=== PATIENT | male | born 1945 | race Caucasian/White ===

== ENCOUNTER 2018-12-13 08:37 | Inpatient (IN) | payer MEDICARE, OTHER ==
[~2018-12-13] VITALS: Ht 165.1 cm; Wt 81.7 kg
[2018-12-13] VITALS (35 sets, daily range): BP systolic 124–191; BP diastolic 59–117; PULSE 68–79; RESP 16–25; Ht 165.1 cm; Wt 81.7 kg
[2018-12-13] MEDS ORDERED: IODIXANOL LOCM 100 ML BTL ONE (11:04)
[2018-12-13] MEDS ORDERED: LIDOCAINE 1% (MDV) 20 ML INJ ONE (11:04)
[2018-12-13] MEDS ORDERED: HEPARIN 1000 UNITS/ML 10 ML INJ ONE (11:04)
[2018-12-13] MEDS ORDERED: FENTAnyl 50 MCG/ML VIAL ONE (11:05)
[2018-12-13] MEDS ORDERED: NITROGLYCERIN (IC) 100 MCG/ML INJ ONE (11:05)
[2018-12-13] MEDS ORDERED: MIDAZOLAM 1 MG/ML 2 ML INJ ONE (11:05)
[2018-12-13] MEDS ORDERED: VERAPAMIL 5 MG INJ ONE (11:05)
[2018-12-13] MEDS ORDERED: BIVALIRUDIN 250MG /NS 50 ML 50 ML IVPB ONE (12:06)
[2018-12-13] MEDS ORDERED: CLOPIDOGREL 300 MG TAB ONE (12:14)
--- NOTE | 2018-12-13 12:59 | OPR ---
Date/Time of Note Date/Time of Note DATE: 12/13/18 TIME: 12:44 Operative Report Procedure Date: Dec 13, 2018 Preoperative Diagnosis NSTEMI, CHF Postoperative Diagnosis same Operation/Procedure Performed see details Surgeon see signature line History Tutor none Anesthesia Type: moderate sedation Estimated Blood Loss: minimal Transfusion none Specimen none Grafts/Implants none Complications none Procedure Description Procedure Date:12/13/18 Acute Care Physical Therapist/surgeon: Juan Antonio Oleary MD. Procedures Performed: 1)Left heart catheterization with selective left and right coronary angiography. 2)iFR of the mid LAD (abnormal at 0.88, 0.89, 0.89) Pre-operative Diagnosis:NSTEMI, dyspnea, CHF Post-operative Diagnosis:same Indications: 73 yo M with DM, ESRD on HD, chronic diastolic CHF, CAD s/p PCI 10+ yrs ago, HTN, who presented with severe exertional dyspnea out of proportion to his CHF. He had identical symptoms prior to his previous stent which resolved. Trops mildly elevated 0.08 but with high concern for unstable anginal equivalent, decision was made to proceed with cardiac cath Description of Procedure: After informed consent, the patient was brought to the cardiac catheterization lab. The procedure site was prepped and draped in usual manner. The patient was not premedicated. 2 mL lidocaine was injected into the right wrist. Next using the posterior wall technique, the 6/5 nicaraguan sheath was inserted into the right radial artery. Next using the JL3.5 and JR4, selective angiography of the left and right coronary arteries were obtained. Hemodynamics were obtained with the JR catheter. The decision was made to proceed with iFR of the LAD. If positive, CABG eval. If negative, PCI of the RCA. A 6 nicaraguan FL3 guide was used. Due to ostial LM disease, the iFR wire was equalized in the aorta. The guide was then engaged and the wire advanced across the lesion. iFR was obtained x 3 showing 0.88, 0.89, 0.89 which are all positive (abnormal) Next all equipment was removed and hemostasis was achieved by TR band Findings: Anatomy/Hemodynamics: Left main:ostial 30% LAD: prox-mid stent with diffuse up to 50-60% ISR Diagonal:ostial 95% Circumflex:mid 50-60% at OM bifurcation Obtuse marginal:ostial 50-60%, bifurcates with inferior branch 70% prox RCA:mid long diffuse up to 70% disease PDA:ostial 30% PLV:distal 40-50% LV angiography:not done LV-Ao: no gradient LVEDP:20mmHg Contrast used:80 mL Fluoroscopy time:8.9 min Medications used: Radial cocktail: heparin 2000 units, NTG 200mcg, verapamil 2.5mg Angiomax Equipment used: 6 nicaraguan JL 3.5 guide iFR wire Estimated blood loss<10 mL. Specimen: none Grafts/implants: none Complications: none Assessment: NSTEMI/CAD: mild trops but symptoms concerning for unstable angina. Cath shows multivessel disease including iFR positive LAD in setting of DM which is ap propriate for CABG Acute on chronic diastolic CHF: EF preserved. Now euvolemic after HD Anemia: Hgb baseline 8-9. On admission, down to 7. Transfused one unit, now 8.3. No bleeding, stool occult negative. Seen by GI at [facility] without plan for procedure. Likely from renal disease ESRD on HD HTN -admit for CABG eval. Dr. Gomes aware -continue ASA, lipitor -metoprolol 25mg BID, titrate as tolerated -hydralazine 100mg TID, isordil 20mg TID JUAN ANTONIO OLEARY Dec 13, 2018 12:59
--- NOTE | 2018-12-13 13:03 | CONS ---
Assessment/Plan Assessment/Plan Hospital Course (Demo Recall) NSTEMI/CAD: mild trops but symptoms concerning for unstable angina. Cath shows multivessel disease including iFR positive LAD in setting of DM which is appropriate for CABG Acute on chronic diastolic CHF: EF preserved. Now euvolemic after HD Anemia: Hgb baseline 8-9. On admission, down to 7. Transfused one unit, now 8.3. No bleeding, stool occult negative. Seen by GI at [facility] without plan for procedure. Likely from renal disease ESRD on HD HTN -admit for CABG eval. Dr. Gomes aware -continue ASA, lipitor -metoprolol 25mg BID, titrate as tolerated -hydralazine 100mg TID, isordil 20mg TID Consultation Date/Type/Reason Admit Date/Time Dec 13, 2018 at 12:40 Initial Consult Date Date/Time of Note DATE: 12/13/18 TIME: 13:02 24 HR Interval Summary Free Text/Dictation s/p cath as detailed in separate note. No issues post procedure. Exam/Review of Systems Exam Vitals Vital Signs Date Temp Pulse Resp B/P (MAP) Pulse Ox O2 O2 Flow FiO2 Time Delivery Rate 12/13/18 98.5 70 16 146/66 97 Room Air 09:15 (92) Constitutional: alert, oriented Psych: no complaints, nl mood/affect Head: normocephalic, atraumatic Neck: No jvd Respiratory: diminished breath sounds; No clear to auscultation Cardiovascular: regular rate and rhythm, edema (trace), systolic murmur (2/6 EDNA) Gastrointestinal: soft, non-tender; No distended Neurological: nl mental status, nl speech Results Results 24hrs Laboratory Tests Test 12/13/18 10:09 Bedside Glucose 122 Medications Medication Current Medications Miscellaneous Information (* Miscellaneous Pharmacy Order) HOLD all METFORMIN ... ONCE ONCE XX ; Start 12/13/18 at 13:00; Stop 12/13/18 at 13:01; Status UNV Metoprolol Tartrate (Lopressor) 25 mg BID PO ; Start 12/13/18 at 21:00; Status UNV Hydralazine HCl (Apresoline) 100 mg QID PO ; Start 12/13/18 at 13:00; Status UNV Isosorbide Dinitrate (Isordil) 20 mg TID PO ; Start 12/13/18 at 13:00; Status UNV Hydralazine HCl (Apresoline) 10 mg Q6 IV ; Start 12/13/18 at 18:00; Status UNV Hydralazine HCl (Apresoline) 10 mg Q6H PRN PO SBP >160; Start 12/13/18 at 13:00; Status UNV Aspirin (Aspirin) 81 mg DAILY PO ; Start 12/13/18 at 13:00; Status UNV Atorvastatin Calcium (Lipitor) 80 mg HS PO ; Start 12/13/18 at 21:00; Status UNV SAGRARIO POLLOCK Dec 13, 2018 13:03
[2018-12-13] MEDS ORDERED: hydrALAzine 20 MG INJ IV PRN ×2 (13:30→18:00)
[2018-12-13] MEDS: ISOSORBIDE DINITRATE 20 MG TAB PO SCH (13:52)
[2018-12-13] MEDS ORDERED: GLUCAGON 1 MG INJ IM PRN (17:00)
[2018-12-13] MEDS ORDERED: GLUCOSE GEL 15 GRAM TUBE BUCCAL PRN (17:00)
[2018-12-13] MEDS: CEFAZOLIN 2 GM/50 ML (PMX) 50 ML IVPB ONE (17:00)
[2018-12-13] MEDS ORDERED: DEXTROSE 50% 50 ML SYRINGE IV PRN ×2 (17:00)
[2018-12-13] MEDS ORDERED: GLUCOSE GEL 15 GRAM TUBE PO PRN ×2 (17:00)
--- NOTE | 2018-12-13 17:11 | CONS ---
Assessment/Plan Assessment/Plan Assessment/Plan (Daily) 73 year old male with severe 3v CAD who will need a CABG. I explained via an operations and maintenance manager the risks, benefits and alternatives of surgery. The risks are but not limited to bleeding, infection, stroke, DC, respiratory failure and . He understand and agrees. Check carotids and plan for surgery Tuesday. Consultation Date/Type/Reason Admit Date/Time Dec 13, 2018 at 12:40 Date of Consultation: Dec 13, [address] SURGERY Reason for Consultation EVAL FOR CABG Requesting Provider: SAGRARIO POLLOCK Date/Time of Note DATE: 12/13/18 TIME: 17:05 Hx of Present Illness 73 year old male with ESRF and CAD s/p PCI of LAD a few years ago admitted to [facility] with SOB and ruled in for NSTEMI. He underwent cath today which shows 3V CAD. We are asked to see for CABG. Constitutional: No no complaints, No improved, No chills, No diaphoresis, No disoriented, No febrile, No poor po, No requiring IVF, No requiring O2, No other Eyes: No no complaints, No pain, No discharge, No redness, No visual change, No other ENT: No no complaints, No bleeding, No pain, No congestion, No discharge, No dysphagia, No sore throat, No other Respiratory: cough, shortness of breath Cardiovascular: chest pain Gastrointestinal: No no complaints, No pain, No blood, No constipation, No decreased appetite, No diarrhea, No flatus, No nausea, No passing stool, No vomiting, No other Genitourinary: No no complaints, No bleeding, No dysuria, No discharge, No flank pain, No hematuria, No other Musculoskeletal: No no complaints, No back pain, No bone/joint pain, No neck pain, No restricted range of motion, No swelling, No other Skin: No no complaints, No bruising, No erythema, No laceration, No pruritis, No rash, No skin lesions, No other Neurologic: No no complaints, No confusion, No dizziness, No focal-weakness, No headache, No syncope, No seizure, No other Endocrine: No no complaints, No polyuria, No polydypsia, No dry skin, No temp intolerance, No other Lymphatic: No no complaints, No adenopathy, No tender nodes, No lymphadema, No other Psychological: No no complaints, No nl mood/affect, No anxiety, No confusion, No depression, No suicidal, No other Immunologic: No no complaints, No immunodeficiency, No pruritis, No rhinitis, No urticaria, No other Past Medical History Medical History: coronary artery disease, diabetes, high cholesterol, hypertension Medications Current Medications Miscellaneous Information (* Miscellaneous Pharmacy Order) HOLD all METFORMIN ... ONCE XX ; Start 12/13/18 at 13:00; Stop 12/15/18 at 12:59 Metoprolol Tartrate (Lopressor) 25 mg BID PO ; Start 12/13/18 at 21:00 Isosorbide Dinitrate (Isordil) 20 mg TID PO Last administered on 12/13/18at 13:52; Admin Dose 20 MG; Start 12/13/18 at 13:00 Aspirin (Aspirin) 81 mg DAILY PO ; Start 12/13/18 at 13:00 Atorvastatin Calcium (Lipitor) 80 mg HS PO ; Start 12/13/18 at 21:00 Hydralazine HCl (Apresoline) 100 mg TID PO Last administered on 12/13/18at 13:51; Admin Dose 100 MG; Start 12/13/18 at 13:00 Hydralazine HCl (Apresoline) 10 mg Q6 PRN IV ELEVATED BLOOD PRESSURE; Start 12/13/18 at 18:00 Miscellaneous Information (* Miscellaneous Pharmacy Order) Discontinue all pre vi... ONCE ONCE XX ; Start 12/13/18 at 18:00; Stop 12/13/18 at 18:01 Diagnostic Test (Pha) (Accu-Chek) 1 ea 02 XX ; Start 12/14/18 at 02:00 Insulin Aspart (Novolog Insulin Pen) NOVOLOG *MILD* ALGORITHM WITH MEALS BEDTIME SC ; Start 12/13/18 at 18:00 Miscellaneous Information 1 ea NOTE XX ; Start 12/13/18 at 17:00 Glucose (Glutose) 15 gm Q15M PRN PO DECREASED GLUCOSE; Start 12/13/18 at 17:00 Glucose (Glutose) 22.5 gm Q15M PRN PO DECREASED GLUCOSE; Start 12/13/18 at 17:00 Dextrose (D50w Syringe) 25 ml Q15M PRN IV DECREASED GLUCOSE; Start 12/13/18 at 17:00 Dextrose (D50w Syringe) 50 ml Q15M PRN IV DECREASED GLUCOSE; Start 12/13/18 at 17:00 Glucagon (Glucagen) 1 mg Q15M PRN IM DECREASED GLUCOSE; Start 12/13/18 at 17:00 Glucose (Glutose) 15 gm Q15M PRN BUCCAL DECREASED GLUCOSE; Start 12/13/18 at 17:00 Cefazolin Sodium/ Dextrose 50 ml @ 100 mls/hr PRE-OP ONCE IVPB ; Start 12/13/18 at 17:00; Stop 12/13/18 at 17:29; Status UNV Allergies: Coded Allergies: No Known Allergy (Unverified , 12/13/18) Past Surgical History permacath, and LUE fistula Family History Significant Family History: no pertinent family hx Social History Alcohol Use: none Smoking Status: Never smoker Drug Use: none Exam/Review of Systems Exam Vitals Vital Signs Date Temp Pulse Resp B/P (MAP) Pulse Ox O2 O2 Flow FiO2 Time Delivery Rate 12/13/18 73 20 150/69 99 Nasal 16:45 (96) Cannula 12/13/18 98.2 16:20 Constitutional: alert, oriented, well developed Psych: no complaints, nl mood/affect Head: normocephalic, atraumatic Eyes: nl conjunctiva, EOMI, nl lids, nl sclera, PERRL Neck: supple, non-tender Respiratory: clear to auscultation, normal air movement Cardiovascular: regular rate and rhythm, nl pulses Gastrointestinal: soft, nl liver, spleen, non-tender Musculoskeletal: nl extremities to inspection, nl gait and stance Extremities: normal pulses, other Neurological: [employer] II-XII intact, nl mental status, nl speech, nl strength Skin: nl turgor; No rash or lesions Lymph: nl lymph nodes Results Result Diagram: 12/13/18 1645 Results 24hrs Laboratory Tests Test 12/13/18 10:09 12/13/18 16:45 Bedside Glucose 122 White Blood Count 7.8 Red Blood Count 2.73 L Hemoglobin 8.2 L Hematocrit 24.4 L Mean Corpuscular Volume 89.4 Mean Corpuscular Hemoglobin 30.0 Mean Corpuscular Hemoglobin Concent 33.6 Red Cell Distribution Width 15.6 H Platelet Count 136 L Mean Platelet Volume 10.2 Immature Granulocytes % 1.400 H Neutrophils % 67.8 Lymphocytes % 23.4 Monocytes % 6.3 Eosinophils % 0.8 Basophils % 0.3 Nucleated Red Blood Cells % 0.0 Immature Granulocytes # 0.110 H Neutrophils # 5.3 Lymphocytes # 1.8 Monocytes # 0.5 Eosinophils # 0.1 Basophils # 0.0 Nucleated Red Blood Cells # 0.0 CBC Results Faxed/Phoned 1 *H Medications Medication Current Medications Miscellaneous Information (* Miscellaneous Pharmacy Order) HOLD all METFORMIN ... ONCE XX ; Start 12/13/18 at 13:00; Stop 12/15/18 at 12:59 Metoprolol Tartrate (Lopressor) 25 mg BID PO ; Start 12/13/18 at 21:00 Isosorbide Dinitrate (Isordil) 20 mg TID PO Last administered on 12/13/18at 13:52; Admin Dose 20 MG; Start 12/13/18 at 13:00 Aspirin (Aspirin) 81 mg DAILY PO ; Start 12/13/18 at 13:00 Atorvastatin Calcium (Lipitor) 80 mg HS PO ; Start 12/13/18 at 21:00 Hydralazine HCl (Apresoline) 100 mg TID PO Last administered on 12/13/18at 13:51; Admin Dose 100 MG; Start 12/13/18 at 13:00 Hydralazine HCl (Apresoline) 10 mg Q6 PRN IV ELEVATED BLOOD PRESSURE; Start 12/13/18 at 18:00 Miscellaneous Information (* Miscellaneous Pharmacy Order) Discontinue all previ... ONCE ONCE XX ; Start 12/13/18 at 18:00; Stop 12/13/18 at 18:01 Diagnostic Test (Pha) (Accu-Chek) 1 ea 02 XX ; Start 12/14/18 at 02:00 Insulin Aspart (Novolog Insulin Pen) NOVOLOG *MILD* ALGORITHM WITH MEALS BEDTIME SC ; Start 12/13/18 at 18:00 Miscellaneous Information 1 ea NOTE XX ; Start 12/13/18 at 17:00 Glucose (Glutose) 15 gm Q15M PRN PO DECREASED GLUCOSE; Start 12/13/18 at 17:00 Glucose (Glutose) 22.5 gm Q15M PRN PO DECREASED GLUCOSE; Start 12/13/18 at 17:00 Dextrose (D50w Syringe) 25 ml Q15M PRN IV DECREASED GLUCOSE; Start 12/13/18 at 17:00 Dextrose (D50w Syringe) 50 ml Q15M PRN IV DECREASED GLUCOSE; Start 12/13/18 at 17:00 Glucagon (Glucagen) 1 mg Q15M PRN IM DECREASED GLUCOSE; Start 12/13/18 at 17:00 Glucose (Glutose) 15 gm Q15M PRN BUCCAL DECREASED GLUCOSE; Start 12/13/18 at 17:00 Cefazolin Sodium/ Dextrose 50 ml @ 100 mls/hr PRE-OP ONCE IVPB ; Start 12/13/18 at 17:00; Stop 12/13/18 at 17:29; Status UNV SHARON GARCIA MD Dec 13, 2018 17:11
[2018-12-13] MEDS: INSULIN ASPART [NOVOLOG] 3 ML PEN SC SCH (17:55)
[2018-12-13] MEDS ORDERED: hydrALAzine 20 MG INJ IV SCH (18:00)
[2018-12-13] MEDS ORDERED: INSULIN ASPART [NOVOLOG] 3 ML PEN SC SCH (18:00)
[2018-12-13] MEDS: ASPIRIN 81 MG TAB PO SCH (18:07)
--- NOTE | 2018-12-13 20:41 | HP ---
DATE OF ADMISSION: 12/13/2018 CHIEF COMPLAINT: Non-STEMI. HISTORY OF PRESENT ILLNESS: This is a 73-year-old male with a past medical history of diabetes, end- stage renal disease on hemodialysis with access with PermCath and left AV fistula. The patient dialy zes Tuesday, Tuesday, Tuesday. Last hemodialysis was Tuesday. The patient has a history of chronic d iastolic heart failure, coronary artery disease status post PCI 10 years ago, history of hypertension , who presented to outside hospital with shortness of breath and dyspnea on exertion. The patient wa s subsequently admitted to the outside hospital. He was found to have elevated troponin. He was rul ed in for acute coronary syndrome, possible non-STEMI. The patient at the outside hospital was also noted to have bronchitis. He was started on antibiotic therapy. The patient was then subsequently t [facility] where he underwent cardiac catheterization. The patient w as found to have multivessel disease with a recommendation made for possible CABG evaluation by Dr. Lili stevenson. Following the procedure, patient was taken to the recovery room. Upon my evaluation of the patient at this time, patient is currently stable. He denies any fevers, c hills, nausea, vomiting. PAST MEDICAL HISTORY: As stated above, history of end-stage renal disease, hypertension, anemia, danielle stolic heart failure, history of coronary artery disease. PAST SURGICAL HISTORY: Status post PermCath placement, status post AV fistula, status post cardiac c ath. FAMILY HISTORY: No family history of kidney disease. SOCIAL HISTORY: He does not drink, smoke or do drugs. MEDICATIONS: The patient's medications have been reviewed. REVIEW OF SYSTEMS: A 14-point review of systems was conducted. Pertinent positives stated in the HP I, otherwise negative. PHYSICAL EXAMINATION: VITAL SIGNS: Blood pressure is 142/68, pulse 78, temperature 98.6. HEENT: Head is normocephalic. NECK: Supple. HEART: Regular rate. LUNGS: Show diminished breath sounds at the bases. ABDOMEN: Soft, nontender to palpation. No rebound or guarding. EXTREMITIES: Negative for clubbing, cyanosis. No edema. DERMATOLOGIC: No rashes. MUSCULOSKELETAL: No joint effusion. NEUROLOGIC: No focal deficits. LABORATORY DATA: At the outside hospital were reviewed. ASSESSMENT AND PLAN: This is a 73-year-old male who presents with: 1. Non-ST segment elevation myocardial infarction, coronary artery disease. The patient is status p ost cardiac cath with multivessel disease. The patient is to be evaluated for a possible CABG. Plan is to continue medical management, continue aspirin and Lipitor, continue metoprolol, continue to mo nitor closely, follow up with Cardiology. 2. End-stage renal disease. The patient is on dialysis Tuesday, Tuesday and Tuesday with access, Pe rmCath and left AV fistula. Plan is to dialyze today. We will dialyze for 3 hours with 3 K bath, ca lcium 2.5, ultrafiltrate as tolerated. 3. Mineral bone disorder. Monitor calcium and phosphorus levels. 4. Possible bronchitis. Continue current antibiotic therapy. Follow up with Infectious Disease. 5. Anemia. Monitor H and H levels. We will give Epogen as needed. 6. Hypertension. Continue current blood pressure regimen. We will adjust the medications as needed . Continue ultrafiltration dialysis. 7. Dyslipidemia. Continue statin therapy. 8. Diabetes. Continue Accu-Cheks, insulin sliding scale. 9. Gastrointestinal and deep venous thrombosis prophylaxis. 10. History of benign prostatic hypertrophy. Continue to monitor. Please note I spent an additional 30 minutes of [id number] time with the patient, discussing advanc e directives, code status. The patient is full code. Dictated By: JAKY HOU DO NR/NTS Conf#: [id number] DID#: [id number] CC: SAGRARIO POLLOCK MD;*EndCC*
[2018-12-13] MEDS ORDERED: METOPROLOL 25 MG TAB PO SCH (21:00)
[2018-12-13] MEDS ORDERED: HEPARIN 1000 UNITS/ML 10 ML INJ CATHETER SCH (22:00)
[2018-12-14] VITALS (12 sets, daily range): BP systolic 121–164; BP diastolic 57–80; PULSE 65–96; RESP 18–20
[2018-12-14] MEDS: ISOSORBIDE DINITRATE 20 MG TAB PO SCH ×4 (00:56→21:00)
[2018-12-14] MEDS: ATORVASTATIN 80 MG TAB PO SCH ×2 (00:57→21:00)
[2018-12-14] MEDS: INSULIN ASPART [NOVOLOG] 3 ML PEN SC SCH ×5 (01:01→21:00)
[2018-12-14] MEDS: ACCU-CHEK XX SCH (02:00)
--- NOTE | 2018-12-14 07:27 | CONS ---
Assessment/Plan Assessment/Plan Hospital Course (Demo Recall) NSTEMI/CAD: mild trops but symptoms concerning for unstable angina. Cath 12/13/18 shows multivessel disease including iFR positive LAD in setting of DM which is appropriate for CABG Acute on chronic diastolic CHF: EF preserved. Now euvolemic after HD Anemia: Hgb baseline 8-9. On admission, down to 7. Transfused one unit. No bleeding, stool occult negative. Seen by GI at [facility] without plan for procedure. Likely from renal disease ESRD on HD HTN -CABG tomorrow with Dr. Gomes -continue ASA, lipitor -increase to metoprolol 50mg BID -hydralazine 100mg TID, isordil 20mg TID Consultation Date/Type/Reason Admit Date/Time Dec 13, 2018 at 12:40 Initial Consult Date Requesting Provider: SAGRARIO POLLOCK Date/Time of Note DATE: 12/14/18 TIME: 07:26 24 HR Interval Summary Free Text/Dictation No events. Seen by Dr. Gomes. Plan for surgery tomorrow. Exam/Review of Systems Exam Vitals Vital Signs Date Temp Pulse Resp B/P (MAP) Pulse Ox O2 O2 Flow FiO2 Time Delivery Rate 12/14/18 98.0 70 19 164/70 97 07:17 (101) 12/14/18 Room Air 04:00 12/14/18 2.0 00:30 Intake and Output 12/13/18 12/13/18 12/14/18 1515:00 23:00 07:00 IntakeIntake Total 100 ml 200 ml 400 ml OutputOutput Total 200 ml 2400 ml BalanceBalance 100 ml 0 ml -2000 ml Constitutional: alert, oriented Psych: no complaints, nl mood/affect Head: normocephalic, atraumatic Neck: No jvd Respiratory: crackles/rales (mild at bases); No clear to auscultation Cardiovascular: No edema Gastrointestinal: soft, non-tender; No distended Neurological: nl mental status, nl speech Results Result Diagram: 12/14/18 0530 12/14/18 0530 Results 24hrs Laboratory Tests Test 12/13/18 10:09 12/13/18 16:45 12/13/18 18:08 12/13/18 20:47 Bedside Glucose 122 146 White Blood Count 7.8 Red Blood Count 2.73 L Hemoglobin 8.2 L Hematocrit 24.4 L Mean Corpuscular 89.4 Volume Mean Corpuscular 30.0 Hemoglobin Mean Corpuscular 33.6 Hemoglobin Concent Red Cell 15.6 H Distribution Width Platelet Count 136 L Mean Platelet Volume 10.2 Immature 1.400 H Granulocytes % Neutrophils % 67.8 Lymphocytes % 23.4 Monocytes % 6.3 Eosinophils % 0.8 Basophils % 0.3 Nucleated Red Blood 0.0 Cells % Immature 0.110 H Granulocytes # Neutrophils # 5.3 Lymphocytes # 1.8 Monocytes # 0.5 Eosinophils # 0.1 Basophils # 0.0 Nucleated Red Blood 0.0 Cells # CBC Results 1 *H Faxed/Phoned Sodium Level 134 L Potassium Level 4.4 Chloride Level 96 L Carbon Dioxide Level 27 Anion Gap 11 Blood Urea Nitrogen 32 H Creatinine 4.64 H Est Glomerular Filtrat Rate mL/min Glucose Level 133 Calcium Level 8.9 Total Bilirubin 0.1 L Direct Bilirubin 0.00 Indirect Bilirubin 0.1 Aspartate Amino 16 Transf (AST/SGOT) Alanine 19 Aminotransferase (AL T/SGPT) Alkaline Phosphatase 107 Total Protein 6.3 Albumin 3.3 Globulin 3.00 Albumin/Globulin 1.10 Ratio Hepatitis B Surface NEGATIVE Antigen Test 12/14/18 00:48 12/14/18 05:30 Bedside Glucose 112 White Blood Count 8.2 Red Blood Count 2.98 L Hemoglobin 8.8 L Hematocrit 26.9 L Mean Corpuscular 90.3 Volume Mean Corpuscular 29.5 Hemoglobin Mean Corpuscular 32.7 Hemoglobin Concent Red Cell 15.3 H Distribution Width Platelet Count 155 Mean Platelet Volume 10.4 Immature 1.300 H Granulocytes % Neutrophils % 73.5 Lymphocytes % 16.5 Monocytes % 7.1 Eosinophils % 1.0 Basophils % 0.6 Nucleated Red Blood 0.0 Cells % Immature 0.110 H Granulocytes # Neutrophils # 6.0 Lymphocytes # 1.4 Monocytes # 0.6 Eosinophils # 0.1 Basophils # 0.1 Nucleated Red Blood 0.0 Cells # Sodium Level 140 Potassium Level 4.6 Chloride Level 98 Carbon Dioxide Level 30 Anion Gap 12 Blood Urea Nitrogen 16 # Creatinine 2.97 #H Est Glomerular Filtrat Rate mL/min Glucose Level 126 Calcium Level 9.1 Phosphorus Level 3.2 Magnesium Level 2.1 Medications Medication Current Medications Miscellaneous Information (* Miscellaneous Pharmacy Order) HOLD all METFORMIN ... ONCE XX ; Start 12/13/18 at 13:00; Stop 12/15/18 at 12:59 Isosorbide Dinitrate (Isordil) 20 mg TID PO Last administered on 12/14/18at 00:56; Admin Dose 20 MG; Start 12/13/18 at 13:00 Aspirin (Aspirin) 81 mg DAILY PO Last administered on 12/13/18at 18:07; Admin Dose 81 MG; Start 12/13/18 at 13:00 Atorvastatin Calcium (Lipitor) 80 mg HS PO Last administered on 12/14/18at 00:57; Admin Dose 80 MG; Start 12/13/18 at 21:00 Hydralazine HCl (Apresoline) 100 mg TID PO Last administered on 12/14/18at 00:57; Admin Dose 100 MG; Start 12/13/18 at 13:00 Hydralazine HCl (Apresoline) 10 mg Q6 PRN IV ELEVATED BLOOD PRESSURE; Start 12/13/18 at 18:00 Diagnostic Test (Pha) (Accu-Chek) 1 ea 02 XX ; Start 12/14/18 at 02:00 Insulin Aspart (Novolog Insulin Pen) NOVOLOG *MILD* ALGORITHM WITH MEALS BEDTIME SC ; Start 12/13/18 at 17:55 Miscellaneous Information 1 ea NOTE XX ; Start 12/13/18 at 17:00 Glucose (Glutose) 15 gm Q15M PRN PO DECREASED GLUCOSE; Start 12/13/18 at 17:00 Glucose (Glutose) 22.5 gm Q15M PRN PO DECREASED GLUCOSE; Start 12/13/18 at 17:00 Dextrose (D50w Syringe) 25 ml Q15M PRN IV DECREASED GLUCOSE; Start 12/13/18 at 17:00 Dextrose (D50w Syringe) 50 ml Q15M PRN IV DECREASED GLUCOSE; Start 12/13/18 at 17:00 Glucagon (Glucagen) 1 mg Q15M PRN IM DECREASED GLUCOSE; Start 12/13/18 at 17:00 Glucose (Glutose) 15 gm Q15M PRN BUCCAL DECREASED GLUCOSE; Start 12/13/18 at 17:00 Heparin Sodium (Porcine) (Heparin (1000 Units/ml)) 3,100 unit AFTER DIALYSIS CATHETER Last administered on 12/14/18at 00:36; Admin Dose 3,100 UNIT; Start 12/13/18 at 22:00 Metoprolol Tartrate (Lopressor) 50 mg BID PO ; Start 12/14/18 at 09:00; Status UNV SAGRARIO POLLOCK Dec 14, 2018 07:27
[2018-12-14] MEDS: ASPIRIN 81 MG TAB PO SCH (08:07)
[2018-12-14] MEDS: METOPROLOL 50 MG TAB PO SCH ×2 (08:07→21:00)
--- NOTE | 2018-12-14 09:47 | PN ---
DATE: 12/14/2018 SUBJECTIVE: The patient is stable, had hemodialysis yesterday morning. No other events noted. OBJECTIVE: VITAL SIGNS: Blood pressure is 164/70, respiration 19, pulse 70, temperature 98.0. HEENT: Head is normocephalic. NECK: Supple. HEART: Regular rate. LUNGS: Show diminished breath sounds at the base. ABDOMEN: Soft, nontender to palpation without rebound or guarding. EXTREMITIES: Negative for clubbing, cyanosis, no edema. DERMATOLOGIC: No rashes. MUSCULOSKELETAL: No joint effusion. NEUROLOGIC: No change in exam. MEDICATIONS: The patient's medications have been reviewed. LABORATORY DATA: Shows a white count 8.2, hemoglobin 8.8, platelet count is 155. Sodium 140, potass ium 4.6, BUN 16, creatinine 0.296. IMAGING STUDIES: Reviewed. ASSESSMENT AND PLAN: 1. Non-ST elevated myocardial infarction. The patient is status post cardiac catheterization with m ultivessel disease. The patient was evaluated by CT surgeon, Dr. Gomes and is planning for possible coronary artery bypass grafting on Tuesday. No other events noted. Continue medical management. 2. End-stage renal disease. The patient had hemodialysis yesterday, tolerated well. Plan for dialy sis again tomorrow, possibly after a cardiac catheterization or before. 3. Mineral bone disorder. Monitor calcium and phosphorus. 4. Possible bronchitis. Patient is on antibiotic therapy. Will continue. I spoke with infectious disease. We will follow their recommendations. 5. Anemia. Monitor H and H levels, will give Epogen as needed. 6. Hypertension. Continue current blood pressure regimen. Continue ultrafiltration dialysis. 7. Dyslipidemia. Continue statin therapy. 8. Diabetes. Continue Accu-Cheks and insulin sliding scale. 9. History of benign prostatic hypertrophy. 10. Gastrointestinal and deep vein thrombosis prophylaxis. Dictated By: JAKY HOU DO NR/NTS Conf#: [id number] DID#: [id number] CC: SAGRARIO POLLOCK MD;*EndCC*
[2018-12-14] MEDS ORDERED: ACETAMINOPHEN 325 MG TAB PO PRN (11:30)
[2018-12-14] MEDS ORDERED: morphine 2 MG INJ IV STA (13:01)
[2018-12-14] MEDS ORDERED: HYDROCODONE/APAP (5/325) TAB PO PRN (13:30)
[2018-12-14] MEDS ORDERED: IODIXANOL LOCM 100 ML BTL ONE (16:19)
[2018-12-14] MEDS ORDERED: SOD CHLORIDE 0.9% 100 ML ONE (16:19)
[2018-12-15] VITALS (50 sets, daily range): BP systolic 61–162; BP diastolic 29–70; PULSE 64–95; RESP 14–26; TEMP 94.8–99.4
[2018-12-15] MEDS: NORepinephrine 8MG/250 ML (PMX 250 ML IV SCH (00:30)
[2018-12-15] MEDS: ACCU-CHEK XX SCH ×13 (02:00→23:00)
[2018-12-15] MEDS ORDERED: VANCOMYCIN 1 GM INJ ONE ×2 (06:40→09:05)
[2018-12-15] MEDS ORDERED: HEPARIN 1000 UNITS/ML 10 ML INJ ONE ×3 (06:40→09:00)
[2018-12-15] MEDS ORDERED: PAPAVERINE 60 MG INJ ONE (06:40)
[2018-12-15] MEDS ORDERED: MILRINONE LACTATE 2 MG in SOD CHLORIDE 0.9% 50 ML IV ONE (07:00)
[2018-12-15] MEDS ORDERED: ASPIRIN 600 MG SUPP PR ONE (07:00)
[2018-12-15] MEDS ORDERED: HEPARIN (10000 UNITS/ML) 10,000 UNIT, MILRINONE LACTATE 10 MG in SOD CHLORIDE 0.9% 1,00... SC ONE (07:00)
[2018-12-15] MEDS ORDERED: EPINEPHrine 4 MG in DEXTROSE 5% 246 ML IV SCH (07:00)
[2018-12-15] MEDS ORDERED: INSULIN HUMAN REGULAR 100 UNIT in SOD CHLORIDE 0.9% 99 ML IVPB ONE (07:00)
--- NOTE | 2018-12-15 07:01 | PREAC ---
Date/Time of Note Date/Time of Note DATE: 12/15/18 TIME: 06:57 Anesthesia Eval and Record Evaluation Time Pre-Procedure Interview DATE: 12/15/18 TIME: 06:57 Age 73 Sex male NPO: 8 hrs Preoperative diagnosis CAD Planned procedure CABG Past Medical History Past Medical History: Includes Cardio: HTN, Dyslipidemia Endo: Diabetes Pulm: COPD Surgery & Anesthesia Issues No known issue Meds Anticoagulation: Yes Beta Audrey within 24 hr: Yes Current Medications Miscellaneous Information (* Miscellaneous Pharmacy Order) HOLD all METFORMIN ... ONCE XX Last administered on 12/14/18at 13:00; Admin Dose 1 EA; Start at 13:00; Stop 12/15/18 at 12:59 Isosorbide Dinitrate (Isordil) 20 mg TID PO Last administered on 12/14/18at 21:00; Admin Dose 20 MG; Start 12/13/18 at 13:00 Aspirin (Aspirin) 81 mg DAILY PO Last administered on 12/14/18at 08:07; Admin Dose 81 MG; Start 12/13/18 at 13:00 Atorvastatin Calcium (Lipitor) 80 mg HS PO Last administered on 12/14/18at 21:00; Admin Dose 80 MG; Start 12/13/18 at 21:00 Hydralazine HCl (Apresoline) 100 mg TID PO Last administered on 12/14/18at 21:00; Admin Dose 100 MG; Start 12/13/18 at 13:00 Hydralazine HCl (Apresoline) 10 mg Q6 PRN IV ELEVATED BLOOD PRESSURE; Start 12/13/18 at 18:00 Diagnostic Test (Pha) (Accu-Chek) 1 ea 02 XX ; Start 12/14/18 at 02:00 Insulin Aspart (Novolog Insulin Pen) NOVOLOG *MILD* ALGORITHM WITH MEALS BEDTIME SC Last administered on 12/14/18at 17:27; Admin Dose 4 UNIT; Start 12/13/18 at 17:55 Miscellaneous Information 1 ea NOTE XX ; Start 12/13/18 at 17:00 Glucose (Glutose) 15 gm Q15M PRN PO DECREASED GLUCOSE; Start 12/13/18 at 17:00 Glucose (Glutose) 22.5 gm Q15M PRN PO DECREASED GLUCOSE; Start 12/13/18 at 17:00 Dextrose (D50w Syringe) 25 ml Q15M PRN IV DECREASED GLUCOSE; Start 12/13/18 at 17:00 Dextrose (D50w Syringe) 50 ml Q15M PRN IV DECREASED GLUCOSE; Start 12/13/18 at 17:00 Glucagon (Glucagen) 1 mg Q15M PRN IM DECREASED GLUCOSE; Start 12/13/18 at 17:00 Glucose (Glutose) 15 gm Q15M PRN BUCCAL DECREASED GLUCOSE; Start 12/13/18 at 17:00 Heparin Sodium (Porcine) (Heparin (1000 Units/ml)) 3,100 unit AFTER DIALYSIS CATHETER Last administered on 12/14/18at 00:36; Admin Dose 3,100 UNIT; Start 12/13/18 at 22:00 Metoprolol Tartrate (Lopressor) 50 mg BID PO Last administered on 12/14/18at 21:00; Admin Dose 50 MG; Start 12/14/18 at 09:00 Acetaminophen (Tylenol Tab) 650 mg Q4H PRN PO MILD PAIN(1-3)OR ELEVATED TEMP Last administered on 12/14/18at 12:01; Admin Dose 650 MG; Start 12/14/18 at 11:30 Acetaminophen/ Hydrocodone Bitart ([place] (5/325)) 1 tab Q6H PRN PO MODERATE PAIN LEVEL 4-6; Start 12/14/18 at 13:30 Insulin Human Regular 100 unit/ Sodium Chloride 100 ml @ 0 mls/hr Q0M ONCE IVPB ; Start 12/15/18 at 07:00; Stop 12/15/18 at 07:01 Norepinephrine 8 mg/Dextrose 250 ml @ 0 mls/hr ONCE IV ; Start 12/15/18 at 07:00; Stop 12/15/18 at 14:30 Epinephrine 4 mg/ Dextrose 250 ml @ 0 mls/hr Q0M IV ; Start 12/15/18 at 07:00; Stop 12/15/18 at 14:30 Phenylephrine HCl 20 mg/Dextrose 250 ml @ 0 mls/hr ONCE IV ; Start 12/15/18 at 07:00; Stop 12/15/18 at 14:30 Aspirin (Aspirin) 600 mg ONCE ONCE OK ; Start 12/15/18 at 07:00; Stop 12/15/18 at 07:01 Heparin Sodium (Porcine) 34749 unit/Milrinone Lactate 10 mg/ Sodium Chloride 1,011 ml @ 0 mls/hr ONCE ONCE SC ; Start 12/15/18 at 07:00; Stop 12/15/18 at 07:01 Milrinone Lactate 2 mg/Sodium Chloride 52 ml @ 0 mls/hr ONCE ONCE IV ; Start 12/15/18 at 07:00; Stop 12/15/18 at 07:01 Meds reviewed: Yes Allergies Coded Allergies: No Known Allergy (Unverified , 12/13/18) Allergies Reviewed: Yes Labs/Studies Labs Reviewed: Reviewed by anesthesiologist Result Diagram: 12/15/18 0516 12/14/18 0530 Laboratory Tests 12/15/18 05:16 test: N/A Studies: ECG Pre-procedure Exam Last vitals Vital Signs Date Temp Pulse Resp B/P (MAP) Pulse Ox O2 O2 Flow FiO2 Time Delivery Rate 12/15/18 97.8 64 19 162/70 94 04:00 (100) 12/14/18 Room Air 12:00 12/14/18 2.0 00:30 Airway: Adequate mouth opening, Adequate thyromental dist Mallampati: Mallampati II Teeth: Normal Lung: Normal Heart: Normal ASA Physical Status ASA physical status: 4 Emergency: None Planned Anesthetic General/MAC: ETT Planned Pain Management Parenteral pain med Pre-operative Attestations Prior to commencing anesthesia and surgery, the patient was re-evaluated, there was verification of: *The patient's identity *The results of appropriate recent lab work and preoperative vital signs *The above evaluation not changing prior to induction *Anesthetic plan, risk benefits, alternative and complications discussed with patient/family; questions answered; patient/family understands, accepts and wishes to proceed. EMILY BACON MD Dec 15, 2018 07:01
[2018-12-15] MEDS ORDERED: MIDAZOLAM 5 ML ONE ×2 (07:06→09:35)
[2018-12-15] MEDS ORDERED: PHENYLephrine (100 MCG/ML) 5ML SYG ONE ×2 (07:09→09:40)
[2018-12-15] MEDS ORDERED: MAGNESIUM SULFATE (MG) 50% 10 ML INJ ONE (07:12)
[2018-12-15] MEDS ORDERED: POTASSIUM CHLORIDE 40 MEQ INJ ONE (07:12)
[2018-12-15] MEDS ORDERED: LIDOCAINE 100 MG SYRINGE ONE (07:13)
[2018-12-15] MEDS ORDERED: PHENYLephrine 10 MG INJ ONE ×2 (07:13→13:05)
[2018-12-15] MEDS ORDERED: CA CHLORIDE 10% 10 ML SYRINGE ONE (07:13)
[2018-12-15] MEDS ORDERED: NA BICARBONATE 8.4% 50 ML SYG ONE ×2 (07:13→23:46)
[2018-12-15] MEDS ORDERED: ALBUMIN HUMAN 25% 100 ML ONE (07:14)
[2018-12-15] MEDS ORDERED: AMINOCAPROIC ACID 5 GM INJ ONE ×2 (07:14→10:34)
--- NOTE | 2018-12-15 07:14 | HPN ---
Date/Time of Note Date/Time of Note DATE: 12/15/18 TIME: 07:14 Interval H&P Admission Note Pt. seen H&P reviewed: No system changes SHARON GARCIA MD Dec 15, 2018 07:14
[2018-12-15] MEDS ORDERED: MANNITOL 20% 500 ML ONE (07:15)
[2018-12-15] MEDS ORDERED: CEFAZOLIN 1 GM INJ ONE ×2 (08:35→10:40)
[2018-12-15] MEDS: ASPIRIN 81 MG TAB PO SCH (09:00)
[2018-12-15] MEDS ORDERED: SOD CHLORIDE 0.9% 250 ML IV* ONE (09:38)
[2018-12-15] MEDS ORDERED: FUROSEMIDE 10 ML ONE (09:38)
--- NOTE | 2018-12-15 09:45 | PN ---
DATE: 12/15/2018 SUBJECTIVE: The patient is noted to have a headache yesterday. 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 The patient's headaches, however, has resolved. No neurological symptoms note d. OBJECTIVE: VITAL SIGNS: Blood pressure is 162/70, respirations 19, pulse 64, temperature 97.8. HEENT: Head is normocephalic. NECK: Supple. HEART: Regular rate. LUNGS: Show diminished breath sounds at the base. ABDOMEN: Soft, nontender to palpation. No rebound or guarding. EXTREMITIES: Negative for clubbing, cyanosis, no edema. DERMATOLOGIC: No rashes. MUSCULOSKELETAL: No joint effusion. NEUROLOGIC: No change in exam. MEDICATIONS: Reviewed. LABORATORY DATA: Reviewed. IMAGING STUDY: CT imaging has been reviewed. ASSESSMENT AND PLAN: 1. Non-ST elevated myocardial infarction. The patient is pending coronary artery bypass graft by Dr Damir Gomes. 2. Headache, resolved. 3. 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 This may be incidental finding. There is no evide nce of bleed. Continue to monitor. 4. End-stage renal disease. Anticipate hemodialysis either later today or tomorrow following surger y. 5. Mineral bone disorder, monitor calcium and phosphorus levels. 6. Possible bronchitis. The patient is completing antibiotic course. 7. Anemia. Continue to monitor hemoglobin and hematocrit levels. Continue Epogen. 8. Hypertension. Continue current blood pressure regimen. 9. Dyslipidemia. Continue statin therapy. 10. Diabetes. Continue current insulin regimen. 11. History of benign prostatic hypertrophy. 12. Gastrointestinal and deep vein thrombosis prophylaxis. Dictated By: JAKY HOU DO NR/NTS Conf#: [id number] DID#: [id number] CC: SAGRARIO POLLOCK MD;*EndCC*
[2018-12-15] MEDS ORDERED: DOPamine-D5W 1.6 MG/ML 250 ML ONE (10:40)
[2018-12-15] MEDS ORDERED: ISOFLURANE 15 MIN ONE (10:40)
[2018-12-15] MEDS ORDERED: NITROGLYCERIN 50 MG/D5W 250 ML BTL ONE (10:40)
[2018-12-15] MEDS ORDERED: INSULIN REGULAR, HUMAN 100 UNIT/1 ML 3ML VIAL ONE (10:40)
[2018-12-15] MEDS ORDERED: ROCURONIUM 50 MG INJ ONE (10:43)
[2018-12-15] MEDS ORDERED: PROTAMINE 250 MG INJ ONE (10:43)
[2018-12-15] MEDS ORDERED: LIDOCAINE 2% (SDV) 5 ML INJ ONE (10:43)
[2018-12-15] MEDS ORDERED: ETOMIDATE 20 MG INJ ONE (10:43)
[2018-12-15] MEDS ORDERED: NEOMYC/POLYMYX/BACIT 3.5GM OPH OINT ONE (11:53)
--- NOTE | 2018-12-15 12:03 | SIPON ---
Date/Time of Note Date/Time of Note DATE: 12/15/18 TIME: 12:02 Operative Report Preoperative Diagnosis NSTEMI, 3V CAD Postoperative Diagnosis SAME Operation/Procedure Performed CABGX4. CHENG TO LAD, SVG TO PDA, SVG TO DIAG1 SEQUENCED OT OM Surgeon see signature line social science research assistant BHANU ZIMMERMAN MD Second assist: DAVID LOPEZ Anesthesia: general Estimated blood loss: other Transfusion Required none Specimen NONE Grafts/Implants none Complications none SHARON GARCIA MD Dec 15, 2018 12:03
[2018-12-15] MEDS: CEFAZOLIN 1 GM/50 ML (PMX) 50 ML IVPB SCH (12:30)
[2018-12-15] MEDS ORDERED: DEXTROSE 50% 50 ML SYRINGE IV PRN ×2 (12:30)
[2018-12-15] MEDS ORDERED: HYDROmorphONE 0.5 MG/0.5 ML SYG IV PRN ×2 (12:30)
[2018-12-15] MEDS ORDERED: ACETAMINOPHEN 325 MG TAB PO PRN (12:30)
[2018-12-15] MEDS ORDERED: NITROGLYCERIN 50 MG/D5W (PMX) 250 ML IV SCH ×2 (12:30→13:00)
[2018-12-15] MEDS ORDERED: DOPamine-D5W 1.6 MG/ML 250 ML IV SCH (12:30)
[2018-12-15] MEDS: PHENYLephrine 20MG IN 250 ML 250 ML IV SCH ×4 (12:30→18:31)
[2018-12-15] MEDS ORDERED: OXYCODONE/ACETAMINOPHEN (5/325) TAB PO PRN (12:30)
[2018-12-15] MEDS ORDERED: ONDANSETRON 4 MG INJ IV PRN (12:30)
[2018-12-15] MEDS ORDERED: ALBUMIN HUMAN 5% 250 ML ONE (12:33)
--- NOTE | 2018-12-15 12:48 | PAC ---
Date/Time of Note Date/Time of Note DATE: 12/15/18 TIME: 12:48 Post-Anesthesia Notes Post-Anesthesia Note Last documented vital signs Vital Signs Date Temp Pulse Resp B/P (MAP) Pulse Ox O2 O2 Flow FiO2 Time Delivery Rate 12/15/18 97.8 64 19 162/70 94 04:00 (100) 12/14/18 Room Air 12:00 12/14/18 2.0 00:30 Activity: WNL Respiratory function: WNL Cardiovascular function: WNL Mental status: Baseline Pain reasonably controlled: Yes Hydration appropriate: Yes Nausea/Vomiting absent: Yes Comments BP:105/52, P;88, Spo2:100%, T:98,8 EMILY BACON MD Dec 15, 2018 12:48
[2018-12-15] MEDS: CEFAZOLIN 2 GM/50 ML (PMX) 50 ML IVPB ONE (13:41)
[2018-12-15] MEDS ORDERED: NORepinephrine 8MG/250 ML (PMX 250 ML IV SCH (14:00)
--- NOTE | 2018-12-15 14:11 | OPR ---
DATE OF OPERATION: 12/15/2018 PREOPERATIVE DIAGNOSES: Non-ST elevation myocardial infarction, 3-vessel coronary artery disease. POSTOPERATIVE DIAGNOSES: Non-ST elevation myocardial infarction, 3-vessel coronary artery disease. PROCEDURE PERFORMED: CABG x4, CHENG to LAD, SVG to PDA, SVG to diagonal artery #1, sequenced to obtus e marginal artery, endoscopic vein harvesting, epiaortic scanning of the ascending aorta, removal of tunneled right IJ Perm-A-Cath. SURGEON: Sharon Gomes MD SENIOR PROGRAM MANAGER: Aj Zimmerman MD SECOND CARDIOVASCULAR PHYSICIAN ASSISTANT: DAWN Lu ANESTHESIOLOGIST: Dr. Arroyo. ANESTHESIA: General endotracheal. COMPLICATIONS: None. FINDINGS: It was difficult to access the central veins. He had a Perm-A-Cath at his right IJ and we decided to remove this so that anesthesia can place a central line. Even after doing this it was di fficult to float the swan. LV function was good pre- and post-revascularization. The flow in the LI MA to LAD was 34 mL per minute. The flow in the RCA was 67 mL per minute and the flow in the diagona l OM was 86 mL per minute. Cardiopulmonary bypass time was 68 minutes. Crossclamp time was 44 minut es. No atheromas or plaques were noted in the ascending aorta. INDICATION: The patient is a 73-year-old male with end-stage renal failure who was admitted to [facility] with a non-STEMI. He was transferred to [place], where he underwent coronary angiogr am showed severe 3-vessel coronary artery disease. He was referred for CABG. The risks, benefits an d alternatives were explained to the patient understood and consented. DESCRIPTION OF PROCEDURE: The patient was brought to the operating room, was placed in supine positi on. He was induced and underwent general endotracheal intubation without complications. Lines were placed. After I removed a tunneled Perm-A-Cath they were able to obtain a Cordis within the right IJ . They were not able to float the swan because of partial obstruction. Antibiotics were given. He was prepped and draped in usual sterile fashion. Median sternotomy was made simultaneous to endoscop ic vein harvesting from the right lower extremity. Heparin was given. CHENG was taken down using cli ps and cautery. Pericardium was established. The ascending aorta was scanned. There were no athero mas or plaques. Pursestring was placed in the ascending aorta followed by the right atrium. The can nulas were placed. Once ACT was adequate, we commenced cardiopulmonary bypass, we gave antegrade car dioplegia and arrested the heart using topical ice and antegrade cardioplegia. Once the heart was ar rested, we identified the PDA, made arteriotomy, extended with Carrington scissors, anastomosed our vein g raft using 7-0 Prolene in running fashion in end-to-side manner. The vein grafts cut to length. We then identified the OM and made an arteriotomy, extended with Carrington scissors, anastomosed our vein gr aft using 7-0 Prolene in running fashion in end-to-side manner. We then identified the diagonal fernando ry #1. Beta arteriotomy and venotomy were performed [id number]-upfv anastomosis using 7-0 Prolene in ru nning fashion in end-to-side manner. We then identified the LAD, made arteriotomy, extended with Pot ts scissors, anastomosed our CHENG using 7-0 Prolene in running fashion in end-to-side manner. We the n rewarmed the patient, gave warm blood, removed crossclamp, cardioverted into normal sinus rhythm, p laced a ventricular pacing wire, placed a partial clamp on the ascending aorta, made 2 aortotomies, a nastomosed our vein graft using 5-0 Prolene in running fashion in end-to-side manner. Partial clamp was removed. Vein grafts were deaired. Distal hemostasis was achieved. We then began ventilating a nd weaned him off cardiopulmonary bypass. Protamine was given. We de-lined the patient. We placed a left pleural tube and anterior mediastinal tube and then closed the chest using interrupted cables followed by closure using 0 Vicryl and closure of the skin using 4-0 Monocryl in subcuticular fashion . Dressings were applied. The patient was taken to the ICU in critical but stable condition. Dictated By: SHARON SANDOVAL/EDUARD Conf#: [id number] DID#: [id number] CC: SAGRARIO POLLOCK MD; AJ ZIMMERMAN MD; DAVID HOLDERA;*EndCC*
[2018-12-15] MEDS: DOPamine-D5W 1.6 MG/ML 250 ML IV SCH (14:39)
[2018-12-15] MEDS: INSULIN HUMAN REGULAR 100 UNIT in SOD CHLORIDE 0.9% 99 ML IV SCH (14:40)
[2018-12-15] MEDS ORDERED: ALBUMIN HUMAN 5% 250 ML IV ONE (15:00)
[2018-12-15] MEDS: POTASSIUM CHLORIDE 40 MEQ, CALCIUM CHLORIDE 10% 1 GM in DEXTROSE 5%-0.225% NACL 1,000 ML IV SCH (16:13)
--- NOTE | 2018-12-15 18:05 | CONS ---
Assessment/Plan Assessment/Plan Hospital Course (Demo Recall) NSTEMI CAD: status post CABG x4 (CHENG-LAD, SVG-PDA, SVG-diag-OM) on 12/15/2018 Acute on chronic diastolic CHF: EF preserved. Now euvolemic after HD Anemia ESRD on HD HTN -post-operative care -wean pressors as needed -continue aspirin and atorvastatin -will need new dialysis catheter placement Consultation Date/Type/Reason Admit Date/Time Dec 13, 2018 at 12:40 Initial Consult Date 12/13/18 Type of Consult Cardiology Date/Time of Note DATE: 12/15/18 TIME: 18:01 24 HR Interval Summary Free Text/Dictation Status post CABG x4. Stable. Remains intubated. Remains on pressors. Permacath was apparently removed during PA catheter placement. Detailed Summary Additional Comments Unable to obtain review of systems, patient is intubated. Exam/Review of Systems Vital Signs Vitals Vital Signs Date Temp Pulse Resp B/P (MAP) Pulse Ox O2 O2 Flow FiO2 Time Delivery Rate 12/15/18 91 14 106/49 17:15 (68) 12/15/18 98.7 100 17:00 12/15/18 50 17:00 12/14/18 Room Air 12:00 12/14/18 2.0 00:30 Intake and Output 12/14/18 12/14/18 12/15/18 1515:00 23:00 07:00 IntakeIntake Total 500 ml 650 ml BalanceBalance 500 ml 650 ml Exam Constitutional: No alert, No distress Psych: No nl mood/affect Head: normocephalic, atraumatic Eyes: nl conjunctiva, nl lids ENMT: nl external ears & nose, nl nasal mucosa & septum Respiratory: clear to auscultation; No wheezing Cardiovascular: regular rate and rhythm, other (sternotomy wound) Gastrointestinal: soft, non-tender Musculoskeletal: nl extremities to inspection Extremities: No cyanosis, No clubbing, No edema Neurological: No nl mental status, No nl speech Labs Result Diagram: 12/15/18 1300 12/15/18 1300 Results 24hrs Laboratory Tests Test 12/14/18 20:45 12/15/18 05:16 12/15/18 06:33 12/15/18 07:17 Bedside Glucose 168 178 White Blood Count 9.7 Red Blood Count 2.85 L Hemoglobin 8.4 L Hematocrit 25.9 L Mean Corpuscular 90.9 Volume Mean Corpuscular 29.5 Hemoglobin Mean Corpuscular 32.4 Hemoglobin Concen t Red Cell 15.3 H Distribution Width Platelet Count 153 Mean Platelet 11.2 H Volume Immature 1.800 H Granulocytes % Neutrophils % 69.4 Lymphocytes % 19.6 Monocytes % 7.3 Eosinophils % 1.5 Basophils % 0.4 Nucleated Red 0.0 Blood Cells % Immature 0.170 H Granulocytes # Neutrophils # 6.7 Lymphocytes # 1.9 Monocytes # 0.7 Eosinophils # 0.2 Basophils # 0.0 Nucleated Red 0.0 Blood Cells # Sodium Level 135 Potassium Level 4.9 Chloride Level 93 L Carbon Dioxide 27 Level Anion Gap 15 H Blood Urea 35 #H Nitrogen Creatinine 4.95 #H Est Glomerular Filtrat Rate mL/min Glucose Level 157 Calcium Level 9.0 Phosphorus Level 5.2 #H Magnesium Level 2.3 Prothrombin Time 13.8 Prothrombin Time 1.1 Ratio INR International 1.05 Normalized Ratio Activated 43.9 H Partial Thrombopl ast Time Test 12/15/18 12:05 12/15/18 13:00 12/15/18 13:16 12/15/18 14:37 Blood Gas Blood arterial Specimen Source Arterial Blood 12/15/2018 1:20:0 Date Drawn 0 PM Arterial Blood pH 7.311 L (Temp corrected) Arterial Blood 44.9 pCO2 (Temp correct) Arterial Blood 281.1 H pO2 (Temp corrected) Arterial Blood 22.2 HCO3 Arterial Blood -4.0 L Base Excess Arterial Blood 98.7 Oxygen Saturation Ru Test ACCEPTAB Arterial Blood A-Line Gas Puncture Site Arterial 0.2 Blood Carboxyhemo globin Arterial Blood 0.4 Methemoglobin Blood Gas A-a O2 169.7 H Differential Oxyhemoglobin 98.1 Percent Blood Gas 37.0 Temperature Blood Gas 14.0 Respiration Rate Blood Gas Actual 14 Respiration Rate Blood Gas VENT - AC Modality FiO2 70.0 Blood Gas Tidal 550.0 Volume Blood Gas Low 5.0 PEEP Setting Blood Gas TM Notified Whom Blood Gas 12/15/2018 1:29:0 Notified Time 0 PM White Blood Count 24.5 #H Red Blood Count 2.97 L Hemoglobin 8.9 L Hematocrit 26.6 L Mean Corpuscular 89.6 Volume Mean Corpuscular 30.0 Hemoglobin Mean Corpuscular 33.5 Hemoglobin Concen t Red Cell 14.8 H Distribution Width Platelet Count 149 Mean Platelet 10.0 Volume Immature 3.100 H Granulocytes % Neutrophils % 80.0 H Lymphocytes % 11.0 L Monocytes % 4.6 Eosinophils % 0.9 Basophils % 0.4 Nucleated Red 0.0 Blood Cells % Immature 0.770 H Granulocytes # Neutrophils # 19.6 H Lymphocytes # 2.7 Monocytes # 1.1 H Eosinophils # 0.2 Basophils # 0.1 Nucleated Red 0.0 Blood Cells # Prothrombin Time 16.0 H Prothrombin Time 1.3 Ratio INR International 1.27 Normalized Ratio Activated 35.1 H Partial Thrombopl ast Time Sodium Level 139 Potassium Level 3.6 Chloride Level 100 Carbon Dioxide 21 Level Anion Gap 18 H Blood Urea 29 H Nitrogen Creatinine 4.54 H Est Glomerular Filtrat Rate mL/min Glucose Level 150 Calcium Level 8.7 Magnesium Level 3.9 H Bedside Glucose 159 200 Test 12/15/18 15:34 12/15/18 16:37 12/15/18 17:38 Bedside Glucose 240 H 233 H 245 H Medications Medications Current Medications Aspirin (Aspirin) 81 mg DAILY PO Last administered on 12/14/18at 08:07; Admin Dose 81 MG; Start 12/13/18 at 13:00 Atorvastatin Calcium (Lipitor) 80 mg HS PO Last administered on 12/14/18at 21:00; Admin Dose 80 MG; Start 12/13/18 at 21:00 Diagnostic Test (Pha) (Accu-Chek) 1 ea Q1H XX Last administered on 12/15/18at 17:30; Admin Dose 1 EA; Start 12/15/18 at 12:30 Insulin Human Regular 100 unit/ Sodium Chloride 100 ml @ 0 mls/hr PER PROTOCOL IV Last administered on 12/15/18at 14:40; Admin Dose 3 MLS/HR; Start 12/15/18 at 12:30 Miscellaneous Information (* Miscellaneous Pharmacy Order) Treatment of Hypoglycemia: 1.BG 51... Per protocol XX ; Start 12/15/18 at 12:30 Dextrose (D50w Syringe) 25 ml Q15M PRN IV .DECREASED GLUCOSE; Start 12/15/18 at 12:30 Dextrose (D50w Syringe) 50 ml Q15M PRN IV .DECREASED GLUCOSE; Start 12/15/18 at 12:30 Potassium Chloride 40 meq/ Calcium Chloride 1 gm/Dextrose/ Sodium Chloride 1,030 ml @ 60 mls/hr [id number] IV Last administered on 12/15/18at 16:13; Admin Dose 60 MLS/HR; Start 12/15/18 at 14:00 Cefazolin Sodium 50 ml @ 100 mls/hr Q12H IVPB ; Start 12/15/18 at 12:30; Stop 12/16/18 at 12:59 Hydromorphone HCl (Dilaudid) 0.2 mg Q15M PRN IV PAIN LEVEL 1-5; Start 12/15/18 at 12:30 Hydromorphone HCl (Dilaudid) 0.4 mg Q15M PRN IV PAIN LEVEL 6-10; Start 12/15/18 at 12:30 Oxycodone/ Acetaminophen (Percocet (5/ 325)) 1 tab Q3H PRN PO PAIN LEVEL 1-5; Start 12/15/18 at 12:30 Ondansetron HCl (Zofran Inj) 4 mg Q6H PRN IV NAUSEA AND/OR VOMITING; Start 12/15/18 at 12:30 Famotidine (Pepcid Iv) 20 mg DAILY IV ; Start 12/15/18 at 20:00 Acetaminophen (Tylenol Tab) 650 mg Q3H PRN PO ELEVATED TEMPERATURE; Start 12/15/18 at 12:30 Nitroglycerin/ Dextrose 250 ml @ 1.5 mls/hr PER PROTOCOL IV ; Start 12/15/18 at 13:00 Dopamine HCl/ Dextrose 250 ml @ 6.128 mls/ hr PER PROTOCOL IV Last administered on 12/15/18at 14:39; Admin Dose 15.319 MLS/HR; Start 12/15/18 at 13:00 Norepinephrine 250 ml @ 1.875 mls/ hr PER PROTOCOL IV Last administered on 12/15/18at 00:30; Admin Dose 28.125 MLS/HR; Start 12/15/18 at 14:00 Phenylephrine HCl 250 ml @ 75 mls/hr PER PROTOCOL IV Last administered on 12/15/18at 16:21; Admin Dose 112.5 MLS/HR; Start 12/15/18 at 14:00 JU MENDIETA MD Dec 15, 2018 18:05
[2018-12-15] MEDS: FAMOTIDINE 20 MG INJ IV SCH (20:26)
[2018-12-15] MEDS: ATORVASTATIN 80 MG TAB PO SCH (21:00)
[2018-12-16] VITALS (96 sets, daily range): BP systolic 46–175; BP diastolic 26–62; PULSE 48–111; RESP 12–32; TEMP 98.5–100.3
[2018-12-16] MEDS ORDERED: NA BICARBONATE 8.4% 50 ML SYG IV ONE
[2018-12-16] MEDS: ACCU-CHEK XX SCH ×24 (00:21→23:21)
[2018-12-16] MEDS: CEFAZOLIN 1 GM/50 ML (PMX) 50 ML IVPB SCH ×2 (01:17→12:48)
[2018-12-16] MEDS: NORepinephrine 8MG/250 ML (PMX 250 ML IV SCH (01:43)
[2018-12-16] MEDS: PHENYLephrine 20MG IN 250 ML 250 ML IV SCH (01:45)
[2018-12-16] MEDS: DOPamine-D5W 1.6 MG/ML 250 ML IV SCH (02:13)
[2018-12-16] MEDS: INSULIN HUMAN REGULAR 100 UNIT in SOD CHLORIDE 0.9% 99 ML IV SCH (03:18)
[2018-12-16] MEDS ORDERED: PROPOFOL 100 ML ONE (05:33)
[2018-12-16] MEDS: PROPOFOL 100 ML IV SCH ×2 (06:00→17:58)
[2018-12-16] MEDS ORDERED: HEPARIN 1000 UNITS/ML 10 ML INJ ONE (06:05)
--- NOTE | 2018-12-16 06:43 | PN ---
Date/Time of Note Date/Time of Note DATE: 12/16/18 TIME: 05:51 Assessment/Plan Lines/Catheters IV Catheter Type (from Nrsg): Peripheral IV Assessment/Plan Assessment/Plan s/p cabg extubated reintubated end stage renal disease left common femoral mendoza catheter placed Subjective 24 Hr Interval Summary Subjective hx not possible: pt critical status, other (reintubated emergently by myself) Feeding: NPO Pain Control: well controlled Exam/Review of Systems Vital Signs Vitals Vital Signs Date Temp Pulse Resp B/P (MAP) Pulse Ox O2 O2 Flow FiO2 Time Delivery Rate 12/16/18 82 17 100 100 05:34 12/16/18 102/39 BIPAP 04:30 (60) 12/16/18 99.0 04:00 12/16/18 5.0 00:19 Intake and Output 12/15/18 12/15/18 12/16/18 1515:00 23:00 07:00 IntakeIntake Total 3711.92 ml 1189.294 ml 510.241 ml OutputOutput Total 430 ml 183 ml 193 ml BalanceBalance 3281.92 ml 1006.294 ml 317.241 ml Exam Constitutional: distress Head: normocephalic Eyes: nl conjunctiva ENMT: nl lips & teeth Neck: supple Respiratory: labored breathing Cardiovascular: regular rate and rhythm, other (dopamine levophed) Gastrointestinal: soft Results Result Diagram: 12/16/180 12/16/180 DECLAN ZIMMERMAN MD Dec 16, 2018 06:43
[2018-12-16] MEDS: POTASSIUM CHLORIDE 40 MEQ, CALCIUM CHLORIDE 10% 1 GM in DEXTROSE 5%-0.225% NACL 1,000 ML IV SCH ×2 (07:10→09:36)
--- NOTE | 2018-12-16 07:18 | OPR ---
DATE OF OPERATION: 12/16/2018 PREOPERATIVE DIAGNOSES: Status post coronary artery bypass grafting, end-stage renal disease. POSTOPERATIVE DIAGNOSES: Status post coronary artery bypass grafting, end-stage renal disease. OPERATION PERFORMED: Left common femoral vein Anam catheter insertion. SURGEON: Declan Guerrero MD. ANESTHESIA: General endotracheal with 1% lidocaine local. DESCRIPTION OF PROCEDURE: The patient was in the intensive care unit recently reintubated and sedate d. Left groin was prepped and draped with ChloraPrep. 1% was infiltrated. An 0.018 Cook needle ins erted into the left common femoral vein. The flexible guidewire was passed. Dilators were passed ov er the guidewire. A 23 cm Anam catheter was passed over the guidewire. The guidewire was removed . There was excellent venous blood return through all 3 limbs of the catheter. The catheter was flu shed with heparinized saline solution and secured to skin with 3-0 silk suture. Sterile dressing was applied. No complications. Dictated By: DECLAN ALBERT/EDUARD Conf#: [id number] DID#: [id number]
[2018-12-16] MEDS ORDERED: HEPARIN (100 UNITS/ML) 5 ML SYG CATHETER ONE (08:00)
[2018-12-16] MEDS ORDERED: EPOETIN 10000 UNITS/1 ML INJ (ESRD) SC ONE (08:00)
[2018-12-16] MEDS: ASPIRIN 81 MG TAB PO SCH ×2 (08:19→13:33)
[2018-12-16] MEDS: FAMOTIDINE 20 MG INJ IV SCH (08:41)
--- NOTE | 2018-12-16 08:47 | PN ---
DATE: 12/16/2018 SUBJECTIVE: The patient underwent cardiac CABG yesterday. Following surgery, the patient was transf erred to intensive care unit where the patient was on pressor support. The patient was extubated; keron dover, overnight the patient went into respiratory distress, required reintubation. No other events noted. No hemoptysis, hematemesis or hematochezia. OBJECTIVE: VITAL SIGNS: Blood pressure is 106/42, respirations 16, pulse 72, temperature 98.7. HEENT: Head is normocephalic. NECK: Supple. HEART: Regular rate. LUNGS: Show diminished breath sounds at base. ABDOMEN: Soft, nontender to palpation without rebound or guarding. EXTREMITIES: Negative for clubbing, cyanosis. Trace edema. DERMATOLOGIC: No rashes. MUSCULOSKELETAL: No joint effusions. NEUROLOGIC: Limited exam. CHEST: Patient has mediastinum tubes. MEDICATIONS: Have been reviewed. LABORATORY DATA: Showed a sodium 136, potassium 6.0, chloride 98, BUN 33, creatinine 5.62 phosphorus 6.3. White count 16.5, hemoglobin 7.7, platelet count is 146. The patient's medications have been reviewed. IMAGING: The patient's chest x-ray was reviewed. ASSESSMENT AND PLAN: 1. Coronary artery disease. The patient is status post CABG x4. Plan is to continue current medica l management. Continue pressor support, inotropic support. We will follow up with CT surgery for re commendations. 2. End-stage renal disease. Plan is for hemodialysis today. The patient will be dialyzed for 3 jose carlos rs on 2k bath, calcium 2.5, ultrafiltrate as tolerated. 3. Ventilator-dependent respiratory failure. The patient was extubated and reintubated. Vent setti ngs were reviewed. ABG was reviewed. Continue to monitor. Follow up with pulmonary. 4. Anemia. Monitor hemoglobin and hematocrit levels. The patient's hemoglobin levels are slowly vincenzo nding down. Continue to monitor. Will give Epogen. 5. Mineral bone disorder. Monitor calcium and phosphorus levels. 6. Systemic inflammatory response syndrome. The patient has elevated white count. Currently on ant ibiotic therapy. We will follow up with infectious disease for recommendations. 7. Intracranial aneurysm, currently stable. Continue to monitor. 8. Diabetes. Continue current insulin regimen. 9. Dyslipidemia. Continue statin therapy. 10. History of benign prostatic hypertrophy. 11. Gastrointestinal and deep vein thrombosis prophylaxis. 12. Hyperkalemia. The patient will be dialyzed on a low potassium bath. 13. Hypomagnesemia, etiology secondary to end-stage renal disease. Anticipate hemodialysis today. Please note I spent over 30 minutes of critical care time with this patient. Dictated By: JAKY HOU DO NR/NTS Conf#: [id number] DID#: [id number] CC: SAGRARIO POLLOCK MD;*EndCC*
[2018-12-16] MEDS ORDERED: HEPARIN 1000 UNITS/ML 10 ML INJ CATHETER SCH (10:30)
--- NOTE | 2018-12-16 12:32 | CONS ---
Assessment/Plan Assessment/Plan Assessment/Plan (Daily) IMP: 1. Hypercapnic Respiratory Failure--s/p extubation post CABG. Possibly due to a combination of volume overload and sedation. 2. Post OP day #1 s/p CABG 3. Cardiogenic Shock 4. CHF/CAD 5. ESRD on HD 6. Anemia RECS: 1. Vent support with VAC VT 500; PEEP 5 2. HD with UF 3. Sedation with propofol and fentanyl gtt 4. Pressors to maintain MAP > 65 mm Hg 5. Follow lactate clearance 6. Will retry weaning in 1-2 days after HD/UF and fluid balance negative Consultation Date/Type/Reason Admit Date/Time Dec 13, 2018 at 12:40 Date of Consultation: Dec 16, 2018 Type of Consult Pulm/CCM Date/Time of Note DATE: 12/16/18 TIME: 12:22 Hx of Present Illness Briefly, this is a 73-year-old male with a past medical history of diabetes, end-stage renal disease on hemodialysis with access with PermCath and left AV fistula, CAD, CHF, admitted for ACS s/p LHC--> found to have multivessel disease requiring CABG. He underwent CABG yesterday. Post-operatively, he remained on vasopressors. He was extubated last pm, however, his course was complicated by respiratory distress requiring re-intubation. He is now sedated on mechanical ventilation. Subjective hx not possible: pt non-verbal Past Medical History Medical History: coronary artery disease, diabetes, high cholesterol, hypertension Medications Current Medications Aspirin (Aspirin) 81 mg DAILY PO Last administered on 12/14/18at 08:07; Admin Dose 81 MG; Start 12/13/18 at 13:00 Atorvastatin Calcium (Lipitor) 80 mg HS PO Last administered on 12/14/18at 21:00; Admin Dose 80 MG; Start 12/13/18 at 21:00 Diagnostic Test (Pha) (Accu-Chek) 1 ea Q1H XX Last administered on 12/16/18at 07:20; Admin Dose 1 EA; Start 12/15/18 at 12:30 Insulin Human Regular 100 unit/ Sodium Chloride 100 ml @ 0 mls/hr PER PROTOCOL IV Last administered on 12/16/18at 03:18; Admin Dose 0.5 MLS/HR; Start 12/15/18 at 12:30 Miscellaneous Information (* Miscellaneous Pharmacy Order) Treatment of Hypoglycemia: 1.BG 51... Per protocol XX ; Start 12/15/18 at 12:30 Dextrose (D50w Syringe) 25 ml Q15M PRN IV .DECREASED GLUCOSE; Start 12/15/18 at 12:30 Dextrose (D50w Syringe) 50 ml Q15M PRN IV .DECREASED GLUCOSE; Start 12/15/18 at 12:30 Potassium Chloride 40 meq/ Calcium Chloride 1 gm/Dextrose/ Sodium Chloride 1,030 ml @ 60 mls/hr [id number] IV Last administered on 12/16/18at 09:36; Admin Dose 60 MLS/HR; Start 12/15/18 at 14:00 Cefazolin Sodium 50 ml @ 100 mls/hr Q12H IVPB Last administered on 12/16/18at 01:17; Admin Dose 100 MLS/HR; Start 12/15/18 at 12:30; Stop 12/16/18 at 12:59 Hydromorphone HCl (Dilaudid) 0.2 mg Q15M PRN IV PAIN LEVEL 1-5 Last administered on 12/15/18at 22:38; Admin Dose 0.2 MG; Start 12/15/18 at 12:30 Hydromorphone HCl (Dilaudid) 0.4 mg Q15M PRN IV PAIN LEVEL 6-10; Start 12/15/18 at 12:30 Oxycodone/ Acetaminophen (Percocet (5/ 325)) 1 tab Q3H PRN PO PAIN LEVEL 1-5; Start 12/15/18 at 12:30 Ondansetron HCl (Zofran Inj) 4 mg Q6H PRN IV NAUSEA AND/OR VOMITING; Start 12/15/18 at 12:30 Famotidine (Pepcid Iv) 20 mg DAILY IV Last administered on 12/16/18at 08:41; Admin Dose 20 MG; Start 12/15/18 at 20:00 Acetaminophen (Tylenol Tab) 650 mg Q3H PRN PO ELEVATED TEMPERATURE; Start 12/15/18 at 12:30 Nitroglycerin/ Dextrose 250 ml @ 1.5 mls/hr PER PROTOCOL IV ; Start 12/15/18 at 13:00 Dopamine HCl/ Dextrose 250 ml @ 6.128 mls/ hr PER PROTOCOL IV Last administered on 12/16/18at 02:13; Admin Dose 14.4 MLS/HR; Start 12/15/18 at 13:00 Norepinephrine 250 ml @ 1.875 mls/ hr PER PROTOCOL IV Last administered on 12/16/18at 01:43; Admin Dose 18.75 MLS/HR; Start 12/15/18 at 14:00 Phenylephrine HCl 250 ml @ 75 mls/hr PER PROTOCOL IV Last administered on 12/16/18at 01:45; Admin Dose 7.5 MLS/HR; Start 12/15/18 at 14:00 Propofol 100 ml @ 2.451 mls/ hr Q12H IV Last administered on 12/16/18at 06:00; Admin Dose 4.902 MLS/HR; Start 12/16/18 at 05:30 Epoetin Ever (Epogen (Esrd)) 10,000 units MoWeFr@17 SC ; Start 12/18/18 at 17:00 Heparin Sodium (Porcine) (Heparin (1000 Units/ml)) 3,000 unit PRN CATHETER ; Start 12/16/18 at 10:30; Stop 12/16/18 at 23:00 Allergies: Coded Allergies: No Known Allergy (Unverified , 12/13/18) Past Surgical History Past Surgical Hx: coronary bypass surgery Social History Alcohol Use: none Smoking Status: Never smoker Drug Use: none Exam/Review of Systems Exam Vitals Vital Signs Date Temp Pulse Resp B/P (MAP) Pulse Ox O2 O2 Flow FiO2 Time Delivery Rate 12/16/18 100 12:00 12/16/18 16 142/52 99 Mechanical 10:00 (82) Ventilator 12/16/18 98.6 10:00 12/16/18 40 09:51 12/16/18 5.0 00:19 Intake and Output 12/15/18 12/15/18 12/16/18 1515:00 23:00 07:00 IntakeIntake Total 3711.92 ml 1189.294 ml 595.364 ml OutputOutput Total 430 ml 183 ml 233 ml BalanceBalance 3281.92 ml 1006.294 ml 362.364 ml Constitutional: well developed, non-verbal Head: normocephalic, atraumatic Eyes: nl conjunctiva, nl sclera ENMT: nl external ears & nose, intubated Neck: supple, non-tender, jvd Respiratory: clear to auscultation Cardiovascular: regular rate and rhythm Gastrointestinal: soft, nl liver, spleen, non-tender Musculoskeletal: nl extremities to inspection Extremities: normal pulses Neurological: [employer] II-XII intact, DTR's symmetric Results Result Diagram: 12/16/18 0430 12/16/18 0430 Results 24hrs Laboratory Tests Test 12/15/18 13:00 12/15/18 13:16 12/15/18 14:37 12/15/18 15:34 White Blood 24.5 #H Count Red Blood Count 2.97 L Hemoglobin 8.9 L Hematocrit 26.6 L Mean 89.6 Corpuscular Volume Mean 30.0 Corpuscular Hemoglobin Mean 33.5 Corpuscular Hemoglobin Conc ent Red Cell 14.8 H Distribution Width Platelet Count 149 Mean Platelet 10.0 Volume Immature 3.100 H Granulocytes % Neutrophils % 80.0 H Lymphocytes % 11.0 L Monocytes % 4.6 Eosinophils % 0.9 Basophils % 0.4 Nucleated Red 0.0 Blood Cells % Immature 0.770 H Granulocytes # Neutrophils # 19.6 H Lymphocytes # 2.7 Monocytes # 1.1 H Eosinophils # 0.2 Basophils # 0.1 Nucleated Red 0.0 Blood Cells # Prothrombin 16.0 H Time Prothrombin 1.3 Time Ratio INR 1.27 International Normalized Rati o Activated 35.1 H Partial Thrombo plast Time Sodium Level 139 Potassium Level 3.6 Chloride Level 100 Carbon Dioxide 21 Level Anion Gap 18 H Blood Urea 29 H Nitrogen Creatinine 4.54 H Est Glomerular Filtrat Rate mL/min Glucose Level 150 Calcium Level 8.7 Magnesium Level 3.9 H Bedside Glucose 159 200 240 H Test 12/15/18 16:37 12/15/18 17:38 12/15/18 18:26 12/15/18 18:45 Bedside Glucose 233 H 245 H 210 White Blood 17.2 #H Count Red Blood Count 2.79 L Hemoglobin 8.3 L Hematocrit 24.8 L Mean 88.9 Corpuscular Volume Mean 29.7 Corpuscular Hemoglobin Mean 33.5 Corpuscular Hemoglobin Conc ent Red Cell 15.2 H Distribution Width Platelet Count 139 L Mean Platelet 10.2 Volume Immature 2.100 H Granulocytes % Neutrophils % 86.4 H Lymphocytes % 5.3 L Monocytes % 5.0 Eosinophils % 0.9 Basophils % 0.3 Nucleated Red 0.0 Blood Cells % Immature 0.370 H Granulocytes # Neutrophils # 14.9 H Lymphocytes # 0.9 Monocytes # 0.9 Eosinophils # 0.2 Basophils # 0.1 Nucleated Red 0.0 Blood Cells # Prothrombin 15.3 H Time Prothrombin 1.2 Time Ratio INR 1.20 International Normalized Rati o Activated 34.7 Partial Thrombo plast Time Sodium Level 134 L Potassium Level 3.5 Chloride Level 99 Carbon Dioxide 19 L Level Anion Gap 16 H Blood Urea 30 H Nitrogen Creatinine 4.98 H Est Glomerular Filtrat Rate mL/min Glucose Level 202 Calcium Level 8.6 Phosphorus 2.0 #L Level Magnesium Level 3.5 H Test 12/15/18 19:59 12/15/18 20:21 12/15/18 21:01 12/15/18 22:01 Bedside Glucose 176 155 152 Blood Gas Blood Specimen arterial Source Arterial Blood 12/15/2018 8:29 Date Drawn :30 PM Arterial Blood 7.357 pH (Temp corrected ) Arterial Blood 36.2 pCO2 (Temp correct) Arterial Blood 121.6 H pO2 (Temp corrected ) Arterial Blood 19.9 L HCO3 Arterial Blood -5.1 L Base Excess Arterial Blood 97.8 Oxygen Saturati on Ru Test N/A Arterial Blood A-Line Gas Puncture Site Arterial 0.3 Blood Carboxyhe moglobin Arterial Blood 0.8 Methemoglobin Blood Gas A-a 122.0 H O2 Differential Oxyhemoglobin 96.7 Percent Blood Gas 37.0 Temperature Blood Gas 14.0 Respiration Rate Blood Gas 21 Actual Respiration Rat e Blood Gas VENT - AC Modality FiO2 40.0 Blood Gas Tidal 550.0 Volume Blood Gas Mean 14 Airway Pressure Blood Gas Low 5.0 PEEP Setting Blood Gas 27.0 Inspiratory Pressure Blood Gas DAKSHA MANE Notified Whom Blood Gas 12/15/2018 8:41 Notified Time :54 PM Test 12/15/18 22:59 12/15/18 23:25 12/16/18 00:04 12/16/18 00:45 Bedside Glucose 123 116 Blood Gas Blood Specimen arterial Source Arterial Blood 12/15/2018 11:1 Date Drawn 9:59 PM Arterial Blood 7.291 *L pH (Temp corrected ) Arterial Blood 39.8 pCO2 (Temp correct) Arterial Blood 95.6 H pO2 (Temp corrected ) Arterial Blood 18.8 L HCO3 Arterial Blood -7.3 L Base Excess Arterial Blood 96.0 Oxygen Saturati on Ru Test N/A Arterial Blood A-Line Gas Puncture Site Arterial 0.3 Blood Carboxyhe moglobin Arterial Blood 0.6 Methemoglobin Blood Gas A-a 143.8 H O2 Differential Oxyhemoglobin 95.1 Percent Blood Gas 37.0 Temperature Blood Gas 20 Actual Respiration Rat e Blood Gas VENT - CPAP Modality FiO2 40.0 Blood Gas Low 5.0 PEEP Setting Blood Gas KELLENEdel MARROQUIN Critical Value .R.N. Read Back Blood Gas DAKSHA MANE Notified Whom Blood Gas 12/15/2018 11:3 Notified Time 2:41 PM White Blood 15.7 H Count Red Blood Count 2.60 L Hemoglobin 7.7 L Hematocrit 23.7 L Mean 91.2 Corpuscular Volume Mean 29.6 Corpuscular Hemoglobin Mean 32.5 Corpuscular Hemoglobin Conc ent Red Cell 15.6 H Distribution Width Platelet Count 143 Mean Platelet 11.5 H Volume Immature 2.000 H Granulocytes % Neutrophils % 81.9 H Lymphocytes % 5.4 L Monocytes % 9.1 Eosinophils % 1.2 Basophils % 0.4 Nucleated Red 0.0 Blood Cells % Immature 0.320 H Granulocytes # Neutrophils # 12.8 H Lymphocytes # 0.8 Monocytes # 1.4 H Eosinophils # 0.2 Basophils # 0.1 Nucleated Red 0.0 Blood Cells # Sodium Level 136 Potassium Level 4.7 Chloride Level 98 Carbon Dioxide 21 Level Anion Gap 17 H Blood Urea 32 H Nitrogen Creatinine 5.14 H Est Glomerular Filtrat Rate mL/min Glucose Level 91 # Calcium Level 8.6 Magnesium Level 3.2 H Test 12/16/18 01:10 12/16/18 01:26 12/16/18 02:09 12/16/18 03:00 Blood Gas Blood arterial Blood Specimen arterial Source Arterial Blood 12/16/2018 1:06: 12/16/2018 2:55 Date Drawn 25 AM :28 AM Arterial Blood 7.269 *L 7.314 L pH (Temp corrected ) Arterial Blood 48.9 H 40.8 pCO2 (Temp correct) Arterial Blood 84.4 87.7 pO2 (Temp corrected ) Arterial Blood 21.9 L 20.3 L HCO3 Arterial Blood -4.9 L -5.5 L Base Excess Arterial Blood 94.6 L 95.6 Oxygen Saturati on Ru Test N/A N/A Arterial Blood A-Line A-Line Gas Puncture Site Arterial 0.3 0.3 Blood Carboxyhe moglobin Arterial Blood 0.6 0.7 Methemoglobin Blood Gas A-a 115.6 H 150.6 H O2 Differential Oxyhemoglobin 93.7 94.6 Percent Blood Gas 37.0 37.0 Temperature Blood Gas 23 23 Actual Respiration Rat e Blood Gas NASAL CANNULA MASK - BIPAP Modality FiO2 36.0 40.0 Blood Gas Hortensia GUERRERO Critical Value R.NDamir Read Back Blood Gas DAKSHA MANE RCP Notified Whom Blood Gas 12/16/2018 1:18: 12/16/2018 3:03 Notified Time 49 AM :59 AM Bedside Glucose 105 88 101 Blood Gas 20.0 Respiration Rate Blood Gas 10 Pressure Support Blood Gas 15/5 IPAP/EPAP Ratio Test 12/16/18 04:03 12/16/18 04:30 12/16/18 04:50 12/16/18 06:00 Bedside Glucose 124 167 White Blood 16.5 H Count Red Blood Count 2.59 L Hemoglobin 7.7 L Hematocrit 23.5 L Mean 90.7 Corpuscular Volume Mean 29.7 Corpuscular Hemoglobin Mean 32.8 Corpuscular Hemoglobin Conc ent Red Cell 15.8 H Distribution Width Platelet Count 146 Mean Platelet 11.0 H Volume Immature 1.600 H Granulocytes % Neutrophils % 82.3 H Lymphocytes % 5.7 L Monocytes % 9.1 Eosinophils % 0.9 Basophils % 0.4 Nucleated Red 0.0 Blood Cells % Immature 0.260 H Granulocytes # Neutrophils # 13.6 H Lymphocytes # 0.9 Monocytes # 1.5 H Eosinophils # 0.2 Basophils # 0.1 Nucleated Red 0.0 Blood Cells # Prothrombin 15.9 H Time Prothrombin 1.2 Time Ratio INR 1.26 International Normalized Rati o Activated 36.0 H Partial Thrombo plast Time Sodium Level 136 Potassium Level 6.0 H Chloride Level 98 Carbon Dioxide 20 L Level Anion Gap 18 H Blood Urea 33 H Nitrogen Creatinine 5.62 H Est Glomerular Filtrat Rate mL/min Glucose Level 117 Calcium Level 8.8 Phosphorus 6.3 #H Level Magnesium Level 3.2 H Blood Gas Blood Specimen arterial Source Arterial Blood 12/16/2018 4:47 Date Drawn :35 AM Arterial Blood 7.319 L pH (Temp corrected ) Arterial Blood 37.5 pCO2 (Temp correct) Arterial Blood 101.0 H pO2 (Temp corrected ) Arterial Blood 18.8 L HCO3 Arterial Blood -6.7 L Base Excess Arterial Blood 97.0 Oxygen Saturati on Ru Test N/A Arterial Blood A-Line Gas Puncture Site Arterial 0.3 Blood Carboxyhe moglobin Arterial Blood 0.5 Methemoglobin Blood Gas A-a 141.1 H O2 Differential Oxyhemoglobin 96.2 Percent Blood Gas 37.0 Temperature Blood Gas 20.0 Respiration Rate Blood Gas 22 Actual Respiration Rat e Blood Gas MASK - BIPAP Modality FiO2 40.0 Blood Gas 10 Pressure Support Blood Gas 07/02 IPAP/EPAP Ratio Blood Gas DAKSHA MANE Notified Whom Blood Gas 12/16/2018 5:00 Notified Time :31 AM Test 12/16/18 06:30 12/16/18 07:19 12/16/18 08:11 12/16/18 08:58 Blood Gas Blood arterial Specimen Source Arterial Blood 12/16/2018 8:15: Date Drawn 50 AM Arterial Blood 7.369 pH (Temp corrected ) Arterial Blood 31.9 L pCO2 (Temp correct) Arterial Blood 321.0 H pO2 (Temp corrected ) Arterial Blood 18.0 L HCO3 Arterial Blood -6.6 L Base Excess Arterial Blood 99.2 Oxygen Saturati on Ru Test N/A Arterial Blood A-Line Gas Puncture Site Arterial 0.1 Blood Carboxyhe moglobin Arterial Blood 0.9 Methemoglobin Blood Gas A-a 360.1 H O2 Differential Oxyhemoglobin 98.2 Percent Blood Gas 37.0 Temperature Blood Gas 16.0 Respiration Rate Blood Gas 16 Actual Respiration Rat e Blood Gas VENT - AC Modality FiO2 100.0 Blood Gas Tidal 600.0 Volume Blood Gas Low 5.0 PEEP Setting Blood Gas DT Notified Whom Blood Gas 12/16/2018 8:35: Notified Time 53 AM Bedside Glucose 129 125 127 Test 12/16/18 09:53 12/16/18 10:57 Bedside Glucose 114 107 Medications Medication Current Medications Aspirin (Aspirin) 81 mg DAILY PO Last administered on 12/14/18at 08:07; Admin Dose 81 MG; Start 12/13/18 at 13:00 Atorvastatin Calcium (Lipitor) 80 mg HS PO Last administered on 12/14/18at 21:00; Admin Dose 80 MG; Start 12/13/18 at 21:00 Diagnostic Test (Pha) (Accu-Chek) 1 ea Q1H XX Last administered on 12/16/18 07 :20; Admin Dose 1 EA; Start 12/15/18 at 12:30 Insulin Human Regular 100 unit/ Sodium Chloride 100 ml @ 0 mls/hr PER PROTOCOL IV Last administered on 12/16/18 03:18; Admin Dose 0.5 MLS/HR; Start 12/15/18 at 12:30 Miscellaneous Information (* Miscellaneous Pharmacy Order) Treatment of Hypoglycemia: 1.BG 51... Per protocol XX ; Start 12/15/18 at 12:30 Dextrose (D50w Syringe) 25 ml Q15M PRN IV .DECREASED GLUCOSE; Start 12/15/18 at 12:30 Dextrose (D50w Syringe) 50 ml Q15M PRN IV .DECREASED GLUCOSE; Start 12/15/18 at 12:30 Potassium Chloride 40 meq/ Calcium Chloride 1 gm/Dextrose/ Sodium Chloride 1,030 ml @ 60 mls/hr [id number] IV Last administered on 12/16/18at 09:36; Admin Dose 60 MLS/HR; Start 12/15/18 at 14:00 Cefazolin Sodium 50 ml @ 100 mls/hr Q12H IVPB Last administered on 12/16/18at 0 1:17; Admin Dose 100 MLS/HR; Start 12/15/18 at 12:30; Stop 12/16/18 at 12:59 Hydromorphone HCl (Dilaudid) 0.2 mg Q15M PRN IV PAIN LEVEL 1-5 Last administered on 12/15/18at 22:38; Admin Dose 0.2 MG; Start 12/15/18 at 12:30 Hydromorphone HCl (Dilaudid) 0.4 mg Q15M PRN IV PAIN LEVEL 6-10; Start 12/15/18 at 12:30 Oxycodone/ Acetaminophen (Percocet (5/ 325)) 1 tab Q3H PRN PO PAIN LEVEL 1-5; Start 12/15/18 at 12:30 Ondansetron HCl (Zofran Inj) 4 mg Q6H PRN IV NAUSEA AND/OR VOMITING; Start 12/15/18 at 12:30 Famotidine (Pepcid Iv) 20 mg DAILY IV Last administered on 12/16/18at 08:41; Admin Dose 20 MG; Start 12/15/18 at 20:00 Acetaminophen (Tylenol Tab) 650 mg Q3H PRN PO ELEVATED TEMPERATURE; Start 12/15/18 at 12:30 Nitroglycerin/ Dextrose 250 ml @ 1.5 mls/hr PER PROTOCOL IV ; Start 12/15/18 at 13:00 Dopamine HCl/ Dextrose 250 ml @ 6.128 mls/ hr PER PROTOCOL IV Last administered on 12/16/18at 02:13; Admin Dose 14.4 MLS/HR; Start 12/15/18 at 13:00 Norepinephrine 250 ml @ 1.875 mls/ hr PER PROTOCOL IV Last administered on 12/16/18at 01:43; Admin Dose 18.75 MLS/HR; Start 12/15/18 at 14:00 Phenylephrine HCl 250 ml @ 75 mls/hr PER PROTOCOL IV Last administered on 12/16/18at 01:45; Admin Dose 7.5 MLS/HR; Start 12/15/18 at 14:00 Propofol 100 ml @ 2.451 mls/ hr Q12H IV Last administered on 12/16/18at 06:00; Admin Dose 4.902 MLS/HR; Start 12/16/18 at 05:30 Epoetin Ever (Epogen (Esrd)) 10,000 units MoWeFr@17 SC ; Start 12/18/18 at 17:00 Heparin Sodium (Porcine) (Heparin (1000 Units/ml)) 3,000 unit PRN CATHETER ; Start 12/16/18 at 10:30; Stop 12/16/18 at 23:00 DARIUS GREENBERG MD Dec 16, 2018 12:32
--- NOTE | 2018-12-16 13:18 | CONS ---
DATE OF ADMISSION: 12/13/2018 DATE OF CONSULTATION: 12/16/2018 TYPE OF CONSULTATION: Infectious Disease. REASON FOR CONSULTATION: Antibiotic management. HISTORY OF PRESENT ILLNESS: Minor Fischer is a 73-year-old male with numerous problems wh o was admitted with a non-STEMI and is being seen for antibiotic management. Past problems include: 1. Adult-onset diabetes mellitus. 2. End-stage renal disease on hemodialysis. 3. Status post Perm-A-Cath. 4. Left AV fistula. His last hemodialysis was Tuesday, which was 2 days prior to admission. He has chronic diastolic hear t failure, coronary artery disease, status post PCI 10 years ago and history of hypertension and pres ents to the outside hospital with shortness of breath and dyspnea on exertion. The patient was found to have elevated troponin and bronchitis, was started on antibiotic therapy. He was then transferre d to [facility] and underwent cardiac catheterization. He has multivessel disease with amrik mmendation for possible coronary artery bypass graft by Dr. Gomes. PAST MEDICAL HISTORY: Essentially as outlined. FAMILY HISTORY: Noncontributory. SOCIAL HISTORY: Does not smoke, drink or abuse drugs. ALLERGIES: NONE TO PENICILLIN, SULFA OR FOODS. MEDICATIONS: Per chart. REVIEW OF SYSTEMS: Noncontributory. HOSPITAL COURSE: The patient was seen by Dr. Gomes on the . He had a coronary artery bypass gra ft x4. The CHENG to the LAD, SVG to PDA, SVG to diagonal artery #1, sequence to obtuse marginal arter y, endoscopic vein harvesting, removal of tunneled right IJ Perm-A-Cath. Patient had left common fem oral vein Anam catheter inserted by Dr. Guerrero. The patient transferred to the intensive care uni on pressor support, was extubated but then reintubated. PHYSICAL EXAMINATION: VITAL SIGNS: Stable, in no acute distress. SKIN: Without generalized rash. HEENT: Within normal limits. NECK: Supple. LYMPH NODES: None palpable. CHEST: Decreased breath sounds at the bases. HEART: Without murmur or gallop. THORAX: He has a bandage over his mid sternotomy scar, has multiple lines. ABDOMEN: Soft, nontender, without organosplenomegaly or masses. EXTREMITIES: Without cyanosis, clubbing, or edema. RECTAL AND GENITAL: Deferred. NEUROLOGIC: No focal neurological abnormalities. LABORATORY DATA: White count 16.5, hemoglobin 7.7, platelet count of 146,000. BUN and creatinine 33 /5.65. End-stage renal disease for dialysis today, ventilatory dependent respiratory failure. His white cou nt is 16.5, H and H of 7.7 and 23.5, platelet count of 146,000. BUN and creatinine 33/5.62. Hepatit is surface antigen is negative. The patient is on propofol and norepinephrine and dopamine. He is o n cefazolin for prophylaxis. IMPRESSION AND PLAN: We will continue him on current therapy. I will dictate my findings to the [facility] pitalist and to Dr. Garcia, Dr. Gomes, Dr. Guerrero, Dr. Pollock. Dictated By: LEONOR DAVIS MD, JD/NTS Conf#: [id number] DID#: [id number] CC: SAGRARIO POLLOCK MD; ROSARIO MONROE MD;*EndCC*
[2018-12-16] MEDS: FENTAnyl (DRIP) 1000 mcg/100mL 100 ML IV SCH (13:28)
--- NOTE | 2018-12-16 18:12 | CONS ---
Assessment/Plan Assessment/Plan Hospital Course (Demo Recall) Acute respiratory failure: extubated post CABG 12/15 but decompensated am 12/16 and reintubated. Probably combination of volume overload/CHF and poor mentation from residual anesthesia. Shock: likely cardiogenic post surgery. Now improving but still on levophed NSTEMI/CAD:Cath 12/13/18 shows multivessel disease including iFR positive LAD. s/p CABG x4 12/15/18 CHENG to LAD, SVG to PDA, SVG to diagonal artery #1, sequenced to obtuse marginal artery Acute on chronic diastolic CHF: EF preserved. Net positive 5L overnight which contributed to respiratory failure. s/p HD today Anemia: Hgb baseline 8-9. On admission, down to 7. Transfused one unit. No bleeding, stool occult negative. Seen by GI at [facility] without plan for procedure. Likely from renal disease. Required more transfusions post-op ESRD on HD HTN -wean levophed to keep MAP >65 -increase to ASA 325mg for one year post CABG -lipitor 80mg -slowly reintroduce below meds as tolerated once off pressors -metoprolol 50mg BID -hydralazine 100mg TID, isordil 20mg TID Consultation Date/Type/Reason Admit Date/Time Dec 13, 2018 at 12:40 Initial Consult Date Date/Time of Note DATE: 12/16/18 TIME: 18:04 24 HR Interval Summary Free Text/Dictation Extubated last night. This am decompensated and had to be urgently reintubated by Dr. Guerrero. Also femoral HD catheter placed. Pt had HD today for both volume removal and hyperkalemia. He was on multiple pressors and is now down to levophed. He is sedated. Exam/Review of Systems Exam Vitals Vital Signs Date Temp Pulse Resp B/P (MAP) Pulse Ox O2 O2 Flow FiO2 Time Delivery Rate 12/16/18 80 16:25 12/16/18 20 123/40 100 16:15 (67) 12/16/18 40 16:00 12/16/18 99.7 Mechanical 16:00 Ventilator 12/16/18 5.0 00:19 Intake and Output 12/15/18 12/15/18 12/16/18 1515:00 23:00 07:00 IntakeIntake Total 3711.92 ml 1189.294 ml 595.364 ml OutputOutput Total 430 ml 183 ml 233 ml BalanceBalance 3281.92 ml 1006.294 ml 362.364 ml Constitutional: No alert (sedated) ENMT: intubated Neck: supple; No jvd Respiratory: diminished breath sounds; No clear to auscultation Cardiovascular: regular rate and rhythm, edema (1+); No systolic murmur Gastrointestinal: soft, non-tender; No distended Neurological: No nl mental status, No nl speech Results Result Diagram: 12/16/18 1221 12/16/18 0430 Results 24hrs Laboratory Tests Test 12/15/18 18:26 12/15/18 18:45 12/15/18 19:59 12/15/18 20:21 Bedside Glucose 210 176 White Blood 17.2 #H Count Red Blood Count 2.79 L Hemoglobin 8.3 L Hematocrit 24.8 L Mean 88.9 Corpuscular Volume Mean 29.7 Corpuscular Hemoglobin Mean 33.5 Corpuscular Hemoglobin Conc ent Red Cell 15.2 H Distribution Width Platelet Count 139 L Mean Platelet 10.2 Volume Immature 2.100 H Granulocytes % Neutrophils % 86.4 H Lymphocytes % 5.3 L Monocytes % 5.0 Eosinophils % 0.9 Basophils % 0.3 Nucleated Red 0.0 Blood Cells % Immature 0.370 H Granulocytes # Neutrophils # 14.9 H Lymphocytes # 0.9 Monocytes # 0.9 Eosinophils # 0.2 Basophils # 0.1 Nucleated Red 0.0 Blood Cells # Prothrombin 15.3 H Time Prothrombin 1.2 Time Ratio INR 1.20 International Normalized Rati o Activated 34.7 Partial Thrombo plast Time Sodium Level 134 L Potassium Level 3.5 Chloride Level 99 Carbon Dioxide 19 L Level Anion Gap 16 H Blood Urea 30 H Nitrogen Creatinine 4.98 H Est Glomerular Filtrat Rate mL/min Glucose Level 202 Calcium Level 8.6 Phosphorus 2.0 #L Level Magnesium Level 3.5 H Blood Gas Blood Specimen arterial Source Arterial Blood 12/15/2018 8:29 Date Drawn :30 PM Arterial Blood 7.357 pH (Temp corrected ) Arterial Blood 36.2 pCO2 (Temp correct) Arterial Blood 121.6 H pO2 (Temp corrected ) Arterial Blood 19.9 L HCO3 Arterial Blood -5.1 L Base Excess Arterial Blood 97.8 Oxygen Saturati on Ru Test N/A Arterial Blood A-Line Gas Puncture Site Arterial 0.3 Blood Carboxyhe moglobin Arterial Blood 0.8 Methemoglobin Blood Gas A-a 122.0 H O2 Differential Oxyhemoglobin 96.7 Percent Blood Gas 37.0 Temperature Blood Gas 14.0 Respiration Rate Blood Gas 21 Actual Respiration Rat e Blood Gas VENT - AC Modality FiO2 40.0 Blood Gas Tidal 550.0 Volume Blood Gas Mean 14 Airway Pressure Blood Gas Low 5.0 PEEP Setting Blood Gas 27.0 Inspiratory Pressure Blood Gas DAKSHA MANE Notified Whom Blood Gas 12/15/2018 8:41 Notified Time :54 PM Test 12/15/18 21:01 12/15/18 22:01 12/15/18 22:59 12/15/18 23:25 Bedside Glucose 155 152 123 Blood Gas Blood Specimen arterial Source Arterial Blood 12/15/2018 11:1 Date Drawn 9:59 PM Arterial Blood 7.291 *L pH (Temp corrected ) Arterial Blood 39.8 pCO2 (Temp correct) Arterial Blood 95.6 H pO2 (Temp corrected ) Arterial Blood 18.8 L HCO3 Arterial Blood -7.3 L Base Excess Arterial Blood 96.0 Oxygen Saturati on Ru Test N/A Arterial Blood A-Line Gas Puncture Site Arterial 0.3 Blood Carboxyhe moglobin Arterial Blood 0.6 Methemoglobin Blood Gas A-a 143.8 H O2 Differential Oxyhemoglobin 95.1 Percent Blood Gas 37.0 Temperature Blood Gas 20 Actual Respiration Rat e Blood Gas VENT - CPAP Modality FiO2 40.0 Blood Gas Low 5.0 PEEP Setting Blood Gas Edel GUERRERO Critical Value .R.N. Read Back Blood Gas DAKSHA MANE Notified Whom Blood Gas 12/15/2018 11:3 Notified Time 2:41 PM Test 12/16/18 00:04 12/16/18 00:45 12/16/18 01:10 12/16/18 01:26 Bedside Glucose 116 105 White Blood 15.7 H Count Red Blood Count 2.60 L Hemoglobin 7.7 L Hematocrit 23.7 L Mean 91.2 Corpuscular Volume Mean 29.6 Corpuscular Hemoglobin Mean 32.5 Corpuscular Hemoglobin Conc ent Red Cell 15.6 H Distribution Width Platelet Count 143 Mean Platelet 11.5 H Volume Immature 2.000 H Granulocytes % Neutrophils % 81.9 H Lymphocytes % 5.4 L Monocytes % 9.1 Eosinophils % 1.2 Basophils % 0.4 Nucleated Red 0.0 Blood Cells % Immature 0.320 H Granulocytes # Neutrophils # 12.8 H Lymphocytes # 0.8 Monocytes # 1.4 H Eosinophils # 0.2 Basophils # 0.1 Nucleated Red 0.0 Blood Cells # Sodium Level 136 Potassium Level 4.7 Chloride Level 98 Carbon Dioxide 21 Level Anion Gap 17 H Blood Urea 32 H Nitrogen Creatinine 5.14 H Est Glomerular Filtrat Rate mL/min Glucose Level 91 # Calcium Level 8.6 Magnesium Level 3.2 H Blood Gas Blood Specimen arterial Source Arterial Blood 12/16/2018 1:06 Date Drawn :25 AM Arterial Blood 7.269 *L pH (Temp corrected ) Arterial Blood 48.9 H pCO2 (Temp correct) Arterial Blood 84.4 pO2 (Temp corrected ) Arterial Blood 21.9 L HCO3 Arterial Blood -4.9 L Base Excess Arterial Blood 94.6 L Oxygen Saturati on Ru Test N/A Arterial Blood A-Line Gas Puncture Site Arterial 0.3 Blood Carboxyhe moglobin Arterial Blood 0.6 Methemoglobin Blood Gas A-a 115.6 H O2 Differential Oxyhemoglobin 93.7 Percent Blood Gas 37.0 Temperature Blood Gas 23 Actual Respiration Rat e Blood Gas NASAL CANNULA Modality FiO2 36.0 Blood Gas Edel GUERRERO Critical Value .R.N. Read Back Blood Gas DAKSHA MANE Notified Whom Blood Gas 12/16/2018 1:18 Notified Time :49 AM Test 12/16/18 02:09 12/16/18 03:00 12/16/18 04:03 12/16/18 04:30 Bedside Glucose 88 101 124 Blood Gas Blood Specimen arterial Source Arterial Blood 12/16/2018 2:55 Date Drawn :28 AM Arterial Blood 7.314 L pH (Temp corrected ) Arterial Blood 40.8 pCO2 (Temp correct) Arterial Blood 87.7 pO2 (Temp corrected ) Arterial Blood 20.3 L HCO3 Arterial Blood -5.5 L Base Excess Arterial Blood 95.6 Oxygen Saturati on Ru Test N/A Arterial Blood A-Line Gas Puncture Site Arterial 0.3 Blood Carboxyhe moglobin Arterial Blood 0.7 Methemoglobin Blood Gas A-a 150.6 H O2 Differential Oxyhemoglobin 94.6 Percent Blood Gas 37.0 Temperature Blood Gas 20.0 Respiration Rate Blood Gas 23 Actual Respiration Rat e Blood Gas MASK - BIPAP Modality FiO2 40.0 Blood Gas 10 Pressure Support Blood Gas 15/5 IPAP/EPAP Ratio Blood Gas DAKSHA MANE Notified Whom Blood Gas 12/16/2018 3:03 Notified Time :59 AM White Blood 16.5 H Count Red Blood Count 2.59 L Hemoglobin 7.7 L Hematocrit 23.5 L Mean 90.7 Corpuscular Volume Mean 29.7 Corpuscular Hemoglobin Mean 32.8 Corpuscular Hemoglobin Conc ent Red Cell 15.8 H Distribution Width Platelet Count 146 Mean Platelet 11.0 H Volume Immature 1.600 H Granulocytes % Neutrophils % 82.3 H Lymphocytes % 5.7 L Monocytes % 9.1 Eosinophils % 0.9 Basophils % 0.4 Nucleated Red 0.0 Blood Cells % Immature 0.260 H Granulocytes # Neutrophils # 13.6 H Lymphocytes # 0.9 Monocytes # 1.5 H Eosinophils # 0.2 Basophils # 0.1 Nucleated Red 0.0 Blood Cells # Prothrombin 15.9 H Time Prothrombin 1.2 Time Ratio INR 1.26 International Normalized Rati o Activated 36.0 H Partial Thrombo plast Time Sodium Level 136 Potassium Level 6.0 H Chloride Level 98 Carbon Dioxide 20 L Level Anion Gap 18 H Blood Urea 33 H Nitrogen Creatinine 5.62 H Est Glomerular Filtrat Rate mL/min Glucose Level 117 Calcium Level 8.8 Phosphorus 6.3 #H Level Magnesium Level 3.2 H Test 12/16/18 04:50 12/16/18 06:00 12/16/18 06:30 12/16/18 07:19 Blood Gas Blood arterial Blood Specimen arterial Source Arterial Blood 12/16/2018 4:47: 12/16/2018 8:15 Date Drawn 35 AM :50 AM Arterial Blood 7.319 L 7.369 pH (Temp corrected ) Arterial Blood 37.5 31.9 L pCO2 (Temp correct) Arterial Blood 101.0 H 321.0 H pO2 (Temp corrected ) Arterial Blood 18.8 L 18.0 L HCO3 Arterial Blood -6.7 L -6.6 L Base Excess Arterial Blood 97.0 99.2 Oxygen Saturati on Ru Test N/A N/A Arterial Blood A-Line A-Line Gas Puncture Site Arterial 0.3 0.1 Blood Carboxyhe moglobin Arterial Blood 0.5 0.9 Methemoglobin Blood Gas A-a 141.1 H 360.1 H O2 Differential Oxyhemoglobin 96.2 98.2 Percent Blood Gas 37.0 37.0 Temperature Blood Gas 20.0 16.0 Respiration Rate Blood Gas 22 16 Actual Respiration Rat e Blood Gas MASK - BIPAP VENT - AC Modality FiO2 40.0 100.0 Blood Gas 10 Pressure Support Blood Gas 15/5 IPAP/EPAP Ratio Blood Gas DAKSHA MANE Notified Whom Blood Gas 12/16/2018 5:00: 12/16/2018 8:35 Notified Time 31 AM :53 AM Bedside Glucose 167 129 Blood Gas Tidal 600.0 Volume Blood Gas Low 5.0 PEEP Setting Test 12/16/18 08:11 12/16/18 08:58 12/16/18 09:53 12/16/18 10:57 Bedside Glucose 125 127 114 107 Test 12/16/18 12:09 12/16/18 12:21 12/16/18 12:58 12/16/18 13:59 Bedside Glucose 119 123 129 Hematocrit 23.5 L Test 12/16/18 14:57 12/16/18 16:08 12/16/18 17:00 Bedside Glucose 146 187 183 Medications Medication Current Medications Atorvastatin Calcium (Lipitor) 80 mg HS PO Last administered on 12/14/18at 21:00; Admin Dose 80 MG; Start 12/13/18 at 21:00 Diagnostic Test (Pha) (Accu-Chek) 1 ea Q1H XX Last administered on 12/16/18at 07:20; Admin Dose 1 EA; Start 12/15/18 at 12:30 Insulin Human Regular 100 unit/ Sodium Chloride 100 ml @ 0 mls/hr PER PROTOCOL IV Last administered on 12/16/18at 03:18; Admin Dose 0.5 MLS/HR; Start 12/15/18 at 12:30 Miscellaneous Information (* Miscellaneous Pharmacy Order) Treatment of Hypoglycemia: 1.BG 51... Per protocol XX ; Start 12/15/18 at 12:30 Dextrose (D50w Syringe) 25 ml Q15M PRN IV .DECREASED GLUCOSE; Start 12/15/18 at 12:30 Dextrose (D50w Syringe) 50 ml Q15M PRN IV .DECREASED GLUCOSE; Start 12/15/18 at 12:30 Potassium Chloride 40 meq/ Calcium Chloride 1 gm/Dextrose/ Sodium Chloride 1,030 ml @ 60 mls/hr [id number] IV Last administered on 12/16/18at 09:36; Admin Dose 60 MLS/HR; Start 12/15/18 at 14:00 Hydromorphone HCl (Dilaudid) 0.2 mg Q15M PRN IV PAIN LEVEL 1-5 Last administered on 12/15/18at 22:38; Admin Dose 0.2 MG; Start 12/15/18 at 12:30 Hydromorphone HCl (Dilaudid) 0.4 mg Q15M PRN IV PAIN LEVEL 6-10; Start 12/15/18 at 12:30 Oxycodone/ Acetaminophen (Percocet (5/ 325)) 1 tab Q3H PRN PO PAIN LEVEL 1-5; Start 12/15/18 at 12:30 Ondansetron HCl (Zofran Inj) 4 mg Q6H PRN IV NAUSEA AND/OR VOMITING; Start 12/15/18 at 12:30 Famotidine (Pepcid Iv) 20 mg DAILY IV Last administered on 12/16/18at 08:41; Admin Dose 20 MG; Start 12/15/18 at 20:00 Acetaminophen (Tylenol Tab) 650 mg Q3H PRN PO ELEVATED TEMPERATURE; Start 12/15/18 at 12:30 Nitroglycerin/ Dextrose 250 ml @ 1.5 mls/hr PER PROTOCOL IV ; Start 12/15/18 at 13:00 Dopamine HCl/ Dextrose 250 ml @ 6.128 mls/ hr PER PROTOCOL IV Last admin istered on 12/16/18at 02:13; Admin Dose 14.4 MLS/HR; Start 12/15/18 at 13:00 Norepinephrine 250 ml @ 1.875 mls/ hr PER PROTOCOL IV Last administered on 12/16/18 01:43; Admin Dose 18.75 MLS/HR; Start 12/15/18 at 14:00 Phenylephrine HCl 250 ml @ 75 mls/hr PER PROTOCOL IV Last administered on 12/16/18at 01:45; Admin Dose 7.5 MLS/HR; Start 12/15/18 at 14:00 Propofol 100 ml @ 2.451 mls/ hr Q12H IV Last administered on 12/16/18at 17:58; Admin Dose 4.902 MLS/HR; Start 12/16/18 at 05:30 Epoetin Ever (Epogen (Esrd)) 10,000 units MoWeFr@17 SC ; Start 12/18/18 at 17:00 Heparin Sodium (Porcine) (Heparin (1000 Units/ml)) 3,000 unit PRN CATHETER Last administered on 12/16/18at 12:22; Admin Dose 3,000 UNIT; Start 12/16/18 at 10:30; Stop 12/16/18 at 23:00 Fentanyl 100 ml @ 5 mls/hr TITRATE IV Last administered on 12/16/18at 13:28; Admin Dose 2.5 MLS/HR; Start 12/16/18 at 13:00 Aspirin (Aspirin) 325 mg DAILY PO ; Start 12/17/18 at 09:00; Status SAGRARIO HUNTER Dec 16, 2018 18:12
[2018-12-16] MEDS: ATORVASTATIN 80 MG TAB PO SCH (21:00)
[2018-12-17] VITALS (90 sets, daily range): BP systolic 99–179; BP diastolic 35–66; PULSE 68–110; RESP 14–21; TEMP 98.8–100.2
[2018-12-17] MEDS: ACCU-CHEK XX SCH ×23 (00:39→22:36)
[2018-12-17] MEDS: PROPOFOL 100 ML IV SCH ×2 (05:30→09:56)
[2018-12-17] MEDS: FAMOTIDINE 20 MG INJ IV SCH (07:58)
[2018-12-17] MEDS: NORepinephrine 8MG/250 ML (PMX 250 ML IV SCH (07:59)
[2018-12-17] MEDS: FENTAnyl (DRIP) 1000 mcg/100mL 100 ML IV SCH (07:59)
--- NOTE | 2018-12-17 08:31 | PN ---
DATE: 12/17/2018 SUBJECTIVE: The patient remains critically ill on pressor support. The patient had hemodialysis yes terday, tolerated it well. Overnight, no other acute events noted. No hemoptysis, hematemesis, jeni tochezia. OBJECTIVE: VITAL SIGNS: Blood pressure is 109/79, respirations 16, pulse 77, temperature 99.4. HEENT: Head is normocephalic. NECK: Supple. HEART: Regular rate. LUNGS: Show diminished breath sounds at the base. CHEST: The patient has mediastinotomy drains noted. DERMATOLOGIC: No rashes. MUSCULOSKELETAL: No joint effusion. NEUROLOGIC: The patient is obtunded, sedated. Limited exam. MEDICATIONS: The patient's medications have been reviewed. LABORATORY DATA: Shows sodium 134, potassium 5.3, chloride 95, BUN 27, creatinine 0.92, phosphorus 7 .9, magnesium 2.8. White count 18.0, hemoglobin 6.5, and platelet count is 135. IMAGING STUDIES: Chest x-ray was reviewed, shows findings of phase atelectasis. ASSESSMENT AND PLAN: 1. Coronary artery disease. The patient is status post 4-vessel CABG. Would continue current medic al management per CT surgery. The patient remains on pressor support. Continue current medical manag ement, monitor. 2. Shock, likely cardiogenic. The patient remains on Levophed, being titrated off. We will continu e medical management. Continue to wean off pressors as tolerated. 3. End-stage renal disease. The patient had hemodialysis yesterday. Will dialyze again today for s olute clearance. The patient will be dialyzed for 3.5 hours 2k bath, calcium 2.5, ultrafiltrate if h emodynamically tolerated. 4. Anemia with a drop in hemoglobin and hematocrit levels, likely operative blood loss. Plan is for blood transfusion 2 units of PRBC with hemodialysis. We will continue Epogen. 5. Mineral bone disorder. Monitor calcium and phosphorus levels. 6. Ventilator dependent respiratory failure. Vent settings and ABG was reviewed. Continue to monit or. Consider weaning per pulmonary. 7. SIRS. The patient has elevated white count. Continue to monitor. Follow up with infectious dis ease. 8. Diabetes. Continue current insulin regimen. 9. Dyslipidemia. Continue statin therapy. 10. History of benign prostatic hypertrophy. 11. Intracranial aneurysm, possible incidental finding. Continue to monitor. 12. Hyperkalemia. The patient will be dialyzed with a low potassium bath. 13. Hypermagnesemia secondary to end-stage renal disease. The patient is on hemodialysis. 14. Gastrointestinal and deep venous thrombosis prophylaxis. 15. Volume overload. Plan for hemodialysis. Continue ultrafiltration as tolerated. I spent over 30 minutes of critical care time with this patient. Dictated By: JAKY HOU DO NR/NTS Conf#: [id number] DID#: [id number] CC: SAGRARIO POLLOCK MD; ROSARIO MONROE MD;*EndCC*
[2018-12-17] MEDS: ASPIRIN 325 MG TAB PO SCH (08:56)
--- NOTE | 2018-12-17 09:39 | CONS ---
Assessment/Plan Assessment/Plan Hospital Course (Demo Recall) Acute respiratory failure: extubated post CABG 12/15 but decompensated am 12/16 and reintubated. Probably combination of volume overload/CHF and poor mentation from residual anesthesia. Shock: likely cardiogenic post surgery. Now improving but still on low dose levophed NSTEMI/CAD:Cath 12/13/18 shows multivessel disease including iFR positive LAD. s/ p CABG x4 12/15/18 CHENG to LAD, SVG to PDA, SVG to diagonal artery #1, sequenced to obtuse marginal artery Acute on chronic diastolic CHF: EF preserved. Net positive 5L overnight which contributed to respiratory failure. Now close to euvolemic Anemia: Hgb baseline 8-9. On admission, down to 7. Transfused one unit. No bleeding, stool occult negative. Seen by GI at [facility] without plan for procedure. Likely from renal disease. Required more transfusions post-op. Hgb again 6.5 ESRD on HD HTN -wean levophed to keep MAP >65 -ASA 325mg for one year post CABG -lipitor 80mg -transfusion today with HD -slowly reintroduce below meds as tolerated once off pressors -metoprolol 50mg BID -hydralazine 100mg TID, isordil 20mg TID Consultation Date/Type/Reason Admit Date/Time Dec 13, 2018 at 12:40 Initial Consult Date Date/Time of Note DATE: 12/17/18 TIME: 09:37 24 HR Interval Summary Free Text/Dictation No events. Remains sedated. Low dose levophed. Hgb down to 6.5. No active bleeding Exam/Review of Systems Exam Vitals Vital Signs Date Temp Pulse Resp B/P (MAP) Pulse Ox O2 O2 Flow FiO2 Time Delivery Rate 12/17/18 70 14 103/35 100 09:15 (57) 12/17/18 98.8 09:00 12/17/18 Mechanical 09:00 Ventilator 12/17/18 40 08:00 12/16/18 5.0 00:19 Intake and Output 12/16/18 12/16/18 12/17/18 1515:00 23:00 07:00 IntakeIntake Total 561.791 ml 183.35 ml 110.30 ml OutputOutput Total 2502 ml 50 ml 33 ml BalanceBalance -1940.209 ml 133.35 ml 77.30 ml Constitutional: No alert, No oriented ENMT: intubated Neck: supple, jvd (9cm) Respiratory: diminished breath sounds; No clear to auscultation Cardiovascular: regular rate and rhythm, edema (1+), systolic murmur Gastrointestinal: soft, non-tender; No distended Neurological: No nl mental status, No nl speech Results Result Diagram: 12/17/18 0500 12/17/18 0500 Results 24hrs Laboratory Tests Test 12/16/18 09:53 12/16/18 10:57 12/16/18 12:09 12/16/18 12:21 Bedside Glucose 114 107 119 Hematocrit 23.5 L Test 12/16/18 12:58 12/16/18 13:59 12/16/18 14:57 12/16/18 16:08 Bedside Glucose 123 129 146 187 Test 12/16/18 17:00 12/16/18 17:55 12/16/18 18:59 12/16/18 20:01 Bedside Glucose 183 183 157 155 Test 12/16/18 20:57 12/16/18 22:05 12/17/18 00:02 12/17/18 01:07 Bedside Glucose 170 173 167 172 Test 12/17/18 01:59 12/17/18 03:07 12/17/18 04:01 12/17/18 04:50 Bedside Glucose 164 166 153 Lactic Acid Level 1.4 Test 12/17/18 05:00 12/17/18 06:02 12/17/18 06:58 12/17/18 07:54 White Blood Count 18.0 H Red Blood Count 2.18 L Hemoglobin 6.5 *L Hematocrit 20.0 L Mean Corpuscular 91.7 Volume Mean Corpuscular 29.8 Hemoglobin Mean Corpuscular 32.5 Hemoglobin Concen t Red Cell 15.9 H Distribution Width Platelet Count 135 L Mean Platelet 12.0 H Volume Immature 0.900 H Granulocytes % Neutrophils % 85.6 H Lymphocytes % 7.0 L Monocytes % 6.0 Eosinophils % 0.2 Basophils % 0.3 Nucleated Red 0.0 Blood Cells % Immature 0.170 H Granulocytes # Neutrophils # 15.4 H Lymphocytes # 1.3 Monocytes # 1.1 H Eosinophils # 0.0 Basophils # 0.1 Nucleated Red 0.0 Blood Cells # Blood Gas Blood arterial Specimen Source Arterial Blood 12/17/2018 4:30:0 Date Drawn 3 AM Arterial Blood pH 7.446 (Temp corrected) Arterial Blood 31.6 L pCO2 (Temp correct) Arterial Blood 97.2 H pO2 (Temp corrected) Arterial Blood 21.3 L HCO3 Arterial Blood -2.4 Base Excess Arterial Blood 96.8 Oxygen Saturation Ru Test N/A Arterial Blood A-Line Gas Puncture Site Arterial 0.4 Blood Carboxyhemo globin Arterial Blood 0.7 Methemoglobin Blood Gas A-a O2 151.7 H Differential Oxyhemoglobin 95.7 Percent Blood Gas 37.0 Temperature Blood Gas 14.0 Respiration Rate Blood Gas Actual 22 Respiration Rate Blood Gas VENT - AC Modality FiO2 40.0 Blood Gas Tidal 500.0 Volume Blood Gas Low 5.0 PEEP Setting Blood Gas [place] Notified Whom Blood Gas 12/17/2018 5:09:4 Notified Time 5 AM Sodium Level 134 L Potassium Level 5.3 H Chloride Level 95 L Carbon Dioxide 22 Level Anion Gap 17 H Blood Urea 27 H Nitrogen Creatinine 4.92 H Est Glomerular Filtrat Rate mL/min Glucose Level 139 Calcium Level 8.3 L Phosphorus Level 5.9 H Magnesium Level 2.8 H Bedside Glucose 150 145 150 Test 12/17/18 08:54 Bedside Glucose 142 Medications Medication Current Medications Atorvastatin Calcium (Lipitor) 80 mg HS PO Last administered on 12/16/18at 21: 00; Admin Dose 80 MG; Start 12/13/18 at 21:00 Diagnostic Test (Pha) (Accu-Chek) 1 ea Q1H XX Last administered on 12/17/18at 06:59; Admin Dose 1 EA; Start 12/15/18 at 12:30 Insulin Human Regular 100 unit/ Sodium Chloride 100 ml @ 0 mls/hr PER PROTOCOL IV Last administered on 12/16/18at 03:18; Admin Dose 0.5 MLS/HR; Start 12/15/18 at 12:30 Miscellaneous Information (* Miscellaneous Pharmacy Order) Treatment of Hypoglycemia: 1.BG 51... Per protocol XX ; Start 12/15/18 at 12:30 Dextrose (D50w Syringe) 25 ml Q15M PRN IV .DECREASED GLUCOSE; Start 12/15/18 at 12:30 Dextrose (D50w Syringe) 50 ml Q15M PRN IV .DECREASED GLUCOSE; Start 12/15/18 at 12:30 Hydromorphone HCl (Dilaudid) 0.2 mg Q15M PRN IV PAIN LEVEL 1-5 Last administered on 12/15/18 22:38; Admin Dose 0.2 MG; Start 12/15/18 at 12:30 Hydromorphone HCl (Dilaudid) 0.4 mg Q15M PRN IV PAIN LEVEL 6-10; Start 12/15/18 at 12:30 Oxycodone/ Acetaminophen (Percocet (5/ 325)) 1 tab Q3H PRN PO PAIN LEVEL 1-5; Start 12/15/18 at 12:30 Ondansetron HCl (Zofran Inj) 4 mg Q6H PRN IV NAUSEA AND/OR VOMITING; Start 12/15/18 at 12:30 Famotidine (Pepcid Iv) 20 mg DAILY IV Last administered on 12/17/18 07:58; Admin Dose 20 MG; Start 12/15/18 at 20:00 Acetaminophen (Tylenol Tab) 650 mg Q3H PRN PO ELEVATED TEMPERATURE Last administered on 12/16/18 21:00; Admin Dose 650 MG; Start 12/15/18 at 12:30 Nitroglycerin/ Dextrose 250 ml @ 1.5 mls/hr PER PROTOCOL IV ; Start 12/15/18 at 13:00 Dopamine HCl/ Dextrose 250 ml @ 6.128 mls/ hr PER PROTOCOL IV Last administered on 12/16/18 02:13; Admin Dose 14.4 MLS/HR; Start 12/15/18 at 13:00 Norepinephrine 250 ml @ 1.875 mls/ hr PER PROTOCOL IV Last administered on 12/17/18 07:59; Admin Dose 3.75 MLS/HR; Start 12/15/18 at 14:00 Phenylephrine HCl 250 ml @ 75 mls/hr PER PROTOCOL IV Last administered on 12/16/18 01:45; Admin Dose 7.5 MLS/HR; Start 12/15/18 at 14:00 Propofol 100 ml @ 2.451 mls/ hr Q12H IV Last administered on 12/16/18 17:58; Admin Dose 4.902 MLS/HR; Start 12/16/18 at 05:30 Epoetin Ever (Epogen (Esrd)) 10,000 units MoWeFr@17 SC ; Start 12/18/18 at 17:00 Fentanyl 100 ml @ 5 mls/hr TITRATE IV Last administered on 12/17/18at 07:59; Admin Dose 5 MLS/HR; Start 12/16/18 at 13:00 Aspirin (Aspirin) 325 mg DAILY PO Last administered on 12/17/18at 08:56; Admin Dose 325 MG; Start 12/17/18 at 09:00 SAGRARIO POLLOCK Dec 17, 2018 09:39
--- NOTE | 2018-12-17 11:11 | CONS ---
Consult Date/Type/Reason Admit Date/Time Dec 13, 2018 at 12:40 Initial Consult Date 12/16/18 Type of Consultation: Pulm/CCM Date/Time of Note DATE: 12/17/18 TIME: 11:06 Subjective Sedated on the vent. Low dose levophed gtt. Objective Vitals Vital Signs Date Temp Pulse Resp B/P (MAP) Pulse Ox O2 O2 Flow FiO2 Time Delivery Rate 12/17/18 70 14 103/35 100 09:15 (57) 12/17/18 98.8 09:00 12/17/18 Mechanical 09:00 Ventilator 12/17/18 40 08:00 12/16/18 5.0 00:19 Intake and Output 12/16/18 12/16/18 12/17/18 1515:00 23:00 07:00 IntakeIntake Total 561.791 ml 183.35 ml 110.30 ml OutputOutput Total 2502 ml 50 ml 33 ml BalanceBalance -1940.209 ml 133.35 ml 77.30 ml Exam HEENT: Neck supple; no JVD; no LAD; + ET tube CVS: RRR, S1 and S2 CHEST: Decreased breath sounds at bases ABD: Soft, NT, + BS EXT: No c/c; + edema Results/Medications Result Diagram: 12/17/18 0500 12/17/18 0500 Results 24 hrs Laboratory Tests Test 12/16/18 12:09 12/16/18 12:21 12/16/18 12:58 12/16/18 13:59 Bedside Glucose 119 123 129 Hematocrit 23.5 L Test 12/16/18 14:57 12/16/18 16:08 12/16/18 17:00 12/16/18 17:55 Bedside Glucose 146 187 183 183 Test 12/16/18 18:59 12/16/18 20:01 12/16/18 20:57 12/16/18 22:05 Bedside Glucose 157 155 170 173 Test 12/17/18 00:02 12/17/18 01:07 12/17/18 01:59 12/17/18 03:07 Bedside Glucose 167 172 164 166 Test 12/17/18 04:01 12/17/18 04:50 12/17/18 05:00 12/17/18 06:02 Bedside Glucose 153 150 Lactic Acid Level 1.4 White Blood Count 18.0 H Red Blood Count 2.18 L Hemoglobin 6.5 *L Hematocrit 20.0 L Mean Corpuscular 91.7 Volume Mean Corpuscular 29.8 Hemoglobin Mean Corpuscular 32.5 Hemoglobin Concen t Red Cell 15.9 H Distribution Width Platelet Count 135 L Mean Platelet 12.0 H Volume Immature 0.900 H Granulocytes % Neutrophils % 85.6 H Lymphocytes % 7.0 L Monocytes % 6.0 Eosinophils % 0.2 Basophils % 0.3 Nucleated Red 0.0 Blood Cells % Immature 0.170 H Granulocytes # Neutrophils # 15.4 H Lymphocytes # 1.3 Monocytes # 1.1 H Eosinophils # 0.0 Basophils # 0.1 Nucleated Red 0.0 Blood Cells # Blood Gas Blood arterial Specimen Source Arterial Blood 12/17/2018 4:30:0 Date Drawn 3 AM Arterial Blood pH 7.446 (Temp corrected) Arterial Blood 31.6 L pCO2 (Temp correct) Arterial Blood 97.2 H pO2 (Temp corrected) Arterial Blood 21.3 L HCO3 Arterial Blood -2.4 Base Excess Arterial Blood 96.8 Oxygen Saturation Ru Test N/A Arterial Blood A-Line Gas Puncture Site Arterial 0.4 Blood Carboxyhemo globin Arterial Blood 0.7 Methemoglobin Blood Gas A-a O2 151.7 H Differential Oxyhemoglobin 95.7 Percent Blood Gas 37.0 Temperature Blood Gas 14.0 Respiration Rate Blood Gas Actual 22 Respiration Rate Blood Gas VENT - AC Modality FiO2 40.0 Blood Gas Tidal 500.0 Volume Blood Gas Low 5.0 PEEP Setting Blood Gas SC Notified Whom Blood Gas 12/17/2018 5:09:4 Notified Time 5 AM Sodium Level 134 L Potassium Level 5.3 H Chloride Level 95 L Carbon Dioxide 22 Level Anion Gap 17 H Blood Urea 27 H Nitrogen Creatinine 4.92 H Est Glomerular Filtrat Rate mL/min Glucose Level 139 Calcium Level 8.3 L Phosphorus Level 5.9 H Magnesium Level 2.8 H Test 12/17/18 06:58 12/17/18 07:54 12/17/18 08:54 12/17/18 10:07 Bedside Glucose 145 150 142 146 Test 12/17/18 10:50 Bedside Glucose 148 Medications Current Medications Atorvastatin Calcium (Lipitor) 80 mg HS PO Last administered on 12/16/18at 21:00; Admin Dose 80 MG; Start 12/13/18 at 21:00 Diagnostic Test (Pha) (Accu-Chek) 1 ea Q1H XX Last administered on 12/17/18 06:59; Admin Dose 1 EA; Start 12/15/18 at 12:30 Insulin Human Regular 100 unit/ Sodium Chloride 100 ml @ 0 mls/hr PER PROTOCOL IV Last administered on 12/16/18 03:18; Admin Dose 0.5 MLS/HR; Start 12/15/18 at 12:30 Miscellaneous Information (* Miscellaneous Pharmacy Order) Treatment of Hypoglycemia: 1.BG 51... Per protocol XX ; Start 12/15/18 at 12:30 Dextrose (D50w Syringe) 25 ml Q15M PRN IV .DECREASED GLUCOSE; Start 12/15/18 at 12:30 Dextrose (D50w Syringe) 50 ml Q15M PRN IV .DECREASED GLUCOSE; Start 12/15/18 at 12:30 Hydromorphone HCl (Dilaudid) 0.2 mg Q15M PRN IV PAIN LEVEL 1-5 Last administered on 12/15/18at 22:38; Admin Dose 0.2 MG; Start 12/15/18 at 12:30 Hydromorphone HCl (Dilaudid) 0.4 mg Q15M PRN IV PAIN LEVEL 6-10; Start 12/15/18 at 12:30 Oxycodone/ Acetaminophen (Percocet (5/ 325)) 1 tab Q3H PRN PO PAIN LEVEL 1-5; Start 12/15/18 at 12:30 Ondansetron HCl (Zofran Inj) 4 mg Q6H PRN IV NAUSEA AND/OR VOMITING; Start 12/15/18 at 12:30 Famotidine (Pepcid Iv) 20 mg DAILY IV Last administered on 12/17/18 07:58; Admin Dose 20 MG; Start 12/15/18 at 20:00 Acetaminophen (Tylenol Tab) 650 mg Q3H PRN PO ELEVATED TEMPERATURE Last administered on 12/16/18at 21:00; Admin Dose 650 MG; Start 12/15/18 at 12:30 Nitroglycerin/ Dextrose 250 ml @ 1.5 mls/hr PER PROTOCOL IV ; Start 12/15/18 at 13:00 Dopamine HCl/ Dextrose 250 ml @ 6.128 mls/ hr PER PROTOCOL IV Last administered on 12/16/18at 02:13; Admin Dose 14.4 MLS/HR; Start 12/15/18 at 13:00 Norepinephrine 250 ml @ 1.875 mls/ hr PER PROTOCOL IV Last administered on 12/17/18 07:59; Admin Dose 3.75 MLS/HR; Start 12/15/18 at 14:00 Phenylephrine HCl 250 ml @ 75 mls/hr PER PROTOCOL IV Last administered on 12/16/18at 01:45; Admin Dose 7.5 MLS/HR; Start 12/15/18 at 14:00 Propofol 100 ml @ 2.451 mls/ hr Q12H IV Last administered on 12/17/18 09:56; Admin Dose 4.902 MLS/HR; Start 12/16/18 at 05:30 Epoetin Ever (Epogen (Esrd)) 10,000 units MoWeFr@17 SC ; Start 12/18/18 at 17:00 Fentanyl 100 ml @ 5 mls/hr TITRATE IV Last administered on 12/17/18 07:59; Admin Dose 5 MLS/HR; Start 12/16/18 at 13:00 Aspirin (Aspirin) 325 mg DAILY PO Last administered on 12/17/18at 08:56; Admin Dose 325 MG; Start 12/17/18 at 09:00 Assessment/Plan Assessment/Plan (Daily) IMP: 1. Hypercapnic Respiratory Failure--s/p extubation post CABG. Possibly due to a combination of volume overload and sedation. 2. Post OP day #2 s/p CABG 3. Cardiogenic Shock 4. CHF/CAD 5. ESRD on HD 6. Anemia 7. LLL Atelectasis/infiltrate RECS: 1. Wean to CPAP/PS in am 2. HD with UF 3. Sedation vacation 4. Pressors to maintain MAP > 65 mm Hg 5. Start cefepime IV; obtain sputum GS/Cx 6. Transfuse 1 unit PRBC with HD. 40 min cc time DARIUS GREENBERG MD Dec 17, 2018 11:11
--- NOTE | 2018-12-17 11:18 | PN ---
Date/Time of Note Date/Time of Note DATE: 12/17/18 TIME: 11:14 Assessment/Plan Lines/Catheters IV Catheter Type (from Nrsg): Central Line Dunbar in Place (from Nrsg): Yes Assessment/Plan Assessment/Plan s/p cabg s/p respiratory arrest acute blood loss anemia hgb 6.5 end stage renal disease dialyze transfuse vent wean? Subjective 24 Hr Interval Summary Subjective hx not possible: pt critical status Pain Control: well controlled Exam/Review of Systems Vital Signs Vitals Vital Signs Date Temp Pulse Resp B/P (MAP) Pulse Ox O2 O2 Flow FiO2 Time Delivery Rate 12/17/18 70 14 103/35 100 09:15 (57) 12/17/18 98.8 09:00 12/17/18 Mechanical 09:00 Ventilator 12/17/18 40 08:00 12/16/18 5.0 00:19 Intake and Output 12/16/18 12/16/18 12/17/18 1515:00 23:00 07:00 IntakeIntake Total 561.791 ml 183.35 ml 110.30 ml OutputOutput Total 2502 ml 50 ml 33 ml BalanceBalance -1940.209 ml 133.35 ml 77.30 ml Exam Head: normocephalic Eyes: nl conjunctiva Neck: supple Respiratory: other (vent 40 % chest tube 750 cc total cxr fairly clear) Cardiovascular: regular rate and rhythm, other (levophed) Musculoskeletal: nl extremities to inspection Neurological: other (sedated) Results Result Diagram: 12/17/18 0500 12/17/18 0500 DECLAN ZIMMERMAN MD Dec 17, 2018 11:18
[2018-12-17] MEDS: CEFEPIME 2GM/50 ML (PMX) 50 ML IVPB SCH (13:42)
--- NOTE | 2018-12-17 15:42 | CONS ---
Assessment/Plan Assessment/Plan Hospital Course (Demo Recall) No acute events overnight patient is intubated sedated on Levophed drip family at bedside T-max 100.3 T-current 98.2 WBC 18 H&H 6.5 and 20 platelets 135 neutrophils 85.6 Indwelling: Endotracheal tube NG tube right IJ cordis left femoral Anam 2 chest tubes right wrist A-line Antimicrobials: Cefepime vancomycin Chest x-ray this morning revealed patchy right basilar atelectasis Physical examination: Well-developed chronically ill-appearing elderly man who is intubated in no distress. Head atraumatic normocephalic sclera nonicteric vehicle mucosa dry neck is supple chest rise symmetrical breath sounds diminished bases heart S1-S2 abdomen soft bowel sounds hypoactive extremities cyanotic Assessment: 1. Sepsis with shock, multifactorial 2. Healthcare associated pneumonia, possibly aspirated 3. Acute respiratory failure, status post extubation post CABG with reintubation 4. Non-ST elevation [place] status post CABG 12/15/18 5. 5. End-stage renal disease, hemodialysis dependent 6. Anemia Plan: We are going to order blood and sputum cultures, continue antibiotics, follow cardiology and cardiothoracic surgery recommendations, vent per pulmonary Consultation Date/Type/Reason Admit Date/Time Dec 13, 2018 at 12:40 Initial Consult Date 12/16/18 Type of Consult id Date/Time of Note DATE: 12/17/18 TIME: 15:41 Exam/Review of Systems Exam Vitals Vital Signs Date Temp Pulse Resp B/P (MAP) Pulse Ox O2 O2 Flow FiO2 Time Delivery Rate 12/17/18 73 15 135/40 100 15:15 (71) 12/17/18 Mechanical 15:00 Ventilator 12/17/18 40 13:40 12/17/18 98.2 12:00 12/16/18 5.0 00:19 Intake and Output 12/16/18 12/16/18 12/17/18 1515:00 23:00 07:00 IntakeIntake Total 561.791 ml 183.35 ml 110.30 ml OutputOutput Total 2502 ml 50 ml 33 ml BalanceBalance -1940.209 ml 133.35 ml 77.30 ml Results Result Diagram: 12/17/18 0500 12/17/18 0500 Results 24hrs Laboratory Tests Test 12/16/18 16:08 12/16/18 17:00 12/16/18 17:55 12/16/18 18:59 Bedside Glucose 187 183 183 157 Test 12/16/18 20:01 12/16/18 20:57 12/16/18 22:05 12/17/18 00:02 Bedside Glucose 155 170 173 167 Test 12/17/18 01:07 12/17/18 01:59 12/17/18 03:07 12/17/18 04:01 Bedside Glucose 172 164 166 153 Test 12/17/18 04:50 12/17/18 05:00 12/17/18 06:02 12/17/18 06:58 Lactic Acid Level 1.4 White Blood Count 18.0 H Red Blood Count 2.18 L Hemoglobin 6.5 *L Hematocrit 20.0 L Mean Corpuscular 91.7 Volume Mean Corpuscular 29.8 Hemoglobin Mean Corpuscular 32.5 Hemoglobin Concen t Red Cell 15.9 H Distribution Width Platelet Count 135 L Mean Platelet 12.0 H Volume Immature 0.900 H Granulocytes % Neutrophils % 85.6 H Lymphocytes % 7.0 L Monocytes % 6.0 Eosinophils % 0.2 Basophils % 0.3 Nucleated Red 0.0 Blood Cells % Immature 0.170 H Granulocytes # Neutrophils # 15.4 H Lymphocytes # 1.3 Monocytes # 1.1 H Eosinophils # 0.0 Basophils # 0.1 Nucleated Red 0.0 Blood Cells # Blood Gas Blood arterial Specimen Source Arterial Blood 12/17/2018 4:30:0 Date Drawn 3 AM Arterial Blood pH 7.446 (Temp corrected) Arterial Blood 31.6 L pCO2 (Temp correct) Arterial Blood 97.2 H pO2 (Temp corrected) Arterial Blood 21.3 L HCO3 Arterial Blood -2.4 Base Excess Arterial Blood 96.8 Oxygen Saturation Ru Test N/A Arterial Blood A-Line Gas Puncture Site Arterial 0.4 Blood Carboxyhemo globin Arterial Blood 0.7 Methemoglobin Blood Gas A-a O2 151.7 H Differential Oxyhemoglobin 95.7 Percent Blood Gas 37.0 Temperature Blood Gas 14.0 Respiration Rate Blood Gas Actual 22 Respiration Rate Blood Gas VENT - AC Modality FiO2 40.0 Blood Gas Tidal 500.0 Volume Blood Gas Low 5.0 PEEP Setting Blood Gas MA Notified Whom Blood Gas 12/17/2018 5:09:4 Notified Time 5 AM Sodium Level 134 L Potassium Level 5.3 H Chloride Level 95 L Carbon Dioxide 22 Level Anion Gap 17 H Blood Urea 27 H Nitrogen Creatinine 4.92 H Est Glomerular Filtrat Rate mL/min Glucose Level 139 Calcium Level 8.3 L Phosphorus Level 5.9 H Magnesium Level 2.8 H Bedside Glucose 150 145 Test 12/17/18 07:54 12/17/18 08:54 12/17/18 10:07 12/17/18 10:50 Bedside Glucose 150 142 146 148 Test 12/17/18 12:25 12/17/18 13:46 Bedside Glucose 146 120 Medications Medication Current Medications Atorvastatin Calcium (Lipitor) 80 mg HS PO Last administered on 12/16/18at 21:00; Admin Dose 80 MG; Start 12/13/18 at 21:00 Diagnostic Test (Pha) (Accu-Chek) 1 ea Q1H XX Last administered on 12/17/18at 06:59; Admin Dose 1 EA; Start 12/15/18 at 12:30 Insulin Human Regular 100 unit/ Sodium Chloride 100 ml @ 0 mls/hr PER PROTOCOL IV Last administered on 12/16/18at 03:18; Admin Dose 0.5 MLS/HR; Start 12/15/18 at 12:30 Miscellaneous Information (* Miscellaneous Pharmacy Order) Treatment of Hypoglycemia: 1.BG 51... Per protocol XX ; Start 12/15/18 at 12:30 Dextrose (D50w Syringe) 25 ml Q15M PRN IV .DECREASED GLUCOSE; Start 12/15/18 at 12:30 Dextrose (D50w Syringe) 50 ml Q15M PRN IV .DECREASED GLUCOSE; Start 12/15/18 at 12:30 Hydromorphone HCl (Dilaudid) 0.2 mg Q15M PRN IV PAIN LEVEL 1-5 Last administered on 12/15/18at 22:38; Admin Dose 0.2 MG; Start 12/15/18 at 12:30 Hydromorphone HCl (Dilaudid) 0.4 mg Q15M PRN IV PAIN LEVEL 6-10; Start 12/15/18 at 12:30 Oxycodone/ Acetaminophen (Percocet (5/ 325)) 1 tab Q3H PRN PO PAIN LEVEL 1-5; Start 12/15/18 at 12:30 Ondansetron HCl (Zofran Inj) 4 mg Q6H PRN IV NAUSEA AND/OR VOMITING; Start 12/15/18 at 12:30 Famotidine (Pepcid Iv) 20 mg DAILY IV Last administered on 12/17/18 07:58; Admin Dose 20 MG; Start 12/15/18 at 20:00 Acetaminophen (Tylenol Tab) 650 mg Q3H PRN PO ELEVATED TEMPERATURE Last administered on 12/16/18 21:00; Admin Dose 650 MG; Start 12/15/18 at 12:30 Nitroglycerin/ Dextrose 250 ml @ 1.5 mls/hr PER PROTOCOL IV ; Start 12/15/18 at 13:00 Dopamine HCl/ Dextrose 250 ml @ 6.128 mls/ hr PER PROTOCOL IV Last administered on 12/16/18 02:13; Admin Dose 14.4 MLS/HR; Start 12/15/18 at 13:00 Norepinephrine 250 ml @ 1.875 mls/ hr PER PROTOCOL IV Last administered on 12/17/18 07:59; Admin Dose 3.75 MLS/HR; Start 12/15/18 at 14:00 Phenylephrine HCl 250 ml @ 75 mls/hr PER PROTOCOL IV Last administered on 12/16/18 01:45; Admin Dose 7.5 MLS/HR; Start 12/15/18 at 14:00 Propofol 100 ml @ 2.451 mls/ hr Q12H IV Last administered on 12/17/18 09:56; Admin Dose 4.902 MLS/HR; Start 12/16/18 at 05:30 Epoetin Ever (Epogen (Esrd)) 10,000 units MoWeFr@17 SC ; Start 12/18/18 at 17:00 Fentanyl 100 ml @ 5 mls/hr TITRATE IV Last administered on 12/17/18 07:59; Admin Dose 5 MLS/HR; Start 12/16/18 at 13:00 Aspirin (Aspirin) 325 mg DAILY PO Last administered on 12/17/18 08:56; Admin Dose 325 MG; Start 12/17/18 at 09:00 Cefepime HCl 50 ml @ 100 mls/hr Q24H IVPB Last administered on 12/17/18 13:42; Admin Dose 100 MLS/HR; Start 12/17/18 at 12:00 LASHELL LYNCH NP Dec 17, 2018 15:42
--- NOTE | 2018-12-17 16:28 | RADRPT ---
Vent Rate: 73 bpm RR Interval: 0 msec NM Interval: 146 msec QRS Duration: 112 msec QT Interval: 438 msec QTC Interval: 482 msec P-R-T [place]: -54 - -55 - 76 degrees Unusual P axis, possible ectopic atrial rhythm Incomplete right bundle branch block Left anterior fascicular block Prolonged QT Abnormal ECG Electronically Signed By: Onesimo Wilcox
--- NOTE | 2018-12-17 16:29 | RADRPT ---
Vent Rate: 95 bpm RR Interval: 0 msec [place] Interval: 152 msec QRS Duration: 128 msec QT Interval: 434 msec QTC Interval: 545 msec P-R-T [place]: 66 - 18 - 74 degrees Normal sinus rhythm Right bundle branch block Abnormal ECG Electronically Signed By: Onesimo Wilcox
[2018-12-17] MEDS: HEPARIN 1000 UNITS/ML 10 ML INJ CATHETER PRN (20:36)
[2018-12-17] MEDS: ATORVASTATIN 80 MG TAB PO SCH (21:54)
[2018-12-18] VITALS (62 sets, daily range): BP systolic 90–250; BP diastolic 35–74; PULSE 47–193; RESP 14–60
[2018-12-18] MEDS: ACCU-CHEK XX SCH ×22 (01:30→23:30)
[2018-12-18] MEDS: PROPOFOL 100 ML IV SCH ×2 (01:55→17:30)
[2018-12-18] MEDS: FENTAnyl (DRIP) 1000 mcg/100mL 100 ML IV SCH (05:24)
[2018-12-18] MEDS ORDERED: ROCURONIUM 50 MG INJ ONE (07:00)
[2018-12-18] MEDS ORDERED: ETOMIDATE 20 MG INJ ONE (07:00)
--- NOTE | 2018-12-18 07:37 | PN ---
Date/Time of Note Date/Time of Note DATE: 12/18/18 TIME: 07:36 Assessment/Plan Lines/Catheters IV Catheter Type (from Nrs): Anam Dunbar in Place (from Nrsg): Yes Assessment/Plan Assessment/Plan sedated, WBC 18. ct chest shows LLL consolidation. wean vent after dialysis. off pressors. Exam/Review of Systems Vital Signs Vitals Vital Signs Date Temp Pulse Resp B/P (MAP) Pulse Ox O2 O2 Flow FiO2 Time Delivery Rate 12/18/18 81 18 113/39 99 Mechanical 06:30 (63) Ventilator 12/18/18 40 05:45 12/18/18 99.0 04:00 12/16/18 5.0 00:19 Intake and Output 12/17/18 12/17/18 12/18/18 1515:00 23:00 07:00 IntakeIntake Total 199.175 ml 143.850 ml 33.706 ml OutputOutput Total 64 ml 3530 ml 41 ml BalanceBalance 135.175 ml -3386.150 ml -7.294 ml Results Result Diagram: 12/18/18 0509 12/18/18 0509 SHARON GARCIA MD Dec 18, 2018 07:37
--- NOTE | 2018-12-18 08:12 | PN ---
DATE: 12/18/2018 SUBJECTIVE: The patient remains intubated, off pressor support. The patient had hemodialysis yester day with approximately 2 liters removed. No other events noted. OBJECTIVE: VITAL SIGNS: Blood pressure is 113/39, respirations 18, pulse 81, temperature 98.6. HEENT: Head is normocephalic. NECK: Supple. HEART: Regular rate. LUNGS: Show diminished breath sounds at the base. ABDOMEN: Soft, nontender to palpation without rebound or guarding. EXTREMITIES: Negative for clubbing, cyanosis. Positive edema. DERMATOLOGIC: No rashes. MUSCULOSKELETAL: No joint effusion. CHEST: Positive chest tube noted. NEUROLOGIC: The patient is intubated and sedated. MEDICATIONS: Reviewed. LABORATORY DATA: Shows sodium 137, potassium 5.0, BUN 24, creatinine 4.23. White count 18.5, hemogl obin 9.2, platelet count is 154. IMAGING STUDIES: The patient's chest x-ray was reviewed, shows persistent pleural effusion. CT scan of the chest shows left lower lobe consolidation. A chest tube in place. Mild right lower lobe con solidation. ASSESSMENT AND PLAN: 1. Coronary artery disease. The patient is status post 4-vessel coronary artery bypass graft. We w ill continue current medical management. Currently, off pressor support. Follow up with CT surgery. 2. Sepsis secondary to healthcare-associated pneumonia. Continue current antibiotic regimen. Follo w up with Infectious Disease, follow up with cultures. 3. End-stage renal disease. The patient had hemodialysis, tolerated well. Anticipate dialysis agai n for solute clearance and volume removal. 4. Anemia. The patient is status post blood transfusion, monitor hemoglobin and hematocrit levels. 5. Mineral bone disorder. Continue to monitor calcium and phosphorus levels. 6. Ventilator-dependent respiratory failure. Vent settings and ABG was reviewed. Continue to monit or. Continue weaning per CT surgery and pulmonary. 7. Diabetes. Continue current insulin regimen. 8. Dyslipidemia. Continue statin therapy. 9. History of intracranial aneurysm. Continue to monitor. 10. Hyperkalemia, improved. 11. Hypomagnesemia secondary to end-stage renal disease. Continue hemodialysis. 12. Volume overload. Continue ultrafiltration with dialysis. 13. Gastrointestinal and deep vein thrombosis prophylaxis. 14. Status post shock. Dictated By: JAKY WALSH/EDUARD Conf#: [id number] DID#: [id number] CC: ROSARIO MONROE MD; SAGRARIO POLLOCK MD;*End*
--- NOTE | 2018-12-18 09:11 | CONS ---
Consult Date/Type/Reason Admit Date/Time Dec 13, 2018 at 12:40 Initial Consult Date 12/16/18 Type of Consult Pulmonary Date/Time of Note DATE: 12/18/18 TIME: 09:09 Subjective Patient intubated on mechanical ventilation agitation off sedation. Currently hemodynamically stable. Objective Vital Signs Date Temp Pulse Resp B/P (MAP) Pulse Ox O2 O2 Flow FiO2 Time Delivery Rate 12/18/18 81 18 113/39 99 Mechanical 06:30 (63) Ventilator 12/18/18 40 05:45 12/18/18 99.0 04:00 12/16/18 5.0 00:19 Intake and Output 12/17/18 12/17/18 12/18/18 1515:00 23:00 07:00 IntakeIntake Total 199.175 ml 143.850 ml 90.618 ml OutputOutput Total 64 ml 3530 ml 41 ml BalanceBalance 135.175 ml -3386.150 ml 49.618 ml Exam GENERAL: Well-nourished well-developed gentleman comfortable at rest no acute distress VITAL SIGNS: per chart NECK: Supple. No JVD or lymphadenopathy. CARDIAC EXAM: S1, S2. No added sounds or murmurs. CHEST: Diminished air entry bilaterally ABDOMEN: Soft, nontender. No guarding or rebound. EXTREMITIES: No cyanosis, clubbing or edema. NEUROLOGIC: Generalized weakness. No focal deficits. Vent Setting Ventilator Support Mode: AC Fraction of Inspired Oxygen pe: 40 Positive End Expiratory Pressu: 5.0 Results/Medications Result Diagram: 12/18/18 0509 12/18/18 0509 Results 24 hrs Laboratory Tests Test 12/17/18 10:07 12/17/18 10:50 12/17/18 12:25 12/17/18 13:46 Bedside Glucose 146 148 146 120 Test 12/17/18 15:55 12/17/18 17:48 12/17/18 20:08 12/17/18 21:54 Bedside Glucose 135 150 99 113 Test 12/18/18 00:04 12/18/18 02:02 12/18/18 04:49 12/18/18 05:09 Bedside Glucose 137 138 137 White Blood Count 18.5 H Red Blood Count 3.04 #L Hemoglobin 9.2 #L Hematocrit 27.3 #L Mean Corpuscular 89.8 Volume Mean Corpuscular 30.3 Hemoglobin Mean Corpuscular 33.7 Hemoglobin Concen t Red Cell 16.0 H Distribution Width Platelet Count 154 Mean Platelet 11.8 H Volume Immature 1.000 H Granulocytes % Neutrophils % 90.6 H Lymphocytes % 4.1 L Monocytes % 3.7 Eosinophils % 0.2 Basophils % 0.4 Nucleated Red 0.0 Blood Cells % Immature 0.190 H Granulocytes # Neutrophils # 16.8 H Lymphocytes # 0.8 Monocytes # 0.7 Eosinophils # 0.0 Basophils # 0.1 Nucleated Red 0.0 Blood Cells # Sodium Level 137 Potassium Level 5.0 Chloride Level 100 Carbon Dioxide 21 Level Anion Gap 16 H Blood Urea 24 H Nitrogen Creatinine 4.23 H Est Glomerular Filtrat Rate mL/min Glucose Level 125 Lactic Acid Level 1.2 Calcium Level 8.5 Phosphorus Level 5.7 H Magnesium Level 2.7 H Test 12/18/18 05:18 12/18/18 07:57 Lab Scanned BLOOD TRANSFUSIO Report N Bedside Glucose 130 Medications Current Medications Atorvastatin Calcium (Lipitor) 80 mg HS PO Last administered on 12/17/18at 21:54; Admin Dose 80 MG; Start 12/13/18 at 21:00 Diagnostic Test (Pha) (Accu-Chek) 1 ea Q1H XX Last administered on 12/18/18at 08:12; Admin Dose 1 EA; Start 12/15/18 at 12:30 Insulin Human Regular 100 unit/ Sodium Chloride 100 ml @ 0 mls/hr PER PROTOCOL IV Last administered on 12/16/18at 03:18; Admin Dose 0.5 MLS/HR; Start 12/15/18 at 12:30 Miscellaneous Information (* Miscellaneous Pharmacy Order) Treatment of Hypoglycemia: 1.BG 51... Per protocol XX ; Start 12/15/18 at 12:30 Dextrose (D50w Syringe) 25 ml Q15M PRN IV .DECREASED GLUCOSE; Start 12/15/18 at 12:30 Dextrose (D50w Syringe) 50 ml Q15M PRN IV .DECREASED GLUCOSE; Start 12/15/18 at 12:30 Hydromorphone HCl (Dilaudid) 0.2 mg Q15M PRN IV PAIN LEVEL 1-5 Last administere d on 12/15/18at 22:38; Admin Dose 0.2 MG; Start 12/15/18 at 12:30 Hydromorphone HCl (Dilaudid) 0.4 mg Q15M PRN IV PAIN LEVEL 6-10; Start 12/15/18 at 12:30 Oxycodone/ Acetaminophen (Percocet (5/ 325)) 1 tab Q3H PRN PO PAIN LEVEL 1-5; Start 12/15/18 at 12:30 Ondansetron HCl (Zofran Inj) 4 mg Q6H PRN IV NAUSEA AND/OR VOMITING; Start 12/15/18 at 12:30 Famotidine (Pepcid Iv) 20 mg DAILY IV Last administered on 12/17/18 07:58; Admin Dose 20 MG; Start 12/15/18 at 20:00 Acetaminophen (Tylenol Tab) 650 mg Q3H PRN PO ELEVATED TEMPERATURE Last administered on 12/16/18 21:00; Admin Dose 650 MG; Start 12/15/18 at 12:30 Nitroglycerin/ Dextrose 250 ml @ 1.5 mls/hr PER PROTOCOL IV ; Start 12/15/18 at 13:00 Dopamine HCl/ Dextrose 250 ml @ 6.128 mls/ hr PER PROTOCOL IV Last administered on 12/16/18at 02:13; Admin Dose 14.4 MLS/HR; Start 12/15/18 at 13:00 Norepinephrine 250 ml @ 1.875 mls/ hr PER PROTOCOL IV Last administered on 12/17/18 07:59; Admin Dose 3.75 MLS/HR; Start 12/15/18 at 14:00 Phenylephrine HCl 250 ml @ 75 mls/hr PER PROTOCOL IV Last administered on 12/16/18 01:45; Admin Dose 7.5 MLS/HR; Start 12/15/18 at 14:00 Propofol 100 ml @ 2.451 mls/ hr Q12H IV Last administered on 12/18/18 01:55; Admin Dose 4.902 MLS/HR; Start 12/16/18 at 05:30 Epoetin Ever (Epogen (Esrd)) 10,000 units MoWeFr@17 SC ; Start 12/18/18 at 17:00 Fentanyl 100 ml @ 5 mls/hr TITRATE IV Last administered on 12/18/18 05:24; Admin Dose 5 MLS/HR; Start 12/16/18 at 13:00 Aspirin (Aspirin) 325 mg DAILY PO Last administered on 12/17/18at 08:56; Admin Dose 325 MG; Start 12/17/18 at 09:00 Cefepime HCl 50 ml @ 100 mls/hr Q24H IVPB Last administered on 12/17/18at 13:42; Admin Dose 100 MLS/HR; Start 12/17/18 at 12:00 Heparin Sodium (Porcine) (Heparin (1000 Units/ml)) 3,000 unit PRN PRN CATHETER Dialysis Last administered on 12/17/18at 20:36; Admin Dose 3,000 UNIT; Start 12/17/18 at 19:00 Assessment/Plan Hospital Course (Demo Recall) IMP: 1. Hypercapnic Respiratory Failure--s/p extubation post CABG. Possibly due to a combination of volume overload and sedation. 2. Post OP day #3 s/p CABG 3. Cardiogenic Shock status post 4. CHF/CAD 5. ESRD on HD 6. Anemia 7. LLL Atelectasis/infiltrate RECS: 1. CPAP trial this morning 2. HD with UF 3. Sedation vacation 4. Pressors to maintain MAP > 65 mm Hg 5. Continue cefepime IV; obtain sputum GS/Cx 6. Monitor H&H posttransfusion 40 min cc time [facility]E [facility], [facility] Dec 18, 2018 09:11
[2018-12-18] MEDS: FAMOTIDINE 20 MG INJ IV SCH (09:13)
[2018-12-18] MEDS: ASPIRIN 325 MG TAB PO SCH (09:13)
--- NOTE | 2018-12-18 11:13 | RADRPT ---
Vent Rate: 85 bpm RR Interval: 0 msec [place] Interval: 132 msec QRS Duration: 106 msec QT Interval: 436 msec QTC Interval: 518 msec P-R-T [place]: 28 - 5 - 72 degrees Normal sinus rhythm Low voltage QRS RSR ` orattern in V1 suggests right ventricular conduction delay ST elevation, consider early repolarization, pericarditis, or injury Prolonged QT Abnormal ECG Electronically Signed By: Onesimo Wilcox
[2018-12-18] MEDS ORDERED: HYDR-3671 PO (11:37)
[2018-12-18] MEDS ORDERED: ASPI81TA52 PO (11:38)
[2018-12-18] MEDS ORDERED: AMLO5TAB4 PO (11:38)
[2018-12-18] MEDS ORDERED: CHOL100062 PO (11:38)
[2018-12-18] MEDS: CEFEPIME 2GM/50 ML (PMX) 50 ML IVPB SCH (12:42)
--- NOTE | 2018-12-18 14:28 | CONS ---
Assessment/Plan Assessment/Plan Hospital Course (Demo Recall) Patient was extubated this a.m. he is lethargic in no distress and comfortable on nasal cannula. T-max 100.3 T-current 99.9 WBC 18.5 H&H 9.2 and 27.3 platelets 154 neutrophils 90.6 Chest x-ray this morning revealed improving I aeration of both lungs with residual left basilar atelectasis/infiltrate Indwelling: NG tube right IJ cordis left femoral Anam 2 chest tubes right wrist A-line Antimicrobials: Cefepime Physical examination: Well-developed chronically ill-appearing elderly man who is intubated in no distress. Head atraumatic normocephalic sclera nonicteric vehicle mucosa dry neck is supple chest rise symmetrical breath sounds with crackles. Heart S1-S2 abdomen soft bowel sounds hypoactive extremities cyanotic Assessment: 1. Sepsis, status post shock, multifactorial 2. Healthcare associated pneumonia, possibly aspirated 3. Acute respiratory failure, status post extubation post CABG with reintubation 4. Non-ST elevation [place] status post CABG 12/15/18 5. 5. End-stage renal disease, hemodialysis dependent 6. Anemia Plan: Stable post extubation, continue antibiotics, aspiration precautions, follow cardiology and cardiothoracic surgery recommendations Consultation Date/Type/Reason Admit Date/Time Dec 13, 2018 at 12:40 Initial Consult Date 12/16/18 Type of Consult id Date/Time of Note DATE: 12/18/18 TIME: 14:27 Exam/Review of Systems Exam Vitals Vital Signs Date Temp Pulse Resp B/P (MAP) Pulse Ox O2 O2 Flow FiO2 Time Delivery Rate 12/18/18 86 12:00 12/18/18 16 156/62 98 11:30 (93) 12/18/18 Mechanical 11:00 Ventilator 12/18/18 99.9 08:00 12/18/18 40 05:45 12/16/18 5.0 00:19 Intake and Output 12/17/18 12/17/18 12/18/18 1515:00 23:00 07:00 IntakeIntake Total 199.175 ml 143.850 ml 90.618 ml OutputOutput Total 64 ml 3530 ml 41 ml BalanceBalance 135.175 ml -3386.150 ml 49.618 ml Results Result Diagram: 12/18/18 0509 12/18/18 0509 Results 24hrs Laboratory Tests Test 12/17/18 15:55 12/17/18 17:48 12/17/18 20:08 12/17/18 21:54 Bedside Glucose 135 150 99 113 Test 12/18/18 00:04 12/18/18 02:02 12/18/18 04:49 12/18/18 05:09 Bedside Glucose 137 138 137 White Blood Count 18.5 H Red Blood Count 3.04 #L Hemoglobin 9.2 #L Hematocrit 27.3 #L Mean Corpuscular 89.8 Volume Mean Corpuscular 30.3 Hemoglobin Mean Corpuscular 33.7 Hemoglobin Concen t Red Cell 16.0 H Distribution Width Platelet Count 154 Mean Platelet 11.8 H Volume Immature 1.000 H Granulocytes % Neutrophils % 90.6 H Lymphocytes % 4.1 L Monocytes % 3.7 Eosinophils % 0.2 Basophils % 0.4 Nucleated Red 0.0 Blood Cells % Immature 0.190 H Granulocytes # Neutrophils # 16.8 H Lymphocytes # 0.8 Monocytes # 0.7 Eosinophils # 0.0 Basophils # 0.1 Nucleated Red 0.0 Blood Cells # Sodium Level 137 Potassium Level 5.0 Chloride Level 100 Carbon Dioxide 21 Level Anion Gap 16 H Blood Urea 24 H Nitrogen Creatinine 4.23 H Est Glomerular Filtrat Rate mL/min Glucose Level 125 Lactic Acid Level 1.2 Calcium Level 8.5 Phosphorus Level 5.7 H Magnesium Level 2.7 H Test 12/18/18 05:18 12/18/18 07:57 12/18/18 10:05 12/18/18 12:28 Lab Scanned BLOOD TRANSFUSIO Report N Bedside Glucose 130 132 127 Test 12/18/18 14:16 Bedside Glucose 144 Medications Medication Current Medications Atorvastatin Calcium (Lipitor) 80 mg HS PO Last administered on 12/17/18at 21:54; Admin Dose 80 MG; Start 12/13/18 at 21:00 Diagnostic Test (Pha) (Accu-Chek) 1 ea Q1H XX Last administered on 12/18/18at 14:25; Admin Dose 1 EA; Start 12/15/18 at 12:30 Insulin Human Regular 100 unit/ Sodium Chloride 100 ml @ 0 mls/hr PER PROTOCOL IV Last administered on 12/16/18at 03:18; Admin Dose 0.5 MLS/HR; Start 12/15/18 at 12:30 Miscellaneous Information (* Miscellaneous Pharmacy Order) Treatment of Hypoglycemia: 1.BG 51... Per protocol XX ; Start 12/15/18 at 12:30 Dextrose (D50w Syringe) 25 ml Q15M PRN IV .DECREASED GLUCOSE; Start 12/15/18 at 12:30 Dextrose (D50w Syringe) 50 ml Q15M PRN IV .DECREASED GLUCOSE; Start 12/15/18 at 12:30 Hydromorphone HCl (Dilaudid) 0.2 mg Q15M PRN IV PAIN LEVEL 1-5 Last administered on 12/15/18at 22:38; Admin Dose 0.2 MG; Start 12/15/18 at 12:30 Hydromorphone HCl (Dilaudid) 0.4 mg Q15M PRN IV PAIN LEVEL 6-10; Start 12/15/18 at 12:30 Oxycodone/ Acetaminophen (Percocet (5/ 325)) 1 tab Q3H PRN PO PAIN LEVEL 1-5; Start 12/15/18 at 12:30 Ondansetron HCl (Zofran Inj) 4 mg Q6H PRN IV NAUSEA AND/OR VOMITING; Start 12/15/18 at 12:30 Famotidine (Pepcid Iv) 20 mg DAILY IV Last administered on 12/18/18 09:13; Admin Dose 20 MG; Start 12/15/18 at 20:00 Acetaminophen (Tylenol Tab) 650 mg Q3H PRN PO ELEVATED TEMPERATURE Last administered on 12/16/18at 21:00; Admin Dose 650 MG; Start 12/15/18 at 12:30 Nitroglycerin/ Dextrose 250 ml @ 1.5 mls/hr PER PROTOCOL IV ; Start 12/15/18 at 13:00 Dopamine HCl/ Dextrose 250 ml @ 6.128 mls/ hr PER PROTOCOL IV Last administered on 12/16/18at 02:13; Admin Dose 14.4 MLS/HR; Start 12/15/18 at 13:00 Norepinephrine 250 ml @ 1.875 mls/ hr PER PROTOCOL IV Last administered on 12/17/18 07:59; Admin Dose 3.75 MLS/HR; Start 12/15/18 at 14:00 Phenylephrine HCl 250 ml @ 75 mls/hr PER PROTOCOL IV Last administered on 12/16/18at 01:45; Admin Dose 7.5 MLS/HR; Start 12/15/18 at 14:00 Propofol 100 ml @ 2.451 mls/ hr Q12H IV Last administered on 12/18/18at 01:55; Admin Dose 4.902 MLS/HR; Start 12/16/18 at 05:30 Epoetin Ever (Epogen (Esrd)) 10,000 units MoWeFr@17 SC ; Start 12/18/18 at 17:00 Fentanyl 100 ml @ 5 mls/hr TITRATE IV Last administered on 12/18/18at 05:24; Admin Dose 5 MLS/HR; Start 12/16/18 at 13:00 Aspirin (Aspirin) 325 mg DAILY PO Last administered on 12/18/18 09:13; Admin Dose 325 MG; Start 12/17/18 at 09:00 Cefepime HCl 50 ml @ 100 mls/hr Q24H IVPB Last administered on 12/18/18at 12:42; Admin Dose 100 MLS/HR; Start 12/17/18 at 12:00 Heparin Sodium (Porcine) (Heparin (1000 Units/ml)) 3,000 unit PRN PRN CATHETER Dialysis Last administered on 12/17/18at 20:36; Admin Dose 3,000 UNIT; Start 12/17/18 at 19:00 LASHELL LYNCH NP Dec 18, 2018 14:28
[2018-12-18] MEDS ORDERED: NITROGLYCERIN 50 MG/D5W (PMX) 250 ML IV SCH (15:45)
--- NOTE | 2018-12-18 16:57 | PN ---
Date/Time of Note Date/Time of Note DATE: 12/18/18 TIME: 16:55 Assessment/Plan Lines/Catheters IV Catheter Type (from Nrsg): Anam Dunbar in Place (from Nrsg): Yes Assessment/Plan Assessment/Plan Pt reintubated about 3 hours after extubation secondary to respiratory distress resulting in hypoxia and bradycardia requiring very short amount of CPR before pulse and rhythm recovered. EKG shows diffuse ST segment elevation consistent with pericarditis. Echo shows all varela moving with EF about 50-55%. Will add vanco and check sputum cultures. Hold off on weaning 2-3 days and continue dialysis. Discussed with son and other family members. Exam/Review of Systems Vital Signs Vitals Vital Signs Date Temp Pulse Resp B/P (MAP) Pulse Ox O2 O2 Flow FiO2 Time Delivery Rate 12/18/18 193 15:32 12/18/18 16 156/62 98 11:30 (93) 12/18/18 Mechanical 11:00 Ventilator 12/18/18 99.9 08:00 12/18/18 40 05:45 12/16/18 5.0 00:19 Intake and Output 12/17/18 12/17/18 12/18/18 1515:00 23:00 07:00 IntakeIntake Total 199.175 ml 143.850 ml 90.618 ml OutputOutput Total 64 ml 3530 ml 41 ml BalanceBalance 135.175 ml -3386.150 ml 49.618 ml Results Result Diagram: 12/18/18 0509 12/18/18 0509 SHARON GARCIA MD Dec 18, 2018 16:57
[2018-12-18] MEDS ORDERED: VANCOMYCIN IV PER PHARMACY XX SCH (17:00)
[2018-12-18] MEDS ORDERED: [UNRECOGNIZED DRUG - OTHER] XX ONE (17:30)
[2018-12-18] MEDS: EPOETIN 10000 UNITS/1 ML INJ (ESRD) SC SCH (17:33)
--- NOTE | 2018-12-18 17:35 | EN ---
Date/Time of Note Date/Time of Note DATE: 12/18/18 TIME: 17:32 ER Progress Note The patient was extubated earlier today; now in acute respiratory distress required immediate intubation. I was asked by his physician to evaluate the patient He did go to PEA at 15:27 hr and had ROSC at 15:29 hr. He was given epinephrine 1 mg IV with ROSC Endotracheal Intubation by me: Pre assessment performed. See preceding note for details. Pre-oxygenation performed with 100% oxygen RSI: Performed w/o complication or hypoxic events. Medications as ordered. Blade: MAC ET Tube: 7.5cm Depth: 23 cm at the lip Intubation confirmed by colorimetric CO2, equal breath sounds, quiet over the stomach. I now transfer the care back to his physician RADHA SHARPE MD Dec 18, 2018 17:35
--- NOTE | 2018-12-18 18:39 | RADRPT ---
Echocardiogram Report Patient Name: VARSHA CORTESPatient ID: [id number] : 1945 (73y 4m)Study Date: 12/18/2018 4:11:09 PM Gender: MAccession #: [id number] Tech: Raheem Gillis RDCS Location: 106 Ref.Physician: SHARON GARCIA Height(Cm): BSA: Weight(Kg): Quality: Technically Difficult StudyAccount #: Procedures: Echocardiographic Report: Transthoracic echocardiogram with complete 2D, M-Mode, and doppler examination. Indications: ST elevation. Measurements: 2D/M Mode Doppler Measurement Value Normal Range Measurement Value Normal Range LVIDd 2D 3.2 [ 4.2 - 5.8 ] cm AV Peak Taran 1.5 [ 100.0 - 170.0 ] cm/sec LVIDs 2D 2.1 [ 2.5 - 4.0 ] cm AV Peak PG 9.0 [ 2.0 - 9.0 ] mmHg LVPWd 2D 1.2 [ 0.6 - 1.0 ] cm LVOT Peak Tar[place] 1.3 [ 70.0 - 110.0 ] cm/sec IVSd 2D 1.5 [ 0.6 - 1.0 ] cm LVOT Peak PG 6.0 [ 2.0 - 6.0 ] mmHg AoR Diam 2D 3.1 [ 2.6 - 3.4 ] cm MV E Peak Taran 0.9 [ 60.0 - 130.0 ] cm/sec EDV 2D 39.7 [ 62.0 - 150.0 ] ml MV A Peak Taran 1.2 [ 100.0 - 120.0 ] cm/sec ESV 2D 14.8 [ 21.0 - 61.0 ] ml MV E/A 0.8 [ 0.8 - 1.5 ] ratio EF 2D 62.7 [ 52.0 - 72.0 ] percent MV Decel Time 275 [ 104 - 258 ] msec LA Dimen 2D 2.5 [ 3.0 - 4.0 ] cm Lat E` Taran 0.1 [ 10.0 - 15.0 ] cm/sec Lateral E/E` 10.3 [ 1.0 - 2.0 ] ratio Med E` Taran 0.0 cm/sec MV E/A 0.8 [ 0.8 - 1.5 ] ratio TR Peak Taran 2.8 [ 100.0 - 280.0 ] cm/sec TR Peak PG 32.0 mmHg RVSP 35.0 [ 10.0 - 36.0 ] mmHg RA Pressure 3.0 mmHg Findings: Left Ventricle: Normal left ventricular systolic function. Normal left ventricular cavity size. Mild concentric left ventricular hypertrophy. Ejection fraction is visually estimated at 60 - 65 %. Tissue Doppler/Mitral Doppler indices are consistent with impaired relaxation (Stage I diastolic dysfunction). Right Ventricle: Normal right ventricular size. Normal right ventricular systolic function. Left Atrium: The left atrium is normal in size. Right Atrium: The right atrium is normal in size. Mitral Valve: Normal appearance of the mitral valve. Mild mitral annular calcification. Trace mitral regurgitation. Aortic Valve: No significant aortic stenosis or insufficiency. Aortic cusps appear mildly calcified. Tricuspid Valve: Normal appearance of the tricuspid valve. Estimated peak PA systolic pressure 35 mmHg. There is trace tricuspid regurgitation. Pulmonic Valve: Normal pulmonic valve appearance. Pericardium: Normal pericardium with no significant pericardial effusion. Aorta: Normal aortic root. IVC: Normal IVC with respiratory collapse, however patient on ventilator. Conclusions: Normal left ventricular systolic function. Normal left ventricular cavity size. Mild concentric left ventricular hypertrophy. Ejection fraction is visually estimated at 60 - 65 %. Tissue Doppler/Mitral Doppler indices are consistent with impaired relaxation (Stage I diastolic dysfunction). Normal pericardium with no significant pericardial effusion. Electronically Signed By: Benson Zamora 2018-12-18 18:38:49 PDT
--- NOTE | 2018-12-18 18:40 | RADRPT ---
Vent Rate: 80 bpm RR Interval: 0 msec [place] Interval: 158 msec QRS Duration: 112 msec QT Interval: 422 msec QTC Interval: 486 msec P-R-T [place]: 40 - 18 - 62 degrees Normal sinus rhythm Low voltage QRS RSR ` orattern in V1 suggests right ventricular conduction delay ST elevation, consider anterolateral injury or acute infarct ST elevation, consider inferior injury or acute infarct Prolonged QT ACUTE MN Abnormal ECG Electronically Signed By: Benson Zamora
--- NOTE | 2018-12-18 19:12 | CONS ---
Assessment/Plan Assessment/Plan Hospital Course (Demo Recall) Assessment: Status post PEA arrest - primary event appears to be respiratory distress, hypoxia, and resultant bradycardia; ROSC after brief CPR Acute hypoxic respiratory failure - reintubated again 12/18/2018, remains on mechanical ventilation Acute on chronic diastolic heart failure Possible pneumonia - on antibiotics Pericarditis - likely etiology of current ST elevations on EKG Coronary artery disease - status post CABG x4 (CHEGN-LAD, SVG-PDA, SVG-diag-OM) on 12/15/2018 Status post NSTEMI Hypertension End-stage renal disease - on hemodialysis Recommendations: -continue aspirin -continue atorvastatin -volume management via hemodialysis -echocardiogram 12/18/2018 showed normal LVEF 60-65% without regional wall motion abnormalities, no significant pericardial effusion Consultation Date/Type/Reason Admit Date/Time Dec 13, 2018 at 12:40 Initial Consult Date 12/13/18 Type of Consult Cardiology Date/Time of Note DATE: 12/18/18 TIME: 18:48 24 HR Interval Summary Free Text/Dictation Extubated today, and approximately 3 hours post extubation respiratory distress, hypoxia, and bradycardia. Had PEA arrest, had brief CPR with ROSC. Now reintubated. EKG showed sinus rhythm with diffuse ST elevations, likely due to pericarditis. Repeat transthoracic echocardiogram showed normal LVEF 60-65% without regional wall motion abnormalities, and no significant pericardial effusion. Detailed Summary Additional Comments Unable to obtain review of systems, patient is intubated. Exam/Review of Systems Vital Signs Vitals Vital Signs Date Temp Pulse Resp B/P (MAP) Pulse Ox O2 O2 Flow FiO2 Time Delivery Rate 12/18/18 93 16:00 12/18/18 16 156/62 98 11:30 (93) 12/18/18 Mechanical 11:00 Ventilator 12/18/18 99.9 08:00 12/18/18 40 05:45 12/16/18 5.0 00:19 Intake and Output 12/17/18 12/17/18 12/18/18 1515:00 23:00 07:00 IntakeIntake Total 199.175 ml 143.850 ml 90.618 ml OutputOutput Total 64 ml 3530 ml 41 ml BalanceBalance 135.175 ml -3386.150 ml 49.618 ml Exam Constitutional: No alert, No distress Psych: No no complaints, No nl mood/affect Head: normocephalic, atraumatic Eyes: nl conjunctiva, nl lids ENMT: nl external ears & nose, nl nasal mucosa & septum Neck: supple Respiratory: clear to auscultation; No wheezing Cardiovascular: regular rate and rhythm; No murmurs/extra sounds Gastrointestinal: soft Musculoskeletal: nl extremities to inspection Extremities: No cyanosis, No clubbing, No edema Neurological: No nl mental status, No nl speech Labs Result Diagram: 12/18/18 0509 12/18/18 0509 Results 24hrs Laboratory Tests Test 12/17/18 20:08 12/17/18 21:54 12/18/18 00:04 12/18/18 02:02 Bedside Glucose 99 113 137 138 Test 12/18/18 04:49 12/18/18 05:09 12/18/18 05:18 12/18/18 07:57 Bedside Glucose 137 130 White Blood Count 18.5 H Red Blood Count 3.04 #L Hemoglobin 9.2 #L Hematocrit 27.3 #L Mean Corpuscular 89.8 Volume Mean Corpuscular 30.3 Hemoglobin Mean Corpuscular 33.7 Hemoglobin Concen t Red Cell 16.0 H Distribution Width Platelet Count 154 Mean Platelet 11.8 H Volume Immature 1.000 H Granulocytes % Neutrophils % 90.6 H Lymphocytes % 4.1 L Monocytes % 3.7 Eosinophils % 0.2 Basophils % 0.4 Nucleated Red 0.0 Blood Cells % Immature 0.190 H Granulocytes # Neutrophils # 16.8 H Lymphocytes # 0.8 Monocytes # 0.7 Eosinophils # 0.0 Basophils # 0.1 Nucleated Red 0.0 Blood Cells # Sodium Level 137 Potassium Level 5.0 Chloride Level 100 Carbon Dioxide 21 Level Anion Gap 16 H Blood Urea 24 H Nitrogen Creatinine 4.23 H Est Glomerular Filtrat Rate mL/min Glucose Level 125 Lactic Acid Level 1.2 Calcium Level 8.5 Phosphorus Level 5.7 H Magnesium Level 2.7 H Lab Scanned BLOOD TRANSFUSIO Report N Test 12/18/18 10:05 12/18/18 12:28 12/18/18 14:16 12/18/18 16:06 Bedside Glucose 132 127 144 128 Test 12/18/18 18:06 Bedside Glucose 144 Medications Medications Current Medications Atorvastatin Calcium (Lipitor) 80 mg HS PO Last administered on 12/17/18at 21:54; Admin Dose 80 MG; Start 12/13/18 at 21:00 Diagnostic Test (Pha) (Accu-Chek) 1 ea Q1H XX Last administered on 12/18/18 18:08; Admin Dose 1 EA; Start 12/15/18 at 12:30 Insulin Human Regular 100 unit/ Sodium Chloride 100 ml @ 0 mls/hr PER PROTOCOL IV Last administered on 12/16/18 03:18; Admin Dose 0.5 MLS/HR; Start 12/15/18 at 12:30 Miscellaneous Information (* Miscellaneous Pharmacy Order) Treatment of Hypoglycemia: 1.BG 51... Per protocol XX ; Start 12/15/18 at 12:30 Dextrose (D50w Syringe) 25 ml Q15M PRN IV .DECREASED GLUCOSE; Start 12/15/18 at 12:30 Dextrose (D50w Syringe) 50 ml Q15M PRN IV .DECREASED GLUCOSE; Start 12/15/18 at 12:30 Dopamine HCl/ Dextrose 250 ml @ 6.128 mls/ hr PER PROTOCOL IV Last administered on 12/16/18 02:13; Admin Dose 14.4 MLS/HR; Start 12/15/18 at 13:00 Norepinephrine 250 ml @ 1.875 mls/ hr PER PROTOCOL IV Last administered on 12/17/18 07:59; Admin Dose 3.75 MLS/HR; Start 12/15/18 at 14:00 Phenylephrine HCl 250 ml @ 75 mls/hr PER PROTOCOL IV Last administered on 12/16/18 01:45; Admin Dose 7.5 MLS/HR; Start 12/15/18 at 14:00 Propofol 100 ml @ 2.451 mls/ hr Q12H IV Last administered on 12/18/18 01:55; Admin Dose 4.902 MLS/HR; Start 12/16/18 at 05:30 Epoetin Ever (Epogen (Esrd)) 10,000 units MoWeFr@17 SC Last administered on 11/25 17:33; Admin Dose 10,000 UNITS; Start 12/18/18 at 17:00 Fentanyl 100 ml @ 5 mls/hr TITRATE IV Last administered on 12/18/18 05:24; Admin Dose 5 MLS/HR; Start 12/16/18 at 13:00 Aspirin (Aspirin) 325 mg DAILY PO Last administered on 12/18/18at 09:13; Admin Dose 325 MG; Start 12/17/18 at 09:00 Cefepime HCl 50 ml @ 100 mls/hr Q24H IVPB Last administered on 12/18/18at 12:42; Admin Dose 100 MLS/HR; Start 12/17/18 at 12:00 Heparin Sodium (Porcine) (Heparin (1000 Units/ml)) 3,000 unit PRN PRN CATHETER Dialysis Last administered on 12/17/18at 20:36; Admin Dose 3,000 UNIT; Start 12/17/18 at 19:00 Vancomycin HCl (Vanco Iv Per Pharmacy) VANCOMYCIN PER PHARMACY PER PROTOCOL XX ; Start 12/18/18 at 17:00 JU MENDIETA MD Dec 18, 2018 19:01
[2018-12-18] MEDS ORDERED: VANCOMYCIN HCL 1.75 GM in SOD CHLORIDE 0.9% 500 ML IVPB SCH ×2 (20:00→20:30)
[2018-12-18] MEDS: INSULIN HUMAN REGULAR 100 UNIT in SOD CHLORIDE 0.9% 99 ML IV SCH (20:08)
[2018-12-19] VITALS (84 sets, daily range): BP systolic 81–180; BP diastolic 38–82; PULSE 75–89; RESP 12–60
[2018-12-19] MEDS: ATORVASTATIN 80 MG TAB PO SCH ×2 (00:16→20:00)
[2018-12-19] MEDS: ACCU-CHEK XX SCH ×23 (01:30→23:39)
[2018-12-19] MEDS: FENTAnyl (DRIP) 1000 mcg/100mL 100 ML IV SCH ×2 (04:01→19:52)
[2018-12-19] MEDS: PROPOFOL 100 ML IV SCH ×3 (06:31→19:59)
--- NOTE | 2018-12-19 06:59 | PN ---
Date/Time of Note Date/Time of Note DATE: 12/19/18 TIME: 06:57 Assessment/Plan Lines/Catheters IV Catheter Type (from Nrs): YINKA Dunbar in Place (from Nrs): Yes Assessment/Plan Assessment/Plan agitated on vent, but follows simple commands. pericarditis with EF 60% on echo. dialysis now. WBC 17.8. loaded with vanco and on cefipime.would not extubate today, try tomorrow. keep sedated. Exam/Review of Systems Vital Signs Vitals Vital Signs Date Temp Pulse Resp B/P (MAP) Pulse Ox O2 O2 Flow FiO2 Time Delivery Rate 12/19/18 86 20 143/57 99 06:30 (85) 12/19/18 Mechanical 06:00 Ventilator 12/19/18 40 05:17 12/19/18 99.5 04:00 12/18/18 4.0 12:20 Intake and Output 12/18/18 12/18/18 12/19/18 1414:59 22:59 06:59 IntakeIntake Total 119.304 ml 462.0 ml 179.0 ml OutputOutput Total 0 ml 110 ml 40 ml BalanceBalance 119.304 ml 352.0 ml 139.0 ml Results Result Diagram: 12/19/1842912/19/180 SHARON GARCIA MD Dec 19, 2018 06:59
[2018-12-19] MEDS ORDERED: NORepinephrine 4 MG INJ ONE (07:15)
[2018-12-19] MEDS ORDERED: ALBUMIN HUMAN 25% 100 ML ONE (07:18)
[2018-12-19] MEDS ORDERED: ALBUMIN HUMAN 25% 100 ML IV PRN (07:30)
[2018-12-19] MEDS: NORepinephrine 8MG/250 ML (PMX 250 ML IV SCH (07:45)
--- NOTE | 2018-12-19 08:21 | PN ---
DATE: 12/19/2018 SUBJECTIVE: Yesterday, the patient was extubated, then suffered a terrie down, had a cardiac arrest. Lori maurer was called. The patient had spontaneous return of circulation after 1 mg of epinephrine w as given. The patient was reintubated. Overnight, the patient was stable. This morning, the patien t is agitated, moving all extremities. Currently, receiving hemodialysis. OBJECTIVE: VITAL SIGNS: Blood pressure is 115/46, respirations 20, pulse 85, temperature 98.6. HEENT: Head is normocephalic. Pupils are reactive to light. NECK: Supple. HEART: Regular rate. LUNGS: Show diminished breath sounds at the base. ABDOMEN: Soft, nontender to palpation without rebound or guarding. EXTREMITIES: Negative for clubbing, cyanosis. Positive edema. DERMATOLOGIC: No rashes. MUSCULOSKELETAL: No joint effusion. NEUROLOGIC: The patient is moving all extremities. Limited exam as the patient is intubated. MEDICATIONS: Reviewed. LABORATORY DATA: Reviewed and showed sodium 138, BUN 44, creatinine 6.06, calcium 8.3, phosphorus 6. 5. White count 17.8, hemoglobin 8.4, platelet count is 144. ASSESSMENT AND PLAN: 1. Cardiac arrest. Etiology is likely respiratory due to mucus plug. The patient is status post co de blue with spontaneous return of circulation. At this point, we will continue to monitor. Follow up with cardiology. 2. Coronary artery disease. The patient is status post 4-vessel coronary artery bypass graft. Cont inue medical management. Follow up with CT surgery, cardiology. 3. Sepsis secondary to healthcare-associated pneumonia. Continue current antibiotic regimen. Follo w up with Infectious Disease. 4. Ventilator-dependent respiratory failure. Vent settings and ABG was reviewed. Continue to monit or. 5. End-stage renal disease. The patient is on daily dialysis for solute clearance and volume remova l. We will continue. 6. Anemia. Continue to monitor hemoglobin and hematocrit levels. Continue Epogen. 7. Mineral bone disorder, monitor calcium and phosphorus levels. 8. Diabetes. Continue current insulin regimen. 9. Dyslipidemia. Continue statin therapy. 10. Volume overload. Continue ultrafiltration with dialysis. 11. Acute encephalopathy, etiology is toxic metabolic. 12. Hypermagnesemia. Continue hemodialysis. 13. Gastrointestinal and deep vein thrombosis prophylaxis. 14. Status post shock. 15. Intracranial aneurysm, stable, continue to monitor. Dictated By: JAKY WALSH/EDUARD Conf#: [id number] DID#: [id number] CC: SAGRARIO POLLOCK MD; ROSARIO MONROE MD;*EndCC*
[2018-12-19] MEDS: HEPARIN 1000 UNITS/ML 10 ML INJ CATHETER PRN (09:34)
[2018-12-19] MEDS: ASPIRIN 325 MG TAB PO SCH (10:05)
--- NOTE | 2018-12-19 10:17 | CONS ---
Consult Date/Type/Reason Admit Date/Time Dec 13, 2018 at 12:40 Initial Consult Date 12/16/18 Type of Consult Pulmonary Date/Time of Note DATE: 12/19/18 TIME: 10:15 Subjective Patient failed extubation yesterday. Following several hours post extubation developed respiratory distress cardiopulmonary arrest and then required ACLS protocol to patient. Now on mechanical ventilation vasopressor support. Objective Vital Signs Date Temp Pulse Resp B/P (MAP) Pulse Ox O2 O2 Flow FiO2 Time Delivery Rate 12/19/18 86 09:10 12/19/18 20 118/41 100 Mechanical 09:00 (66) Ventilator 12/19/18 40 06:00 12/19/18 99.5 04:00 12/18/18 4.0 12:20 Intake and Output 12/18/18 12/18/18 12/19/18 1414:59 22:59 06:59 IntakeIntake Total 119.304 ml 462.0 ml 179.0 ml OutputOutput Total 0 ml 110 ml 40 ml BalanceBalance 119.304 ml 352.0 ml 139.0 ml Exam GENERAL: Well-nourished well-developed gentleman comfortable at rest no acute distress VITAL SIGNS: per chart NECK: Supple. No JVD or lymphadenopathy. CARDIAC EXAM: S1, S2. No added sounds or murmurs. CHEST: Diminished air entry bilaterally ABDOMEN: Soft, nontender. No guarding or rebound. EXTREMITIES: No cyanosis, clubbing or edema. NEUROLOGIC: Generalized weakness. Vent Setting Ventilator Support Mode: AC Fraction of Inspired Oxygen pe: 40 Positive End Expiratory Pressu: 5.0 Results/Medications Result Diagram: 12/19/18 0430 12/19/18 0430 Results 24 hrs Laboratory Tests Test 12/18/18 12:28 12/18/18 14:16 12/18/18 15:05 12/18/18 16:06 Bedside Glucose 127 144 128 Blood Gas Blood arterial Specimen Source Arterial Blood 12/18/2018 5:02:0 Date Drawn 0 PM Arterial Blood pH 7.264 *L (Temp corrected) Arterial Blood 44.3 pCO2 (Temp correct) Arterial Blood 267.9 H pO2 (Temp corrected) Arterial Blood 19.6 L HCO3 Arterial Blood -6.8 L Base Excess Arterial Blood 99.3 Oxygen Saturation Ru Test N/A Arterial Blood A-Line Gas Puncture Site Arterial 0.2 Blood Carboxyhemo globin Arterial Blood 0.9 Methemoglobin Blood Gas A-a O2 400.8 H Differential Oxyhemoglobin 98.2 Percent Blood Gas 37.0 Temperature Blood Gas 16.0 Respiration Rate Blood Gas Actual 16 Respiration Rate Blood Gas VENT - AC Modality FiO2 100.0 Blood Gas Tidal 500.0 Volume Blood Gas Low 0 PEEP Setting Blood Gas Treasure DOYLE RN Critical Value Read Back Blood Gas TD Notified Whom Blood Gas 12/18/2018 3:17:0 Notified Time 0 PM Test 12/18/18 17:46 12/18/18 18:06 12/18/18 20:05 12/18/18 22:29 Random Vancomycin < 5.0 Level Bedside Glucose 144 148 141 Test 12/19/18 00:05 12/19/18 02:10 12/19/18 03:58 12/19/18 04:30 Bedside Glucose 131 135 138 White Blood Count 17.8 H Red Blood Count 2.79 L Hemoglobin 8.4 L Hematocrit 25.2 L Mean Corpuscular 90.3 Volume Mean Corpuscular 30.1 Hemoglobin Mean Corpuscular 33.3 Hemoglobin Concen t Red Cell 15.9 H Distribution Width Platelet Count 144 Mean Platelet 11.3 H Volume Immature 1.000 H Granulocytes % Neutrophils % 88.7 H Lymphocytes % 4.6 L Monocytes % 5.1 Eosinophils % 0.3 Basophils % 0.3 Nucleated Red 0.0 Blood Cells % Immature 0.180 H Granulocytes # Neutrophils # 15.8 H Lymphocytes # 0.8 Monocytes # 0.9 Eosinophils # 0.1 Basophils # 0.1 Nucleated Red 0.0 Blood Cells # Sodium Level 138 Potassium Level 4.9 Chloride Level 100 Carbon Dioxide 18 L Level Anion Gap 20 H Blood Urea 44 #H Nitrogen Creatinine 6.06 H Est Glomerular Filtrat Rate mL/min Glucose Level 116 Calcium Level 8.3 L Phosphorus Level 6.5 H Magnesium Level 2.9 H Test 12/19/18 06:06 12/19/18 09:48 Bedside Glucose 121 91 Medications Current Medications Atorvastatin Calcium (Lipitor) 80 mg HS PO Last administered on 12/19/18at 00:16; Admin Dose 80 MG; Start 12/13/18 at 21:00 Diagnostic Test (Pha) (Accu-Chek) 1 ea Q1H XX Last administered on 12/19/18at 08:30; Admin Dose 1 EA; Start 12/15/18 at 12:30 Insulin Human Regular 100 unit/ Sodium Chloride 100 ml @ 0 mls/hr PER PROTOCOL IV Last administered on 12/18/18at 20:08; Admin Dose 1.5 MLS/HR; Start 12/15/18 at 12:30 Miscellaneous Information (* Miscellaneous Pharmacy Order) Treatment of Hypoglycemia: 1.BG 51... Per protocol XX ; Start 12/15/18 at 12:30 Dextrose (D50w Syringe) 25 ml Q15M PRN IV .DECREASED GLUCOSE; Start 12/15/18 at 12:30 Dextrose (D50w Syringe) 50 ml Q15M PRN IV .DECREASED GLUCOSE; Start 12/15/18 at 12:30 Dopamine HCl/ Dextrose 250 ml @ 6.128 mls/ hr PER PROTOCOL IV Last administered on 12/16/18at 02:13; Admin Dose 14.4 MLS/HR; Start 12/15/18 at 13:00 Norepinephrine 250 ml @ 1.875 mls/ hr PER PROTOCOL IV Last administered on 12/17/18at 07:59; Admin Dose 3.75 MLS/HR; Start 12/15/18 at 14:00 Phenylephrine HCl 250 ml @ 75 mls/hr PER PROTOCOL IV Last administered on 12/16/18at 01:45; Admin Dose 7.5 MLS/HR; Start 12/15/18 at 14:00 Propofol 100 ml @ 2.451 mls/ hr Q12H IV Last administered on 12/19/18 06:31; Admin Dose 2.451 MLS/HR; Start 12/16/18 at 05:30 Epoetin Ever (Epogen (Esrd)) 10,000 units MoWeFr@17 SC Last administered on 12/18/18at 17:33; Admin Dose 10,000 UNITS; Start 12/18/18 at 17:00 Fentanyl 100 ml @ 5 mls/hr TITRATE IV Last administered on 12/19/18 04:01; A dmin Dose 6 MLS/HR; Start 12/16/18 at 13:00 Aspirin (Aspirin) 325 mg DAILY PO Last administered on 12/19/18at 10:05; Admin Dose 325 MG; Start 12/17/18 at 09:00 Cefepime HCl 50 ml @ 100 mls/hr Q24H IVPB Last administered on 12/18/18at 12:42; Admin Dose 100 MLS/HR; Start 12/17/18 at 12:00 Heparin Sodium (Porcine) (Heparin (1000 Units/ml)) 3,000 unit PRN PRN CATHETER Dialysis Last administered on 12/19/18at 09:34; Admin Dose 3,000 UNIT; Start 12/17/18 at 19:00 Vancomycin HCl (Vanco Iv Per Pharmacy) VANCOMYCIN PER PHARMACY PER PROTOCOL XX ; Start 12/18/18 at 17:00 Albumin Human 100 ml @ 100 mls/hr ONCE PRN IV IF SBP < 90, During HD. Last administered on 12/19/18at 07:49; Admin Dose 100 MLS/HR; Start 12/19/18 at 07:30; Stop 12/19/18 at 23:59 Assessment/Plan Hospital Course (Demo Recall) IMP: 1. Hypercapnic Respiratory Failure--s/p extubation post CABG. Possibly due to a combination of volume overload and sedation. Reintubation x2 2. Post OP day #3 s/p CABG 3. Cardiogenic Shock status post 4. CHF/CAD 5. ESRD on HD 6. Anemia 7. LLL Atelectasis/infiltrate RECS: 1. hold off on further weaning trials for now 2. Continue hemodialysis with UF 3. Sedation vacation as tolerated 4. Pressors to maintain MAP > 65 mm Hg 5. Continue cefepime and vancomycin. 6. Monitor H&H posttransfusion 40 min cc time ROSARIO MONROE MD, [facility] Dec 19, 2018 10:17
[2018-12-19] MEDS: CEFEPIME 2GM/50 ML (PMX) 50 ML IVPB SCH (12:34)
--- NOTE | 2018-12-19 14:45 | CONS ---
Assessment/Plan Assessment/Plan Hospital Course (Demo Recall) Patient was reintubated yesterday status post CODE BLUE, he is lying comfortably in bed, opens eyes, in no distress T-max 100.60 current 99.1. WBC 17.8 H&H 8.4 and 25.2 platelets 144 neutrophils 88.7 Antimicrobials: Vancomycin, cefepime Indwelling: NG tube right IJ cordis left femoral Anam 2 chest tubes right wrist A-line Physical examination: Well-developed chronically ill-appearing elderly man who is intubated in no distress. Head atraumatic normocephalic sclera nonicteric vehicle mucosa dry neck is supple chest rise symmetrical breath sounds with crackles. Heart S1-S2 abdomen soft bowel sounds hypoactive extremities cyanotic Assessment: 1. Sepsis, status post shock, multifactorial 2. Healthcare associated pneumonia, possibly aspirated 3. Acute respiratory failure, status post extubation post CABG with reintubation 4. Non-ST elevation MN status post CABG 12/15/18 5. 5. End-stage renal disease, hemodialysis dependent 6. Anemia Plan: Hemodynamically stable, continue antibiotics, vent management per pulmonary, cardiology and cardiothoracic surgery recommendations Consultation Date/Type/Reason Admit Date/Time Dec 13, 2018 at 12:40 Initial Consult Date 12/16/18 Type of Consult id Date/Time of Note DATE: 12/19/18 TIME: 14:43 Exam/Review of Systems Exam Vitals Vital Signs Date Temp Pulse Resp B/P (MAP) Pulse Ox O2 O2 Flow FiO2 Time Delivery Rate 12/19/18 79 60 98 40 13:20 12/19/18 99/53 (68) 10:15 12/19/18 Mechanical 09:15 Ventilator 12/19/18 99.1 08:00 12/18/18 4.0 12:20 Intake and Output 12/18/18 12/18/18 12/19/18 1515:00 23:00 07:00 IntakeIntake Total 119.402 ml 582.0 ml 60.0 ml OutputOutput Total 0 ml 110 ml 40 ml BalanceBalance 119.402 ml 472.0 ml 20.0 ml Results Result Diagram: 12/19/18 0430 12/19/18 0430 Results 24hrs Laboratory Tests Test 12/18/18 15:05 12/18/18 16:06 12/18/18 17:46 12/18/18 18:06 Blood Gas Blood arterial Specimen Source Arterial Blood 12/18/2018 5:02: Date Drawn 00 PM Arterial Blood 7.264 *L pH (Temp corrected) Arterial Blood 44.3 pCO2 (Temp correct) Arterial Blood 267.9 H pO2 (Temp corrected) Arterial Blood 19.6 L HCO3 Arterial Blood -6.8 L Base Excess Arterial Blood 99.3 Oxygen Saturatio n Ru Test N/A Arterial Blood A-Line Gas Puncture Site Arterial 0.2 Blood Carboxyhem oglobin Arterial Blood 0.9 Methemoglobin Blood Gas A-a O2 400.8 H Differential Oxyhemoglobin 98.2 Percent Blood Gas 37.0 Temperature Blood Gas 16.0 Respiration Rate Blood Gas Actual 16 Respiration Rate Blood Gas VENT - AC Modality FiO2 100.0 Blood Gas Tidal 500.0 Volume Blood Gas Low 0 PEEP Setting Blood Gas Treasure DOYLE RN Critical Value Read Back Blood Gas TD Notified Whom Blood Gas 12/18/2018 3:17: Notified Time 00 PM Bedside Glucose 128 144 Random < 5.0 Vancomycin Level Test 12/18/18 20:05 12/18/18 22:29 12/19/18 00:05 12/19/18 02:10 Bedside Glucose 148 141 131 135 Test 12/19/18 03:58 12/19/18 04:30 12/19/18 06:06 12/19/18 07:00 Bedside Glucose 138 121 White Blood 17.8 H Count Red Blood Count 2.79 L Hemoglobin 8.4 L Hematocrit 25.2 L Mean Corpuscular 90.3 Volume Mean Corpuscular 30.1 Hemoglobin Mean Corpuscular 33.3 Hemoglobin Shayy nt Red Cell 15.9 H Distribution Width Platelet Count 144 Mean Platelet 11.3 H Volume Immature 1.000 H Granulocytes % Neutrophils % 88.7 H Lymphocytes % 4.6 L Monocytes % 5.1 Eosinophils % 0.3 Basophils % 0.3 Nucleated Red 0.0 Blood Cells % Immature 0.180 H Granulocytes # Neutrophils # 15.8 H Lymphocytes # 0.8 Monocytes # 0.9 Eosinophils # 0.1 Basophils # 0.1 Nucleated Red 0.0 Blood Cells # Sodium Level 138 Potassium Level 4.9 Chloride Level 100 Carbon Dioxide 18 L Level Anion Gap 20 H Blood Urea 44 #H Nitrogen Creatinine 6.06 H Est Glomerular Filtrat Rate mL/min Glucose Level 116 Calcium Level 8.3 L Phosphorus Level 6.5 H Magnesium Level 2.9 H Blood Gas Blood arterial Specimen Source Arterial Blood 12/19/2018 11:31 Date Drawn :52 AM Arterial Blood 7.465 H pH (Temp corrected) Arterial Blood 28.5 L pCO2 (Temp correct) Arterial Blood 100.9 H pO2 (Temp corrected) Arterial Blood 20.0 L HCO3 Arterial Blood -3.0 Base Excess Arterial Blood 97.0 Oxygen Saturatio n Ru Test ACCEPTAB Arterial Blood Right Radial Gas Puncture Site Arterial 0.3 Blood Carboxyhem oglobin Arterial Blood 0.3 Methemoglobin Blood Gas A-a O2 151.5 H Differential Oxyhemoglobin 96.4 Percent Blood Gas 37.0 Temperature Blood Gas 20.0 Respiration Rate Blood Gas Actual 20 Respiration Rate Blood Gas VENT - AC Modality FiO2 40.0 Blood Gas Tidal 550.0 Volume Blood Gas Low 5.0 PEEP Setting Blood Gas TM Notified Whom Blood Gas 12/19/2018 11:49 Notified Time :30 AM Test 12/19/18 09:48 12/19/18 11:00 12/19/18 12:31 12/19/18 14:11 Bedside Glucose 91 93 99 109 Medications Medication Current Medications Atorvastatin Calcium (Lipitor) 80 mg HS PO Last administered on 12/19/18at 00:16; Admin Dose 80 MG; Start 12/13/18 at 21:00 Diagnostic Test (Pha) (Accu-Chek) 1 ea Q1H XX Last administered on 12/19/18at 14:13; Admin Dose 1 EA; Start 12/15/18 at 12:30 Insulin Human Regular 100 unit/ Sodium Chloride 100 ml @ 0 mls/hr PER PROTOCOL IV Last administered on 12/18/18at 20:08; Admin Dose 1.5 MLS/HR; Start 12/15/18 at 12:30 Miscellaneous Information (* Miscellaneous Pharmacy Order) Treatment of Hypoglycemia: 1.BG 51... Per protocol XX ; Start 12/15/18 at 12:30 Dextrose (D50w Syringe) 25 ml Q15M PRN IV .DECREASED GLUCOSE; Start 12/15/18 at 12:30 Dextrose (D50w Syringe) 50 ml Q15M PRN IV .DECREASED GLUCOSE; Start 12/15/18 at 12:30 Dopamine HCl/ Dextrose 250 ml @ 6.128 mls/ hr PER PROTOCOL IV Last administer ed on 12/16/18 02:13; Admin Dose 14.4 MLS/HR; Start 12/15/18 at 13:00 Norepinephrine 250 ml @ 1.875 mls/ hr PER PROTOCOL IV Last administered on 12/19/18 07:45; Admin Dose 3.75 MLS/HR; Start 12/15/18 at 14:00 Phenylephrine HCl 250 ml @ 75 mls/hr PER PROTOCOL IV Last administered on 12/16/18 01:45; Admin Dose 7.5 MLS/HR; Start 12/15/18 at 14:00 Propofol 100 ml @ 2.451 mls/ hr Q12H IV Last administered on 12/19/18 06:31; Admin Dose 2.451 MLS/HR; Start 12/16/18 at 05:30 Epoetin Ever (Epogen (Esrd)) 10,000 units MoWeFr@17 SC Last administered on 12/18/18 17:33; Admin Dose 10,000 UNITS; Start 12/18/18 at 17:00 Fentanyl 100 ml @ 5 mls/hr TITRATE IV Last administered on 12/19/18 04:01; Admin Dose 6 MLS/HR; Start 12/16/18 at 13:00 Aspirin (Aspirin) 325 mg DAILY PO Last administered on 12/19/18 10:05; Admin Dose 325 MG; Start 12/17/18 at 09:00 Cefepime HCl 50 ml @ 100 mls/hr Q24H IVPB Last administered on 12/19/18 12:34; Admin Dose 100 MLS/HR; Start 12/17/18 at 12:00 Heparin Sodium (Porcine) (Heparin (1000 Units/ml)) 3,000 unit PRN PRN CATHETER Dialysis Last administered on 12/19/18 09:34; Admin Dose 3,000 UNIT; Start 12/17/18 at 19:00 Vancomycin HCl (Vanco Iv Per Pharmacy) VANCOMYCIN PER PHARMACY PER PROTOCOL XX ; Start 12/18/18 at 17:00 Albumin Human 100 ml @ 100 mls/hr ONCE PRN IV IF SBP < 90, During HD. Last administered on 12/19/18 07:49; Admin Dose 100 MLS/HR; Start 12/19/18 at 07:30; Stop 12/19/18 at 23:59 Miscellaneous Information (*Rx Drug Level Order Reminder*) RANDOM VANCOMYCIN LEVEL 3... ONCE ONCE XX ; Start 12/20/18 at 05:00; Stop 12/20/18 at 05:01 LASHELL LYNCH NP Dec 19, 2018 14:44
--- NOTE | 2018-12-19 16:03 | CONS ---
Assessment/Plan Assessment/Plan Hospital Course (Demo Recall) Assessment: Status post PEA arrest - primary event appears to be respiratory distress, hypoxia, and resultant bradycardia; ROSC after brief CPR Acute hypoxic respiratory failure - reintubated again 12/18/2018, remains on mechanical ventilation Acute on chronic diastolic heart failure Possible pneumonia - on antibiotics Pericarditis - likely etiology of current ST elevations on EKG Coronary artery disease - status post CABG x4 (CHENG-LAD, SVG-PDA, SVG-diag-OM) on 12/15/2018 Status post NSTEMI Hypertension End-stage renal disease - on hemodialysis Recommendations: -continue aspirin -continue atorvastatin -consider addition of beta-charli as blood pressure can tolerate -volume management via hemodialysis -echocardiogram 12/18/2018 showed normal LVEF 60-65% without regional wall motion abnormalities, no significant pericardial effusion Consultation Date/Type/Reason Admit Date/Time Dec 13, 2018 at 12:40 Initial Consult Date 12/13/18 Type of Consult Cardiology Date/Time of Note DATE: 12/19/18 TIME: 16:02 24 HR Interval Summary Free Text/Dictation Remains intubated. Hemodynamically stable off pressors. Detailed Summary Additional Comments Unable to obtain review of systems, patient is intubated. Exam/Review of Systems Vital Signs Vitals Vital Signs Date Temp Pulse Resp B/P (MAP) Pulse Ox O2 O2 Flow FiO2 Time Delivery Rate 12/19/18 79 60 98 40 13:20 12/19/18 99/53 (68) 10:15 12/19/18 Mechanical 09:15 Ventilator 12/19/18 99.1 08:00 12/18/18 4.0 12:20 Intake and Output 12/18/18 12/18/18 12/19/18 1515:00 23:00 07:00 IntakeIntake Total 119.402 ml 582.0 ml 60.0 ml OutputOutput Total 0 ml 110 ml 40 ml BalanceBalance 119.402 ml 472.0 ml 20.0 ml Exam Exam Constitutional: No alert, No distress Psych: No no complaints, No nl mood/affect Head: normocephalic, atraumatic Eyes: nl conjunctiva, nl lids ENMT: nl external ears & nose, nl nasal mucosa & septum Neck: supple Respiratory: clear to auscultation; No wheezing Cardiovascular: regular rate and rhythm; No murmurs/extra sounds Gastrointestinal: soft Musculoskeletal: nl extremities to inspection Extremities: No cyanosis, No clubbing, No edema Neurological: No nl mental status, No nl speech Labs Result Diagram: 12/19/18 0430 12/19/18 0430 Results 24hrs Laboratory Tests Test 12/18/18 16:06 12/18/18 17:46 12/18/18 18:06 12/18/18 20:05 Bedside Glucose 128 144 148 Random Vancomycin < 5.0 Level Test 12/18/18 22:29 12/19/18 00:05 12/19/18 02:10 12/19/18 03:58 Bedside Glucose 141 131 135 138 Test 12/19/18 04:30 12/19/18 06:06 12/19/18 07:00 12/19/18 09:48 White Blood Count 17.8 H Red Blood Count 2.79 L Hemoglobin 8.4 L Hematocrit 25.2 L Mean Corpuscular 90.3 Volume Mean Corpuscular 30.1 Hemoglobin Mean Corpuscular 33.3 Hemoglobin Concen t Red Cell 15.9 H Distribution Width Platelet Count 144 Mean Platelet 11.3 H Volume Immature 1.000 H Granulocytes % Neutrophils % 88.7 H Lymphocytes % 4.6 L Monocytes % 5.1 Eosinophils % 0.3 Basophils % 0.3 Nucleated Red 0.0 Blood Cells % Immature 0.180 H Granulocytes # Neutrophils # 15.8 H Lymphocytes # 0.8 Monocytes # 0.9 Eosinophils # 0.1 Basophils # 0.1 Nucleated Red 0.0 Blood Cells # Sodium Level 138 Potassium Level 4.9 Chloride Level 100 Carbon Dioxide 18 L Level Anion Gap 20 H Blood Urea 44 #H Nitrogen Creatinine 6.06 H Est Glomerular Filtrat Rate mL/min Glucose Level 116 Calcium Level 8.3 L Phosphorus Level 6.5 H Magnesium Level 2.9 H Bedside Glucose 121 91 Blood Gas Blood arterial Specimen Source Arterial Blood 12/19/2018 11:31: Date Drawn 52 AM Arterial Blood pH 7.465 H (Temp corrected) Arterial Blood 28.5 L pCO2 (Temp correct) Arterial Blood 100.9 H pO2 (Temp corrected) Arterial Blood 20.0 L HCO3 Arterial Blood -3.0 Base Excess Arterial Blood 97.0 Oxygen Saturation Ru Test ACCEPTAB Arterial Blood Right Radial Gas Puncture Site Arterial 0.3 Blood Carboxyhemo globin Arterial Blood 0.3 Methemoglobin Blood Gas A-a O2 151.5 H Differential Oxyhemoglobin 96.4 Percent Blood Gas 37.0 Temperature Blood Gas 20.0 Respiration Rate Blood Gas Actual 20 Respiration Rate Blood Gas VENT - AC Modality FiO2 40.0 Blood Gas Tidal 550.0 Volume Blood Gas Low 5.0 PEEP Setting Blood Gas TM Notified Whom Blood Gas 12/19/2018 11:49: Notified Time 30 AM Test 12/19/18 11:00 12/19/18 12:31 12/19/18 14:11 Bedside Glucose 93 99 109 Medications Medications Current Medications Atorvastatin Calcium (Lipitor) 80 mg HS PO Last administered on 12/19/18 00:16; Admin Dose 80 MG; Start 12/13/18 at 21:00 Diagnostic Test (Pha) (Accu-Chek) 1 ea Q1H XX Last administered on 12/19/18 14:13; Admin Dose 1 EA; Start 12/15/18 at 12:30 Insulin Human Regular 100 unit/ Sodium Chloride 100 ml @ 0 mls/hr PER PROTOCOL IV Last administered on 12/18/18 20:08; Admin Dose 1.5 MLS/HR; Start 12/15/18 at 12:30 Miscellaneous Information (* Miscellaneous Pharmacy Order) Treatment of Hypoglycemia: 1.BG 51... Per protocol XX ; Start 12/15/18 at 12:30 Dextrose (D50w Syringe) 25 ml Q15M PRN IV .DECREASED GLUCOSE; Start 12/15/18 at 12:30 Dextrose (D50w Syringe) 50 ml Q15M PRN IV .DECREASED GLUCOSE; Start 12/15/18 at 12:30 Dopamine HCl/ Dextrose 250 ml @ 6.128 mls/ hr PER PROTOCOL IV Last administer ed on 12/16/18at 02:13; Admin Dose 14.4 MLS/HR; Start 12/15/18 at 13:00 Norepinephrine 250 ml @ 1.875 mls/ hr PER PROTOCOL IV Last administered on 12/19/18 07:45; Admin Dose 3.75 MLS/HR; Start 12/15/18 at 14:00 Phenylephrine HCl 250 ml @ 75 mls/hr PER PROTOCOL IV Last administered on 12/16/18 01:45; Admin Dose 7.5 MLS/HR; Start 12/15/18 at 14:00 Propofol 100 ml @ 2.451 mls/ hr Q12H IV Last administered on 12/19/18 06:31; Admin Dose 2.451 MLS/HR; Start 12/16/18 at 05:30 Epoetin Ever (Epogen (Esrd)) 10,000 units MoWeFr@17 SC Last administered on 12/18/18 17:33; Admin Dose 10,000 UNITS; Start 12/18/18 at 17:00 Fentanyl 100 ml @ 5 mls/hr TITRATE IV Last administered on 12/19/18 04:01; Admin Dose 6 MLS/HR; Start 12/16/18 at 13:00 Aspirin (Aspirin) 325 mg DAILY PO Last administered on 12/19/18at 10:05; Admin Dose 325 MG; Start 12/17/18 at 09:00 Cefepime HCl 50 ml @ 100 mls/hr Q24H IVPB Last administered on 12/19/18at 12:34; Admin Dose 100 MLS/HR; Start 12/17/18 at 12:00 Heparin Sodium (Porcine) (Heparin (1000 Units/ml)) 3,000 unit PRN PRN CATHETER Dialysis Last administered on 12/19/18 09:34; Admin Dose 3,000 UNIT; Start 12/17/18 at 19:00 Vancomycin HCl (Vanco Iv Per Pharmacy) VANCOMYCIN PER PHARMACY PER PROTOCOL XX ; Start 12/18/18 at 17:00 Albumin Human 100 ml @ 100 mls/hr ONCE PRN IV IF SBP < 90, During HD. Last administered on 12/19/18 07:49; Admin Dose 100 MLS/HR; Start 12/19/18 at 07:30; Stop 12/19/18 at 23:59 Miscellaneous Information (*Rx Drug Level Order Reminder*) RANDOM VANCOMYCIN LEVEL 3... ONCE ONCE XX ; Start 12/20/18 at 05:00; Stop 12/20/18 at 05:01 JU MENDIETA MD Dec 19, 2018 16:03
[2018-12-20] VITALS (41 sets, daily range): BP systolic 90–132; BP diastolic 51–74; PULSE 70–88; RESP 10–26
[2018-12-20] MEDS: ACCU-CHEK XX SCH ×22 (01:05→23:29)
[2018-12-20] MEDS: ASPIRIN 325 MG TAB PO SCH (08:13)
--- NOTE | 2018-12-20 08:21 | PN ---
DATE: 12/20/2018 SUBJECTIVE: The patient remains in serious condition. The patient was on pressor support yesterday. Currently, off pressor support this morning. The patient remains on full ventilatory support. No other acute events noted. No hemoptysis, hematemesis or hematochezia. OBJECTIVE: VITAL SIGNS: Blood pressure is 119/58, respirations 20, pulse 85, temperature 98.6. I's and O's rev iewed. HEENT: Head is normocephalic. Pupils are reactive to light. NECK: Supple. HEART: Tachycardic. LUNGS: Show diminished breath sounds at the base. ABDOMEN: Soft, nontender to palpation without rebound or guarding. EXTREMITIES: Negative for clubbing, cyanosis. Trace edema. DERMATOLOGIC: No rashes. MUSCULOSKELETAL: No joint effusion. NEUROLOGIC: Limited exam as the patient is obtunded. MEDICATIONS: Reviewed. LABORATORY DATA: Reviewed. The patient's sodium 136, BUN 39, creatinine 5.26, phosphorus 5.8, magne sium 2.7. White count 19.6, hemoglobin 7.9, platelet count is 142. The patient's toxicology was rev iewed. Cultures have been reviewed. IMAGING STUDIES: Chest x-ray has been reviewed, that continue to show hazy opacification in left saundra g, likely representing interstitial opacities and left pleural effusion. ASSESSMENT AND PLAN: 1. Cardiac arrest. Etiology may be in respiratory, secondary to mucous plug, questionable pneumonia . The patient has been hemodynamically stable. Continue to monitor. Follow up with cardiology amrik mmendations. 2. Coronary artery disease. The patient is status post 4-vessel coronary artery bypass graft. Cont inue current medical management. Follow up with cardiology, CT surgery for recommendations. 3. Sepsis secondary to healthcare-associated pneumonia. Continue current antibiotic regimen. Cultu res have been reviewed. Follow up with infectious disease. 4. Ventilator-dependent respiratory failure. Vent settings and ABG was reviewed. Continue to monit or. Consider weaning per pulmonary. 5. End-stage renal disease. The patient has been receiving daily dialysis for solute clearance and volume removal. We will plan for dialysis again today. 6. Anemia. Continue to monitor hemoglobin and hematocrit levels. Continue Epogen. 7. Mineral bone disorder, monitor calcium and phosphorus levels. Continue dialysis for solute clear ance. 8. Diabetes. Continue current insulin regimen. 9. Dyslipidemia. Continue statin therapy. 10. Volume overload, improved. We will continue ultrafiltration dialysis. 11. Acute encephalopathy, etiology is toxic metabolic. Continue to monitor. 12. Hypermagnesemia, improving. Continue dialysis. 13. Intracranial aneurysm, stable, continue to monitor. 14. Status post shock. 15. Gastrointestinal and deep vein thrombosis prophylaxis. Please note I spent over 30 minutes of critical care time with this patient. Dictated By: JAKY HOU DO NR/NTS Conf#: [id number] DID#: [id number] CC: ROSARIO MONROE MD; SAGRARIO POLLOCK MD;*EndCC*
[2018-12-20] MEDS: FENTAnyl (DRIP) 1000 mcg/100mL 100 ML IV SCH ×2 (08:25→19:42)
--- NOTE | 2018-12-20 10:37 | CONS ---
Assessment/Plan Assessment/Plan Hospital Course (Demo Recall) Post CABG Pericarditis: diffuse ST elevation on EKG, rub on exam, and echo with normal EF and wall motion which would not fit with ischemic event. Status post PEA arrest - primary event appears to be respiratory distress, hypoxia, and resultant bradycardia; ROSC after brief CPR 12/18 Acute hypoxic respiratory failure - failed extubation twice including 12/18/2018, remains on mechanical ventilation Acute on chronic diastolic heart failure: decompensated by exam Possible pneumonia - on antibiotics Coronary artery disease - status post CABG x4 (CHENG-LAD, SVG-PDA, SVG-diag-OM) on 12/15/2018 Status post NSTEMI Hypertension End-stage renal disease - on hemodialysis -to be thorough, check two trops to make sure we are not missing an ischemic e vent. Expect to be mildly elevated -start ibuprofen 400mg TID -start protonix 40mg BID -continue aspirin 325mg -continue atorvastatin 80mg -start metoprolol soon if BP remains stable -HD per nephrology. Remains overloaded on exam Consultation Date/Type/Reason Admit Date/Time Dec 13, 2018 at 12:40 Initial Consult Date Type of Consult Cardiology Date/Time of Note DATE: 12/20/18 TIME: 10:32 24 HR Interval Summary Free Text/Dictation No events. Remains intubated and off pressor support. BP fluctuating and borderline Exam/Review of Systems Exam Vitals Vital Signs Date Temp Pulse Resp B/P (MAP) Pulse Ox O2 O2 Flow FiO2 Time Delivery Rate 12/20/18 82 20 100 40 08:20 12/20/18 98.6 107/54 08:00 (71) 12/19/18 Mechanical 23:45 Ventilator 12/18/18 4.0 12:20 Intake and Output 12/19/18 12/19/18 12/20/18 1515:00 23:00 07:00 IntakeIntake Total 181.7035 ml 190.906 ml 190 ml OutputOutput Total 2500 ml 76 ml 30 ml BalanceBalance -2318.2965 ml 114.906 ml 160 ml Constitutional: No alert (sedated) ENMT: intubated Neck: supple, jvd (9cm) Respiratory: No clear to auscultation, No crackles/rales Cardiovascular: regular rate and rhythm, edema (1+), rub Gastrointestinal: soft, non-tender; No distended Neurological: No nl mental status, No nl speech Results Result Diagram: 12/20/18 0430 12/20/18 0430 Results 24hrs Laboratory Tests Test 12/19/18 11:00 12/19/18 12:31 12/19/18 14:11 12/19/18 16:37 Bedside Glucose 93 99 109 134 Test 12/19/18 18:13 12/19/18 19:52 12/19/18 21:38 12/19/18 23:36 Bedside Glucose 129 135 147 146 Test 12/20/18 01:03 12/20/18 02:32 12/20/18 04:30 12/20/18 04:43 Bedside Glucose 171 171 190 White Blood Count 18.6 H Red Blood Count 2.65 L Hemoglobin 7.9 L Hematocrit 24.6 L Mean Corpuscular 92.8 Volume Mean Corpuscular 29.8 Hemoglobin Mean Corpuscular 32.1 Hemoglobin Concent Red Cell 16.5 H Distribution Width Platelet Count 142 Mean Platelet Volume 10.9 H Immature 0.800 H Granulocytes % Neutrophils % 86.3 H Lymphocytes % 6.7 L Monocytes % 5.4 Eosinophils % 0.6 Basophils % 0.2 Nucleated Red Blood 0.0 Cells % Immature 0.150 H Granulocytes # Neutrophils # 16.0 H Lymphocytes # 1.3 Monocytes # 1.0 H Eosinophils # 0.1 Basophils # 0.0 Nucleated Red Blood 0.0 Cells # Sodium Level 136 Potassium Level 4.8 Chloride Level 99 Carbon Dioxide Level 18 L Anion Gap 19 H Blood Urea Nitrogen 39 H Creatinine 5.26 H Est Glomerular Filtrat Rate mL/min Glucose Level 168 Calcium Level 8.4 Phosphorus Level 5.8 H Magnesium Level 2.7 H Random Vancomycin 16.7 Level Test 12/20/18 05:37 12/20/18 06:26 12/20/18 07:55 12/20/18 08:52 Bedside Glucose 197 181 162 139 Test 12/20/18 10:00 Bedside Glucose 140 Medications Medication Current Medications Atorvastatin Calcium (Lipitor) 80 mg HS PO Last administered on 12/19/18at 20:00; Admin Dose 80 MG; Start 12/13/18 at 21:00 Diagnostic Test (Pha) (Accu-Chek) 1 ea Q1H XX Last administered on 12/20/18at 07:55; Admin Dose 1 EA; Start 12/15/18 at 12:30 Insulin Human Regular 100 unit/ Sodium Chloride 100 ml @ 0 mls/hr PER PROTOCOL IV Last administered on 12/18/18 20:08; Admin Dose 1.5 MLS/HR; Start 12/15/18 at 12:30 Miscellaneous Information (* Miscellaneous Pharmacy Order) Treatment of Hypoglycemia: 1.BG 51... Per protocol XX ; Start 12/15/18 at 12:30 Dextrose (D50w Syringe) 25 ml Q15M PRN IV .DECREASED GLUCOSE; Start 12/15/18 at 12:30 Dextrose (D50w Syringe) 50 ml Q15M PRN IV .DECREASED GLUCOSE; Start 12/15/18 at 12:30 Dopamine HCl/ Dextrose 250 ml @ 6.128 mls/ hr PER PROTOCOL IV Last administered on 12/16/18 02:13; Admin Dose 14.4 MLS/HR; Start 12/15/18 at 13:00 Norepinephrine 250 ml @ 1.875 mls/ hr PER PROTOCOL IV Last administered on 12/19/18 07:45; Admin Dose 3.75 MLS/HR; Start 12/15/18 at 14:00 Phenylephrine HCl 250 ml @ 75 mls/hr PER PROTOCOL IV Last administered on 12/16/18 01:45; Admin Dose 7.5 MLS/HR; Start 12/15/18 at 14:00 Propofol 100 ml @ 2.451 mls/ hr Q12H IV Last administered on 12/19/18 19:59; Admin Dose 4.902 MLS/HR; Start 12/16/18 at 05:30 Epoetin Ever (Epogen (Esrd)) 10,000 units MoWeFr@17 SC Last administered on 12/18/18 17:33; Admin Dose 10,000 UNITS; Start 12/18/18 at 17:00 Fentanyl 100 ml @ 5 mls/hr TITRATE IV Last administered on 12/20/18 08:25; Admin Dose 8 MLS/HR; Start 12/16/18 at 13:00 Aspirin (Aspirin) 325 mg DAILY PO Last administered on 12/20/18 08:13; Admin Dose 325 MG; Start 12/17/18 at 09:00 Cefepime HCl 50 ml @ 100 mls/hr Q24H IVPB Last administered on 12/19/18at 12:34; Admin Dose 100 MLS/HR; Start 12/17/18 at 12:00 Heparin Sodium (Porcine) (Heparin (1000 Units/ml)) 3,000 unit PRN PRN CATHETER Dialysis Last administered on 12/19/18at 09:34; Admin Dose 3,000 UNIT; Start 12/17/18 at 19:00 Vancomycin HCl (Vanco Iv Per Pharmacy) VANCOMYCIN PER PHARMACY PER PROTOCOL XX ; Start 12/18/18 at 17:00 Pantoprazole (Protonix Tab) 40 mg BID@06,18 PO ; Start 12/20/18 at 10:30; Status UNV Ibuprofen (Motrin) 400 mg Q8 GTB ; Start 12/20/18 at 14:00; Status UNV SAGRARIO POLLOCK Dec 20, 2018 10:37
[2018-12-20] MEDS: PANTOPRAZOLE (EC) 40 MG TAB PO SCH ×2 (11:14→17:11)
[2018-12-20] MEDS: CEFEPIME 2GM/50 ML (PMX) 50 ML IVPB SCH (11:15)
--- NOTE | 2018-12-20 11:47 | CONS ---
Consult Date/Type/Reason Admit Date/Time Dec 13, 2018 at 12:40 Initial Consult Date 12/16/18 Type of Consult Pulmonary Date/Time of Note DATE: 12/20/18 TIME: 11:29 Subjective Patient continues mechanical ventilation. Intermittent agitation but currently on no vasopressors. Continues insulin drip. Objective Vital Signs Date Temp Pulse Resp B/P (MAP) Pulse Ox O2 O2 Flow FiO2 Time Delivery Rate 12/20/18 83 10 99 40 11:00 12/20/18 98.6 107/54 08:00 (71) 12/19/18 Mechanical 23:45 Ventilator 12/18/18 4.0 12:20 Intake and Output 12/19/18 12/19/18 12/20/18 1414:59 22:59 06:59 IntakeIntake Total 143.1015 ml 222.008 ml 190 ml OutputOutput Total 2500 ml 71 ml 35 ml BalanceBalance -2356.8985 ml 151.008 ml 155 ml Exam GENERAL: Well-nourished well-developed gentleman comfortable at rest no acute distress VITAL SIGNS: per chart NECK: Supple. No JVD or lymphadenopathy. CARDIAC EXAM: S1, S2. No added sounds or murmurs. CHEST: Diminished air entry bilaterally ABDOMEN: Soft, nontender. No guarding or rebound. EXTREMITIES: No cyanosis, clubbing or edema. NEUROLOGIC: Generalized weakness. Vent Setting Ventilator Support Mode: PS, SIMV Fraction of Inspired Oxygen pe: 40 Positive End Expiratory Pressu: 5.0 Results/Medications Result Diagram: 12/20/18 0430 12/20/18 0430 Results 24 hrs Laboratory Tests Test 12/19/18 12:31 12/19/18 14:11 12/19/18 16:37 12/19/18 18:13 Bedside Glucose 99 109 134 129 Test 12/19/18 19:52 12/19/18 21:38 12/19/18 23:36 12/20/18 01:03 Bedside Glucose 135 147 146 171 Test 12/20/18 02:32 12/20/18 04:30 12/20/18 04:43 12/20/18 05:37 Bedside Glucose 171 190 197 White Blood Count 18.6 H Red Blood Count 2.65 L Hemoglobin 7.9 L Hematocrit 24.6 L Mean Corpuscular 92.8 Volume Mean Corpuscular 29.8 Hemoglobin Mean Corpuscular 32.1 Hemoglobin Concent Red Cell 16.5 H Distribution Width Platelet Count 142 Mean Platelet Volume 10.9 H Immature 0.800 H Granulocytes % Neutrophils % 86.3 H Lymphocytes % 6.7 L Monocytes % 5.4 Eosinophils % 0.6 Basophils % 0.2 Nucleated Red Blood 0.0 Cells % Immature 0.150 H Granulocytes # Neutrophils # 16.0 H Lymphocytes # 1.3 Monocytes # 1.0 H Eosinophils # 0.1 Basophils # 0.0 Nucleated Red Blood 0.0 Cells # Sodium Level 136 Potassium Level 4.8 Chloride Level 99 Carbon Dioxide Level 18 L Anion Gap 19 H Blood Urea Nitrogen 39 H Creatinine 5.26 H Est Glomerular Filtrat Rate mL/min Glucose Level 168 Calcium Level 8.4 Phosphorus Level 5.8 H Magnesium Level 2.7 H Random Vancomycin 16.7 Level Test 12/20/18 06:26 12/20/18 07:55 12/20/18 08:52 12/20/18 10:00 Bedside Glucose 181 162 139 140 Test 12/20/18 11:01 Bedside Glucose 136 Medications Current Medications Atorvastatin Calcium (Lipitor) 80 mg HS PO Last administered on 12/19/18at 20:00; Admin Dose 80 MG; Start 12/13/18 at 21:00 Diagnostic Test (Pha) (Accu-Chek) 1 ea Q1H XX Last administered on 12/20/18at 07:55; Admin Dose 1 EA; Start 12/15/18 at 12:30 Insulin Human Regular 100 unit/ Sodium Chloride 100 ml @ 0 mls/hr PER PROTOCOL IV Last administered on 12/18/18at 20:08; Admin Dose 1.5 MLS/HR; Start 12/15/18 at 12:30 Miscellaneous Information (* Miscellaneous Pharmacy Order) Treatment of Hypoglycemia: 1.BG 51... Per protocol XX ; Start 12/15/18 at 12:30 Dextrose (D50w Syringe) 25 ml Q15M PRN IV .DECREASED GLUCOSE; Start 12/15/18 at 12:30 Dextrose (D50w Syringe) 50 ml Q15M PRN IV .DECREASED GLUCOSE; Start 12/15/18 at 12:30 Dopamine HCl/ Dextrose 250 ml @ 6.128 mls/ hr PER PROTOCOL IV Last administered on 12/16/18at 02:13; Admin Dose 14.4 MLS/HR; Start 12/15/18 at 13:00 Norepinephrine 250 ml @ 1.875 mls/ hr PER PROTOCOL IV Last administered on 12/19/18 07:45; Admin Dose 3.75 MLS/HR; Start 12/15/18 at 14:00 Phenylephrine HCl 250 ml @ 75 mls/hr PER PROTOCOL IV Last administered on 12/16/18 01:45; Admin Dose 7.5 MLS/HR; Start 12/15/18 at 14:00 Propofol 100 ml @ 2.451 mls/ hr Q12H IV Last administered on 12/19/18 19:59; Admin Dose 4.902 MLS/HR; Start 12/16/18 at 05:30 Epoetin Ever (Epogen (Esrd)) 10,000 units MoWeFr@17 SC Last administered on 12/18/18 17:33; Admin Dose 10,000 UNITS; Start 12/18/18 at 17:00 Fentanyl 100 ml @ 5 mls/hr TITRATE IV Last administered on 12/20/18 08:25; Admin Dose 8 MLS/HR; Start 12/16/18 at 13:00 Aspirin (Aspirin) 325 mg DAILY PO Last administered on 12/20/18 08:13; Admin Dose 325 MG; Start 12/17/18 at 09:00 Cefepime HCl 50 ml @ 100 mls/hr Q24H IVPB Last administered on 12/20/18 11:15; Admin Dose 100 MLS/HR; Start 12/17/18 at 12:00 Heparin Sodium (Porcine) (Heparin (1000 Units/ml)) 3,000 unit PRN PRN CATHETER Dialysis Last administered on 12/19/18 09:34; Admin Dose 3,000 UNIT; Start 12/17/18 at 19:00 Vancomycin HCl (Vanco Iv Per Pharmacy) VANCOMYCIN PER PHARMACY PER PROTOCOL XX ; Start 12/18/18 at 17:00 Pantoprazole (Protonix Tab) 40 mg BID@06,18 PO Last administered on 12/20/18 11:14; Admin Dose 40 MG; Start 12/20/18 at 10:30 Ibuprofen (Motrin) 400 mg Q8 GTB ; Start 12/20/18 at 14:00 Assessment/Plan Hospital Course (Demo Recall) IMP: 1. Hypercapnic Respiratory Failure--s/p extubation post CABG. Possibly due to a combination of volume overload and sedation. Reintubation x2 2. Post OP day #3 s/p CABG 3. Cardiogenic Shock status post 4. CHF/CAD 5. ESRD on HD 6. Anemia 7. LLL Atelectasis/infiltrate RECS: 1. Trial of SIMV. 2. Continue hemodialysis with UF 3. Sedation vacation as tolerated 4. Pressors to maintain MAP > 65 mm Hg 5. Continue cefepime and vancomycin. 6. Monitor H&H posttransfusion 40 min cc time ROSARIO MONROE MD, [facility] Dec 20, 2018 11:39
--- NOTE | 2018-12-20 11:57 | PN ---
Date/Time of Note Date/Time of Note DATE: 12/20/18 TIME: 11:56 Assessment/Plan Lines/Catheters IV Catheter Type (from Nrs): cordis Dunbar in Place (from Nrs): Yes Assessment/Plan Assessment/Plan on cpap trials. chest tube still draining. WBC 18K. no fevers on antibiotics. dialysis. possible extubate today or tomorrow. Exam/Review of Systems Vital Signs Vitals Vital Signs Date Temp Pulse Resp B/P (MAP) Pulse Ox O2 O2 Flow FiO2 Time Delivery Rate 12/20/18 40 11:47 12/20/18 83 10 99 11:00 12/20/18 98.6 107/54 08:00 (71) 12/19/18 Mechanical 23:45 Ventilator 12/18/18 4.0 12:20 Intake and Output 12/19/18 12/19/18 12/20/18 1515:00 23:00 07:00 IntakeIntake Total 181.7035 ml 190.906 ml 190 ml OutputOutput Total 2500 ml 76 ml 30 ml BalanceBalance -2318.2965 ml 114.906 ml 160 ml Results Result Diagram: 12/20/18 0430 12/20/18 0430 SHARON GARCIA MD Dec 20, 2018 11:57
[2018-12-20] MEDS ORDERED: VANCOMYCIN 1 GM 250 ML IVPB SCH (14:00)
--- NOTE | 2018-12-20 14:04 | CONS ---
Assessment/Plan Assessment/Plan Hospital Course (Demo Recall) Patient remains unchanged, intubated on insulin drip, no fevers overnight T-max yesterday 99.5 to current 98.9 WBC 18.6 H&H 7.9 and 24.6 platelets 142 neutrophils 86.3 Antimicrobials: Vancomycin, cefepime Indwelling: NG tube right IJ cordis left femoral Anam 2 chest tubes right wrist A-line Physical examination: Well-developed chronically ill-appearing elderly man who is intubated in no distress. Head atraumatic normocephalic sclera nonicteric vehicle mucosa dry neck is supple chest rise symmetrical breath sounds with crackles. Heart S1-S2 abdomen soft bowel sounds hypoactive extremities cyanotic Assessment: 1. Sepsis, status post shock, multifactorial 2. Healthcare associated pneumonia, possibly aspirated 3. Acute respiratory failure, status post extubation post CABG with reintubation 4. Non-ST elevation DE status post CABG 12/15/18 5. 5. End-stage renal disease, hemodialysis dependent 6. Anemia Plan: Hemodynamically stable, dc Vanco, change cefepime to meropenem given persistent leukocytosis, follow recommendations of specialists, weaning trials per pulmonary Consultation Date/Type/Reason Admit Date/Time Dec 13, 2018 at 12:40 Initial Consult Date 12/16/18 Type of Consult id Date/Time of Note DATE: 12/20/18 TIME: 14:04 Exam/Review of Systems Exam Vitals Vital Signs Date Temp Pulse Resp B/P (MAP) Pulse Ox O2 O2 Flow FiO2 Time Delivery Rate 12/20/18 86 17 100 40 12:25 12/20/18 98.9 125/52 12:00 (76) 12/19/18 Mechanical 23:45 Ventilator 12/18/18 4.0 12:20 Intake and Output 12/19/18 12/19/18 12/20/18 1515:00 23:00 07:00 IntakeIntake Total 181.7035 ml 190.906 ml 190 ml OutputOutput Total 2500 ml 76 ml 30 ml BalanceBalance -2318.2965 ml 114.906 ml 160 ml Results Result Diagram: 12/20/18 0430 12/20/18 0430 Results 24hrs Laboratory Tests Test 12/19/18 14:11 12/19/18 16:37 12/19/18 18:13 12/19/18 19:52 Bedside Glucose 109 134 129 135 Test 12/19/18 21:38 12/19/18 23:36 12/20/18 01:03 12/20/18 02:32 Bedside Glucose 147 146 171 171 Test 12/20/18 04:30 12/20/18 04:43 12/20/18 05:37 12/20/18 06:26 White Blood Count 18.6 H Red Blood Count 2.65 L Hemoglobin 7.9 L Hematocrit 24.6 L Mean Corpuscular 92.8 Volume Mean Corpuscular 29.8 Hemoglobin Mean Corpuscular 32.1 Hemoglobin Concent Red Cell 16.5 H Distribution Width Platelet Count 142 Mean Platelet Volume 10.9 H Immature 0.800 H Granulocytes % Neutrophils % 86.3 H Lymphocytes % 6.7 L Monocytes % 5.4 Eosinophils % 0.6 Basophils % 0.2 Nucleated Red Blood 0.0 Cells % Immature 0.150 H Granulocytes # Neutrophils # 16.0 H Lymphocytes # 1.3 Monocytes # 1.0 H Eosinophils # 0.1 Basophils # 0.0 Nucleated Red Blood 0.0 Cells # Sodium Level 136 Potassium Level 4.8 Chloride Level 99 Carbon Dioxide Level 18 L Anion Gap 19 H Blood Urea Nitrogen 39 H Creatinine 5.26 H Est Glomerular Filtrat Rate mL/min Glucose Level 168 Calcium Level 8.4 Phosphorus Level 5.8 H Magnesium Level 2.7 H Random Vancomycin 16.7 Level Bedside Glucose 190 197 181 Test 12/20/18 07:55 12/20/18 08:52 12/20/18 10:00 12/20/18 10:59 Bedside Glucose 162 139 140 Troponin I 0.874 *H Test 12/20/18 11:01 12/20/18 12:58 Bedside Glucose 136 128 Medications Medication Current Medications Atorvastatin Calcium (Lipitor) 80 mg HS PO Last administered on 12/19/18at 20:00; Admin Dose 80 MG; Start 12/13/18 at 21:00 Diagnostic Test (Pha) (Accu-Chek) 1 ea Q1H XX Last administered on 12/20/18at 13:11; Admin Dose 1 EA; Start 12/15/18 at 12:30 Insulin Human Regular 100 unit/ Sodium Chloride 100 ml @ 0 mls/hr PER PROTOCOL IV Last administered on 12/18/18at 20:08; Admin Dose 1.5 MLS/HR; Start 12/15/18 at 12:30 Miscellaneous Information (* Miscellaneous Pharmacy Order) Treatment of Hypoglycemia: 1.BG 51... Per protocol XX ; Start 12/15/18 at 12:30 Dextrose (D50w Syringe) 25 ml Q15M PRN IV .DECREASED GLUCOSE; Start 12/15/18 at 12:30 Dextrose (D50w Syringe) 50 ml Q15M PRN IV .DECREASED GLUCOSE; Start 12/15/18 at 12:30 Dopamine HCl/ Dextrose 250 ml @ 6.128 mls/ hr PER PROTOCOL IV Last administered on 12/16/18 02:13; Admin Dose 14.4 MLS/HR; Start 12/15/18 at 13:00 Norepinephrine 250 ml @ 1.875 mls/ hr PER PROTOCOL IV Last administered on 12/19/18 07:45; Admin Dose 3.75 MLS/HR; Start 12/15/18 at 14:00 Phenylephrine HCl 250 ml @ 75 mls/hr PER PROTOCOL IV Last administered on 12/16/18 01:45; Admin Dose 7.5 MLS/HR; Start 12/15/18 at 14:00 Propofol 100 ml @ 2.451 mls/ hr Q12H IV Last administered on 12/19/18 19:59; Admin Dose 4.902 MLS/HR; Start 12/16/18 at 05:30 Epoetin Ever (Epogen (Esrd)) 10,000 units MoWeFr@17 SC Last administered on 12/18/18 17:33; Admin Dose 10,000 UNITS; Start 12/18/18 at 17:00 Fentanyl 100 ml @ 5 mls/hr TITRATE IV Last administered on 12/20/18 08:25; Ad min Dose 8 MLS/HR; Start 12/16/18 at 13:00 Aspirin (Aspirin) 325 mg DAILY PO Last administered on 12/20/18 08:13; Admin Dose 325 MG; Start 12/17/18 at 09:00 Cefepime HCl 50 ml @ 100 mls/hr Q24H IVPB Last administered on 12/20/18 11:15; Admin Dose 100 MLS/HR; Start 12/17/18 at 12:00 Heparin Sodium (Porcine) (Heparin (1000 Units/ml)) 3,000 unit PRN PRN CATHETER Dialysis Last administered on 12/19/18at 09:34; Admin Dose 3,000 UNIT; Start 12/17/18 at 19:00 Vancomycin HCl (Vanco Iv Per Pharmacy) VANCOMYCIN PER PHARMACY PER PROTOCOL XX ; Start 12/18/18 at 17:00 Pantoprazole (Protonix Tab) 40 mg BID@06,18 PO Last administered on 12/20/18at 11:14; Admin Dose 40 MG; Start 12/20/18 at 10:30 Ibuprofen (Motrin) 400 mg Q8 GTB ; Start 12/20/18 at 14:00 Vancomycin HCl 250 ml @ 125 mls/hr ONCE IVPB ; Start 12/20/18 at 14:00; Stop 12/20/18 at 23:59 LASHELL LYNCH NP Dec 20, 2018 14:04
[2018-12-20] MEDS: IBUPROFEN 600 MG TAB GTB SCH ×2 (14:15→21:22)
[2018-12-20] MEDS: INSULIN HUMAN REGULAR 100 UNIT in SOD CHLORIDE 0.9% 99 ML IV SCH (15:18)
[2018-12-20] MEDS: PROPOFOL 100 ML IV SCH (17:06)
[2018-12-20] MEDS: EPOETIN 10000 UNITS/1 ML INJ (ESRD) SC SCH (17:12)
[2018-12-20] MEDS: ALTEPLASE (CATHFLO) 2 MG INJ CATHETER PRN (17:54)
[2018-12-20] MEDS: ATORVASTATIN 80 MG TAB PO SCH (21:21)
[2018-12-20] MEDS: MEROPENEM 500MG/50 ML (PMX) 50 ML IVPB SCH (21:22)
[2018-12-20] MEDS ORDERED: IOHEXOL 300MG/ML 150 ML BTL ONE (23:24)
[2018-12-20] MEDS ORDERED: SOD CHLORIDE 0.9% 100 ML ONE (23:24)
[2018-12-21] VITALS (40 sets, daily range): BP systolic 97–124; BP diastolic 47–68; PULSE 61–83; RESP 10–27
[2018-12-21] MEDS: ACCU-CHEK XX SCH ×23 (00:36→22:48)
[2018-12-21] MEDS: PROPOFOL 100 ML IV SCH ×2 (05:30→17:30)
[2018-12-21] MEDS: PANTOPRAZOLE (EC) 40 MG TAB PO SCH ×2 (05:58→17:51)
[2018-12-21] MEDS: IBUPROFEN 600 MG TAB GTB SCH ×2 (05:59→13:56)
--- NOTE | 2018-12-21 06:55 | PN ---
Date/Time of Note Date/Time of Note DATE: 12/21/18 TIME: 06:54 Assessment/Plan Lines/Catheters IV Catheter Type (from Nrs): CORDIS Dunbar in Place (from Nrs): Yes Assessment/Plan Assessment/Plan afebrile, minimal vent settings. attempt weaning today. WBC 18K on abx. will remove chest tubes once extubated Exam/Review of Systems Vital Signs Vitals Vital Signs Date Temp Pulse Resp B/P (MAP) Pulse Ox O2 O2 Flow FiO2 Time Delivery Rate 12/21/18 82 11 110/58 100 06:00 (75) 12/21/18 30 05:30 12/21/18 98.8 04:00 12/20/18 Mechanical 17:47 Ventilator 12/18/18 4.0 12:20 Intake and Output 12/20/18 12/20/18 12/21/18 1515:00 23:00 07:00 IntakeIntake Total 400 ml 380.5 ml 220 ml OutputOutput Total 0 ml 702 ml 20 ml BalanceBalance 400 ml -321.5 ml 200 ml Results Result Diagram: 12/21/18 0502 12/20/18 0430 SHARON GARCIA MD Dec 21, 2018 06:55
[2018-12-21] MEDS: MEROPENEM 500MG/50 ML (PMX) 50 ML IVPB SCH ×2 (08:24→20:50)
--- NOTE | 2018-12-21 08:28 | PN ---
DATE: 12/21/2018 SUBJECTIVE: The patient remains on full ventilatory support. The patient had attempted hemodialysis yesterday, but unable to continue due to catheter issues and low blood flow. No other acute events noted. No hemoptysis, hematemesis or hematochezia. OBJECTIVE: VITAL SIGNS: Blood pressure is 110/58, respirations 11, pulse 82, temperature 98.8. HEENT: Head is normocephalic. NECK: Supple. HEART: Regular rate. LUNGS: Show diminished breath sounds at the base. ABDOMEN: Soft, nontender to palpation without rebound or guarding. EXTREMITIES: Negative for clubbing, cyanosis, no edema. DERMATOLOGIC: No rashes. MUSCULOSKELETAL: No joint effusion. NEUROLOGIC: No change in exam. MEDICATIONS: Reviewed. LABORATORY DATA: Shows white count 18.1, hemoglobin 8.5, platelet count is 141. Sodium 139, BUN 48, creatinine 6.47, phosphorus 5.7, magnesium 2.8. The patient imaging studies reviewed. Cultures hav e been reviewed. ASSESSMENT AND PLAN: 1. Coronary artery disease. The patient is status post 4-vessel coronary artery bypass graft. Cont inue medical management. Follow up with cardiology. 2. Cardiac arrest. Etiology is secondary to respiratory possible mucus plug, questionable pneumonia . The patient is status post return of spontaneous circulation. Currently hemodynamically stable. Continue to monitor. 3. Sepsis secondary to healthcare-associated pneumonia. Continue current antibiotic regimen. Follo w up with infectious disease. Cultures have been reviewed. 4. Ventilator-dependent respiratory failure. Vent settings and ABG was reviewed. Continue to monit or. Attempted weaning per pulmonary today. 5. End-stage renal disease. The patient had hemodialysis yesterday, tolerated well. Anticipate hem odialysis for tomorrow. 6. Anemia. Continue to monitor hemoglobin and hematocrit levels. Continue Epogen. 7. Mineral bone disorder, monitor calcium and phosphorus levels. Continue dialysis. 8. Diabetes. Continue current insulin regimen. 9. Dyslipidemia. Continue statin therapy. 10. Volume overload, improved. Continue ultrafiltration with dialysis. 11. Acute encephalopathy, etiology is toxic metabolic. Continue to monitor. 12. Hypomagnesemia, improving. Continue hemodialysis. 13. Intracranial aneurysm, stable, continue to monitor. 14. Status post shock. 15. Gastrointestinal and deep vein thrombosis prophylaxis. Please note I spent over 30 minutes of critical care time with this patient. Dictated By: JAKY HOU DO NR/NTS Conf#: [id number] DID#: [id number] CC: SAGRARIO POLLOCK MD; ROSARIO MONROE MD;*EndCC*
[2018-12-21] MEDS: ASPIRIN 325 MG TAB PO SCH (08:31)
[2018-12-21] MEDS: FENTAnyl (DRIP) 1000 mcg/100mL 100 ML IV SCH (08:31)
--- NOTE | 2018-12-21 08:36 | CONS ---
Assessment/Plan Assessment/Plan Hospital Course (Demo Recall) Post CABG Pericarditis: diffuse ST elevation on EKG, rub on exam, and echo with normal EF and wall motion. Mild trops 0.8 as expected. Rub resolving Status post PEA arrest - primary event appears to be respiratory distress, hypoxia, and resultant bradycardia; ROSC after brief CPR 12/18 Acute hypoxic respiratory failure - failed extubation twice including 12/18/2018, remains on mechanical ventilation Acute on chronic diastolic heart failure: decompensated by exam Possible pneumonia - on antibiotics Coronary artery disease - status post CABG x4 (CHENG-LAD, SVG-PDA, SVG-diag-OM) on 12/15/2018 Status post NSTEMI Hypertension End-stage renal disease - on hemodialysis -ibuprofen 400mg TID -protonix 40mg BID -continue aspirin 325mg -continue atorvastatin 80mg -start metoprolol if BP remains stable -HD per nephrology -vent per pulm Consultation Date/Type/Reason Admit Date/Time Dec 13, 2018 at 12:40 Initial Consult Date Type of Consult Cardiology Date/Time of Note DATE: 12/21/18 TIME: 08:34 24 HR Interval Summary Free Text/Dictation No events. Being weaned this am. Trop 0.8 x 2. Exam/Review of Systems Exam Vitals Vital Signs Date Temp Pulse Resp B/P (MAP) Pulse Ox O2 O2 Flow FiO2 Time Delivery Rate 12/21/18 82 11 110/58 100 06:00 (75) 12/21/18 30 05:30 12/21/18 98.8 04:00 12/20/18 Mechanical 17:47 Ventilator 12/18/18 4.0 12:20 Intake and Output 12/20/18 12/20/18 12/21/18 1515:00 23:00 07:00 IntakeIntake Total 400 ml 380.5 ml 220 ml OutputOutput Total 0 ml 702 ml 20 ml BalanceBalance 400 ml -321.5 ml 200 ml Constitutional: No alert Head: normocephalic, atraumatic ENMT: intubated Neck: jvd (8-10cm) Respiratory: diminished breath sounds; No clear to auscultation Cardiovascular: regular rate and rhythm, edema (1+); No rub, No systolic murmur Gastrointestinal: soft, non-tender; No distended Neurological: No nl mental status, No nl speech Results Result Diagram: 3/28/19 0502 12/21/18 0503 Results 24hrs Laboratory Tests Test 12/20/18 08:52 12/20/18 10:00 12/20/18 10:59 12/20/18 11:01 Bedside Glucose 139 140 136 Troponin I 0.874 *H Test 12/20/18 12:58 12/20/18 15:02 12/20/18 16:34 12/20/18 17:56 Bedside Glucose 128 139 131 Troponin I 0.839 *H Test 12/20/18 19:32 12/20/18 21:25 12/20/18 22:34 12/20/18 23:34 Bedside Glucose 132 82 99 148 Test 12/21/18 00:35 12/21/18 01:36 12/21/18 03:39 12/21/18 05:02 Bedside Glucose 128 146 138 White Blood Count 18.1 H Red Blood Count 2.86 L Hemoglobin 8.5 L Hematocrit 26.4 L Mean Corpuscular 92.3 Volume Mean Corpuscular 29.7 Hemoglobin Mean Corpuscular 32.2 Hemoglobin Concent Red Cell 16.3 H Distribution Width Platelet Count 141 Mean Platelet Volume 11.2 H Immature 0.800 H Granulocytes % Neutrophils % 86.6 H Lymphocytes % 4.5 L Monocytes % 5.6 Eosinophils % 2.3 Basophils % 0.2 Nucleated Red Blood 0.0 Cells % Immature 0.150 H Granulocytes # Neutrophils # 15.7 H Lymphocytes # 0.8 Monocytes # 1.0 H Eosinophils # 0.4 Basophils # 0.0 Nucleated Red Blood 0.0 Cells # Test 12/21/18 05:03 12/21/18 05:54 12/21/18 08:23 Sodium Level 139 Potassium Level 4.7 Chloride Level 99 Carbon Dioxide Level 22 Anion Gap 18 H Blood Urea Nitrogen 48 H Creatinine 6.46 H Est Glomerular Filtrat Rate mL/min Glucose Level 133 Calcium Level 8.7 Phosphorus Level 5.7 H Magnesium Level 2.8 H Bedside Glucose 139 137 Medications Medication Current Medications Atorvastatin Calcium (Lipitor) 80 mg HS PO Last administered on 12/20/18at 21:21; Admin Dose 80 MG; Start 12/13/18 at 21:00 Diagnostic Test (Pha) (Accu-Chek) 1 ea Q1H XX Last administered on 12/21/18 08:23; Admin Dose 1 EA; Start 12/15/18 at 12:30 Insulin Human Regular 100 unit/ Sodium Chloride 100 ml @ 0 mls/hr PER PROTOCOL IV Last administered on 12/20/18 15:18; Admin Dose 5 MLS/HR; Start 12/15/18 at 12:30 Miscellaneous Information (* Miscellaneous Pharmacy Order) Treatment of Hypoglycemia: 1.BG 51... Per protocol XX ; Start 12/15/18 at 12:30 Dextrose (D50w Syringe) 25 ml Q15M PRN IV .DECREASED GLUCOSE; Start 12/15/18 at 12:30 Dextrose (D50w Syringe) 50 ml Q15M PRN IV .DECREASED GLUCOSE; Start 12/15/18 at 12:30 Dopamine HCl/ Dextrose 250 ml @ 6.128 mls/ hr PER PROTOCOL IV Last administered on 12/16/18 02:13; Admin Dose 14.4 MLS/HR; Start 12/15/18 at 13:00 Norepinephrine 250 ml @ 1.875 mls/ hr PER PROTOCOL IV Last administered on 12/19/18 07:45; Admin Dose 3.75 MLS/HR; Start 12/15/18 at 14:00 Phenylephrine HCl 250 ml @ 75 mls/hr PER PROTOCOL IV Last administered on 12/16/18 01:45; Admin Dose 7.5 MLS/HR; Start 12/15/18 at 14:00 Propofol 100 ml @ 2.451 mls/ hr Q12H IV Last administered on 12/19/18 19:59; Admin Dose 4.902 MLS/HR; Start 12/16/18 at 05:30 Epoetin Ever (Epogen (Esrd)) 10,000 units MoWeFr@17 SC Last administered on 12/20/18 17:12; Admin Dose 10,000 UNITS; Start 12/18/18 at 17:00 Fentanyl 100 ml @ 5 mls/hr TITRATE IV Last administered on 12/21/18 08:31; Admin Dose 7 MLS/HR; Start 12/16/18 at 13:00 Aspirin (Aspirin) 325 mg DAILY PO Last administered on 12/21/18 08:31; Admin Dose 325 MG; Start 12/17/18 at 09:00 Heparin Sodium (Porcine) (Heparin (1000 Units/ml)) 3,000 unit PRN PRN CATHETER Dialysis Last administered on 12/19/18 09:34; Admin Dose 3,000 UNIT; Start 12/17/18 at 19:00 Pantoprazole (Protonix Tab) 40 mg BID@06,18 PO Last administered on 12/21/18 05:58; Admin Dose 40 MG; Start 12/20/18 at 10:30 Ibuprofen (Motrin) 400 mg Q8 GTB Last administered on 12/21/18 05:59; Admin Dose 400 MG; Start 12/20/18 at 14:00 Meropenem/Sodium Chloride 50 ml @ 100 mls/hr Q12 IVPB Last administered on 12/21/18 08:24; Admin Dose 100 MLS/HR; Start 12/20/18 at 21:00 Alteplase, Recombinant (Cathflo (Activase)) 4 mg MAY REPEAT X1 PRN CATHETER IF CATHETER REMAINS OCCULUDED Last administered on 12/20/18 17:54; Admin Dose 4 MG; Start 12/20/18 at 17:00 SAGRARIO POLLOCK Dec 21, 2018 08:36
--- NOTE | 2018-12-21 10:16 | CONS ---
Consult Date/Type/Reason Admit Date/Time Dec 13, 2018 at 12:40 Initial Consult Date 12/16/18 Type of Consult Pulmonary Date/Time of Note DATE: 12/21/18 TIME: 10:14 Subjective Patient somewhat more alert today. No respiratory distress. Continues mechanical ventilation with decrease secretions. Currently hemodynamically stable. Continues SIMV ventilation with no respiratory distress. Objective Vital Signs Date Temp Pulse Resp B/P (MAP) Pulse Ox O2 O2 Flow FiO2 Time Delivery Rate 12/21/18 81 08:00 12/21/18 30 08:00 12/21/18 11 110/58 100 06:00 (75) 12/21/18 98.8 04:00 12/20/18 Mechanical 17:47 Ventilator 12/18/18 4.0 12:20 Intake and Output 12/20/18 12/20/18 12/21/18 1515:00 23:00 07:00 IntakeIntake Total 400 ml 380.5 ml 220 ml OutputOutput Total 0 ml 702 ml 20 ml BalanceBalance 400 ml -321.5 ml 200 ml Exam GENERAL: Well-nourished well-developed gentleman comfortable at rest no acute distress VITAL SIGNS: per chart NECK: Supple. No JVD or lymphadenopathy. CARDIAC EXAM: S1, S2. No added sounds or murmurs. CHEST: Diminished air entry bilaterally ABDOMEN: Soft, nontender. No guarding or rebound. EXTREMITIES: No cyanosis, clubbing or edema. NEUROLOGIC: Generalized weakness. Vent Setting Ventilator Support Mode: SIMV Fraction of Inspired Oxygen pe: 30 Positive End Expiratory Pressu: 5.0 Results/Medications Result Diagram: 12/21/18 0502 12/21/18 0503 Results 24 hrs Laboratory Tests Test 12/20/18 10:59 12/20/18 11:01 12/20/18 12:58 12/20/18 15:02 Troponin I 0.874 *H Bedside Glucose 136 128 139 Test 12/20/18 16:34 12/20/18 17:56 12/20/18 19:32 12/20/18 21:25 Troponin I 0.839 *H Bedside Glucose 131 132 82 Test 12/20/18 22:34 12/20/18 23:34 12/21/18 00:35 12/21/18 01:36 Bedside Glucose 99 148 128 146 Test 12/21/18 03:39 12/21/18 05:02 12/21/18 05:03 12/21/18 05:54 Bedside Glucose 138 139 White Blood Count 18.1 H Red Blood Count 2.86 L Hemoglobin 8.5 L Hematocrit 26.4 L Mean Corpuscular 92.3 Volume Mean Corpuscular 29.7 Hemoglobin Mean Corpuscular 32.2 Hemoglobin Concent Red Cell 16.3 H Distribution Width Platelet Count 141 Mean Platelet Volume 11.2 H Immature 0.800 H Granulocytes % Neutrophils % 86.6 H Lymphocytes % 4.5 L Monocytes % 5.6 Eosinophils % 2.3 Basophils % 0.2 Nucleated Red Blood 0.0 Cells % Immature 0.150 H Granulocytes # Neutrophils # 15.7 H Lymphocytes # 0.8 Monocytes # 1.0 H Eosinophils # 0.4 Basophils # 0.0 Nucleated Red Blood 0.0 Cells # Sodium Level 139 Potassium Level 4.7 Chloride Level 99 Carbon Dioxide Level 22 Anion Gap 18 H Blood Urea Nitrogen 48 H Creatinine 6.46 H Est Glomerular Filtrat Rate mL/min Glucose Level 133 Calcium Level 8.7 Phosphorus Level 5.7 H Magnesium Level 2.8 H Test 12/21/18 08:23 Bedside Glucose 137 Medications Current Medications Atorvastatin Calcium (Lipitor) 80 mg HS PO Last administered on 12/20/18at 21:21; Admin Dose 80 MG; Start 12/13/18 at 21:00 Diagnostic Test (Pha) (Accu-Chek) 1 ea Q1H XX Last administered on 12/21/18at 10:09; Admin Dose 1 EA; Start 12/15/18 at 12:30 Insulin Human Regular 100 unit/ Sodium Chloride 100 ml @ 0 mls/hr PER PROTOCOL IV Last administered on 12/20/18at 15:18; Admin Dose 5 MLS/HR; Start 12/15/18 at 12:30 Miscellaneous Information (* Miscellaneous Pharmacy Order) Treatment of Hypoglycemia: 1.BG 51... Per protocol XX ; Start 12/15/18 at 12:30 Dextrose (D50w Syringe) 25 ml Q15M PRN IV .DECREASED GLUCOSE; Start 12/15/18 at 12:30 Dextrose (D50w Syringe) 50 ml Q15M PRN IV .DECREASED GLUCOSE; Start 12/15/18 at 12:30 Dopamine HCl/ Dextrose 250 ml @ 6.128 mls/ hr PER PROTOCOL IV Last administered on 12/16/18 02:13; Admin Dose 14.4 MLS/HR; Start 12/15/18 at 13:00 Norepinephrine 250 ml @ 1.875 mls/ hr PER PROTOCOL IV Last administered on 12/19/18 07:45; Admin Dose 3.75 MLS/HR; Start 12/15/18 at 14:00 Phenylephrine HCl 250 ml @ 75 mls/hr PER PROTOCOL IV Last administered on 12/16/18 01:45; Admin Dose 7.5 MLS/HR; Start 12/15/18 at 14:00 Propofol 100 ml @ 2.451 mls/ hr Q12H IV Last administered on 12/19/18 19:59; Admin Dose 4.902 MLS/HR; Start 12/16/18 at 05:30 Epoetin Ever (Epogen (Esrd)) 10,000 units MoWeFr@17 SC Last administered on 12/20/18 17:12; Admin Dose 10,000 UNITS; Start 12/18/18 at 17:00 Fentanyl 100 ml @ 5 mls/hr TITRATE IV Last administered on 12/21/18 08:31; Admin Dose 7 MLS/HR; Start 12/16/18 at 13:00 Aspirin (Aspirin) 325 mg DAILY PO Last administered on 12/21/18 08:31; Admin Dose 325 MG; Start 12/17/18 at 09:00 Heparin Sodium (Porcine) (Heparin (1000 Units/ml)) 3,000 unit PRN PRN CATHETER Dialysis Last administered on 12/19/18 09:34; Admin Dose 3,000 UNIT; Start 12/17/18 at 19:00 Pantoprazole (Protonix Tab) 40 mg BID@06,18 PO Last administered on 12/21/18 05:58; Admin Dose 40 MG; Start 12/20/18 at 10:30 Ibuprofen (Motrin) 400 mg Q8 GTB Last administered on 12/21/18 05:59; Admin Dose 400 MG; Start 12/20/18 at 14:00 Meropenem/Sodium Chloride 50 ml @ 100 mls/hr Q12 IVPB Last administered on 12/21/18 08:24; Admin Dose 100 MLS/HR; Start 12/20/18 at 21:00 Alteplase, Recombinant (Cathflo (Activase)) 4 mg MAY REPEAT X1 PRN CATHETER IF CATHETER REMAINS OCCULUDED Last administered on 12/20/18at 17:54; Admin Dose 4 MG; Start 12/20/18 at 17:00 Assessment/Plan Hospital Course (Demo Recall) IMP: 1. Hypercapnic Respiratory Failure--s/p extubation post CABG. Possibly due to a combination of volume overload and sedation. Reintubation x2 2. Status post coronary artery bypass graft surgery 3. Status post cardiogenic shock 4. CHF/CAD 5. ESRD on HD 6. Anemia 7. LLL Atelectasis/infiltrate RECS: 1. Continue SIMV ventilation. 2. Continue hemodialysis with UF 3. Sedation vacation as tolerated decrease fentanyl as tolerated 4. Pressors to maintain MAP > 65 mm Hg 5. Continue cefepime and vancomycin. 6. Monitor H&H posttransfusion 40 min cc time Long discussion with patient's son at bedside. Explained that patient may require tracheostomy and PEG tube if he fails weaning trials in the next few days. Patient son states he will discuss with the rest of his family and they anticipate moving forward with tracheostomy and PEG tube if necessary. ROSARIO MONROE MD, [facility] Dec 21, 2018 10:16
--- NOTE | 2018-12-21 17:29 | CONS ---
Assessment/Plan Assessment/Plan Hospital Course (Demo Recall) No acute changes patient remains intubated no fevers overnight no weaning were done today. WBC 18.1 platelets 141 neutrophils 86.6 Antimicrobials: Merrem Indwelling: NG tube right IJ cordis left femoral Anam 2 chest tubes right wrist A-line Physical examination: Well-developed chronically ill-appearing elderly man who is intubated in no distress. Head atraumatic normocephalic sclera nonicteric vehicle mucosa dry neck is supple chest rise symmetrical breath sounds with crackles. Heart S1-S2 abdomen soft bowel sounds hypoactive extremities cyanotic Assessment: 1. Sepsis, status post shock, multifactorial 2. Healthcare associated pneumonia, possibly aspirated 3. Acute respiratory failure, status post extubation post CABG with reintubation 4. Non-ST elevation AR status post CABG 12/15/18 5. 5. End-stage renal disease, hemodialysis dependent 6. Anemia Plan: Remains hemodynamically stable, continue abx, weaning trials per pulmonary Consultation Date/Type/Reason Admit Date/Time Dec 13, 2018 at 12:40 Initial Consult Date 12/16/18 Type of Consult id Date/Time of Note DATE: 12/21/18 TIME: 17:28 Exam/Review of Systems Exam Vitals Vital Signs Date Temp Pulse Resp B/P (MAP) Pulse Ox O2 O2 Flow FiO2 Time Delivery Rate 12/21/18 77 16:00 12/21/18 98.6 15:14 12/21/18 13 97/56 (70) 97 Mechanical 15:00 Ventilator 12/21/18 30 13:40 12/18/18 4.0 12:20 Intake and Output 12/20/18 12/20/18 12/21/18 1515:00 23:00 07:00 IntakeIntake Total 400 ml 380.5 ml 230 ml OutputOutput Total 0 ml 702 ml 20 ml BalanceBalance 400 ml -321.5 ml 210 ml Results Result Diagram: 12/21/18 0502 12/21/18 0503 Results 24hrs Laboratory Tests Test 12/20/18 17:56 12/20/18 19:32 12/20/18 21:25 12/20/18 22:34 Bedside Glucose 131 132 82 99 Test 12/20/18 23:34 12/21/18 00:35 12/21/18 01:36 12/21/18 03:39 Bedside Glucose 148 128 146 138 Test 12/21/18 05:02 12/21/18 05:03 12/21/18 05:54 12/21/18 08:23 White Blood Count 18.1 H Red Blood Count 2.86 L Hemoglobin 8.5 L Hematocrit 26.4 L Mean Corpuscular 92.3 Volume Mean Corpuscular 29.7 Hemoglobin Mean Corpuscular 32.2 Hemoglobin Concent Red Cell 16.3 H Distribution Width Platelet Count 141 Mean Platelet Volume 11.2 H Immature 0.800 H Granulocytes % Neutrophils % 86.6 H Lymphocytes % 4.5 L Monocytes % 5.6 Eosinophils % 2.3 Basophils % 0.2 Nucleated Red Blood 0.0 Cells % Immature 0.150 H Granulocytes # Neutrophils # 15.7 H Lymphocytes # 0.8 Monocytes # 1.0 H Eosinophils # 0.4 Basophils # 0.0 Nucleated Red Blood 0.0 Cells # Sodium Level 139 Potassium Level 4.7 Chloride Level 99 Carbon Dioxide Level 22 Anion Gap 18 H Blood Urea Nitrogen 48 H Creatinine 6.46 H Est Glomerular Filtrat Rate mL/min Glucose Level 133 Calcium Level 8.7 Phosphorus Level 5.7 H Magnesium Level 2.8 H Bedside Glucose 139 137 Test 12/21/18 10:23 12/21/18 12:43 12/21/18 15:27 Bedside Glucose 167 142 139 Medications Medication Current Medications Atorvastatin Calcium (Lipitor) 80 mg HS PO Last administered on 12/20/18at 21:21; Admin Dose 80 MG; Start 12/13/18 at 21:00 Diagnostic Test (Pha) (Accu-Chek) 1 ea Q1H XX Last administered on 12/21/18at 15:27; Admin Dose 1 EA; Start 12/15/18 at 12:30 Insulin Human Regular 100 unit/ Sodium Chloride 100 ml @ 0 mls/hr PER PROTOCOL IV Last administered on 12/20/18at 15:18; Admin Dose 5 MLS/HR; Start 12/15/18 at 12:30 Miscellaneous Information (* Miscellaneous Pharmacy Order) Treatment of Hypoglycemia: 1.BG 51... Per protocol XX ; Start 12/15/18 at 12:30 Dextrose (D50w Syringe) 25 ml Q15M PRN IV .DECREASED GLUCOSE; Start 12/15/18 at 12:30 Dextrose (D50w Syringe) 50 ml Q15M PRN IV .DECREASED GLUCOSE; Start 12/15/18 at 12:30 Dopamine HCl/ Dextrose 250 ml @ 6.128 mls/ hr PER PROTOCOL IV Last adm inistered on 12/16/18 02:13; Admin Dose 14.4 MLS/HR; Start 12/15/18 at 13:00 Norepinephrine 250 ml @ 1.875 mls/ hr PER PROTOCOL IV Last administered on 12/19/18 07:45; Admin Dose 3.75 MLS/HR; Start 12/15/18 at 14:00 Phenylephrine HCl 250 ml @ 75 mls/hr PER PROTOCOL IV Last administered on 12/16 01:45; Admin Dose 7.5 MLS/HR; Start 12/15/18 at 14:00 Propofol 100 ml @ 2.451 mls/ hr Q12H IV Last administered on 12/19/18 19:59; Admin Dose 4.902 MLS/HR; Start 12/16/18 at 05:30 Epoetin Ever (Epogen (Esrd)) 10,000 units MoWeFr@17 SC Last administered on 12/20/18 17:12; Admin Dose 10,000 UNITS; Start 12/18/18 at 17:00 Fentanyl 100 ml @ 5 mls/hr TITRATE IV Last administered on 12/21/18 08:31; Admin Dose 7 MLS/HR; Start 12/16/18 at 13:00 Aspirin (Aspirin) 325 mg DAILY PO Last administered on 12/21/18 08:31; Admin Dose 325 MG; Start 12/17/18 at 09:00 Heparin Sodium (Porcine) (Heparin (1000 Units/ml)) 3,000 unit PRN PRN CATHETER Dialysis Last administered on 12/19/18 09:34; Admin Dose 3,000 UNIT; Start 12/17/18 at 19:00 Pantoprazole (Protonix Tab) 40 mg BID@06,18 PO Last administered on 12/21/18 05:58; Admin Dose 40 MG; Start 12/20/18 at 10:30 Ibuprofen (Motrin) 400 mg Q8 GTB Last administered on 12/21/18 13:56; Admin Dose 400 MG; Start 12/20/18 at 14:00 Meropenem/Sodium Chloride 50 ml @ 100 mls/hr Q12 IVPB Last administered on 3/28/19at 08:24; Admin Dose 100 MLS/HR; Start 12/20/18 at 21:00 Alteplase, Recombinant (Cathflo (Activase)) 4 mg MAY REPEAT X1 PRN CATHETER IF CATHETER REMAINS OCCULUDED Last administered on 12/20/18at 17:54; Admin Dose 4 MG; Start 12/20/18 at 17:00 LASHELL LYNCH NP Dec 21, 2018 17:29
[2018-12-21] MEDS: ATORVASTATIN 80 MG TAB PO SCH (20:50)
[2018-12-21] MEDS: INSULIN HUMAN REGULAR 100 UNIT in SOD CHLORIDE 0.9% 99 ML IV SCH (20:54)
[2018-12-21] MEDS: IBUPROFEN LIQUID (PED) 20 MG/ML CUP GTB SCH (23:36)
[2018-12-22] VITALS (72 sets, daily range): BP systolic 93–162; BP diastolic 47–130; PULSE 77–85; RESP 10–19
[2018-12-22] MEDS: FENTAnyl (DRIP) 1000 mcg/100mL 100 ML IV SCH (00:01)
[2018-12-22] MEDS: ACCU-CHEK XX SCH ×23 (00:50→23:26)
[2018-12-22] MEDS: PROPOFOL 100 ML IV SCH ×2 (04:32→17:15)
[2018-12-22] MEDS: LANSOPRAZOLE 30 MG CAP GTB SCH ×2 (05:08→17:22)
[2018-12-22] MEDS: IBUPROFEN LIQUID (PED) 20 MG/ML CUP GTB SCH ×3 (05:08→21:16)
--- NOTE | 2018-12-22 06:26 | PN ---
Date/Time of Note Date/Time of Note DATE: 12/22/18 TIME: 06:26 Assessment/Plan Lines/Catheters IV Catheter Type (from Nrs): Peripheral IV Dunbar in Place (from Nrs): No (HD PATIENT) Assessment/Plan Assessment/Plan WBC 13K. awake. remove chest tube. attempt extubating today. remove cordis and place pic line Exam/Review of Systems Vital Signs Vitals Vital Signs Date Temp Pulse Resp B/P (MAP) Pulse Ox O2 O2 Flow FiO2 Time Delivery Rate 12/22/18 81 13 107/53 99 Mechanical 06:00 (71) Ventilator 12/22/18 98.9 04:00 12/22/18 30 03:05 12/18/18 4.0 12:20 Intake and Output 12/21/18 12/21/18 12/22/18 1414:59 22:59 06:59 IntakeIntake Total 283 ml 320 ml 355 ml OutputOutput Total 50 ml 5 ml BalanceBalance 283 ml 270 ml 350 ml Results Result Diagram: 12/22/18 0400 12/22/18 0400 SHARON GARCIA MD Dec 22, 2018 06:26
[2018-12-22] MEDS ORDERED: LIDOCAINE 1% (MPF) 5 ML VIAL SC ONE (06:30)
--- NOTE | 2018-12-22 08:50 | PN ---
DATE: 12/22/2018 SUBJECTIVE: The patient remains critically on full ventilatory support. The patient is currently being weaned. If fails weaning attempt, the patient may require trach and PEG. No other events noted. No hemoptysis, hematemesis or hematochezia. The patient is pending dialysis this morning. OBJECTIVE: VITAL SIGNS: Blood pressure is 109/53, respirations 12, pulse 82, temperature 98.6. HEENT: Head is normocephalic. NECK: Supple. HEART: Regular rate. LUNGS: Show diminished breath sounds at the base. ABDOMEN: Soft, nontender to palpation without rebound or guarding. EXTREMITIES: Negative for clubbing, cyanosis, no edema. DERMATOLOGIC: No rashes. MUSCULOSKELETAL: No joint effusion. NEUROLOGIC: No change in exam. MEDICATIONS: Reviewed. LABORATORY DATA: Shows sodium 139, potassium 4.9, chloride 99, BUN 63, creatinine 7.55, phosphorous 6.2, magnesium 2.8. White count 13.9, hemoglobin 8.3, platelet count was 139. The patient's cultures have been reviewed. Chest x-ray has been reviewed. ASSESSMENT AND PLAN: 1. Coronary artery disease. The patient is status post 4-vessel CABG. Currently stable. Continue medical management. Follow up with CT surgery and cardiology. 2. Status post cardiac arrest. Etiology is secondary to respiratory plug. The patient had spontaneous return of circulation. Currently hemodynamically stable. Continue to monitor. 3. Pericarditis. Continue Nsaids, F/u cardiology 4. Sepsis secondary to healthcare-associated pneumonia. Continue current antibiotic regimen. Cultures have been reviewed. 5. Ventilator-dependent respiratory failure. Vent settings and ABG was reviewed. Attempt weaning possible extubation today per pulmonary. If the patient is unable to be weaned may require trach and PEG placement. 6. End-stage renal disease. Plan is for hemodialysis today. 7. Anemia. Continue to monitor hemoglobin and hematocrit levels. Continue Epogen. 8. Mineral bone disorder, monitor calcium and phosphorus levels. Continue solute clearance with dialysis. 9. Diabetes. Continue current insulin regimen. 10. Dyslipidemia. Continue statin therapy. 11. Volume overload, improved. Continue ultrafiltration with dialysis. 12. Acute encephalopathy, etiology is toxic metabolic. Continue to monitor. 13. Hypermagnesemia, improved. Continue hemodialysis. 14. Intracranial aneurysm, stable, continue to monitor. 15. Status post shock. 16. Gastrointestinal and deep vein thrombosis prophylaxis. Dictated By: JAKY SAVI DO NR/NTS Conf#: [id number] DID#: [id number] CC: ROSARIO MONROE MD; SAGRARIO POLLOCK MD;*EndCC* MTDD
[2018-12-22] MEDS: ASPIRIN 325 MG TAB PO SCH (08:54)
[2018-12-22] MEDS: MEROPENEM 500MG/50 ML (PMX) 50 ML IVPB SCH ×2 (08:54→21:16)
--- NOTE | 2018-12-22 11:31 | CONS ---
Assessment/Plan Assessment/Plan Hospital Course (Demo Recall) Post CABG Pericarditis: diffuse ST elevation on EKG, rub on exam, and echo with normal EF and wall motion. Mild trops 0.8 as expected. Rub resolved Status post PEA arrest - primary event appears to be respiratory distress, hypoxia, and resultant bradycardia; ROSC after brief CPR 12/18 Acute hypoxic respiratory failure - failed extubation twice including 12/18/2018, remains on mechanical ventilation Acute on chronic diastolic heart failure: close to euvolemic now Possible pneumonia - on antibiotics Coronary artery disease - status post CABG x4 (CHENG-LAD, SVG-PDA, SVG-diag-OM) on 12/15/2018 Status post NSTEMI Hypertension End-stage renal disease - on hemodialysis -ibuprofen 400mg TID -protonix 40mg BID -continue aspirin 325mg -continue atorvastatin 80mg -start metoprolol if BP remains post extubation -HD per nephrology -vent per pulm Consultation Date/Type/Reason Admit Date/Time Dec 13, 2018 at 12:40 Initial Consult Date Type of Consult Cardiology Date/Time of Note DATE: 12/22/18 TIME: 11:30 24 HR Interval Summary Free Text/Dictation Being weaned again. Waking up. Hemodynamically stable Exam/Review of Systems Exam Vitals Vital Signs Date Temp Pulse Resp B/P (MAP) Pulse Ox O2 O2 Flow FiO2 Time Delivery Rate 12/22/18 80 12 120/60 100 Mechanical 10:30 (80) Ventilator 12/22/18 30 08:00 12/22/18 99.5 08:00 12/18/18 4.0 12:20 Intake and Output 12/21/18 12/21/18 12/22/18 1515:00 23:00 07:00 IntakeIntake Total 304 ml 326 ml 348 ml OutputOutput Total 50 ml 5 ml BalanceBalance 304 ml 276 ml 343 ml Constitutional: alert Head: normocephalic, atraumatic ENMT: intubated Neck: jvd (8cm) Respiratory: diminished breath sounds; No clear to auscultation Cardiovascular: regular rate and rhythm, edema (trace) Gastrointestinal: soft, non-tender; No distended Neurological: No nl mental status, No nl speech Results Result Diagram: 12/22/18 0400 12/22/18 0400 Results 24hrs Laboratory Tests Test 12/21/18 12:43 12/21/18 15:27 12/21/18 18:14 12/21/18 20:09 Bedside Glucose 142 139 121 128 Test 12/21/18 22:19 12/22/18 00:03 12/22/18 02:20 12/22/18 04:00 Bedside Glucose 115 141 151 White Blood Count 13.9 #H Red Blood Count 2.76 L Hemoglobin 8.3 L Hematocrit 26.3 L Mean Corpuscular 95.3 Volume Mean Corpuscular 30.1 Hemoglobin Mean Corpuscular 31.6 L Hemoglobin Concen t Red Cell 16.2 H Distribution Width Platelet Count 139 L Mean Platelet 11.2 H Volume Immature 1.400 H Granulocytes % Neutrophils % 82.9 H Lymphocytes % 6.2 L Monocytes % 6.1 Eosinophils % 3.3 Basophils % 0.1 Nucleated Red 0.1 H Blood Cells % Immature 0.200 H Granulocytes # Neutrophils # 11.5 H Lymphocytes # 0.9 Monocytes # 0.9 Eosinophils # 0.5 Basophils # 0.0 Nucleated Red 0.0 Blood Cells # Sodium Level 139 Potassium Level 4.9 Chloride Level 99 Carbon Dioxide 24 Level Anion Gap 16 H Blood Urea 63 H Nitrogen Creatinine 7.55 H Est Glomerular Filtrat Rate mL/min Glucose Level 124 Calcium Level 8.6 Phosphorus Level 6.2 H Magnesium Level 2.8 H Test 12/22/18 04:01 12/22/18 05:47 12/22/18 06:56 12/22/18 07:00 Bedside Glucose 141 190 188 Blood Gas Blood arterial Specimen Source Arterial Blood 12/22/2018 7:04:1 Date Drawn 9 AM Arterial Blood pH 7.388 (Temp corrected) Arterial Blood 36.4 pCO2 (Temp correct) Arterial Blood 68.2 L pO2 (Temp corrected) Arterial Blood 21.4 L HCO3 Arterial Blood -3.1 L Base Excess Arterial Blood 91.8 L Oxygen Saturation Ru Test N/A Arterial Blood Right Brachial Gas Puncture Site Arterial 0.3 Blood Carboxyhemo globin Arterial Blood 0.4 Methemoglobin Blood Gas A-a O2 102.9 H Differential Oxyhemoglobin 91.2 L Percent Blood Gas 37.0 Temperature Blood Gas 10.0 Respiration Rate Blood Gas Actual 19 Respiration Rate Blood Gas VENT - SIMV Modality FiO2 30.0 Blood Gas Tidal 550.0 Volume Blood Gas Low 5.0 PEEP Setting Blood Gas 14 Pressure Support Blood Gas TM Notified Whom Blood Gas 12/22/2018 7:22:0 Notified Time 3 AM Test 12/22/18 08:35 12/22/18 10:46 Bedside Glucose 183 171 Medications Medication Current Medications Atorvastatin Calcium (Lipitor) 80 mg HS PO Last administered on 12/21/18 20:50; Admin Dose 80 MG; Start 12/13/18 at 21:00 Insulin Human Regular 100 unit/ Sodium Chloride 100 ml @ 0 mls/hr PER PROTOCOL IV Last administered on 12/21/18 20:54; Admin Dose 3 MLS/HR; Start 12/15/18 at 12:30 Miscellaneous Information (* Miscellaneous Pharmacy Order) Treatment of Hypoglycemia: 1.BG 51... Per protocol XX ; Start 12/15/18 at 12:30 Dextrose (D50w Syringe) 25 ml Q15M PRN IV .DECREASED GLUCOSE; Start 12/15/18 at 12:30 Dextrose (D50w Syringe) 50 ml Q15M PRN IV .DECREASED GLUCOSE; Start 12/15/18 at 12:30 Dopamine HCl/ Dextrose 250 ml @ 6.128 mls/ hr PER PROTOCOL IV Last administered on 12/16/18 02:13; Admin Dose 14.4 MLS/HR; Start 12/15/18 at 13:00 Norepinephrine 250 ml @ 1.875 mls/ hr PER PROTOCOL IV Last administered on 12/19/18 07:45; Admin Dose 3.75 MLS/HR; Start 12/15/18 at 14:00 Phenylephrine HCl 250 ml @ 75 mls/hr PER PROTOCOL IV Last administered on 12/16/18 01:45; Admin Dose 7.5 MLS/HR; Start 12/15/18 at 14:00 Propofol 100 ml @ 2.451 mls/ hr Q12H IV Last administered on 12/19/18 19:59; Admin Dose 4.902 MLS/HR; Start 12/16/18 at 05:30 Epoetin Ever (Epogen (Esrd)) 10,000 units MoWeFr@17 SC Last administered on 12/20/18 17:12; Admin Dose 10,000 UNITS; Start 12/18/18 at 17:00 Fentanyl 100 ml @ 5 mls/hr TITRATE IV Last administered on 12/22/18 00:01; Admin Dose 5 MLS/HR; Start 12/16/18 at 13:00 Aspirin (Aspirin) 325 mg DAILY PO Last administered on 12/22/18 08:54; Admin Dose 325 MG; Start 12/17/18 at 09:00 Heparin Sodium (Porcine) (Heparin (1000 Units/ml)) 3,000 unit PRN PRN CATHETER Dialysis Last administered on 12/19/18 09:34; Admin Dose 3,000 UNIT; Start 12/17/18 at 19:00 Meropenem/Sodium Chloride 50 ml @ 100 mls/hr Q12 IVPB Last administered on 12/22/18 08:54; Admin Dose 100 MLS/HR; Start 12/20/18 at 21:00 Alteplase, Recombinant (Cathflo (Activase)) 4 mg MAY REPEAT X1 PRN CATHETER IF CATHETER REMAINS OCCULUDED Last administered on 12/20/18 17:54; Admin Dose 4 MG; Start 12/20/18 at 17:00 Diagnostic Test (Pha) (Accu-Chek) 1 ea Q1H XX Last administered on 12/22/18 06:57; Admin Dose 1 EA; Start 12/21/18 at 20:00 Ibuprofen (Motrin Liquid (Ped)) 400 mg Q8 GTB Last administered on 12/22/18 05:08; Admin Dose 400 MG; Start 12/21/18 at 23:00 Lansoprazole (Prevacid) 30 mg BID@0600,1800 GTB Last administered on 12/22/18 05:08; Admin Dose 30 MG; Start 12/22/18 at 06:00 Dexmedetomidine HCl 200 mcg/ Sodium Chloride 50 ml @ 0 mls/hr TITRATE IV ; Start 12/22/18 at 11:30; Status SAGRARIO HUNTER Dec 22, 2018 11:31
--- NOTE | 2018-12-22 12:15 | CONS ---
Consult Date/Type/Reason Admit Date/Time Dec 13, 2018 at 12:40 Initial Consult Date 12/16/18 Type of Consult Pulmonary Date/Time of Note DATE: 12/22/18 TIME: 12:14 Subjective Patient is comfortable this morning. No respiratory distress. Objective Vital Signs Date Temp Pulse Resp B/P (MAP) Pulse Ox O2 O2 Flow FiO2 Time Delivery Rate 12/22/18 80 12 120/60 100 Mechanical 10:30 (80) Ventilator 12/22/18 30 08:00 12/22/18 99.5 08:00 12/18/18 4.0 12:20 Intake and Output 12/21/18 12/21/18 12/22/18 1515:00 23:00 07:00 IntakeIntake Total 304 ml 326 ml 358 ml OutputOutput Total 50 ml 5 ml BalanceBalance 304 ml 276 ml 353 ml Exam GENERAL: Well-nourished well-developed gentleman comfortable at rest no acute distress VITAL SIGNS: per chart NECK: Supple. No JVD or lymphadenopathy. CARDIAC EXAM: S1, S2. No added sounds or murmurs. CHEST: Diminished air entry bilaterally ABDOMEN: Soft, nontender. No guarding or rebound. EXTREMITIES: No cyanosis, clubbing or edema. NEUROLOGIC: Generalized weakness. Vent Setting Ventilator Support Mode: SIMV Fraction of Inspired Oxygen pe: 30 Positive End Expiratory Pressu: 5.0 Results/Medications Result Diagram: 12/22/18 0400 12/22/18 0400 Results 24 hrs Laboratory Tests Test 12/21/18 12:43 12/21/18 15:27 12/21/18 18:14 12/21/18 20:09 Bedside Glucose 142 139 121 128 Test 12/21/18 22:19 12/22/18 00:03 12/22/18 02:20 12/22/18 04:00 Bedside Glucose 115 141 151 White Blood Count 13.9 #H Red Blood Count 2.76 L Hemoglobin 8.3 L Hematocrit 26.3 L Mean Corpuscular 95.3 Volume Mean Corpuscular 30.1 Hemoglobin Mean Corpuscular 31.6 L Hemoglobin Concen t Red Cell 16.2 H Distribution Width Platelet Count 139 L Mean Platelet 11.2 H Volume Immature 1.400 H Granulocytes % Neutrophils % 82.9 H Lymphocytes % 6.2 L Monocytes % 6.1 Eosinophils % 3.3 Basophils % 0.1 Nucleated Red 0.1 H Blood Cells % Immature 0.200 H Granulocytes # Neutrophils # 11.5 H Lymphocytes # 0.9 Monocytes # 0.9 Eosinophils # 0.5 Basophils # 0.0 Nucleated Red 0.0 Blood Cells # Sodium Level 139 Potassium Level 4.9 Chloride Level 99 Carbon Dioxide 24 Level Anion Gap 16 H Blood Urea 63 H Nitrogen Creatinine 7.55 H Est Glomerular Filtrat Rate mL/min Glucose Level 124 Calcium Level 8.6 Phosphorus Level 6.2 H Magnesium Level 2.8 H Test 12/22/18 04:01 12/22/18 05:47 12/22/18 06:56 12/22/18 07:00 Bedside Glucose 141 190 188 Blood Gas Blood arterial Specimen Source Arterial Blood 12/22/2018 7:04:1 Date Drawn 9 AM Arterial Blood pH 7.388 (Temp corrected) Arterial Blood 36.4 pCO2 (Temp correct) Arterial Blood 68.2 L pO2 (Temp corrected) Arterial Blood 21.4 L HCO3 Arterial Blood -3.1 L Base Excess Arterial Blood 91.8 L Oxygen Saturation Ru Test N/A Arterial Blood Right Brachial Gas Puncture Site Arterial 0.3 Blood Carboxyhemo globin Arterial Blood 0.4 Methemoglobin Blood Gas A-a O2 102.9 H Differential Oxyhemoglobin 91.2 L Percent Blood Gas 37.0 Temperature Blood Gas 10.0 Respiration Rate Blood Gas Actual 19 Respiration Rate Blood Gas VENT - SIMV Modality FiO2 30.0 Blood Gas Tidal 550.0 Volume Blood Gas Low 5.0 PEEP Setting Blood Gas 14 Pressure Support Blood Gas TM Notified Whom Blood Gas 12/22/2018 7:22:0 Notified Time 3 AM Test 12/22/18 08:35 12/22/18 10:46 Bedside Glucose 183 171 Medications Current Medications Atorvastatin Calcium (Lipitor) 80 mg HS PO Last administered on 12/21/18at 20:50; Admin Dose 80 MG; Start 12/13/18 at 21:00 Insulin Human Regular 100 unit/ Sodium Chloride 100 ml @ 0 mls/hr PER PROTOCOL IV Last administered on 12/21/18at 20:54; Admin Dose 3 MLS/HR; Start 12/15/18 at 12:30 Miscellaneous Information (* Miscellaneous Pharmacy Order) Treatment of Hypog lycemia: 1.BG 51... Per protocol XX ; Start 12/15/18 at 12:30 Dextrose (D50w Syringe) 25 ml Q15M PRN IV .DECREASED GLUCOSE; Start 12/15/18 at 12:30 Dextrose (D50w Syringe) 50 ml Q15M PRN IV .DECREASED GLUCOSE; Start 12/15/18 at 12:30 Dopamine HCl/ Dextrose 250 ml @ 6.128 mls/ hr PER PROTOCOL IV Last administered on 12/16/18 02:13; Admin Dose 14.4 MLS/HR; Start 12/15/18 at 13:00 Norepinephrine 250 ml @ 1.875 mls/ hr PER PROTOCOL IV Last administered on 12/19/18 07:45; Admin Dose 3.75 MLS/HR; Start 12/15/18 at 14:00 Phenylephrine HCl 250 ml @ 75 mls/hr PER PROTOCOL IV Last administered on 12/16/18 01:45; Admin Dose 7.5 MLS/HR; Start 12/15/18 at 14:00 Propofol 100 ml @ 2.451 mls/ hr Q12H IV Last administered on 12/19/18 19:59; Admin Dose 4.902 MLS/HR; Start 12/16/18 at 05:30 Epoetin Ever (Epogen (Esrd)) 10,000 units MoWeFr@17 SC Last administered on 12/20/18 17:12; Admin Dose 10,000 UNITS; Start 12/18/18 at 17:00 Fentanyl 100 ml @ 5 mls/hr TITRATE IV Last administered on 12/22/18 00:01; Admin Dose 5 MLS/HR; Start 12/16/18 at 13:00 Aspirin (Aspirin) 325 mg DAILY PO Last administered on 12/22/18 08:54; Admin Dose 325 MG; Start 12/17/18 at 09:00 Heparin Sodium (Porcine) (Heparin (1000 Units/ml)) 3,000 unit PRN PRN CATHETER Dialysis Last administered on 12/19/18 09:34; Admin Dose 3,000 UNIT; Start 12/17/18 at 19:00 Meropenem/Sodium Chloride 50 ml @ 100 mls/hr Q12 IVPB Last administered on 12/22/18 08:54; Admin Dose 100 MLS/HR; Start 12/20/18 at 21:00 Alteplase, Recombinant (Cathflo (Activase)) 4 mg MAY REPEAT X1 PRN CATHETER IF CATHETER REMAINS OCCULUDED Last administered on 12/20/18at 17:54; Admin Dose 4 MG; Start 12/20/18 at 17:00 Diagnostic Test (Pha) (Accu-Chek) 1 ea Q1H XX Last administered on 12/22/18at 06:57; Admin Dose 1 EA; Start 12/21/18 at 20:00 Ibuprofen (Motrin Liquid (Ped)) 400 mg Q8 GTB Last administered on 12/22/18at 05:08; Admin Dose 400 MG; Start 12/21/18 at 23:00 Lansoprazole (Prevacid) 30 mg BID@0600,1800 GTB Last administered on 12/22/18at 05:08; Admin Dose 30 MG; Start 12/22/18 at 06:00 Dexmedetomidine HCl 200 mcg/ Sodium Chloride 50 ml @ 0 mls/hr TITRATE IV ; Start 12/22/18 at 13:00 Assessment/Plan Hospital Course (Demo Recall) IMP: 1. Hypercapnic Respiratory Failure--s/p extubation post CABG. Possibly due to a combination of volume overload and sedation. Reintubation x2 2. Status post coronary artery bypass graft surgery 3. Status post cardiogenic shock 4. CHF/CAD 5. ESRD on HD 6. Anemia 7. LLL Atelectasis/infiltrate RECS: 1. CPAP trial 2. Continue hemodialysis with UF 3. Precedex instead of Versed 4. Pressors to maintain MAP > 65 mm Hg 5. Continue cefepime and vancomycin. 6. Monitor H&H posttransfusion 40 min cc time If patient fails weaning trial or is not extubated over the weekend would recommend progressed to tracheostomy. ROSARIO MONROE MD, [facility] Dec 22, 2018 12:15
[2018-12-22] MEDS ORDERED: ALBUMIN HUMAN 25% 100 ML IV PRN (12:30)
[2018-12-22] MEDS ORDERED: DEXMEDETOMIDINE HCL 200 MCG in SOD CHLORIDE 0.9% 48 ML IV SCH (13:00)
--- NOTE | 2018-12-22 14:19 | CONS ---
Assessment/Plan Assessment/Plan Hospital Course (Demo Recall) No acute changes overnight patient looks comfortable, in hemodialysis, no fevers overnight, T-max this morning 99.5 WBC 13.9 H&H 8.3 and 26.3 platelets 139 neutrophils 82.9 Chest x-ray this morning revealed improving of both lungs with minimal residual interstitial edema Antimicrobials: Merrem Indwelling: NG tube right IJ cordis left femoral Anam Physical examination: Well-developed chronically ill-appearing elderly man who is intubated in no distress. Head atraumatic normocephalic sclera nonicteric vehicle mucosa dry neck is supple chest rise symmetrical breath sounds with cr ackles. Heart S1-S2 abdomen soft bowel sounds hypoactive extremities cyanotic Assessment: 1. Sepsis, status post shock, resolving 2. Healthcare associated pneumonia, possibly aspirated 3. Acute respiratory failure, status post extubation post CABG with reintubation 4. Non-ST elevation ID status post CABG 12/15/18 5. 5. End-stage renal disease, hemodialysis dependent 6. Anemia Plan: Remains hemodynamically stable, WBC trending down, continue abx, weaning trials per pulmonary Consultation Date/Type/Reason Admit Date/Time Dec 13, 2018 at 12:40 Initial Consult Date 12/16/18 Type of Consult id Date/Time of Note DATE: 12/22/18 TIME: 14:18 Exam/Review of Systems Exam Vitals Vital Signs Date Temp Pulse Resp B/P (MAP) Pulse Ox O2 O2 Flow FiO2 Time Delivery Rate 12/22/18 79 13:31 12/22/18 12 108/58 100 Mechanical 13:30 (75) Ventilator 12/22/18 99.4 12:00 12/22/18 30 08:00 12/18/18 4.0 12:20 Intake and Output 12/21/18 12/21/18 12/22/18 1515:00 23:00 07:00 IntakeIntake Total 304 ml 326 ml 358 ml OutputOutput Total 50 ml 5 ml BalanceBalance 304 ml 276 ml 353 ml Results Result Diagram: 12/22/18 0400 12/22/18 0400 Results 24hrs Laboratory Tests Test 12/21/18 15:27 12/21/18 18:14 12/21/18 20:09 12/21/18 22:19 Bedside Glucose 139 121 128 115 Test 12/22/18 00:03 12/22/18 02:20 12/22/18 04:00 12/22/18 04:01 Bedside Glucose 141 151 141 White Blood Count 13.9 #H Red Blood Count 2.76 L Hemoglobin 8.3 L Hematocrit 26.3 L Mean Corpuscular 95.3 Volume Mean Corpuscular 30.1 Hemoglobin Mean Corpuscular 31.6 L Hemoglobin Concen t Red Cell 16.2 H Distribution Width Platelet Count 139 L Mean Platelet 11.2 H Volume Immature 1.400 H Granulocytes % Neutrophils % 82.9 H Lymphocytes % 6.2 L Monocytes % 6.1 Eosinophils % 3.3 Basophils % 0.1 Nucleated Red 0.1 H Blood Cells % Immature 0.200 H Granulocytes # Neutrophils # 11.5 H Lymphocytes # 0.9 Monocytes # 0.9 Eosinophils # 0.5 Basophils # 0.0 Nucleated Red 0.0 Blood Cells # Sodium Level 139 Potassium Level 4.9 Chloride Level 99 Carbon Dioxide 24 Level Anion Gap 16 H Blood Urea 63 H Nitrogen Creatinine 7.55 H Est Glomerular Filtrat Rate mL/min Glucose Level 124 Calcium Level 8.6 Phosphorus Level 6.2 H Magnesium Level 2.8 H Test 12/22/18 05:47 12/22/18 06:56 12/22/18 07:00 12/22/18 08:35 Bedside Glucose 190 188 183 Blood Gas Blood arterial Specimen Source Arterial Blood 12/22/2018 7:04:1 Date Drawn 9 AM Arterial Blood pH 7.388 (Temp corrected) Arterial Blood 36.4 pCO2 (Temp correct) Arterial Blood 68.2 L pO2 (Temp corrected) Arterial Blood 21.4 L HCO3 Arterial Blood -3.1 L Base Excess Arterial Blood 91.8 L Oxygen Saturation Ru Test N/A Arterial Blood Right Brachial Gas Puncture Site Arterial 0.3 Blood Carboxyhemo globin Arterial Blood 0.4 Methemoglobin Blood Gas A-a O2 102.9 H Differential Oxyhemoglobin 91.2 L Percent Blood Gas 37.0 Temperature Blood Gas 10.0 Respiration Rate Blood Gas Actual 19 Respiration Rate Blood Gas VENT - SIMV Modality FiO2 30.0 Blood Gas Tidal 550.0 Volume Blood Gas Low 5.0 PEEP Setting Blood Gas 14 Pressure Support Blood Gas TM Notified Whom Blood Gas 12/22/2018 7:22:0 Notified Time 3 AM Test 12/22/18 10:46 12/22/18 12:39 12/22/18 14:09 Bedside Glucose 171 146 113 Medications Medication Current Medications Atorvastatin Calcium (Lipitor) 80 mg HS PO Last administered on 12/21/18 20:50; Admin Dose 80 MG; Start 12/13/18 at 21:00 Insulin Human Regular 100 unit/ Sodium Chloride 100 ml @ 0 mls/hr PER PROTOCOL IV Last administered on 12/21/18 20:54; Admin Dose 3 MLS/HR; Start 12/15/18 at 12:30 Miscellaneous Information (* Miscellaneous Pharmacy Order) Treatment of Hypoglycemia: 1.BG 51... Per protocol XX ; Start 12/15/18 at 12:30 Dextrose (D50w Syringe) 25 ml Q15M PRN IV .DECREASED GLUCOSE; Start 12/15/18 at 12:30 Dextrose (D50w Syringe) 50 ml Q15M PRN IV .DECREASED GLUCOSE; Start 12/15/18 at 12:30 Dopamine HCl/ Dextrose 250 ml @ 6.128 mls/ hr PER PROTOCOL IV Last ad ministered on 12/16/18 02:13; Admin Dose 14.4 MLS/HR; Start 12/15/18 at 13:00 Norepinephrine 250 ml @ 1.875 mls/ hr PER PROTOCOL IV Last administered on 12/19/18 07:45; Admin Dose 3.75 MLS/HR; Start 12/15/18 at 14:00 Phenylephrine HCl 250 ml @ 75 mls/hr PER PROTOCOL IV Last administered on 11/25 01:45; Admin Dose 7.5 MLS/HR; Start 12/15/18 at 14:00 Propofol 100 ml @ 2.451 mls/ hr Q12H IV Last administered on 12/19/18 19:59; Admin Dose 4.902 MLS/HR; Start 12/16/18 at 05:30 Epoetin Ever (Epogen (Esrd)) 10,000 units MoWeFr@17 SC Last administered on 12/20/18 17:12; Admin Dose 10,000 UNITS; Start 12/18/18 at 17:00 Fentanyl 100 ml @ 5 mls/hr TITRATE IV Last administered on 12/22/18 00:01; Admin Dose 5 MLS/HR; Start 12/16/18 at 13:00 Aspirin (Aspirin) 325 mg DAILY PO Last administered on 12/22/18 08:54; Admin Dose 325 MG; Start 12/17/18 at 09:00 Heparin Sodium (Porcine) (Heparin (1000 Units/ml)) 3,000 unit PRN PRN CATHETER Dialysis Last administered on 12/19/18 09:34; Admin Dose 3,000 UNIT; Start 12/17/18 at 19:00 Meropenem/Sodium Chloride 50 ml @ 100 mls/hr Q12 IVPB Last administered on 12/22/18 08:54; Admin Dose 100 MLS/HR; Start 12/20/18 at 21:00 Alteplase, Recombinant (Cathflo (Activase)) 4 mg MAY REPEAT X1 PRN CATHETER IF CATHETER REMAINS OCCULUDED Last administered on 12/20/18 17:54; Admin Dose 4 MG; Start 12/20/18 at 17:00 Diagnostic Test (Pha) (Accu-Chek) 1 ea Q1H XX Last administered on 12/22/18 06:57; Admin Dose 1 EA; Start 12/21/18 at 20:00 Ibuprofen (Motrin Liquid (Ped)) 400 mg Q8 GTB Last administered on 12/22/18 14:12; Admin Dose 400 MG; Start 12/21/18 at 23:00 Lansoprazole (Prevacid) 30 mg BID@0600,1800 GTB Last administered on 12/22/18 05:08; Admin Dose 30 MG; Start 12/22/18 at 06:00 Dexmedetomidine HCl 200 mcg/ Sodium Chloride 50 ml @ 4.09 mls/hr TITRATE IV ; Start 12/22/18 at 13:00 Albumin Human 100 ml @ 100 mls/hr DURING DIALYSIS PRN IV NOTE Last administered on 12/22/18 14:06; Admin Dose 100 MLS/HR; Start 12/22/18 at 12:30 LASHELL LYNCH NP Dec 22, 2018 14:19
[2018-12-22] MEDS: HEPARIN 1000 UNITS/ML 10 ML INJ CATHETER PRN (15:49)
[2018-12-22] MEDS: DEXMEDETOMIDINE HCL 200 MCG in SOD CHLORIDE 0.9% 48 ML IV SCH (16:24)
[2018-12-22] MEDS: EPOETIN 10000 UNITS/1 ML INJ (ESRD) SC SCH (17:00)
[2018-12-22] MEDS: INSULIN HUMAN REGULAR 100 UNIT in SOD CHLORIDE 0.9% 99 ML IV SCH (21:11)
[2018-12-22] MEDS: ATORVASTATIN 80 MG TAB PO SCH (21:15)
[2018-12-23] VITALS (42 sets, daily range): BP systolic 94–142; BP diastolic 46–113; PULSE 77–92; RESP 11–29
[2018-12-23] MEDS: ACCU-CHEK XX SCH ×24 (00:06→23:00)
[2018-12-23] MEDS: PROPOFOL 100 ML IV SCH ×2 (05:30→17:30)
[2018-12-23] MEDS: IBUPROFEN LIQUID (PED) 20 MG/ML CUP GTB SCH (06:14)
[2018-12-23] MEDS: LANSOPRAZOLE 30 MG CAP GTB SCH ×2 (06:14→18:00)
[2018-12-23] MEDS: DEXMEDETOMIDINE HCL 200 MCG in SOD CHLORIDE 0.9% 48 ML IV SCH (06:49)
[2018-12-23] MEDS: INSULIN HUMAN REGULAR 100 UNIT in SOD CHLORIDE 0.9% 99 ML IV SCH (06:52)
--- NOTE | 2018-12-23 06:55 | PN ---
Date/Time of Note Date/Time of Note DATE: 12/23/18 TIME: 06:53 Assessment/Plan VTE Prophylaxis Risk score (from Ns)>0 risk: 9 SCD applied (from Ns): Yes Pharmacological prophylaxis: other Lines/Catheters IV Catheter Type (from Nrsg): HD Urinary Cath still in place: No Assessment/Plan Hospital Course SUBJECTIVE: The patient remains critically on full ventilatory support. The patient is currently being weaned. If fails weaning attempt, the patient may require trach and PEG. No other events noted. No hemoptysis, hematemesis or hematochezia. The patient had hd yesterday (1.5 liter removed) vent settings and imaging studies were reviewed d/w ICU nurse OBJECTIVE: HEENT: Head is normocephalic. NECK: Supple. HEART: Regular rate. LUNGS: Show diminished breath sounds at the base. ABDOMEN: Soft, nontender to palpation without rebound or guarding. EXTREMITIES: Negative for clubbing, cyanosis, no edema. DERMATOLOGIC: No rashes. MUSCULOSKELETAL: No joint effusion. NEUROLOGIC: No change in exam. MEDICATIONS: Reviewed. ASSESSMENT AND PLAN: 1. Coronary artery disease. The patient is status post 4-vessel CABG. Currently stable. Continue medical management. Follow up with CT surgery and cardiology. 2. Status post cardiac arrest. Etiology is secondary to respiratory plug. The patient had spontaneous return of circulation. Currently hemodynamically s table. Continue to monitor. 3. Pericarditis. Continue Nsaids, F/u cardiology 4. Sepsis secondary to healthcare-associated pneumonia. Continue current antibiotic regimen. Cultures have been reviewed. 5. Ventilator-dependent respiratory failure. Vent settings and ABG was reviewed. Attempt weaning possible extubation today per pulmonary. If the patient is unable to be weaned may require trach and PEG placement. 6. End-stage renal disease. Plan is for hemodialysis in am 7. Anemia. Continue to monitor hemoglobin and hematocrit levels. Continue Epogen. 8. Mineral bone disorder, monitor calcium and phosphorus levels. Continue solute clearance with dialysis. 9. Diabetes. Continue current insulin regimen. 10. Dyslipidemia. Continue statin therapy. 11. Volume overload, improved. Continue ultrafiltration with dialysis. 12. Acute encephalopathy, etiology is toxic metabolic. Continue to monitor. 13. Hypermagnesemia, improved. Continue hemodialysis. 14. Intracranial aneurysm, stable, continue to monitor. 15. Status post shock. 16. Gastrointestinal and deep vein thrombosis prophylaxis. Result Diagram: 12/22/18 0400 12/22/18 0400 Results 24hrs Laboratory Tests Test 12/22/18 06:56 12/22/18 07:00 12/22/18 08:35 12/22/18 10:46 Bedside Glucose 188 183 171 Blood Gas Blood arterial Specimen Source Arterial Blood 12/22/2018 7:04:1 Date Drawn 9 AM Arterial Blood pH 7.388 (Temp corrected) Arterial Blood 36.4 pCO2 (Temp correct) Arterial Blood 68.2 L pO2 (Temp corrected) Arterial Blood 21.4 L HCO3 Arterial Blood -3.1 L Base Excess Arterial Blood 91.8 L Oxygen Saturation Ru Test N/A Arterial Blood Right Brachial Gas Puncture Site Arterial 0.3 Blood Carboxyhemo globin Arterial Blood 0.4 Methemoglobin Blood Gas A-a O2 102.9 H Differential Oxyhemoglobin 91.2 L Percent Blood Gas 37.0 Temperature Blood Gas 10.0 Respiration Rate Blood Gas Actual 19 Respiration Rate Blood Gas VENT - SIMV Modality FiO2 30.0 Blood Gas Tidal 550.0 Volume Blood Gas Low 5.0 PEEP Setting Blood Gas 14 Pressure Support Blood Gas TM Notified Whom Blood Gas 12/22/2018 7:22:0 Notified Time 3 AM Test 12/22/18 12:39 12/22/18 14:09 12/22/18 16:33 12/22/18 18:22 Bedside Glucose 146 113 170 223 H Test 12/22/18 19:59 12/22/18 21:05 12/22/18 22:03 12/22/18 22:58 Bedside Glucose 245 H 232 H 183 123 Test 12/22/18 23:57 12/23/18 00:54 12/23/18 02:12 12/23/18 02:56 Bedside Glucose 89 109 173 188 Test 12/23/18 03:58 12/23/18 04:57 12/23/18 05:15 12/23/18 05:57 Bedside Glucose 214 218 174 White Blood Count Pending Red Blood Count Pending Hemoglobin Pending Hematocrit Pending Mean Corpuscular Pending Volume Mean Corpuscular Pending Hemoglobin Mean Corpuscular Pending Hemoglobin Concen t Red Cell Pending Distribution Width Platelet Count Pending Mean Platelet Pending Volume Exam/Review of Systems Exam Vitals Vital Signs Date Temp Pulse Resp B/P (MAP) Pulse Ox O2 O2 Flow FiO2 Time Delivery Rate 12/23/18 87 15 128/58 100 Mechanical 06:00 (81) Ventilator 12/23/18 30 04:58 12/23/18 98.8 04:00 Intake and Output 12/22/18 12/22/18 12/23/18 1515:00 23:00 07:00 IntakeIntake Total 504 ml 459.94 ml 323.04 ml OutputOutput Total 1900 ml BalanceBalance 504 ml -1440.06 ml 323.04 ml Results Results 24hrs Laboratory Tests Test 12/22/18 06:56 12/22/18 07:00 12/22/18 08:35 12/22/18 10:46 Bedside Glucose 188 183 171 Blood Gas Blood arterial Specimen Source Arterial Blood 12/22/2018 7:04:1 Date Drawn 9 AM Arterial Blood pH 7.388 (Temp corrected) Arterial Blood 36.4 pCO2 (Temp correct) Arterial Blood 68.2 L pO2 (Temp corrected) Arterial Blood 21.4 L HCO3 Arterial Blood -3.1 L Base Excess Arterial Blood 91.8 L Oxygen Saturation Ru Test N/A Arterial Blood Right Brachial Gas Puncture Site Arterial 0.3 Blood Carboxyhemo globin Arterial Blood 0.4 Methemoglobin Blood Gas A-a O2 102.9 H Differential Oxyhemoglobin 91.2 L Percent Blood Gas 37.0 Temperature Blood Gas 10.0 Respiration Rate Blood Gas Actual 19 Respiration Rate Blood Gas VENT - SIMV Modality FiO2 30.0 Blood Gas Tidal 550.0 Volume Blood Gas Low 5.0 PEEP Setting Blood Gas 14 Pressure Support Blood Gas TM Notified Whom Blood Gas 12/22/2018 7:22:0 Notified Time 3 AM Test 12/22/18 12:39 12/22/18 14:09 12/22/18 16:33 12/22/18 18:22 Bedside Glucose 146 113 170 223 H Test 12/22/18 19:59 12/22/18 21:05 12/22/18 22:03 12/22/18 22:58 Bedside Glucose 245 H 232 H 183 123 Test 12/22/18 23:57 12/23/18 00:54 12/23/18 02:12 12/23/18 02:56 Bedside Glucose 89 109 173 188 Test 12/23/18 03:58 12/23/18 04:57 12/23/18 05:15 12/23/18 05:57 Bedside Glucose 214 218 174 White Blood Count Pending Red Blood Count Pending Hemoglobin Pending Hematocrit Pending Mean Corpuscular Pending Volume Mean Corpuscular Pending Hemoglobin Mean Corpuscular Pending Hemoglobin Concen t Red Cell Pending Distribution Width Platelet Count Pending Mean Platelet Pending Volume Medications Medication Current Medications Atorvastatin Calcium (Lipitor) 80 mg HS PO Last administered on 12/22/18 21:15; Admin Dose 80 MG; Start 12/13/18 at 21:00 Insulin Human Regular 100 unit/ Sodium Chloride 100 ml @ 0 mls/hr PER PROTOCOL IV Last administered on 12/23/18at 06:52; Admin Dose 7 MLS/HR; Start 12/15/18 at 12:30 Miscellaneous Information (* Miscellaneous Pharmacy Order) Treatment of Hy poglycemia: 1.BG 51... Per protocol XX ; Start 12/15/18 at 12:30 Dextrose (D50w Syringe) 25 ml Q15M PRN IV .DECREASED GLUCOSE; Start 12/15/18 at 12:30 Dextrose (D50w Syringe) 50 ml Q15M PRN IV .DECREASED GLUCOSE; Start 12/15/18 at 12:30 Dopamine HCl/ Dextrose 250 ml @ 6.128 mls/ hr PER PROTOCOL IV Last administered on 12/16/18at 02:13; Admin Dose 14.4 MLS/HR; Start 12/15/18 at 13:00 Norepinephrine 250 ml @ 1.875 mls/ hr PER PROTOCOL IV Last administered on 12/19/18at 07:45; Admin Dose 3.75 MLS/HR; Start 12/15/18 at 14:00 Phenylephrine HCl 250 ml @ 75 mls/hr PER PROTOCOL IV Last administered on 12/16/18at 01:45; Admin Dose 7.5 MLS/HR; Start 12/15/18 at 14:00 Propofol 100 ml @ 2.451 mls/ hr Q12H IV Last administered on 12/19/18at 19:59; Admin Dose 4.902 MLS/HR; Start 12/16/18 at 05:30 Epoetin Ever (Epogen (Esrd)) 10,000 units MoWeFr@17 SC Last administered on 12/22/18at 17:00; Admin Dose 10,000 UNITS; Start 12/18/18 at 17:00 Fentanyl 100 ml @ 5 mls/hr TITRATE IV Last administered on 12/22/18 00:01; Admin Dose 5 MLS/HR; Start 12/16/18 at 13:00 Aspirin (Aspirin) 325 mg DAILY PO Last administered on 12/22/18 08:54; Admin Dose 325 MG; Start 12/17/18 at 09:00 Heparin Sodium (Porcine) (Heparin (1000 Units/ml)) 3,000 unit PRN PRN CATHETER Dialysis Last administered on 12/22/18 15:49; Admin Dose 3,000 UNIT; Start 12/17/18 at 19:00 Meropenem/Sodium Chloride 50 ml @ 100 mls/hr Q12 IVPB Last administered on 12/22/18 21:16; Admin Dose 100 MLS/HR; Start 12/20/18 at 21:00 Alteplase, Recombinant (Cathflo (Activase)) 4 mg MAY REPEAT X1 PRN CATHETER IF CATHETER REMAINS OCCULUDED Last administered on 12/20/18 17:54; Admin Dose 4 MG; Start 12/20/18 at 17:00 Diagnostic Test (Pha) (Accu-Chek) 1 ea Q1H XX Last administered on 12/23/18 06:08; Admin Dose 1 EA; Start 12/21/18 at 20:00 Ibuprofen (Motrin Liquid (Ped)) 400 mg Q8 GTB Last administered on 12/23/18 06:14; Admin Dose 400 MG; Start 12/21/18 at 23:00 Lansoprazole (Prevacid) 30 mg BID@0600,1800 GTB Last administered on 12/23/18 06:14; Admin Dose 30 MG; Start 12/22/18 at 06:00 Dexmedetomidine HCl 200 mcg/ Sodium Chloride 50 ml @ 4.09 mls/hr TITRATE IV Last administered on 12/23/18 06:49; Admin Dose 4.09 MLS/HR; Start 12/22/18 at 13:00 Albumin Human 100 ml @ 100 mls/hr DURING DIALYSIS PRN IV NOTE Last administered on 12/22/18 14:06; Admin Dose 100 MLS/HR; Start 12/22/18 at 12:30 FREDO CALIXTO DO Dec 23, 2018 06:55
--- NOTE | 2018-12-23 08:41 | CONS ---
Assessment/Plan Assessment/Plan Assessment/Plan (Daily) Ventilator setting; SIMV of 10, pressure support of 14, PEEP of 5, 30% FiO2. Patient is currently on Precedex drip at 0.2 mics per kilogram per hour, insulin 5 units/h. Assessment recommendations; 1. Patient status post CABG having failed one extubation trial requiring post surgery CPR which was brief with preservation of excellent mental status. 2. Bilateral pneumonia with significant radiological improvement. 3. Chronic renal failure, on hemodialysis. 4. Anemia and thrombocytopenia. 5. Diabetes. Hold further sedation. Once the patient is off sedation he will be put on CPAP mode in an attempt to try to wean him from ventilator. Meanwhile obtain follow- up chest x-ray. Continue other supportive measures. Continue current antibiotics as well. 35 minutes of critical care time was spent evaluating the patient. Consultation Date/Type/Reason Admit Date/Time Dec 13, 2018 at 12:40 Initial Consult Date 12/16/18 Type of Consult Pulmonary/critical care Reason for Consultation Patient's condition remains critical but stable. Patient is on Precedex drip and is completely awake and alert. Has remained hemodynamically stable. General exam; elderly male, orally intubated, awake and alert. Currently in no distress. HEENT exam; supple neck, no JVD. No lymphadenopathy. Midline trachea. No thyromegaly. Orally intubated. No neck masses. Pupils are small bilaterally. Patient does have multiple carious teeth. Chest exam; diminished but clear breath sounds. S1-S2 audible, no murmurs. Regular rhythm. Dressing applied over the sternum. Left chest tube has been removed. Abdomen exam; soft, no organomegaly. Nontender. Bowel sounds audible. Extremity exam; no peripheral edema clubbing. Pulses 1+. [employer] exam; patient is awake and alert follows simple commands and moves all 4 extremities. Date/Time of Note DATE: 12/23/18 TIME: 08:38 Exam/Review of Systems Exam Vitals Vital Signs Date Temp Pulse Resp B/P (MAP) Pulse Ox O2 O2 Flow FiO2 Time Delivery Rate 12/23/18 86 22 127/60 100 Mechanical 07:00 (82) Ventilator 12/23/18 30 04:58 12/23/18 98.8 04:00 Intake and Output 12/22/18 12/22/18 12/23/18 1414:59 22:59 06:59 IntakeIntake Total 514 ml 439.85 ml 373.13 ml OutputOutput Total 1900 ml BalanceBalance 514 ml -1460.15 ml 373.13 ml Results Result Diagram: 12/23/18 0515 12/23/18 0515 Results 24hrs Laboratory Tests Test 12/22/18 10:46 12/22/18 12:39 12/22/18 14:09 12/22/18 16:33 Bedside Glucose 171 146 113 170 Test 12/22/18 18:22 12/22/18 19:59 12/22/18 21:05 12/22/18 22:03 Bedside Glucose 223 H 245 H 232 H 183 Test 12/22/18 22:58 12/22/18 23:57 12/23/18 00:54 12/23/18 02:12 Bedside Glucose 123 89 109 173 Test 12/23/18 02:56 12/23/18 03:58 12/23/18 04:57 12/23/18 05:15 Bedside Glucose 188 214 218 White Blood Count 11.1 #H Red Blood Count 2.72 L Hemoglobin 8.2 L Hematocrit 26.0 L Mean Corpuscular 95.6 Volume Mean Corpuscular 30.1 Hemoglobin Mean Corpuscular 31.5 L Hemoglobin Concent Red Cell 16.3 H Distribution Width Platelet Count 155 Mean Platelet Volume 11.3 H Immature 1.500 H Granulocytes % Neutrophils % 80.7 H Lymphocytes % 7.2 L Monocytes % 6.9 Eosinophils % 3.4 Basophils % 0.3 Nucleated Red Blood 0.0 Cells % Immature 0.170 H Granulocytes # Neutrophils # 9.0 H Lymphocytes # 0.8 Monocytes # 0.8 Eosinophils # 0.4 Basophils # 0.0 Nucleated Red Blood 0.0 Cells # Sodium Level 138 Potassium Level 4.2 Chloride Level 101 Carbon Dioxide Level 26 Anion Gap 11 Blood Urea Nitrogen 47 #H Creatinine 5.35 #H Est Glomerular Filtrat Rate mL/min Glucose Level 175 Calcium Level 8.4 Phosphorus Level 3.2 # Magnesium Level 2.5 Test 12/23/18 05:57 12/23/18 06:56 12/23/18 08:19 Bedside Glucose 174 141 146 Medications Medication Current Medications Atorvastatin Calcium (Lipitor) 80 mg HS PO Last administered on 12/22/18at 21:15; Admin Dose 80 MG; Start 12/13/18 at 21:00 Insulin Human Regular 100 unit/ Sodium Chloride 100 ml @ 0 mls/hr PER PROTOCOL IV Last administered on 12/23/18 06:52; Admin Dose 7 MLS/HR; Start 12/15/18 at 12:30 Miscellaneous Information (* Miscellaneous Pharmacy Order) Treatment of Hypoglycemia: 1.BG 51... Per protocol XX ; Start 12/15/18 at 12:30 Dextrose (D50w Syringe) 25 ml Q15M PRN IV .DECREASED GLUCOSE; Start 12/15/18 at 12:30 Dextrose (D50w Syringe) 50 ml Q15M PRN IV .DECREASED GLUCOSE; Start 12/15/18 at 12:30 Dopamine HCl/ Dextrose 250 ml @ 6.128 mls/ hr PER PROTOCOL IV Last ad ministered on 12/16/18at 02:13; Admin Dose 14.4 MLS/HR; Start 12/15/18 at 13:00 Norepinephrine 250 ml @ 1.875 mls/ hr PER PROTOCOL IV Last administered on 12/19/18 07:45; Admin Dose 3.75 MLS/HR; Start 12/15/18 at 14:00 Phenylephrine HCl 250 ml @ 75 mls/hr PER PROTOCOL IV Last administered on 11/25 01:45; Admin Dose 7.5 MLS/HR; Start 12/15/18 at 14:00 Propofol 100 ml @ 2.451 mls/ hr Q12H IV Last administered on 12/19/18 19:59; Admin Dose 4.902 MLS/HR; Start 12/16/18 at 05:30 Epoetin Ever (Epogen (Esrd)) 10,000 units MoWeFr@17 SC Last administered on 12/22/18 17:00; Admin Dose 10,000 UNITS; Start 12/18/18 at 17:00 Fentanyl 100 ml @ 5 mls/hr TITRATE IV Last administered on 12/22/18 00:01; Admin Dose 5 MLS/HR; Start 12/16/18 at 13:00 Aspirin (Aspirin) 325 mg DAILY PO Last administered on 12/22/18 08:54; Admin Dose 325 MG; Start 12/17/18 at 09:00 Heparin Sodium (Porcine) (Heparin (1000 Units/ml)) 3,000 unit PRN PRN CATHETER Dialysis Last administered on 12/22/18 15:49; Admin Dose 3,000 UNIT; Start 12/17/18 at 19:00 Meropenem/Sodium Chloride 50 ml @ 100 mls/hr Q12 IVPB Last administered on 12/22/18 21:16; Admin Dose 100 MLS/HR; Start 12/20/18 at 21:00 Alteplase, Recombinant (Cathflo (Activase)) 4 mg MAY REPEAT X1 PRN CATHETER IF CATHETER REMAINS OCCULUDED Last administered on 12/20/18 17:54; Admin Dose 4 MG; Start 12/20/18 at 17:00 Diagnostic Test (Pha) (Accu-Chek) 1 ea Q1H XX Last administered on 12/23/18 06:59; Admin Dose 1 EA; Start 12/21/18 at 20:00 Lansoprazole (Prevacid) 30 mg BID@0600,1800 GTB Last administered on 12/23/18 06:14; Admin Dose 30 MG; Start 12/22/18 at 06:00 Dexmedetomidine HCl 200 mcg/ Sodium Chloride 50 ml @ 4.09 mls/hr TITRATE IV Last administered on 12/23/18 06:49; Admin Dose 4.09 MLS/HR; Start 12/22/18 at 13:00 Albumin Human 100 ml @ 100 mls/hr DURING DIALYSIS PRN IV NOTE Last administered on 12/22/18 14:06; Admin Dose 100 MLS/HR; Start 12/22/18 at 12:30 Ibuprofen (Motrin) 400 mg Q8 NGT ; Start 12/23/18 at 14:00 CECILY JARVIS Dec 23, 2018 08:41
--- NOTE | 2018-12-23 09:44 | CONS ---
Assessment/Plan Assessment/Plan Hospital Course (Demo Recall) ID PROGRESS NOTE CURRENT ABX: ABX DAY #=> MERREM 3.5 s/p Vanco IV + Cefepime 12/23/18 0515 12/23/18 0515 24H INTERVAL SUMMARY * Orally intubated, mildly sedated yet awake, alert, and responsive without distress on the Ventilator, no fevers, VSS * WBC mild elevated -- on Epogen * s/p HD yesterday * 12/23/18 CXR: IMPRESSION: 1. Left chest tube and mediastinal drain removed. 2. No other change from the 12/22/2018 chest radiograph. * Indwelling: NG tube right IJ cordis left femoral Anam * Ventilator setting; SIMV of 10, pressure support of 14, PEEP of 5, 30% FiO2. * Patient is currently on Precedex drip at 0.2 mics per kilogram per hour, insulin 5 units/h. MICRO * 12/15/18 (-)MRSA screen * 12/17/18 BCx (-) * 12/17/18 RESPIRATORY CULTURE Final Normal PHYSICAL EXAMINATION: GENERAL: Afebrile, VSS, awake, alert, responsive HEENT: AT, NC, orally intubated, missing several teeth NECK: Supple, trach midline CHEST: Equal chest rise bilaterally, without dyspnea on observation HEART: Pulse RRR ABDOMEN: Large soft EXTREMITIES: Warm, dry, mild cyanosis SKIN: No rash, no diaphoresis - dusky pallor ID ASSESSMENT 73 yo M admit with: 1. Sepsis, status post shock ==> RESOLVING 2. Healthcare associated pneumonia, possibly aspirated * 12/18/18 CT CHEST: Left lower lobe consolidation with air bronchograms is likely infectious in nature. Mild right lower lobe consolidation is also present. Trace bilateral pleural effusions are noted. 3. Acute respiratory failure, status post extubation post CABG with reintubation BRIEF CPR 4. Non-ST elevation AL status post CABG 12/15/18 5. End-stage renal disease, hemodialysis dependent 6. Anemia (-)MRSA Nares ABX ALLERGIES: NKDA INVASIVES: PermCath, ETT, NGT CURRENT ABX: ABX DAY #=> MERREM 3.5 s/p Vanco IV + Cefepime ID RECOMMENDATIONS/PLAN: * STABLE -- weaning in process * Continue IV ABX during weaning process at risk for ASP if/when ETT removed * Will be following for Dr. Patel today and tomorrow. . . Consultation Date/Type/Reason Admit Date/Time Dec 13, 2018 at 12:40 Initial Consult Date 12/16/18 Date/Time of Note DATE: 12/23/18 TIME: 09:27 Exam/Review of Systems Exam Vitals Vital Signs Date Temp Pulse Resp B/P (MAP) Pulse Ox O2 O2 Flow FiO2 Time Delivery Rate 12/23/18 86 22 127/60 100 Mechanical 07:00 (82) Ventilator 12/23/18 30 04:58 12/23/18 98.8 04:00 Intake and Output 12/22/18 12/22/18 12/23/18 1515:00 23:00 07:00 IntakeIntake Total 504 ml 459.94 ml 364.13 ml OutputOutput Total 1900 ml BalanceBalance 504 ml -1440.06 ml 364.13 ml Results Result Diagram: 12/23/18 0515 12/23/18 0515 Results 24hrs Laboratory Tests Test 12/22/18 10:46 12/22/18 12:39 12/22/18 14:09 12/22/18 16:33 Bedside Glucose 171 146 113 170 Test 12/22/18 18:22 12/22/18 19:59 12/22/18 21:05 12/22/18 22:03 Bedside Glucose 223 H 245 H 232 H 183 Test 12/22/18 22:58 12/22/18 23:57 12/23/18 00:54 12/23/18 02:12 Bedside Glucose 123 89 109 173 Test 12/23/18 02:56 12/23/18 03:58 12/23/18 04:57 12/23/18 05:15 Bedside Glucose 188 214 218 White Blood Count 11.1 #H Red Blood Count 2.72 L Hemoglobin 8.2 L Hematocrit 26.0 L Mean Corpuscular 95.6 Volume Mean Corpuscular 30.1 Hemoglobin Mean Corpuscular 31.5 L Hemoglobin Concent Red Cell 16.3 H Distribution Width Platelet Count 155 Mean Platelet Volume 11.3 H Immature 1.500 H Granulocytes % Neutrophils % 80.7 H Lymphocytes % 7.2 L Monocytes % 6.9 Eosinophils % 3.4 Basophils % 0.3 Nucleated Red Blood 0.0 Cells % Immature 0.170 H Granulocytes # Neutrophils # 9.0 H Lymphocytes # 0.8 Monocytes # 0.8 Eosinophils # 0.4 Basophils # 0.0 Nucleated Red Blood 0.0 Cells # Sodium Level 138 Potassium Level 4.2 Chloride Level 101 Carbon Dioxide Level 26 Anion Gap 11 Blood Urea Nitrogen 47 #H Creatinine 5.35 #H Est Glomerular Filtrat Rate mL/min Glucose Level 175 Calcium Level 8.4 Phosphorus Level 3.2 # Magnesium Level 2.5 Test 12/23/18 05:57 12/23/18 06:56 12/23/18 08:19 Bedside Glucose 174 141 146 Medications Medication Current Medications Atorvastatin Calcium (Lipitor) 80 mg HS PO Last administered on 12/22/18at 21:15; Admin Dose 80 MG; Start 12/13/18 at 21:00 Insulin Human Regular 100 unit/ Sodium Chloride 100 ml @ 0 mls/hr PER PROTOCOL IV Last administered on 12/23/18at 06:52; Admin Dose 7 MLS/HR; Start 12/15/18 at 12:30 Miscellaneous Information (* Miscellaneous Pharmacy Order) Treatment of Hypog lycemia: 1.BG 51... Per protocol XX ; Start 12/15/18 at 12:30 Dextrose (D50w Syringe) 25 ml Q15M PRN IV .DECREASED GLUCOSE; Start 12/15/18 at 12:30 Dextrose (D50w Syringe) 50 ml Q15M PRN IV .DECREASED GLUCOSE; Start 12/15/18 at 12:30 Dopamine HCl/ Dextrose 250 ml @ 6.128 mls/ hr PER PROTOCOL IV Last administered on 12/16/18at 02:13; Admin Dose 14.4 MLS/HR; Start 12/15/18 at 13:00 Norepinephrine 250 ml @ 1.875 mls/ hr PER PROTOCOL IV Last administered on 12/19/18at 07:45; Admin Dose 3.75 MLS/HR; Start 12/15/18 at 14:00 Phenylephrine HCl 250 ml @ 75 mls/hr PER PROTOCOL IV Last administered on 12/16/18at 01:45; Admin Dose 7.5 MLS/HR; Start 12/15/18 at 14:00 Propofol 100 ml @ 2.451 mls/ hr Q12H IV Last administered on 12/19/18at 19:59; Admin Dose 4.902 MLS/HR; Start 12/16/18 at 05:30 Epoetin Ever (Epogen (Esrd)) 10,000 units MoWeFr@17 SC Last administered on 12/22/18 17:00; Admin Dose 10,000 UNITS; Start 12/18/18 at 17:00 Fentanyl 100 ml @ 5 mls/hr TITRATE IV Last administered on 12/22/18 00:01; Admin Dose 5 MLS/HR; Start 12/16/18 at 13:00 Aspirin (Aspirin) 325 mg DAILY PO Last administered on 12/22/18 08:54; Admin Dose 325 MG; Start 12/17/18 at 09:00 Heparin Sodium (Porcine) (Heparin (1000 Units/ml)) 3,000 unit PRN PRN CATHETER Dialysis Last administered on 12/22/18 15:49; Admin Dose 3,000 UNIT; Start 12/17/18 at 19:00 Meropenem/Sodium Chloride 50 ml @ 100 mls/hr Q12 IVPB Last administered on 12/22/18 21:16; Admin Dose 100 MLS/HR; Start 12/20/18 at 21:00 Alteplase, Recombinant (Cathflo (Activase)) 4 mg MAY REPEAT X1 PRN CATHETER IF CATHETER REMAINS OCCULUDED Last administered on 12/20/18 17:54; Admin Dose 4 MG; Start 12/20/18 at 17:00 Diagnostic Test (Pha) (Accu-Chek) 1 ea Q1H XX Last administered on 12/23/18 06:59; Admin Dose 1 EA; Start 12/21/18 at 20:00 Lansoprazole (Prevacid) 30 mg BID@0600,1800 GTB Last administered on 12/23/18 06:14; Admin Dose 30 MG; Start 12/22/18 at 06:00 Dexmedetomidine HCl 200 mcg/ Sodium Chloride 50 ml @ 4.09 mls/hr TITRATE IV Last administered on 12/23/18 06:49; Admin Dose 4.09 MLS/HR; Start 12/22/18 at 13:00 Albumin Human 100 ml @ 100 mls/hr DURING DIALYSIS PRN IV NOTE Last administered on 12/22/18 14:06; Admin Dose 100 MLS/HR; Start 12/22/18 at 12:30 Ibuprofen (Motrin) 400 mg Q8 NGT ; Start 12/23/18 at 14:00 SENTHIL ARAUZ NP Dec 23, 2018 09:38
[2018-12-23] MEDS: ASPIRIN 325 MG TAB PO SCH (10:06)
[2018-12-23] MEDS: MEROPENEM 500MG/50 ML (PMX) 50 ML IVPB SCH ×2 (10:06→20:49)
[2018-12-23] MEDS: BALSAM PERU/CASTOR OIL 60 GM TUBE TOP SCH ×2 (10:07→20:50)
[2018-12-23] MEDS: IBUPROFEN 400 MG TAB NGT SCH ×2 (14:00→23:23)
--- NOTE | 2018-12-23 14:13 | PN ---
Date/Time of Note Date/Time of Note DATE: 12/23/18 TIME: 14:12 Assessment/Plan Lines/Catheters IV Catheter Type (from Nrs): YINKA CATHETER [place] in Place (from Nrs): No Assessment/Plan Assessment/Plan extubated this morning, following commands. WBC down to 11K. pic line and d/c cordis. encourage coughing and suctioning. Exam/Review of Systems Vital Signs Vitals Vital Signs Date Temp Pulse Resp B/P (MAP) Pulse Ox O2 O2 Flow FiO2 Time Delivery Rate 12/23/18 86 27 130/61 100 Nasal 6.0 13:00 (84) Cannula 12/23/18 98.8 12:00 12/23/18 30 12:00 Intake and Output 12/22/18 12/22/18 12/23/18 1515:00 23:00 07:00 IntakeIntake Total 504 ml 459.94 ml 364.13 ml OutputOutput Total 1900 ml BalanceBalance 504 ml -1440.06 ml 364.13 ml Results Result Diagram: 12/23/18 0515 12/23/18 0515 SHARON GARCIA MD Dec 23, 2018 14:13
--- NOTE | 2018-12-23 18:21 | RADRPT ---
Vent Rate: 80 bpm RR Interval: 0 msec [place] Interval: 156 msec QRS Duration: 118 msec QT Interval: 412 msec QTC Interval: 475 msec P-R-T [place]: 48 - 55 - 67 degrees Normal sinus rhythm RSR ` orattern in V1 suggests right ventricular conduction delay ST elevation, consider anterolateral injury or acute infarct ST elevation, consider inferior injury or acute infarct ACUTE [place] Abnormal ECG Electronically Signed By: Juan Antonio Oleary
[2018-12-23] MEDS: ATORVASTATIN 80 MG TAB PO SCH (20:49)
[2018-12-24] VITALS (38 sets, daily range): BP systolic 113–164; BP diastolic 36–88; PULSE 85–93; RESP 18–33
[2018-12-24] MEDS: ACCU-CHEK XX SCH ×11 (01:00→10:00)
[2018-12-24] MEDS: LANSOPRAZOLE 30 MG CAP GTB SCH ×2 (05:22→18:00)
[2018-12-24] MEDS: IBUPROFEN 400 MG TAB NGT SCH ×3 (05:23→21:33)
--- NOTE | 2018-12-24 07:09 | PN ---
Date/Time of Note Date/Time of Note DATE: 12/24/18 TIME: 07:06 Assessment/Plan VTE Prophylaxis Risk score (from Nsg)>0 risk: 20 SCD applied (from Ns): Yes SCD contraindicated: other Pharmacological prophylaxis: other Lines/Catheters IV Catheter Type (from Nrs): PICC Line Central line still needed: No Urinary Cath still in place: No Assessment/Plan Hospital Course SUBJECTIVE: s/p extubation. No other events noted. No hemoptysis, jeni temesis or hematochezia. The patient had hd 2 days ago (1.5 liter removed) no fever or chills has moderate secretions d/w ICU nurse OBJECTIVE: HEENT: Head is normocephalic. NECK: Supple. HEART: Regular rate. LUNGS: Show diminished breath sounds at the base. ABDOMEN: Soft, nontender to palpation without rebound or guarding. EXTREMITIES: Negative for clubbing, cyanosis, no edema. DERMATOLOGIC: No rashes. MUSCULOSKELETAL: No joint effusion. NEUROLOGIC: No change in exam. MEDICATIONS: Reviewed. ASSESSMENT AND PLAN: 1. Coronary artery disease. The patient is status post 4-vessel CABG. Currently stable. Continue medical management. Follow up with CT surgery and cardiology. 2. Status post cardiac arrest. Etiology is secondary to respiratory plug. The patient had spontaneous return of circulation. Currently hemodynamically stable. Continue to monitor. 3. Pericarditis. Continue Nsaids, F/u cardiology 4. Sepsis secondary to healthcare-associated pneumonia. Continue current antibiotic regimen. Cultures have been reviewed. 5. Ventilator-dependent respiratory failure. s/p extubation. continue suctioning, bronchodilators and mucolytics 6. End-stage renal disease. Plan is for hemodialysis today 7. Anemia. Continue to monitor hemoglobin and hematocrit levels. Continue Epogen. 8. Mineral bone disorder, monitor calcium and phosphorus levels. Continue solute clearance with dialysis. 9. Diabetes. Continue current insulin regimen. 10. Dyslipidemia. Continue statin therapy. 11. Volume overload, improved. Continue ultrafiltration with dialysis. 12. Acute encephalopathy, etiology is toxic metabolic. Continue to monitor. 13. Hypermagnesemia, improved. Continue hemodialysis. 14. Intracranial aneurysm, stable, continue to monitor. 15. Status post shock. 16. Gastrointestinal and deep vein thrombosis prophylaxis. Arturo evjulianne in am Result Diagram: 12/23/18 0515 12/23/18 0515 Results 24hrs Laboratory Tests Test 12/23/18 08:19 12/23/18 10:11 12/23/18 11:20 12/23/18 12:06 Bedside Glucose 146 102 108 Blood Gas Blood arterial Specimen Source Arterial Blood 12/23/2018 12:00: Date Drawn 49 PM Arterial Blood pH 7.466 H (Temp corrected) Arterial Blood 35.8 pCO2 (Temp correct) Arterial Blood 99.8 H pO2 (Temp corrected) Arterial Blood 25.2 HCO3 Arterial Blood 1.6 Base Excess Arterial Blood 97.3 Oxygen Saturation Ru Test ACCEPTAB Arterial Blood Right Radial Gas Puncture Site Arterial 0.3 Blood Carboxyhemo globin Arterial Blood 0.3 Methemoglobin Blood Gas A-a O2 72.0 H Differential Oxyhemoglobin 96.7 Percent Blood Gas 37.0 Temperature Blood Gas Actual 29 Respiration Rate Blood Gas VENT - CPAP Modality FiO2 30.0 Blood Gas Low 5.0 PEEP Setting Blood Gas 10 Pressure Support Blood Gas Raheem MARESAS Notified Whom Blood Gas 12/23/2018 12:15: Notified Time 27 PM Test 12/23/18 14:20 12/23/18 16:11 12/23/18 18:24 12/23/18 20:53 Bedside Glucose 151 89 100 143 Test 12/23/18 23:01 12/24/18 01:11 12/24/18 02:45 12/24/18 05:09 Bedside Glucose 126 109 130 112 Test 12/24/18 06:53 Bedside Glucose 116 Exam/Review of Systems Exam Vitals Vital Signs Date Temp Pulse Resp B/P (MAP) Pulse Ox O2 O2 Flow FiO2 Time Delivery Rate 12/24/18 85 20 140/59 95 Room Air 06:00 (86) 12/24/18 2.0 27 02:26 12/23/18 99.3 20:00 Intake and Output 12/23/18 12/23/18 12/24/18 1515:00 23:00 07:00 IntakeIntake Total 168.09 ml 135.4 ml 59 ml BalanceBalance 168.09 ml 135.4 ml 59 ml Results Results 24hrs Laboratory Tests Test 12/23/18 08:19 12/23/18 10:11 12/23/18 11:20 12/23/18 12:06 Bedside Glucose 146 102 108 Blood Gas Blood arterial Specimen Source Arterial Blood 12/23/2018 12:00: Date Drawn 49 PM Arterial Blood pH 7.466 H (Temp corrected) Arterial Blood 35.8 pCO2 (Temp correct) Arterial Blood 99.8 H pO2 (Temp corrected) Arterial Blood 25.2 HCO3 Arterial Blood 1.6 Base Excess Arterial Blood 97.3 Oxygen Saturation Ru Test ACCEPTAB Arterial Blood Right Radial Gas Puncture Site Arterial 0.3 Blood Carboxyhemo globin Arterial Blood 0.3 Methemoglobin Blood Gas A-a O2 72.0 H Differential Oxyhemoglobin 96.7 Percent Blood Gas 37.0 Temperature Blood Gas Actual 29 Respiration Rate Blood Gas VENT - CPAP Modality FiO2 30.0 Blood Gas Low 5.0 PEEP Setting Blood Gas 10 Pressure Support Blood Gas Raheem GILLIS Notified Whom Blood Gas 12/23/2018 12:15: Notified Time 27 PM Test 12/23/18 14:20 12/23/18 16:11 12/23/18 18:24 12/23/18 20:53 Bedside Glucose 151 89 100 143 Test 12/23/18 23:01 12/24/18 01:11 12/24/18 02:45 12/24/18 05:09 Bedside Glucose 126 109 130 112 Test 12/24/18 06:53 Bedside Glucose 116 Medications Medication Current Medications Atorvastatin Calcium (Lipitor) 80 mg HS PO Last administered on 12/23/18at 20:49; Admin Dose 80 MG; Start 12/13/18 at 21:00 Insulin Human Regular 100 unit/ Sodium Chloride 100 ml @ 0 mls/hr PER PROTOCOL IV Last administered on 12/23/18at 06:52; Admin Dose 7 MLS/HR; Start 12/15/18 at 12:30 Miscellaneous Information (* Miscellaneous Pharmacy Order) Treatment of Hypoglycemia: 1.BG 51... Per protocol XX ; Start 12/15/18 at 12:30 Dextrose (D50w Syringe) 25 ml Q15M PRN IV .DECREASED GLUCOSE; Start 12/15/18 at 12:30 Dextrose (D50w Syringe) 50 ml Q15M PRN IV .DECREASED GLUCOSE; Start 12/15/18 at 12:30 Dopamine HCl/ Dextrose 250 ml @ 6.128 mls/ hr PER PROTOCOL IV Last administered on 12/16/18at 02:13; Admin Dose 14.4 MLS/HR; Start 12/15/18 at 13:00 Norepinephrine 250 ml @ 1.875 mls/ hr PER PROTOCOL IV Last administered on 12/19/18 07:45; Admin Dose 3.75 MLS/HR; Start 12/15/18 at 14:00 Phenylephrine HCl 250 ml @ 75 mls/hr PER PROTOCOL IV Last administered on 12/16/18 01:45; Admin Dose 7.5 MLS/HR; Start 12/15/18 at 14:00 Propofol 100 ml @ 2.451 mls/ hr Q12H IV Last administered on 12/19/18 19:59; Admin Dose 4.902 MLS/HR; Start 12/16/18 at 05:30 Epoetin Ever (Epogen (Esrd)) 10,000 units MoWeFr@17 SC Last administered on 12/22/18 17:00; Admin Dose 10,000 UNITS; Start 12/18/18 at 17:00 Fentanyl 100 ml @ 5 mls/hr TITRATE IV Last administered on 12/22/18 00:01; Admin Dose 5 MLS/HR; Start 12/16/18 at 13:00 Aspirin (Aspirin) 325 mg DAILY PO Last administered on 12/23/18 10:06; Admin Dose 325 MG; Start 12/17/18 at 09:00 Heparin Sodium (Porcine) (Heparin (1000 Units/ml)) 3,000 unit PRN PRN CATHETER Dialysis Last administered on 12/22/18 15:49; Admin Dose 3,000 UNIT; Start 12/17/18 at 19:00 Meropenem/Sodium Chloride 50 ml @ 100 mls/hr Q12 IVPB Last administered on 12/23/18 20:49; Admin Dose 100 MLS/HR; Start 12/20/18 at 21:00 Alteplase, Recombinant (Cathflo (Activase)) 4 mg MAY REPEAT X1 PRN CATHETER IF CATHETER REMAINS OCCULUDED Last administered on 12/20/18 17:54; Admin Dose 4 MG; Start 12/20/18 at 17:00 Diagnostic Test (Pha) (Accu-Chek) 1 ea Q1H XX Last administered on 12/23/18 06:59; Admin Dose 1 EA; Start 12/21/18 at 20:00 Lansoprazole (Prevacid) 30 mg BID@0600,1800 GTB Last administered on 12/23/18 06:14; Admin Dose 30 MG; Start 12/22/18 at 06:00 Dexmedetomidine HCl 200 mcg/ Sodium Chloride 50 ml @ 4.09 mls/hr TITRATE IV Last administered on 12/23/18at 06:49; Admin Dose 4.09 MLS/HR; Start 12/22/18 at 13:00 Albumin Human 100 ml @ 100 mls/hr DURING DIALYSIS PRN IV NOTE Last administered on 12/22/18at 14:06; Admin Dose 100 MLS/HR; Start 12/22/18 at 12:30 Ibuprofen (Motrin) 400 mg Q8 NGT Last administered on 12/23/18at 23:23; Admin Dose 400 MG; Start 12/23/18 at 14:00 FREDO CALIXTO DO Dec 24, 2018 07:09
[2018-12-24] MEDS: PROPOFOL 100 ML IV SCH ×2 (07:15→16:39)
[2018-12-24] MEDS: ASPIRIN 325 MG TAB PO SCH (09:00)
--- NOTE | 2018-12-24 09:02 | CONS ---
Assessment/Plan Assessment/Plan Assessment/Plan (Daily) Assessment and recommendations; 1. Patient status post CABG, status post cardiac arrest post CABG requiring brief CPR and also failed 1 extubation trial patient however successfully extubated yesterday afternoon and showing marked clinical improvement. 2. Aspiration pneumonia with radiological improvement as well. Currently on appropriate antimicrobial regimen. 3. Chronic renal failure, on hemodialysis. 4. Diabetes. Currently on insulin drip at 1 unit/h. 5. Anemia and thrombocytopenia. Continue current supportive care. Consider transfer to telemetry unit. Continue antibiotics for at least an additional 48-72 hours. Taper off insulin drip and switch to long-acting sub cutaneous insulin. Consultation Date/Type/Reason Admit Date/Time Dec 13, 2018 at 12:40 Initial Consult Date 12/16/18 Type of Consult Pulmonary/critical care Date/Time of Note DATE: 12/24/18 TIME: 08:59 24 HR Interval Summary Free Text/Dictation Patient's condition is stable. Was successfully extubated yesterday afternoon. Has remained hemodynamically stable and also exhibiting stable pulmonary status. General exam; elderly male, awake and alert. Currently in no distress. Exam/Review of Systems Exam Vitals Vital Signs Date Temp Pulse Resp B/P (MAP) Pulse Ox O2 O2 Flow FiO2 Time Delivery Rate 12/24/18 85 20 140/59 95 Room Air 06:00 (86) 12/24/18 2.0 27 02:26 12/23/18 99.3 20:00 Intake and Output 12/23/18 12/23/18 12/24/18 1515:00 23:00 07:00 IntakeIntake Total 168.09 ml 135.4 ml 59 ml BalanceBalance 168.09 ml 135.4 ml 59 ml Exam HEENT exam; supple neck, no JVD. No lymphadenopathy. Midline trachea. No thyromegaly. Patient has multiple carious teeth. No neck masses. Pupils are small bilaterally. Chest exam; diminished but clear breath sounds. S1-S2 audible, no murmurs. Regular rhythm. Dressing applied to sternum. Abdomen exam; soft, nontender. No organomegaly. Bowel sounds audible. Extremity exam; no peripheral edema. [employer] exam; no focal deficit. Results Result Diagram: 12/23/18 0515 12/23/18 0515 Results 24hrs Laboratory Tests Test 12/23/18 10:11 12/23/18 11:20 12/23/18 12:06 12/23/18 14:20 Bedside Glucose 102 108 151 Blood Gas Blood arterial Specimen Source Arterial Blood 12/23/2018 12:00: Date Drawn 49 PM Arterial Blood pH 7.466 H (Temp corrected) Arterial Blood 35.8 pCO2 (Temp correct) Arterial Blood 99.8 H pO2 (Temp corrected) Arterial Blood 25.2 HCO3 Arterial Blood 1.6 Base Excess Arterial Blood 97.3 Oxygen Saturation Ru Test ACCEPTAB Arterial Blood Right Radial Gas Puncture Site Arterial 0.3 Blood Carboxyhemo globin Arterial Blood 0.3 Methemoglobin Blood Gas A-a O2 72.0 H Differential Oxyhemoglobin 96.7 Percent Blood Gas 37.0 Temperature Blood Gas Actual 29 Respiration Rate Blood Gas VENT - CPAP Modality FiO2 30.0 Blood Gas Low 5.0 PEEP Setting Blood Gas 10 Pressure Support Blood Gas Raheem GILLIS Notified Whom Blood Gas 12/23/2018 12:15: Notified Time 27 PM Test 12/23/18 16:11 12/23/18 18:24 12/23/18 20:53 12/23/18 23:01 Bedside Glucose 89 100 143 126 Test 12/24/18 01:11 12/24/18 02:45 12/24/18 05:09 12/24/18 06:53 Bedside Glucose 109 130 112 116 Medications Medication Current Medications Atorvastatin Calcium (Lipitor) 80 mg HS PO Last administered on 12/23/18at 20:49; Admin Dose 80 MG; Start 12/13/18 at 21:00 Insulin Human Regular 100 unit/ Sodium Chloride 100 ml @ 0 mls/hr PER PROTOCOL IV Last administered on 12/23/18at 06:52; Admin Dose 7 MLS/HR; Start 12/15/18 at 12:30 Miscellaneous Information (* Miscellaneous Pharmacy Order) Treatment of Hypoglycemia: 1.BG 51... Per protocol XX ; Start 12/15/18 at 12:30 Dextrose (D50w Syringe) 25 ml Q15M PRN IV .DECREASED GLUCOSE; Start 12/15/18 at 12:30 Dextrose (D50w Syringe) 50 ml Q15M PRN IV .DECREASED GLUCOSE; Start 12/15/18 at 12:30 Dopamine HCl/ Dextrose 250 ml @ 6.128 mls/ hr PER PROTOCOL IV Last ad ministered on 3/23/19at 02:13; Admin Dose 14.4 MLS/HR; Start 12/15/18 at 13:00 Norepinephrine 250 ml @ 1.875 mls/ hr PER PROTOCOL IV Last administered on 12/19/18 07:45; Admin Dose 3.75 MLS/HR; Start 12/15/18 at 14:00 Phenylephrine HCl 250 ml @ 75 mls/hr PER PROTOCOL IV Last administered on 11/25 01:45; Admin Dose 7.5 MLS/HR; Start 12/15/18 at 14:00 Propofol 100 ml @ 2.451 mls/ hr Q12H IV Last administered on 12/19/18 19:59; Admin Dose 4.902 MLS/HR; Start 12/16/18 at 05:30 Epoetin Ever (Epogen (Esrd)) 10,000 units MoWeFr@17 SC Last administered on 12/22/18 17:00; Admin Dose 10,000 UNITS; Start 12/18/18 at 17:00 Fentanyl 100 ml @ 5 mls/hr TITRATE IV Last administered on 12/22/18 00:01; Admin Dose 5 MLS/HR; Start 12/16/18 at 13:00 Aspirin (Aspirin) 325 mg DAILY PO Last administered on 12/23/18 10:06; Admin Dose 325 MG; Start 12/17/18 at 09:00 Heparin Sodium (Porcine) (Heparin (1000 Units/ml)) 3,000 unit PRN PRN CATHETER Dialysis Last administered on 12/22/18 15:49; Admin Dose 3,000 UNIT; Start 12/17/18 at 19:00 Meropenem/Sodium Chloride 50 ml @ 100 mls/hr Q12 IVPB Last administered on 12/23/18 20:49; Admin Dose 100 MLS/HR; Start 12/20/18 at 21:00 Alteplase, Recombinant (Cathflo (Activase)) 4 mg MAY REPEAT X1 PRN CATHETER IF CATHETER REMAINS OCCULUDED Last administered on 12/20/18 17:54; Admin Dose 4 MG; Start 12/20/18 at 17:00 Diagnostic Test (Pha) (Accu-Chek) 1 ea Q1H XX Last administered on 12/24/18 07:16; Admin Dose 1 EA; Start 12/21/18 at 20:00 Lansoprazole (Prevacid) 30 mg BID@0600,1800 GTB Last administered on 12/23/18 06:14; Admin Dose 30 MG; Start 12/22/18 at 06:00 Dexmedetomidine HCl 200 mcg/ Sodium Chloride 50 ml @ 4.09 mls/hr TITRATE IV Last administered on 12/23/18 06:49; Admin Dose 4.09 MLS/HR; Start 12/22/18 at 13:00 Albumin Human 100 ml @ 100 mls/hr DURING DIALYSIS PRN IV NOTE Last administered on 12/22/18at 14:06; Admin Dose 100 MLS/HR; Start 12/22/18 at 12:30 Ibuprofen (Motrin) 400 mg Q8 NGT Last administered on 12/23/18at 23:23; Admin Dose 400 MG; Start 12/23/18 at 14:00 CECILY JARVIS Dec 24, 2018 09:02
[2018-12-24] MEDS: BALSAM PERU/CASTOR OIL 60 GM TUBE TOP SCH ×2 (09:10→21:22)
[2018-12-24] MEDS: MEROPENEM 500MG/50 ML (PMX) 50 ML IVPB SCH ×2 (09:18→21:22)
[2018-12-24] MEDS ORDERED: GLUCAGON 1 MG INJ IM PRN (10:30)
[2018-12-24] MEDS ORDERED: GLUCOSE GEL 15 GRAM TUBE PO PRN ×2 (10:30)
[2018-12-24] MEDS ORDERED: DEXTROSE 50% 50 ML SYRINGE IV PRN ×2 (10:30)
[2018-12-24] MEDS ORDERED: GLUCOSE GEL 15 GRAM TUBE BUCCAL PRN (10:30)
[2018-12-24] MEDS ORDERED: INSULIN ASPART [NOVOLOG] 3 ML PEN SC SCH (11:30)
--- NOTE | 2018-12-24 12:00 | PN ---
Date/Time of Note Date/Time of Note DATE: 12/24/18 TIME: 11:59 Assessment/Plan Lines/Catheters IV Catheter Type (from Nrs): PICC Line Dunbar in Place (from Nrs): No Assessment/Plan Assessment/Plan awake, somewhat agitated. on dialyisis. cxr clear. pulmonary toilet. agree with martinez eval Exam/Review of Systems Vital Signs Vitals Vital Signs Date Temp Pulse Resp B/P (MAP) Pulse Ox O2 O2 Flow FiO2 Time Delivery Rate 12/24/18 91 11:20 12/24/18 31 149/50 97 Room Air 11:00 (83) 12/24/18 99.2 08:00 12/24/18 2.0 27 02:26 Intake and Output 12/23/18 12/23/18 12/24/18 1414:59 22:59 06:59 IntakeIntake Total 205.18 ml 111.4 ml 87 ml BalanceBalance 205.18 ml 111.4 ml 87 ml Results Result Diagram: 12/23/18 0515 12/23/18 0515 SHARON GARCIA MD Dec 24, 2018 12:00
--- NOTE | 2018-12-24 12:19 | CONS ---
Assessment/Plan Assessment/Plan Hospital Course (Demo Recall) ID PROGRESS NOTE CURRENT ABX: ABX DAY #=> MERREM 4.5 s/p Vanco IV + Cefepime 12/23/18 0515 12/23/18 0515 24H INTERVAL SUMMARY * CLINICALLY STABLE -- NOT MUCH CHANGE OVERNIGHT * Orally intubated, mildly sedated yet awake, alert, and responsive without distress on the Ventilator, no fevers, VSS * WBC down today -- on Epogen * 12/24/18 CXR: Stable left lung base consolidation with small left pleural effusion. Findings consistent with provided history of pneumonia. * Indwelling: NG tube right IJ cordis left femoral Anam MICRO * 12/15/18 (-)MRSA screen * 12/17/18 BCx (-) * 12/17/18 RESPIRATORY CULTURE Final Normal PHYSICAL EXAMINATION: GENERAL: Afebrile, VSS, awake, alert, responsive HEENT: AT, NC, orally intubated, missing several teeth NECK: Supple, trach midline CHEST: Equal chest rise bilaterally, without dyspnea on observation HEART: Pulse RRR ABDOMEN: Large soft EXTREMITIES: Warm, dry, mild cyanosis SKIN: No rash, no diaphoresis - dusky pallor ID ASSESSMENT 73 yo M admit with: 1. Sepsis, status post shock ==> RESOLVING 2. Healthcare associated pneumonia, possibly aspirated * 12/18/18 CT CHEST: Left lower lobe consolidation with air bronchograms is likely infectious in nature. Mild right lower lobe consolidation is also present. Trace bilateral pleural effusions are noted. 3. Acute respiratory failure, status post extubation post CABG with reintubation BRIEF CPR 4. Non-ST elevation MN status post CABG 12/15/18 5. End-stage renal disease, hemodialysis dependent 6. Anemia (-)MRSA Nares ABX ALLERGIES: NKDA INVASIVES: PermCath, ETT, NGT CURRENT ABX: ABX DAY #=> MERREM 4.5 s/p Vanco IV + Cefepime ID RECOMMENDATIONS/PLAN: * STABLE -- weaning in process * Continue IV ABX during weaning process at risk for ASP if/when ETT removed . Consultation Date/Type/Reason Admit Date/Time Dec 13, 2018 at 12:40 Initial Consult Date 12/16/18 Date/Time of Note DATE: 12/24/18 TIME: 12:17 Exam/Review of Systems Exam Vitals Vital Signs Date Temp Pulse Resp B/P (MAP) Pulse Ox O2 O2 Flow FiO2 Time Delivery Rate 12/24/18 90 12:05 12/24/18 31 149/50 97 Room Air 11:00 (83) 12/24/18 99.2 08:00 12/24/18 2.0 27 02:26 Intake and Output 12/23/18 12/23/18 12/24/18 1515:00 23:00 07:00 IntakeIntake Total 168.09 ml 135.4 ml 59 ml BalanceBalance 168.09 ml 135.4 ml 59 ml Results Result Diagram: 12/23/18 0515 12/23/18 0515 Results 24hrs Laboratory Tests Test 12/23/18 14:20 12/23/18 16:11 12/23/18 18:24 12/23/18 20:53 Bedside Glucose 151 89 100 143 Test 12/23/18 23:01 12/24/18 01:11 12/24/18 02:45 12/24/18 05:09 Bedside Glucose 126 109 130 112 Test 12/24/18 06:53 12/24/18 09:17 Bedside Glucose 116 104 Medications Medication Current Medications Atorvastatin Calcium (Lipitor) 80 mg HS PO Last administered on 12/23/18at 20:49; Admin Dose 80 MG; Start 12/13/18 at 21:00 Miscellaneous Information (* Miscellaneous Pharmacy Order) Treatment of Hypoglycemia: 1.BG 51... Per protocol XX ; Start 12/15/18 at 12:30 Dextrose (D50w Syringe) 25 ml Q15M PRN IV .DECREASED GLUCOSE; Start 12/15/18 at 12:30 Dextrose (D50w Syringe) 50 ml Q15M PRN IV .DECREASED GLUCOSE; Start 12/15/18 at 12:30 Dopamine HCl/ Dextrose 250 ml @ 6.128 mls/ hr PER PROTOCOL IV Last administered on 12/16/18at 02:13; Admin Dose 14.4 MLS/HR; Start 12/15/18 at 13:00 Norepinephrine 250 ml @ 1.875 mls/ hr PER PROTOCOL IV Last administered on 12/19/18at 07:45; Admin Dose 3.75 MLS/HR; Start 12/15/18 at 14:00 Phenylephrine HCl 250 ml @ 75 mls/hr PER PROTOCOL IV Last administered on 12/16/18 01:45; Admin Dose 7.5 MLS/HR; Start 12/15/18 at 14:00 Propofol 100 ml @ 2.451 mls/ hr Q12H IV Last administered on 12/19/18 19:59; Admin Dose 4.902 MLS/HR; Start 12/16/18 at 05:30 Epoetin Ever (Epogen (Esrd)) 10,000 units MoWeFr@17 SC Last administered on 12/22/18 17:00; Admin Dose 10,000 UNITS; Start 12/18/18 at 17:00 Fentanyl 100 ml @ 5 mls/hr TITRATE IV Last administered on 12/22/18 00:01; Admin Dose 5 MLS/HR; Start 12/16/18 at 13:00 Aspirin (Aspirin) 325 mg DAILY PO Last administered on 12/23/18 10:06; Admin Dose 325 MG; Start 12/17/18 at 09:00 Heparin Sodium (Porcine) (Heparin (1000 Units/ml)) 3,000 unit PRN PRN CATHETER Dialysis Last administered on 12/22/18 15:49; Admin Dose 3,000 UNIT; Start 12/17/18 at 19:00 Meropenem/Sodium Chloride 50 ml @ 100 mls/hr Q12 IVPB Last administered on 09:18; Admin Dose 100 MLS/HR; Start 12/20/18 at 21:00 Alteplase, Recombinant (Cathflo (Activase)) 4 mg MAY REPEAT X1 PRN CATHETER IF CATHETER REMAINS OCCULUDED Last administered on 12/20/18 17:54; Admin Dose 4 MG; Start 12/20/18 at 17:00 Lansoprazole (Prevacid) 30 mg BID@0600,1800 GTB Last administered on 12/23/18 06:14; Admin Dose 30 MG; Start 12/22/18 at 06:00 Dexmedetomidine HCl 200 mcg/ Sodium Chloride 50 ml @ 4.09 mls/hr TITRATE IV Last administered on 12/23/18 06:49; Admin Dose 4.09 MLS/HR; Start 12/22/18 at 13:00 Albumin Human 100 ml @ 100 mls/hr DURING DIALYSIS PRN IV NOTE Last administered on 12/22/18 14:06; Admin Dose 100 MLS/HR; Start 12/22/18 at 12:30 Ibuprofen (Motrin) 400 mg Q8 NGT Last administered on 12/23/18at 23:23; Admin Dose 400 MG; Start 12/23/18 at 14:00 Miscellaneous Information 1 ea NOTE XX ; Start 12/24/18 at 10:30 Glucose (Glutose) 15 gm Q15M PRN PO DECREASED GLUCOSE; Start 12/24/18 at 10:30 Glucose (Glutose) 22.5 gm Q15M PRN PO DECREASED GLUCOSE; Start 12/24/18 at 10:30 Dextrose (D50w Syringe) 25 ml Q15M PRN IV DECREASED GLUCOSE; Start 12/24/18 at 10:30 Dextrose (D50w Syringe) 50 ml Q15M PRN IV DECREASED GLUCOSE; Start 12/24/18 at 10:30 Glucagon (Glucagen) 1 mg Q15M PRN IM DECREASED GLUCOSE; Start 12/24/18 at 10:30 Glucose (Glutose) 15 gm Q15M PRN BUCCAL DECREASED GLUCOSE; Start 12/24/18 at 10:30 Insulin Aspart (Novolog Insulin Pen) NOVOLOG *MILD* ALGORI... Q4 SC ; Start 12/24/18 at 13:00 SENTHIL ARAUZ NP Dec 24, 2018 12:19
--- NOTE | 2018-12-24 12:37 | CONS ---
Assessment/Plan Assessment/Plan Hospital Course (Demo Recall) ID PROGRESS NOTE CURRENT ABX: ABX DAY #=> MERREM 4.5 s/p Vanco IV + Cefepime 24H INTERVAL SUMMARY * CLINICALLY STABLE -- IN HEMODIALYSIS SESSION -- LOW GRADE TEMPS * Orally intubated, mildly sedated yet awake, alert, and responsive without distress on the Ventilator, no fevers, VSS * WBC down today -- on Epogen * 12/24/18 CXR: Stable left lung base consolidation with small left pleural eff usion. Findings consistent with provided history of pneumonia. * Indwelling: NG tube right IJ cordis left femoral Anam MICRO * 12/15/18 (-)MRSA screen * 12/17/18 BCx (-) * 12/17/18 RESPIRATORY CULTURE Final Normal PHYSICAL EXAMINATION: GENERAL: Afebrile, VSS, awake, alert, responsive HEENT: AT, NC, orally intubated, missing several teeth NECK: Supple, trach midline CHEST: Equal chest rise bilaterally, without dyspnea on observation HEART: Pulse RRR ABDOMEN: Large soft EXTREMITIES: Warm, dry, mild cyanosis SKIN: No rash, no diaphoresis - dusky pallor ID ASSESSMENT 73 yo M admit with: 1. Sepsis, status post shock ==> RESOLVING 2. Healthcare associated pneumonia, possibly aspirated * 12/18/18 CT CHEST: Left lower lobe consolidation with air bronchograms is likely infectious in nature. Mild right lower lobe consolidation is also present. Trace bilateral pleural effusions are noted. 3. Acute respiratory failure, status post extubation post CABG with r eintubation BRIEF CPR 4. Non-ST elevation AL status post CABG 12/15/18 5. End-stage renal disease, hemodialysis dependent 6. Anemia (-)MRSA Nares ABX ALLERGIES: NKDA INVASIVES: PermCath, ETT, NGT CURRENT ABX: ABX DAY #=> MERREM 4.5 s/p Vanco IV + Cefepime ID RECOMMENDATIONS/PLAN: * STABLE -- weaning in process * Continue IV ABX during weaning process at risk for ASP if/when ETT removed . Consultation Date/Type/Reason Admit Date/Time Dec 13, 2018 at 12:40 Initial Consult Date 12/16/18 Date/Time of Note DATE: 12/24/18 TIME: 12:37 Exam/Review of Systems Exam Vitals Vital Signs Date Temp Pulse Resp B/P (MAP) Pulse Ox O2 O2 Flow FiO2 Time Delivery Rate 12/24/18 90 12:05 12/24/18 31 149/50 97 Room Air 11:00 (83) 12/24/18 99.2 08:00 12/24/18 2.0 27 02:26 Intake and Output 12/23/18 12/23/18 12/24/18 1515:00 23:00 07:00 IntakeIntake Total 168.09 ml 135.4 ml 59 ml BalanceBalance 168.09 ml 135.4 ml 59 ml Results Result Diagram: 12/23/18 0515 12/23/18 0515 Results 24hrs Laboratory Tests Test 12/23/18 14:20 12/23/18 16:11 12/23/18 18:24 12/23/18 20:53 Bedside Glucose 151 89 100 143 Test 12/23/18 23:01 12/24/18 01:11 12/24/18 02:45 12/24/18 05:09 Bedside Glucose 126 109 130 112 Test 12/24/18 06:53 12/24/18 09:17 Bedside Glucose 116 104 Medications Medication Current Medications Atorvastatin Calcium (Lipitor) 80 mg HS PO Last administered on 12/23/18at 20:49; Admin Dose 80 MG; Start 12/13/18 at 21:00 Miscellaneous Information (* Miscellaneous Pharmacy Order) Treatment of Hypoglycemia: 1.BG 51... Per protocol XX ; Start 12/15/18 at 12:30 Dextrose (D50w Syringe) 25 ml Q15M PRN IV .DECREASED GLUCOSE; Start 12/15/18 at 12:30 Dextrose (D50w Syringe) 50 ml Q15M PRN IV .DECREASED GLUCOSE; Start 12/15/18 at 12:30 Dopamine HCl/ Dextrose 250 ml @ 6.128 mls/ hr PER PROTOCOL IV Last administered on 12/16/18at 02:13; Admin Dose 14.4 MLS/HR; Start 12/15/18 at 13:00 Norepinephrine 250 ml @ 1.875 mls/ hr PER PROTOCOL IV Last administered on 12/19/18at 07:45; Admin Dose 3.75 MLS/HR; Start 12/15/18 at 14:00 Phenylephrine HCl 250 ml @ 75 mls/hr PER PROTOCOL IV Last administered on 12/16/18at 01:45; Admin Dose 7.5 MLS/HR; Start 12/15/18 at 14:00 Propofol 100 ml @ 2.451 mls/ hr Q12H IV Last administered on 12/19/18 19:59; Admin Dose 4.902 MLS/HR; Start 12/16/18 at 05:30 Epoetin Ever (Epogen (Esrd)) 10,000 units MoWeFr@17 SC Last administered on 12/22/18 17:00; Admin Dose 10,000 UNITS; Start 12/18/18 at 17:00 Fentanyl 100 ml @ 5 mls/hr TITRATE IV Last administered on 12/22/18 00:01; Adm in Dose 5 MLS/HR; Start 12/16/18 at 13:00 Aspirin (Aspirin) 325 mg DAILY PO Last administered on 12/23/18 10:06; Admin Dose 325 MG; Start 12/17/18 at 09:00 Heparin Sodium (Porcine) (Heparin (1000 Units/ml)) 3,000 unit PRN PRN CATHETER Dialysis Last administered on 12/22/18 15:49; Admin Dose 3,000 UNIT; Start 12/17/18 at 19:00 Meropenem/Sodium Chloride 50 ml @ 100 mls/hr Q12 IVPB Last administered on 12/24/18 09:18; Admin Dose 100 MLS/HR; Start 12/20/18 at 21:00 Alteplase, Recombinant (Cathflo (Activase)) 4 mg MAY REPEAT X1 PRN CATHETER IF CATHETER REMAINS OCCULUDED Last administered on 12/20/18 17:54; Admin Dose 4 MG; Start 12/20/18 at 17:00 Lansoprazole (Prevacid) 30 mg BID@0600,1800 GTB Last administered on 12/23/18 06:14; Admin Dose 30 MG; Start 12/22/18 at 06:00 Dexmedetomidine HCl 200 mcg/ Sodium Chloride 50 ml @ 4.09 mls/hr TITRATE IV Last administered on 12/23/18 06:49; Admin Dose 4.09 MLS/HR; Start 12/22/18 at 13:00 Albumin Human 100 ml @ 100 mls/hr DURING DIALYSIS PRN IV NOTE Last administered on 12/22/18 14:06; Admin Dose 100 MLS/HR; Start 12/22/18 at 12:30 Ibuprofen (Motrin) 400 mg Q8 NGT Last administered on 12/23/18at 23:23; Admin Dose 400 MG; Start 12/23/18 at 14:00 Miscellaneous Information 1 ea NOTE XX ; Start 12/24/18 at 10:30 Glucose (Glutose) 15 gm Q15M PRN PO DECREASED GLUCOSE; Start 12/24/18 at 10:30 Glucose (Glutose) 22.5 gm Q15M PRN PO DECREASED GLUCOSE; Start 12/24/18 at 10:30 Dextrose (D50w Syringe) 25 ml Q15M PRN IV DECREASED GLUCOSE; Start 12/24/18 at 10:30 Dextrose (D50w Syringe) 50 ml Q15M PRN IV DECREASED GLUCOSE; Start 12/24/18 at 10:30 Glucagon (Glucagen) 1 mg Q15M PRN IM DECREASED GLUCOSE; Start 12/24/18 at 10:30 Glucose (Glutose) 15 gm Q15M PRN BUCCAL DECREASED GLUCOSE; Start 12/24/18 at 10:30 Insulin Aspart (Novolog Insulin Pen) NOVOLOG *MILD* ALGORI... Q4 SC ; Start 12/24/18 at 13:00 SENTHIL ARAUZ NP Dec 24, 2018 12:37
[2018-12-24] MEDS: INSULIN ASPART [NOVOLOG] 3 ML PEN SC SCH ×3 (13:00→21:31)
[2018-12-24] MEDS: HEPARIN 1000 UNITS/ML 10 ML INJ CATHETER PRN (14:08)
[2018-12-24] MEDS: ATORVASTATIN 80 MG TAB PO SCH (21:22)
[2018-12-25] VITALS (24 sets, daily range): BP systolic 117–159; BP diastolic 45–65; PULSE 83–89; RESP 20–36
[2018-12-25] MEDS: INSULIN ASPART [NOVOLOG] 3 ML PEN SC SCH ×6 (01:33→21:34)
[2018-12-25] MEDS: PROPOFOL 100 ML IV SCH ×3 (05:30→23:33)
[2018-12-25] MEDS: LANSOPRAZOLE 30 MG CAP GTB SCH ×2 (05:55→18:00)
[2018-12-25] MEDS: IBUPROFEN 400 MG TAB NGT SCH ×3 (05:55→21:53)
[2018-12-25] MEDS: MEROPENEM 500MG/50 ML (PMX) 50 ML IVPB SCH ×2 (08:40→21:25)
[2018-12-25] MEDS: ASPIRIN 325 MG TAB PO SCH (08:40)
[2018-12-25] MEDS: BALSAM PERU/CASTOR OIL 60 GM TUBE TOP SCH ×2 (08:41→21:25)
--- NOTE | 2018-12-25 09:19 | PN ---
DATE: 12/25/2018 SUBJECTIVE: The patient is clinically improving. The patient was stable on nasal cannula. No other acute events noted. The patient is alert but confused. No hemoptysis, hematemesis, hematochezia. OBJECTIVE: VITAL SIGNS: Blood pressure 131/45, respirations 27, pulse 84, temperature 97.5. HEENT: Head is normocephalic. NECK: Supple. HEART: Regular rate. LUNGS: Show diminished breath sounds at the base. ABDOMEN: Soft, nontender to palpation without rebound or guarding. EXTREMITIES: Negative for clubbing, cyanosis, no edema. DERMATOLOGIC: No rashes. MUSCULOSKELETAL: No joint effusions. NEUROLOGIC: No focal deficits. MEDICATIONS: Patient medications have been reviewed. IMAGING STUDIES: Have been reviewed. LABORATORY DATA: Has been reviewed. The patient's BUN 57, creatinine 6.51. White count 11.5, hemog lobin 9.0, and platelet count is 220. ASSESSMENT AND PLAN: 1. Coronary artery disease. The patient is status post 4-vessel coronary artery bypass grafting, cu rrently stable. Continue medical management. Follow up with CT surgeon and cardiology. 2. Status post cardiac arrest. Etiology secondary to respiratory plug with return of spontaneous ci rculation. Currently hemodynamically stable. Continue to monitor. 3. Pericarditis improving. Continue NSAIDs, follow up with cardiology. 4. Sepsis secondary to healthcare-associated pneumonia. The patient is clinically improving. Kvng nue current antibiotic regimen. Chest x-ray and cultures have been reviewed. 5. Respiratory failure, status post extubation, currently stable. Continue nasal cannula. Continue bronchodilators. Continue aggressive suctioning. 6. End-stage renal disease. The patient had hemodialysis yesterday, tolerated well. Plan for dialy sis tomorrow. 7. Anemia. Continue to monitor hemoglobin and hematocrit levels. Continue Epogen. 8. Mineral bone disorder, monitor calcium and phosphorus levels. 9. Diabetes. Continue current insulin regimen. 10. Dyslipidemia. Continue statin therapy. 11. overload, improved. Continue ultrafiltration dialysis. 12. Acute encephalopathy, etiology toxic metabolic, questionable component of anoxic injury. Contin ue to monitor. 13. Hypomagnesemia, improved. 14. Intracranial aneurysm, stable. 15. Status post shock. 16. Gastrointestinal and deep venous thrombosis prophylaxis. DISPOSITION: Patient has a Morris evaluation pending. Dictated By: JAKY WALSH/EDUARD Conf#: [id number] DID#: [id number] CC: SAGRARIO POLLOCK MD;*End*
--- NOTE | 2018-12-25 10:01 | CONS ---
Consult Date/Type/Reason Admit Date/Time Dec 13, 2018 at 12:40 Initial Consult Date 12/16/18 Type of Consult Pulmonary Date/Time of Note DATE: 12/25/18 TIME: 09:59 Subjective Remains confused but no evidence of respiratory distress post extubation. Objective Vital Signs Date Temp Pulse Resp B/P (MAP) Pulse Ox O2 O2 Flow FiO2 Time Delivery Rate 12/25/18 85 08:00 12/25/18 27 131/45 93 07:00 (73) 12/25/18 Nasal 06:00 Cannula 12/25/18 97.5 04:00 12/24/18 2.0 20:00 12/24/18 21 18:12 Intake and Output 12/24/18 12/24/18 12/25/18 1515:00 23:00 07:00 IntakeIntake Total 51 ml 50 ml 0 ml OutputOutput Total 2600 ml 0 ml 0 ml BalanceBalance -2549 ml 50 ml 0 ml Exam GENERAL: Elderly gentleman comfortable at rest VITAL SIGNS: per chart NECK: Supple. No JVD or lymphadenopathy. CARDIAC EXAM: S1, S2. No added sounds or murmurs. CHEST: clear bilaterally, No added sounds, rales or wheezes ABDOMEN: Soft, nontender. No guarding or rebound. EXTREMITIES: No cyanosis, clubbing or edema. NEUROLOGIC: Generalized weakness. No focal deficits. Vent Setting Ventilator Support Mode: CPAP, PS Fraction of Inspired Oxygen pe: 21 Positive End Expiratory Pressu: 5.0 Results/Medications Result Diagram: 12/25/18 0500 12/25/18 0500 Results 24 hrs Laboratory Tests Test 12/24/18 13:34 12/24/18 16:38 12/24/18 21:26 12/25/18 01:32 Bedside Glucose 89 114 147 160 Test 12/25/18 05:00 12/25/18 05:56 12/25/18 08:33 White Blood Count 11.5 H Red Blood Count 3.07 L Hemoglobin 9.0 L Hematocrit 29.5 L Mean Corpuscular 96.1 Volume Mean Corpuscular 29.3 Hemoglobin Mean Corpuscular 30.5 L Hemoglobin Concent Red Cell Distribution 17.2 H Width Platelet Count 210 # Mean Platelet Volume 11.0 H Immature Granulocytes 1.200 H % Neutrophils % 75.7 Lymphocytes % 9.3 L Monocytes % 11.0 Eosinophils % 2.5 Basophils % 0.3 Nucleated Red Blood 0.0 Cells % Immature Granulocytes 0.140 H # Neutrophils # 8.7 H Lymphocytes # 1.1 Monocytes # 1.3 H Eosinophils # 0.3 Basophils # 0.0 Nucleated Red Blood 0.0 Cells # Sodium Level 137 Potassium Level 4.8 Chloride Level 96 L Carbon Dioxide Level 23 Anion Gap 18 #H Blood Urea Nitrogen 57 H Creatinine 6.51 H Est Glomerular Filtrat Rate mL/min Glucose Level 175 Calcium Level 8.8 Phosphorus Level 6.4 #H Magnesium Level 2.5 Total Bilirubin 0.3 Direct Bilirubin 0.00 Indirect Bilirubin 0.3 Aspartate Amino 44 Transf (AST/SGOT) Alanine 23 Aminotransferase (ALT /SGPT) Alkaline Phosphatase 133 H Total Protein 6.6 Albumin 3.3 Globulin 3.30 H Albumin/Globulin 1.00 Ratio Bedside Glucose 166 180 Medications Current Medications Atorvastatin Calcium (Lipitor) 80 mg HS PO Last administered on 12/24/18at 21:22; Admin Dose 80 MG; Start 12/13/18 at 21:00 Miscellaneous Information (* Miscellaneous Pharmacy Order) Treatment of Hypoglycemia: 1.BG 51... Per protocol XX ; Start 12/15/18 at 12:30 Dextrose (D50w Syringe) 25 ml Q15M PRN IV .DECREASED GLUCOSE; Start 12/15/18 at 12:30 Dextrose (D50w Syringe) 50 ml Q15M PRN IV .DECREASED GLUCOSE; Start 12/15/18 at 12:30 Dopamine HCl/ Dextrose 250 ml @ 6.128 mls/ hr PER PROTOCOL IV Last administered on 12/16/18at 02:13; Admin Dose 14.4 MLS/HR; Start 12/15/18 at 13:00 Norepinephrine 250 ml @ 1.875 mls/ hr PER PROTOCOL IV Last administered on 12/19/18at 07:45; Admin Dose 3.75 MLS/HR; Start 12/15/18 at 14:00 Phenylephrine HCl 250 ml @ 75 mls/hr PER PROTOCOL IV Last administered on 12/16/18at 01:45; Admin Dose 7.5 MLS/HR; Start 12/15/18 at 14:00 Propofol 100 ml @ 2.451 mls/ hr Q12H IV Last administered on 12/19/18at 19:59; Admin Dose 4.902 MLS/HR; Start 12/16/18 at 05:30 Epoetin Ever (Epogen (Esrd)) 10,000 units MoWeFr@17 SC Last administered on 12/22/18 17:00; Admin Dose 10,000 UNITS; Start 12/18/18 at 17:00 Fentanyl 100 ml @ 5 mls/hr TITRATE IV Last administered on 12/22/18 00:01; Admin Dose 5 MLS/HR; Start 12/16/18 at 13:00 Aspirin (Aspirin) 325 mg DAILY PO Last administered on 12/23/18 10:06; Admin Dose 325 MG; Start 12/17/18 at 09:00 Heparin Sodium (Porcine) (Heparin (1000 Units/ml)) 3,000 unit PRN PRN CATHETER Dialysis Last administered on 12/24/18 14:08; Admin Dose 3,000 UNIT; Start 12/17/18 at 19:00 Meropenem/Sodium Chloride 50 ml @ 100 mls/hr Q12 IVPB Last administered on 12/25/18 08:40; Admin Dose 100 MLS/HR; Start 12/20/18 at 21:00 Alteplase, Recombinant (Cathflo (Activase)) 4 mg MAY REPEAT X1 PRN CATHETER IF CATHETER REMAINS OCCULUDED Last administered on 12/20/18 17:54; Admin Dose 4 MG; Start 12/20/18 at 17:00 Lansoprazole (Prevacid) 30 mg BID@0600,1800 GTB Last administered on 12/23/18 06:14; Admin Dose 30 MG; Start 12/22/18 at 06:00 Dexmedetomidine HCl 200 mcg/ Sodium Chloride 50 ml @ 4.09 mls/hr TITRATE IV Last administered on 12/23/18 06:49; Admin Dose 4.09 MLS/HR; Start 12/22/18 at 13:00 Albumin Human 100 ml @ 100 mls/hr DURING DIALYSIS PRN IV NOTE Last administered on 12/22/18 14:06; Admin Dose 100 MLS/HR; Start 12/22/18 at 12:30 Ibuprofen (Motrin) 400 mg Q8 NGT Last administered on 12/23/18 23:23; Admin Dose 400 MG; Start 12/23/18 at 14:00 Miscellaneous Information 1 ea NOTE XX ; Start 12/24/18 at 10:30 Glucose (Glutose) 15 gm Q15M PRN PO DECREASED GLUCOSE; Start 12/24/18 at 10:30 Glucose (Glutose) 22.5 gm Q15M PRN PO DECREASED GLUCOSE; Start 12/24/18 at 10:30 Dextrose (D50w Syringe) 25 ml Q15M PRN IV DECREASED GLUCOSE; Start 12/24/18 at 10:30 Dextrose (D50w Syringe) 50 ml Q15M PRN IV DECREASED GLUCOSE; Start 12/24/18 at 10:30 Glucagon (Glucagen) 1 mg Q15M PRN IM DECREASED GLUCOSE; Start 12/24/18 at 10:30 Glucose (Glutose) 15 gm Q15M PRN BUCCAL DECREASED GLUCOSE; Start 12/24/18 at 10 :30 Insulin Aspart (Novolog Insulin Pen) NOVOLOG *MILD* ALGORI... Q4 SC Last administered on 12/25/18at 08:35; Admin Dose 2 UNIT; Start 12/24/18 at 13:00 Assessment/Plan Hospital Course (Demo Recall) IMP: 1. Hypercapnic Respiratory Failure--s/p extubation post CABG. Possibly due to a combination of volume overload and sedation. Reintubation x2. Now safely extubated 2. Status post coronary artery bypass graft surgery 3. Status post cardiogenic shock 4. CHF/CAD 5. ESRD on HD 6. Anemia 7. LLL Atelectasis/infiltrate 8. Encephalopathy toxic metabolic 9. Dysphagia likely secondary to prolonged extubation encephalopathy RECS: 1. Aspiration precautions, speech therapy recommendations 2. Continue hemodialysis with UF 3. PT evaluation 4. Continue antibiotics 40 min cc time Keep in ICU today. If patient fails weaning trial or is not extubated over the weekend would recommend progressed to tracheostomy. ROSARIO MONROE MD, [facility] Dec 25, 2018 10:00
--- NOTE | 2018-12-25 11:11 | CONS ---
Assessment/Plan Assessment/Plan Hospital Course (Demo Recall) Post CABG Pericarditis: diffuse ST elevation on EKG, rub on exam, and echo with normal EF and wall motion. Mild trops 0.8 as expected. Rub resolved Status post PEA arrest - primary event appears to be respiratory distress, hypoxia, and resultant bradycardia; ROSC after brief CPR 12/18 Acute hypoxic respiratory failure - failed extubation twice including 12/18/2018, extubated again 12/23 and doing well Acute on chronic diastolic heart failure: euvolemic now Possible pneumonia - on antibiotics Coronary artery disease - status post CABG x4 (CHENG-LAD, SVG-PDA, SVG-diag-OM) on 12/15/2018 Status post NSTEMI Hypertension End-stage renal disease - on hemodialysis -change ASA to rectal until passes swallow eval or NG reinserted Below meds when able -ibuprofen 400mg TID -protonix 40mg BID -continue atorvastatin 80mg -start metoprolol when PO access -HD per nephrology Consultation Date/Type/Reason Admit Date/Time Dec 13, 2018 at 12:40 Initial Consult Date Type of Consult Cardiology Date/Time of Note DATE: 12/25/18 TIME: 11:08 24 HR Interval Summary Free Text/Dictation failed swallow eval and removed his own NG. No PO access. Remains confused but no respiratory distress. Exam/Review of Systems Exam Vitals Vital Signs Date Temp Pulse Resp B/P (MAP) Pulse Ox O2 O2 Flow FiO2 Time Delivery Rate 12/25/18 85 29 138/61 97 Room Air 10:00 (86) 12/25/18 97.6 08:00 12/24/18 2.0 20:00 12/24/18 21 18:12 Intake and Output 12/24/18 12/24/18 12/25/18 1414:59 22:59 06:59 IntakeIntake Total 51 ml 50 ml 0 ml OutputOutput Total 2600 ml 0 ml 0 ml BalanceBalance -2549 ml 50 ml 0 ml Constitutional: alert; No oriented Neck: No jvd Respiratory: diminished breath sounds; No clear to auscultation Cardiovascular: regular rate and rhythm; No edema Gastrointestinal: soft, non-tender; No distended Neurological: nl mental status; No nl speech Results Result Diagram: 12/25/18 0500 12/25/18 0500 Results 24hrs Laboratory Tests Test 12/24/18 13:34 12/24/18 16:38 12/24/18 21:26 12/25/18 01:32 Bedside Glucose 89 114 147 160 Test 12/25/18 05:00 12/25/18 05:56 12/25/18 08:33 White Blood Count 11.5 H Red Blood Count 3.07 L Hemoglobin 9.0 L Hematocrit 29.5 L Mean Corpuscular 96.1 Volume Mean Corpuscular 29.3 Hemoglobin Mean Corpuscular 30.5 L Hemoglobin Concent Red Cell Distribution 17.2 H Width Platelet Count 210 # Mean Platelet Volume 11.0 H Immature Granulocytes 1.200 H % Neutrophils % 75.7 Lymphocytes % 9.3 L Monocytes % 11.0 Eosinophils % 2.5 Basophils % 0.3 Nucleated Red Blood 0.0 Cells % Immature Granulocytes 0.140 H # Neutrophils # 8.7 H Lymphocytes # 1.1 Monocytes # 1.3 H Eosinophils # 0.3 Basophils # 0.0 Nucleated Red Blood 0.0 Cells # Sodium Level 137 Potassium Level 4.8 Chloride Level 96 L Carbon Dioxide Level 23 Anion Gap 18 #H Blood Urea Nitrogen 57 H Creatinine 6.51 H Est Glomerular Filtrat Rate mL/min Glucose Level 175 Calcium Level 8.8 Phosphorus Level 6.4 #H Magnesium Level 2.5 Total Bilirubin 0.3 Direct Bilirubin 0.00 Indirect Bilirubin 0.3 Aspartate Amino 44 Transf (AST/SGOT) Alanine 23 Aminotransferase (ALT /SGPT) Alkaline Phosphatase 133 H Total Protein 6.6 Albumin 3.3 Globulin 3.30 H Albumin/Globulin 1.00 Ratio Bedside Glucose 166 180 Medications Medication Current Medications Atorvastatin Calcium (Lipitor) 80 mg HS PO Last administered on 12/24/18at 21:22; Admin Dose 80 MG; Start 12/13/18 at 21:00 Miscellaneous Information (* Miscellaneous Pharmacy Order) Treatment of H ypoglycemia: 1.BG 51... Per protocol XX ; Start 12/15/18 at 12:30 Dextrose (D50w Syringe) 25 ml Q15M PRN IV .DECREASED GLUCOSE; Start 12/15/18 at 12:30 Dextrose (D50w Syringe) 50 ml Q15M PRN IV .DECREASED GLUCOSE; Start 12/15/18 at 12:30 Dopamine HCl/ Dextrose 250 ml @ 6.128 mls/ hr PER PROTOCOL IV Last administered on 12/16/18 02:13; Admin Dose 14.4 MLS/HR; Start 12/15/18 at 13:00 Norepinephrine 250 ml @ 1.875 mls/ hr PER PROTOCOL IV Last administered on 12/19/18 07:45; Admin Dose 3.75 MLS/HR; Start 12/15/18 at 14:00 Phenylephrine HCl 250 ml @ 75 mls/hr PER PROTOCOL IV Last administered on 12/16/18 01:45; Admin Dose 7.5 MLS/HR; Start 12/15/18 at 14:00 Propofol 100 ml @ 2.451 mls/ hr Q12H IV Last administered on 12/19/18 19:59; Admin Dose 4.902 MLS/HR; Start 12/16/18 at 05:30 Epoetin Ever (Epogen (Esrd)) 10,000 units MoWeFr@17 SC Last administered on 12/22/18 17:00; Admin Dose 10,000 UNITS; Start 12/18/18 at 17:00 Fentanyl 100 ml @ 5 mls/hr TITRATE IV Last administered on 12/22/18 00:01; Admin Dose 5 MLS/HR; Start 12/16/18 at 13:00 Heparin Sodium (Porcine) (Heparin (1000 Units/ml)) 3,000 unit PRN PRN CATHETER Dialysis Last administered on 12/24/18 14:08; Admin Dose 3,000 UNIT; Start 12/17/18 at 19:00 Meropenem/Sodium Chloride 50 ml @ 100 mls/hr Q12 IVPB Last administered on 12/25/18 08:40; Admin Dose 100 MLS/HR; Start 12/20/18 at 21:00 Alteplase, Recombinant (Cathflo (Activase)) 4 mg MAY REPEAT X1 PRN CATHETER IF CATHETER REMAINS OCCULUDED Last administered on 12/20/18 17:54; Admin Dose 4 MG; Start 12/20/18 at 17:00 Lansoprazole (Prevacid) 30 mg BID@0600,1800 GTB Last administered on 12/23/18 06:14; Admin Dose 30 MG; Start 12/22/18 at 06:00 Dexmedetomidine HCl 200 mcg/ Sodium Chloride 50 ml @ 4.09 mls/hr TITRATE IV Last administered on 3/30/19at 06:49; Admin Dose 4.09 MLS/HR; Start 12/22/18 at 13:00 Albumin Human 100 ml @ 100 mls/hr DURING DIALYSIS PRN IV NOTE Last administered on 12/22/18at 14:06; Admin Dose 100 MLS/HR; Start 12/22/18 at 12:30 Ibuprofen (Motrin) 400 mg Q8 NGT Last administered on 12/23/18at 23:23; Admin Dose 400 MG; Start 12/23/18 at 14:00 Miscellaneous Information 1 ea NOTE XX ; Start 12/24/18 at 10:30 Glucose (Glutose) 15 gm Q15M PRN PO DECREASED GLUCOSE; Start 12/24/18 at 10:30 Glucose (Glutose) 22.5 gm Q15M PRN PO DECREASED GLUCOSE; Start 12/24/18 at 10:30 Dextrose (D50w Syringe) 25 ml Q15M PRN IV DECREASED GLUCOSE; Start 12/24/18 at 10:30 Dextrose (D50w Syringe) 50 ml Q15M PRN IV DECREASED GLUCOSE; Start 12/24/18 at 10:30 Glucagon (Glucagen) 1 mg Q15M PRN IM DECREASED GLUCOSE; Start 12/24/18 at 10:30 Glucose (Glutose) 15 gm Q15M PRN BUCCAL DECREASED GLUCOSE; Start 12/24/18 at 10:30 Insulin Aspart (Novolog Insulin Pen) NOVOLOG *MILD* ALGORI... Q4 SC Last administered on 12/25/18at 08:35; Admin Dose 2 UNIT; Start 12/24/18 at 13:00 Aspirin (Aspirin) 300 mg DAILY CA ; Start 12/25/18 at 10:30 Dextrose/Sodium Chloride 1,000 ml @ 50 mls/hr Q20H IV ; Start 12/25/18 at 11:00 SAGRARIO POLLOCK Dec 25, 2018 11:11
[2018-12-25] MEDS: DEXTROSE 5%-0.45% NACL 1,000 ML IV SCH (12:18)
[2018-12-25] MEDS: ASPIRIN 300 MG SUPP PR SCH (12:18)
--- NOTE | 2018-12-25 13:42 | CONS ---
Assessment/Plan Assessment/Plan Hospital Course (Demo Recall) Patient is alert looks good denies pain, no fevers overnight. WBC 11.5 H&H 9 and 29.5 platelets 210 neutrophils 75.7. Chest x-ray from yesterday revealed stable left lung base consolidation and small left pleural effusion Antimicrobials: Merrem Indwelling: Right upper extremity PICC line, left femoral Anam Physical examination: Well-developed chronically ill-appearing elderly man who is intubated in no distress. Head atraumatic normocephalic sclera nonicteric vehicle mucosa dry neck is supple chest rise symmetrical breath sounds with crackles. Heart S1-S2 abdomen soft bowel sounds hypoactive extremities cyanotic Assessment: 1. Resolving sepsis, status post shock, resolving 2. Healthcare associated pneumonia, possibly aspirated 3. Acute respiratory failure, status post extubation post CABG with reintubation 4. Non-ST elevation [place] status post CABG 12/15/18 5. 5. End-stage renal disease, hemodialysis dependent 6. Anemia Plan: Remains stable, continue present care, antibiotics for couple more days, aspiration precautions Consultation Date/Type/Reason Admit Date/Time Dec 13, 2018 at 12:40 Initial Consult Date 12/16/18 Type of Consult id Date/Time of Note DATE: 12/25/18 TIME: 13:41 Exam/Review of Systems Exam Vitals Vital Signs Date Temp Pulse Resp B/P (MAP) Pulse Ox O2 O2 Flow FiO2 Time Delivery Rate 12/25/18 86 12:00 12/25/18 29 138/61 97 Room Air 10:00 (86) 12/25/18 97.6 08:00 12/24/18 2.0 20:00 12/24/18 21 18:12 Intake and Output 12/24/18 12/24/18 12/25/18 1515:00 23:00 07:00 IntakeIntake Total 51 ml 50 ml 0 ml OutputOutput Total 2600 ml 0 ml 0 ml BalanceBalance -2549 ml 50 ml 0 ml Results Result Diagram: 12/25/18 0500 12/25/18 0500 Results 24hrs Laboratory Tests Test 12/24/18 16:38 12/24/18 21:26 12/25/18 01:32 12/25/18 05:00 Bedside Glucose 114 147 160 White Blood Count 11.5 H Red Blood Count 3.07 L Hemoglobin 9.0 L Hematocrit 29.5 L Mean Corpuscular 96.1 Volume Mean Corpuscular 29.3 Hemoglobin Mean Corpuscular 30.5 L Hemoglobin Concent Red Cell Distribution 17.2 H Width Platelet Count 210 # Mean Platelet Volume 11.0 H Immature Granulocytes 1.200 H % Neutrophils % 75.7 Lymphocytes % 9.3 L Monocytes % 11.0 Eosinophils % 2.5 Basophils % 0.3 Nucleated Red Blood 0.0 Cells % Immature Granulocytes 0.140 H # Neutrophils # 8.7 H Lymphocytes # 1.1 Monocytes # 1.3 H Eosinophils # 0.3 Basophils # 0.0 Nucleated Red Blood 0.0 Cells # Sodium Level 137 Potassium Level 4.8 Chloride Level 96 L Carbon Dioxide Level 23 Anion Gap 18 #H Blood Urea Nitrogen 57 H Creatinine 6.51 H Est Glomerular Filtrat Rate mL/min Glucose Level 175 Calcium Level 8.8 Phosphorus Level 6.4 #H Magnesium Level 2.5 Total Bilirubin 0.3 Direct Bilirubin 0.00 Indirect Bilirubin 0.3 Aspartate Amino 44 Transf (AST/SGOT) Alanine 23 Aminotransferase (ALT/ SGPT) Alkaline Phosphatase 133 H Total Protein 6.6 Albumin 3.3 Globulin 3.30 H Albumin/Globulin Ratio 1.00 Test 12/25/18 05:56 12/25/18 08:33 12/25/18 12:21 Bedside Glucose 166 180 155 Medications Medication Current Medications Atorvastatin Calcium (Lipitor) 80 mg HS PO Last administered on 12/24/18at 21:22; Admin Dose 80 MG; Start 12/13/18 at 21:00 Miscellaneous Information (* Miscellaneous Pharmacy Order) Treatment of Hypoglycemia: 1.BG 51... Per protocol XX ; Start 12/15/18 at 12:30 Dextrose (D50w Syringe) 25 ml Q15M PRN IV .DECREASED GLUCOSE; Start 12/15/18 at 12:30 Dextrose (D50w Syringe) 50 ml Q15M PRN IV .DECREASED GLUCOSE; Start 12/15/18 at 12:30 Dopamine HCl/ Dextrose 250 ml @ 6.128 mls/ hr PER PROTOCOL IV Last administered on 12/16/18at 02:13; Admin Dose 14.4 MLS/HR; Start 12/15/18 at 13:00 Norepinephrine 250 ml @ 1.875 mls/ hr PER PROTOCOL IV Last administered on 12/19/18at 07:45; Admin Dose 3.75 MLS/HR; Start 12/15/18 at 14:00 Phenylephrine HCl 250 ml @ 75 mls/hr PER PROTOCOL IV Last administered on 12/16/18 01:45; Admin Dose 7.5 MLS/HR; Start 12/15/18 at 14:00 Propofol 100 ml @ 2.451 mls/ hr Q12H IV Last administered on 12/19/18 19:59; Admin Dose 4.902 MLS/HR; Start 12/16/18 at 05:30 Fentanyl 100 ml @ 5 mls/hr TITRATE IV Last administered on 12/22/18 00:01; Admin Dose 5 MLS/HR; Start 12/16/18 at 13:00 Heparin Sodium (Porcine) (Heparin (1000 Units/ml)) 3,000 unit PRN PRN CATHETER Dialysis Last administered on 12/24/18 14:08; Admin Dose 3,000 UNIT; Start 12/17/18 at 19:00 Meropenem/Sodium Chloride 50 ml @ 100 mls/hr Q12 IVPB Last administered on 12/25/18 08:40; Admin Dose 100 MLS/HR; Start 12/20/18 at 21:00 Alteplase, Recombinant (Cathflo (Activase)) 4 mg MAY REPEAT X1 PRN CATHETER IF CATHETER REMAINS OCCULUDED Last administered on 12/20/18 17:54; Admin Dose 4 MG; Start 12/20/18 at 17:00 Lansoprazole (Prevacid) 30 mg BID@0600,1800 GTB Last administered on 12/23/18 06:14; Admin Dose 30 MG; Start 12/22/18 at 06:00 Dexmedetomidine HCl 200 mcg/ Sodium Chloride 50 ml @ 4.09 mls/hr TITRATE IV Last administered on 12/23/18 06:49; Admin Dose 4.09 MLS/HR; Start 12/22/18 at 13:00 Albumin Human 100 ml @ 100 mls/hr DURING DIALYSIS PRN IV NOTE Last administered on 12/22/18 14:06; Admin Dose 100 MLS/HR; Start 12/22/18 at 12:30 Ibuprofen (Motrin) 400 mg Q8 NGT Last administered on 12/23/18 23:23; Admin Dose 400 MG; Start 12/23/18 at 14:00 Miscellaneous Information 1 ea NOTE XX ; Start 12/24/18 at 10:30 Glucose (Glutose) 15 gm Q15M PRN PO DECREASED GLUCOSE; Start 12/24/18 at 10:30 Glucose (Glutose) 22.5 gm Q15M PRN PO DECREASED GLUCOSE; Start 12/24/18 at 10:30 Dextrose (D50w Syringe) 25 ml Q15M PRN IV DECREASED GLUCOSE; Start 12/24/18 at 10:30 Dextrose (D50w Syringe) 50 ml Q15M PRN IV DECREASED GLUCOSE; Start 12/24/18 at 10:30 Glucagon (Glucagen) 1 mg Q15M PRN IM DECREASED GLUCOSE; Start 12/24/18 at 10:30 Glucose (Glutose) 15 gm Q15M PRN BUCCAL DECREASED GLUCOSE; Start 12/24/18 at 10:30 Insulin Aspart (Novolog Insulin Pen) NOVOLOG *MILD* ALGORI... Q4 SC Last administered on 12/25/18at 12:23; Admin Dose 1 UNIT; Start 12/24/18 at 13:00 Aspirin (Aspirin) 300 mg DAILY MI Last administered on 12/25/18at 12:18; Admin Dose 300 MG; Start 12/25/18 at 10:30 Dextrose/Sodium Chloride 1,000 ml @ 50 mls/hr Q20H IV Last administered on 12/25/18at 12:18; Admin Dose 50 MLS/HR; Start 12/25/18 at 11:00 Epoetin Ever-epbx (RETACRIT(esrd)) 10,000 unit MoWeFr@17 SC ; Start 12/25/18 at 17:00 LASHELL LYNCH NP Dec 25, 2018 13:42
[2018-12-25] MEDS: EPOETIN ALFA-EPBX (ESRD) 10,000 UNIT/ML VIAL SC SCH (18:32)
[2018-12-25] MEDS: ATORVASTATIN 80 MG TAB PO SCH (21:00)
[2018-12-26] VITALS (20 sets, daily range): BP systolic 125–168; BP diastolic 48–69; PULSE 71–88; RESP 16–30
[2018-12-26] MEDS: INSULIN ASPART [NOVOLOG] 3 ML PEN SC SCH ×6 (00:56→21:10)
[2018-12-26] MEDS: LANSOPRAZOLE 30 MG CAP GTB SCH ×2 (04:58→17:31)
[2018-12-26] MEDS: IBUPROFEN 400 MG TAB NGT SCH ×2 (04:58→14:03)
[2018-12-26] MEDS: DEXTROSE 5%-0.45% NACL 1,000 ML IV SCH ×2 (05:48→08:36)
--- NOTE | 2018-12-26 08:34 | PN ---
DATE: 12/26/2018 SUBJECTIVE: The patient remains in serious, but stable condition. The patient failed a swallow eval uation. A repeat swallow evaluation is pending. No other events noted. The patient had no hemoptys is, hematemesis or hematochezia. The patient's hemodialysis is pending. OBJECTIVE: VITAL SIGNS: Blood pressure is 162/61, respirations 18, pulse 81, temperature 98.5. HEENT: Head is normocephalic. NECK: Supple. HEART: Regular rate. LUNGS: Show diminished breath sounds at the base. ABDOMEN: Soft, nontender to palpation without rebound or guarding. EXTREMITIES: Negative for clubbing, cyanosis, no edema. DERMATOLOGIC: No rashes. MUSCULOSKELETAL: No joint effusion. NEUROLOGIC: No change in exam. MEDICATIONS: The patient's medications have been reviewed. LABORATORY DATA: Reviewed. ASSESSMENT AND PLAN: 1. Coronary artery disease, status post 4-vessel CABG. The patient is currently stable. Continue t o monitor. Continue aspirin. 2. Post-CABG, pericarditis. The patient remains on NSAID. We will continue. Follow up with cardio logy. 3. Status post cardiac arrest secondary to respiratory clog with spontaneous return of circulation. The patient is currently hemodynamically stable. Continue to monitor. 4. Sepsis secondary to healthcare-associated pneumonia, clinically improving. Continue antibiotic r egimen. 5. Respiratory failure, status post extubation, currently stable. Continue nasal cannula. Continue bronchodilators. 6. End-stage renal disease. Plan is for hemodialysis today, dialyze 3 hours 2k bath, calcium 2.5. 7. Anemia. Continue to monitor hemoglobin and hematocrit levels. Continue Epogen. 8. Mineral bone disorder. Monitor calcium and phosphorus levels. 9. Diabetes. Continue current insulin regimen. 10. Dyslipidemia. Continue statin therapy. 11. Volume overload, improving. Continue ultrafiltration with dialysis. 12. Acute encephalopathy, etiology is toxic metabolic, possible component of anoxic injury. Continu e to monitor. 13. Dysphagia. The patient is pending swallow evaluation. If fails, may require NG tube or G-tube placement. 14. Intracranial aneurysm, stable, continue to monitor. 15. Status post shock. 16. Gastrointestinal and deep vein thrombosis prophylaxis. DISPOSITION: The patient is pending Morris evaluation. Dictated By: JAKY WALSH/EDUARD Conf#: [id number] [facility]#: [id number] CC: SAGRARIO POLLOCK MD; ROSARIO MONROE MD;*[facility]*
[2018-12-26] MEDS: ASPIRIN 300 MG SUPP PR SCH (08:39)
[2018-12-26] MEDS: BALSAM PERU/CASTOR OIL 60 GM TUBE TOP SCH ×2 (08:47→20:58)
[2018-12-26] MEDS: MEROPENEM 500MG/50 ML (PMX) 50 ML IVPB SCH ×2 (08:47→21:00)
[2018-12-26] MEDS: ASPIRIN 325 MG TAB PO SCH (10:09)
--- NOTE | 2018-12-26 11:27 | CONS ---
Consult Date/Type/Reason Admit Date/Time Dec 13, 2018 at 12:40 Initial Consult Date 12/16/18 Type of Consult Pulmonary Date/Time of Note DATE: 12/26/18 TIME: 11:26 Subjective Slowly improving, less shortness of breath today. Positive swallow evaluation. Objective Vital Signs Date Temp Pulse Resp B/P (MAP) Pulse Ox O2 O2 Flow FiO2 Time Delivery Rate 12/26/18 82 25 139/63 98 Room Air 11:00 (88) 12/26/18 98.8 08:00 12/24/18 2.0 20:00 12/24/18 21 18:12 Intake and Output 12/25/18 12/25/18 12/26/18 1515:00 23:00 07:00 IntakeIntake Total 100 ml 450 ml 375 ml OutputOutput Total 0 ml 0 ml BalanceBalance 100 ml 450 ml 375 ml Exam GENERAL: Well-nourished well-developed gentleman comfortable at rest no acute distress VITAL SIGNS: per chart NECK: Supple. No JVD or lymphadenopathy. CARDIAC EXAM: S1, S2. No added sounds or murmurs. CHEST: Diminished air entry bilaterally ABDOMEN: Mildly distended but no guarding or rebound EXTREMITIES: No cyanosis, clubbing edema +2 NEUROLOGIC: Generalized weakness. Vent Setting Ventilator Support Mode: CPAP, PS Fraction of Inspired Oxygen pe: 21 Positive End Expiratory Pressu: 5.0 Results/Medications Result Diagram: 12/26/18 0430 12/26/18 0430 Results 24 hrs Laboratory Tests Test 12/25/18 12:21 12/25/18 18:24 12/25/18 21:31 12/26/18 00:51 Bedside Glucose 155 166 200 190 Test 12/26/18 04:30 12/26/18 05:21 12/26/18 08:38 White Blood Count 10.2 Red Blood Count 3.10 L Hemoglobin 9.2 L Hematocrit 29.2 L Mean Corpuscular Volume 94.2 Mean Corpuscular 29.7 Hemoglobin Mean Corpuscular 31.5 L Hemoglobin Concent Red Cell Distribution 16.7 H Width Platelet Count 236 Mean Platelet Volume 10.8 H Immature Granulocytes % 1.000 H Neutrophils % 75.4 Lymphocytes % 8.0 L Monocytes % 11.8 H Eosinophils % 3.5 Basophils % 0.3 Nucleated Red Blood 0.0 Cells % Immature Granulocytes # 0.100 H Neutrophils # 7.7 H Lymphocytes # 0.8 Monocytes # 1.2 H Eosinophils # 0.4 Basophils # 0.0 Nucleated Red Blood 0.0 Cells # Sodium Level 139 Potassium Level 4.2 Chloride Level 100 Carbon Dioxide Level 23 Anion Gap 16 H Blood Urea Nitrogen 74 H Creatinine 8.13 H Est Glomerular Filtrat Rate mL/min Glucose Level 195 Calcium Level 8.7 Phosphorus Level 6.9 H Magnesium Level 2.8 H Bedside Glucose 198 180 Medications Current Medications Atorvastatin Calcium (Lipitor) 80 mg HS PO Last administered on 12/24/18 21:22; Admin Dose 80 MG; Start 12/13/18 at 21:00 Miscellaneous Information (* Miscellaneous Pharmacy Order) Treatment of Hypoglycemia: 1.BG 51... Per protocol XX ; Start 12/15/18 at 12:30 Dextrose (D50w Syringe) 25 ml Q15M PRN IV .DECREASED GLUCOSE; Start 12/15/18 at 12:30 Dextrose (D50w Syringe) 50 ml Q15M PRN IV .DECREASED GLUCOSE; Start 12/15/18 at 12:30 Heparin Sodium (Porcine) (Heparin (1000 Units/ml)) 3,000 unit PRN PRN CATHETER Dialysis Last administered on 12/24/18 14:08; Admin Dose 3,000 UNIT; Start 12/17/18 at 19:00 Meropenem/Sodium Chloride 50 ml @ 100 mls/hr Q12 IVPB Last administered on 12/26/18 08:47; Admin Dose 100 MLS/HR; Start 12/20/18 at 21:00 Alteplase, Recombinant (Cathflo (Activase)) 4 mg MAY REPEAT X1 PRN CATHETER IF CATHETER REMAINS OCCULUDED Last administered on 12/20/18at 17:54; Admin Dose 4 MG; Start 12/20/18 at 17:00 Lansoprazole (Prevacid) 30 mg BID@0600,1800 GTB Last administered on 12/23/18 06:14; Admin Dose 30 MG; Start 12/22/18 at 06:00 Albumin Human 100 ml @ 100 mls/hr DURING DIALYSIS PRN IV NOTE Last administered on 12/22/18 14:06; Admin Dose 100 MLS/HR; Start 12/22/18 at 12:30 Ibuprofen (Motrin) 400 mg Q8 NGT Last administered on 12/23/18at 23:23; Admin Dose 400 MG; Start 12/23/18 at 14:00 Miscellaneous Information 1 ea NOTE XX ; Start 12/24/18 at 10:30 Glucose (Glutose) 15 gm Q15M PRN PO DECREASED GLUCOSE; Start 12/24/18 at 10:30 Glucose (Glutose) 22.5 gm Q15M PRN PO DECREASED GLUCOSE; Start 12/24/18 at 10:30 Dextrose (D50w Syringe) 25 ml Q15M PRN IV DECREASED GLUCOSE; Start 12/24/18 at 10:30 Dextrose (D50w Syringe) 50 ml Q15M PRN IV DECREASED GLUCOSE; Start 12/24/18 at 10:30 Glucagon (Glucagen) 1 mg Q15M PRN IM DECREASED GLUCOSE; Start 12/24/18 at 10:30 Glucose (Glutose) 15 gm Q15M PRN BUCCAL DECREASED GLUCOSE; Start 12/24/18 at 10:30 Insulin Aspart (Novolog Insulin Pen) NOVOLOG *MILD* ALGORI... Q4 SC Last administered on 12/26/18at 08:46; Admin Dose 1 UNIT; Start 12/24/18 at 13:00 Dextrose/Sodium Chloride 1,000 ml @ 25 mls/hr Q24H IV Last administered on 12/26/18at 08:36; Admin Dose 25 MLS/HR; Start 12/25/18 at 11:00 Epoetin Ever-epbx (RETACRIT(esrd)) 10,000 unit MoWeFr@17 SC Last administered on 12/25/18at 18:32; Admin Dose 10,000 UNIT; Start 12/25/18 at 17:00 Aspirin (Aspirin) 325 mg DAILY PO Last administered on 12/26/18at 10:09; Admin Dose 325 MG; Start 12/26/18 at 10:00 Assessment/Plan Hospital Course (Demo Recall) IMP: 1. Hypercapnic Respiratory Failure--s/p extubation post CABG. Possibly due to a combination of volume overload and sedation. Reintubation x2. Now safely extubated 2. Status post coronary artery bypass graft surgery 3. Status post cardiogenic shock 4. CHF/CAD 5. ESRD on HD 6. Anemia 7. LLL Atelectasis/infiltrate 8. Encephalopathy toxic metabolic, resolving 9. Dysphagia likely secondary to prolonged extubation encephalopathy RECS: 1. Aspiration precautions, speech therapy recommendations 2. Continue hemodialysis with UF 3. PT evaluation 4. Continue antibiotics 40 min cc time Stable to transfer to telemetry Physical therapy evaluation encourage out of bed ROSARIO MONROE MD, [facility] Dec 26, 2018 11:27
--- NOTE | 2018-12-26 14:16 | CONS ---
Assessment/Plan Assessment/Plan Hospital Course (Demo Recall) Patient is awake follows commands and looks comfortable, no fevers overnight. WBC today 10.2 neutrophils 75.4 Antimicrobials: Merrem Indwelling: Right upper extremity PICC line, left femoral Anam Physical examination: Well-developed chronically ill-appearing elderly man who is intubated in no distress. Head atraumatic normocephalic sclera nonicteric vehicle mucosa dry neck is supple chest rise symmetrical breath sounds with crackles. Heart S1-S2 abdomen soft bowel sounds hypoactive extremities cyanotic Assessment: 1. Resolving sepsis, status post shock 2. Healthcare associated pneumonia, possibly aspirated 3. Acute respiratory failure, status post extubation post CABG with reintubation 4. Non-ST elevation [place] status post CABG 12/15/18 5. 5. End-stage renal disease, hemodialysis dependent 6. Anemia Plan: Remains stable, continue present care, discontinue antibiotics in a.m. Consultation Date/Type/Reason Admit Date/Time Dec 13, 2018 at 12:40 Initial Consult Date 12/16/18 Type of Consult id Date/Time of Note DATE: 12/26/18 TIME: 14:15 Exam/Review of Systems Exam Vitals Vital Signs Date Temp Pulse Resp B/P (MAP) Pulse Ox O2 O2 Flow FiO2 Time Delivery Rate 12/26/18 84 12:00 12/26/18 25 139/63 98 Room Air 11:00 (88) 12/26/18 98.8 08:00 12/24/18 2.0 20:00 12/24/18 21 18:12 Intake and Output 12/25/18 12/25/18 12/26/18 1515:00 23:00 07:00 IntakeIntake Total 100 ml 450 ml 375 ml OutputOutput Total 0 ml 0 ml BalanceBalance 100 ml 450 ml 375 ml Results Result Diagram: 12/26/18 0430 12/26/18 0430 Results 24hrs Laboratory Tests Test 12/25/18 18:24 12/25/18 21:31 12/26/18 00:51 12/26/18 04:30 Bedside Glucose 166 200 190 White Blood Count 10.2 Red Blood Count 3.10 L Hemoglobin 9.2 L Hematocrit 29.2 L Mean Corpuscular Volume 94.2 Mean Corpuscular 29.7 Hemoglobin Mean Corpuscular 31.5 L Hemoglobin Concent Red Cell Distribution 16.7 H Width Platelet Count 236 Mean Platelet Volume 10.8 H Immature Granulocytes % 1.000 H Neutrophils % 75.4 Lymphocytes % 8.0 L Monocytes % 11.8 H Eosinophils % 3.5 Basophils % 0.3 Nucleated Red Blood 0.0 Cells % Immature Granulocytes # 0.100 H Neutrophils # 7.7 H Lymphocytes # 0.8 Monocytes # 1.2 H Eosinophils # 0.4 Basophils # 0.0 Nucleated Red Blood 0.0 Cells # Sodium Level 139 Potassium Level 4.2 Chloride Level 100 Carbon Dioxide Level 23 Anion Gap 16 H Blood Urea Nitrogen 74 H Creatinine 8.13 H Est Glomerular Filtrat Rate mL/min Glucose Level 195 Calcium Level 8.7 Phosphorus Level 6.9 H Magnesium Level 2.8 H Test 12/26/18 05:21 12/26/18 08:38 12/26/18 12:51 Bedside Glucose 198 180 222 H Medications Medication Current Medications Atorvastatin Calcium (Lipitor) 80 mg HS PO Last administered on 12/24/18at 21:22; Admin Dose 80 MG; Start 12/13/18 at 21:00 Miscellaneous Information (* Miscellaneous Pharmacy Order) Treatment of Hy poglycemia: 1.BG 51... Per protocol XX ; Start 12/15/18 at 12:30 Dextrose (D50w Syringe) 25 ml Q15M PRN IV .DECREASED GLUCOSE; Start 12/15/18 at 12:30 Dextrose (D50w Syringe) 50 ml Q15M PRN IV .DECREASED GLUCOSE; Start 12/15/18 at 12:30 Heparin Sodium (Porcine) (Heparin (1000 Units/ml)) 3,000 unit PRN PRN CATHETER Dialysis Last administered on 12/24/18at 14:08; Admin Dose 3,000 UNIT; Start 12/17/18 at 19:00 Meropenem/Sodium Chloride 50 ml @ 100 mls/hr Q12 IVPB Last administered on 12/26/18at 08:47; Admin Dose 100 MLS/HR; Start 12/20/18 at 21:00 Alteplase, Recombinant (Cathflo (Activase)) 4 mg MAY REPEAT X1 PRN CATHETER IF CATHETER REMAINS OCCULUDED Last administered on 12/20/18at 17:54; Admin Dose 4 MG; Start 12/20/18 at 17:00 Lansoprazole (Prevacid) 30 mg BID@0600,1800 GTB Last administered on 12/23/18at 06:14; Admin Dose 30 MG; Start 12/22/18 at 06:00 Albumin Human 100 ml @ 100 mls/hr DURING DIALYSIS PRN IV NOTE Last administered on 12/22/18at 14:06; Admin Dose 100 MLS/HR; Start 12/22/18 at 12:30 Ibuprofen (Motrin) 400 mg Q8 NGT Last administered on 12/26/18at 14:03; Admin Dose 400 MG; Start 12/23/18 at 14:00 Miscellaneous Information 1 ea NOTE XX ; Start 12/24/18 at 10:30 Glucose (Glutose) 15 gm Q15M PRN PO DECREASED GLUCOSE; Start 12/24/18 at 10:30 Glucose (Glutose) 22.5 gm Q15M PRN PO DECREASED GLUCOSE; Start 12/24/18 at 10:30 Dextrose (D50w Syringe) 25 ml Q15M PRN IV DECREASED GLUCOSE; Start 12/24/18 at 10:30 Dextrose (D50w Syringe) 50 ml Q15M PRN IV DECREASED GLUCOSE; Start 12/24/18 at 10:30 Glucagon (Glucagen) 1 mg Q15M PRN IM DECREASED GLUCOSE; Start 12/24/18 at 10:30 Glucose (Glutose) 15 gm Q15M PRN BUCCAL DECREASED GLUCOSE; Start 12/24/18 at 10:30 Insulin Aspart (Novolog Insulin Pen) NOVOLOG *MILD* ALGORI... Q4 SC Last administered on 12/26/18at 12:55; Admin Dose 3 UNIT; Start 12/24/18 at 13:00 Dextrose/Sodium Chloride 1,000 ml @ 25 mls/hr Q24H IV Last administered on 12/26/18at 08:36; Admin Dose 25 MLS/HR; Start 12/25/18 at 11:00 Epoetin Ever-epbx (RETACRIT(esrd)) 10,000 unit MoWeFr@17 SC Last administered on 12/25/18at 18:32; Admin Dose 10,000 UNIT; Start 12/25/18 at 17:00 Aspirin (Aspirin) 325 mg DAILY PO Last administered on 12/26/18at 10:09; Admin Dose 325 MG; Start 12/26/18 at 10:00 Insulin Glargine (Lantus) 4 units DAILY@2000 SC ; Start 12/26/18 at 20:00 LASHELL LYNCH NP Dec 26, 2018 14:16
--- NOTE | 2018-12-26 15:25 | CONS ---
Assessment/Plan Assessment/Plan Hospital Course (Demo Recall) Post CABG Pericarditis: diffuse ST elevation on EKG, rub on exam, and echo with normal EF and wall motion. Mild trops 0.8 as expected. Rub resolved Status post PEA arrest - primary event appears to be respiratory distress, hypoxia, and resultant bradycardia; ROSC after brief CPR 12/18 Acute hypoxic respiratory failure - failed extubation twice including 12/18/2018, extubated again 12/23 and doing well Acute on chronic diastolic heart failure: euvolemic now Possible pneumonia - on antibiotics Coronary artery disease - status post CABG x4 (CHENG-LAD, SVG-PDA, SVG-diag-OM) on 12/15/2018 Status post NSTEMI Hypertension End-stage renal disease - on hemodialysis -start metoprolol 50mg BID -ASA 325mg daily -decrease to ibuprofen 200mg TID -protonix 40mg daily -continue atorvastatin 80mg -HD per nephrology Consultation Date/Type/Reason Admit Date/Time Dec 13, 2018 at 12:40 Initial Consult Date Type of Consult Cardiology Date/Time of Note DATE: 12/26/18 TIME: 15:23 24 HR Interval Summary Free Text/Dictation Doing well. Passed swallow eval. BP rising Exam/Review of Systems Exam Vitals Vital Signs Date Temp Pulse Resp B/P (MAP) Pulse Ox O2 O2 Flow FiO2 Time Delivery Rate 12/26/18 84 12:00 12/26/18 25 139/63 98 Room Air 11:00 (88) 12/26/18 98.8 08:00 12/24/18 2.0 20:00 12/24/18 21 18:12 Intake and Output 12/25/18 12/25/18 12/26/18 1515:00 23:00 07:00 IntakeIntake Total 100 ml 450 ml 375 ml OutputOutput Total 0 ml 0 ml BalanceBalance 100 ml 450 ml 375 ml Constitutional: alert; No distress Psych: no complaints Head: normocephalic, atraumatic Neck: No jvd Respiratory: diminished breath sounds; No clear to auscultation Cardiovascular: regular rate and rhythm; No edema, No systolic murmur Gastrointestinal: soft, non-tender, distended Neurological: nl mental status, nl speech Results Result Diagram: 12/26/18 0430 12/26/18 0430 Results 24hrs Laboratory Tests Test 12/25/18 18:24 12/25/18 21:31 12/26/18 00:51 12/26/18 04:30 Bedside Glucose 166 200 190 White Blood Count 10.2 Red Blood Count 3.10 L Hemoglobin 9.2 L Hematocrit 29.2 L Mean Corpuscular Volume 94.2 Mean Corpuscular 29.7 Hemoglobin Mean Corpuscular 31.5 L Hemoglobin Concent Red Cell Distribution 16.7 H Width Platelet Count 236 Mean Platelet Volume 10.8 H Immature Granulocytes % 1.000 H Neutrophils % 75.4 Lymphocytes % 8.0 L Monocytes % 11.8 H Eosinophils % 3.5 Basophils % 0.3 Nucleated Red Blood 0.0 Cells % Immature Granulocytes # 0.100 H Neutrophils # 7.7 H Lymphocytes # 0.8 Monocytes # 1.2 H Eosinophils # 0.4 Basophils # 0.0 Nucleated Red Blood 0.0 Cells # Sodium Level 139 Potassium Level 4.2 Chloride Level 100 Carbon Dioxide Level 23 Anion Gap 16 H Blood Urea Nitrogen 74 H Creatinine 8.13 H Est Glomerular Filtrat Rate mL/min Glucose Level 195 Calcium Level 8.7 Phosphorus Level 6.9 H Magnesium Level 2.8 H Test 12/26/18 05:21 12/26/18 08:38 12/26/18 12:51 Bedside Glucose 198 180 222 H Medications Medication Current Medications Atorvastatin Calcium (Lipitor) 80 mg HS PO Last administered on 12/24/18at 21:22; Admin Dose 80 MG; Start 12/13/18 at 21:00 Miscellaneous Information (* Miscellaneous Pharmacy Order) Treatment of Hyp oglycemia: 1.BG 51... Per protocol XX ; Start 12/15/18 at 12:30 Dextrose (D50w Syringe) 25 ml Q15M PRN IV .DECREASED GLUCOSE; Start 12/15/18 at 12:30 Dextrose (D50w Syringe) 50 ml Q15M PRN IV .DECREASED GLUCOSE; Start 12/15/18 at 12:30 Heparin Sodium (Porcine) (Heparin (1000 Units/ml)) 3,000 unit PRN PRN CATHETER Dialysis Last administered on 12/24/18at 14:08; Admin Dose 3,000 UNIT; Start 12/17/18 at 19:00 Meropenem/Sodium Chloride 50 ml @ 100 mls/hr Q12 IVPB Last administered on 12/26/18at 08:47; Admin Dose 100 MLS/HR; Start 12/20/18 at 21:00 Alteplase, Recombinant (Cathflo (Activase)) 4 mg MAY REPEAT X1 PRN CATHETER IF CATHETER REMAINS OCCULUDED Last administered on 12/20/18at 17:54; Admin Dose 4 MG; Start 12/20/18 at 17:00 Lansoprazole (Prevacid) 30 mg BID@0600,1800 GTB Last administered on 12/23/18at 06:14; Admin Dose 30 MG; Start 12/22/18 at 06:00 Albumin Human 100 ml @ 100 mls/hr DURING DIALYSIS PRN IV NOTE Last administered on 12/22/18at 14:06; Admin Dose 100 MLS/HR; Start 12/22/18 at 12:30 Ibuprofen (Motrin) 400 mg Q8 NGT Last administered on 12/26/18at 14:03; Admin Dose 400 MG; Start 12/23/18 at 14:00 Miscellaneous Information 1 ea NOTE XX ; Start 12/24/18 at 10:30 Glucose (Glutose) 15 gm Q15M PRN PO DECREASED GLUCOSE; Start 12/24/18 at 10:30 Glucose (Glutose) 22.5 gm Q15M PRN PO DECREASED GLUCOSE; Start 12/24/18 at 10:30 Dextrose (D50w Syringe) 25 ml Q15M PRN IV DECREASED GLUCOSE; Start 12/24/18 at 10:30 Dextrose (D50w Syringe) 50 ml Q15M PRN IV DECREASED GLUCOSE; Start 12/24/18 at 10:30 Glucagon (Glucagen) 1 mg Q15M PRN IM DECREASED GLUCOSE; Start 12/24/18 at 10:30 Glucose (Glutose) 15 gm Q15M PRN BUCCAL DECREASED GLUCOSE; Start 12/24/18 at 10:30 Insulin Aspart (Novolog Insulin Pen) NOVOLOG *MILD* ALGORI... Q4 SC Last administered on 12/26/18at 12:55; Admin Dose 3 UNIT; Start 12/24/18 at 13:00 Dextrose/Sodium Chloride 1,000 ml @ 25 mls/hr Q24H IV Last administered on 12/26/18at 08:36; Admin Dose 25 MLS/HR; Start 12/25/18 at 11:00 Epoetin Ever-epbx (RETACRIT(esrd)) 10,000 unit MoWeFr@17 SC Last administered on 12/25/18at 18:32; Admin Dose 10,000 UNIT; Start 12/25/18 at 17:00 Aspirin (Aspirin) 325 mg DAILY PO Last administered on 12/26/18at 10:09; Admin Dose 325 MG; Start 12/26/18 at 10:00 Insulin Glargine (Lantus) 4 units DAILY@2000 SC ; Start 12/26/18 at 20:00 Metoprolol Tartrate (Lopressor) 50 mg BID PO ; Start 12/26/18 at 16:00 SAGRARIO POLLOCK Dec 26, 2018 15:25
[2018-12-26] MEDS: METOPROLOL 50 MG TAB PO SCH ×2 (17:32→23:16)
[2018-12-26] MEDS ORDERED: INSULIN GLARGINE [LANTus] (100 UNITS/ML) SYG SC SCH (20:00)
[2018-12-26] MEDS: ATORVASTATIN 80 MG TAB PO SCH (20:58)
[2018-12-26] MEDS: IBUPROFEN 200 MG TAB NGT SCH (22:00)
[2018-12-27] VITALS (24 sets, daily range): BP systolic 133–196; BP diastolic 20–73; PULSE 18–86; RESP 16–18
[2018-12-27] MEDS: LANSOPRAZOLE 30 MG CAP GTB SCH ×2 (05:16→17:26)
[2018-12-27] MEDS: IBUPROFEN 200 MG TAB NGT SCH ×3 (06:00→22:00)
[2018-12-27] MEDS: DEXTROSE 5%-0.45% NACL 1,000 ML IV SCH (06:39)
[2018-12-27] MEDS: INSULIN ASPART [NOVOLOG] 3 ML PEN SC SCH ×4 (08:03→20:43)
--- NOTE | 2018-12-27 08:30 | PN ---
DATE: 12/27/2018 SUBJECTIVE: The patient was transferred from intensive care unit to telemetry. The patient still re emily confused. No other acute events noted. No hemoptysis, hematemesis or hematochezia. OBJECTIVE: VITAL SIGNS: Blood pressure is 145/63, respirations 16, pulse 78, temperature 97.8. HEENT: Head is normocephalic. NECK: Supple. HEART: Regular rate. LUNGS: Show diminished breath sounds at the base. ABDOMEN: Soft, nontender to palpation without rebound or guarding. EXTREMITIES: Negative for clubbing, cyanosis. Trace edema. DERMATOLOGIC: No rashes. MUSCULOSKELETAL: No joint effusion. NEUROLOGIC: No change in exam. MEDICATIONS: Reviewed. LABORATORY DATA: Reviewed from 12/27/2018. ASSESSMENT AND PLAN: 1. Coronary artery disease, status post 4-vessel CABG. The patient is currently stable. Continue t o monitor. 2. Post-CABG, pericarditis. Continue NSAIDs, being tapered down per cardiology. 3. Status post cardiac arrest. Etiology is likely respiratory. The patient is currently hemodynami raghavendra stable. 4. Sepsis secondary to healthcare-associated pneumonia, clinically improving. The patient is comple ting antibiotic course. 5. Respiratory failure, status post extubation, currently stable, improving. Continue medical manag ement. Follow up with pulmonary. Continue bronchodilators. 6. End-stage renal disease. Plan is for hemodialysis today. 7. Anemia. Monitor hemoglobin and hematocrit levels. 8. Mineral bone disorder, monitor calcium and phosphorus levels. 9. Diabetes. Continue current insulin regimen. 10. Dyslipidemia. Continue statin therapy. 11. Volume overload, improving. Continue ultrafiltration with dialysis. 12. Acute encephalopathy, etiology is toxic metabolic, possible anoxic injury. The patient remains confused. Continue to monitor. 13. Dysphagia. Continue swallow evaluation. Continue modified diet. 14. History of intracranial aneurysm. Continue to monitor. 15. Status post shock. 16. Gastrointestinal and deep vein thrombosis prophylaxis. DISPOSITION: The patient is pending [facility] transfer. If [facility] does not accept the patient, we will consider transfer to a half-way facility. Dictated By: JAKY HOU DO NR/NTS Conf#: [id number] DID#: [id number] CC: ROSARIO MONROE MD; SAGRARIO POLLOCK MD;*EndCC*
[2018-12-27] MEDS: HEPARIN 1000 UNITS/ML 10 ML INJ CATHETER PRN (10:21)
[2018-12-27] MEDS: MEROPENEM 500MG/50 ML (PMX) 50 ML IVPB SCH (11:13)
[2018-12-27] MEDS: ASPIRIN 325 MG TAB PO SCH (11:13)
[2018-12-27] MEDS: BALSAM PERU/CASTOR OIL 60 GM TUBE TOP SCH ×2 (11:14→20:31)
[2018-12-27] MEDS: METOPROLOL 50 MG TAB PO SCH ×2 (11:14→20:32)
--- NOTE | 2018-12-27 11:57 | CONS ---
Assessment/Plan Assessment/Plan Hospital Course (Demo Recall) Tx to tele, awake, looks comfortable, no fevers Antimicrobials: Merrem Indwelling: Right upper extremity PICC line, left femoral Anam Physical examination: Well-developed chronically ill-appearing elderly man who is intubated in no distress. Head atraumatic normocephalic sclera nonicteric vehicle mucosa dry neck is supple chest rise symmetrical breath sounds with crackles. Heart S1-S2 abdomen soft bowel sounds hypoactive extremities cyanotic Assessment: 1. S/p sepsis with shock 2. S/p Healthcare associated pneumonia, possibly aspirated 3. Acute respiratory failure, status post extubation 4. Non-ST elevation RI status post CABG 12/15/18 5. 5. End-stage renal disease, hemodialysis dependent 6. Anemia Plan: Remains stable, continue present care, discontinue antibiotics and observe Consultation Date/Type/Reason Admit Date/Time Dec 13, 2018 at 12:40 Initial Consult Date 12/16/18 Type of Consult id Date/Time of Note DATE: 12/27/18 TIME: 11:56 Exam/Review of Systems Exam Vitals Vital Signs Date Temp Pulse Resp B/P (MAP) Pulse Ox O2 O2 Flow FiO2 Time Delivery Rate 12/27/18 98.1 83 16 142/65 98 11:04 (90) 12/27/18 Room Air 08:31 12/24/18 2.0 20:00 12/24/18 21 18:12 Intake and Output 12/26/18 12/26/18 12/27/18 1414:59 22:59 06:59 IntakeIntake Total 310 ml 100 ml OutputOutput Total 0 ml BalanceBalance 310 ml 100 ml Results Result Diagram: 12/27/18 0547 12/27/18 0547 Results 24hrs Laboratory Tests Test 12/26/18 12:51 12/26/18 17:28 12/26/18 20:55 12/27/18 05:47 Bedside Glucose 222 H 195 213 White Blood Count 10.2 Red Blood Count 3.15 L Hemoglobin 9.2 L Hematocrit 29.6 L Mean Corpuscular Volume 94.0 Mean Corpuscular 29.2 Hemoglobin Mean Corpuscular 31.1 L Hemoglobin Concent Red Cell Distribution 16.6 H Width Platelet Count 241 Mean Platelet Volume 11.0 H Immature Granulocytes % 1.000 H Neutrophils % 73.6 Lymphocytes % 10.9 L Monocytes % 11.2 H Eosinophils % 2.9 Basophils % 0.4 Nucleated Red Blood 0.0 Cells % Immature Granulocytes # 0.100 H Neutrophils # 7.5 Lymphocytes # 1.1 Monocytes # 1.1 H Eosinophils # 0.3 Basophils # 0.0 Nucleated Red Blood 0.0 Cells # Sodium Level 139 Potassium Level 4.0 Chloride Level 98 Carbon Dioxide Level 24 Anion Gap 17 H Blood Urea Nitrogen 84 H Creatinine 9.03 H Est Glomerular Filtrat Rate mL/min Glucose Level 193 Calcium Level 8.6 Phosphorus Level 6.8 H Magnesium Level 2.7 H Test 12/27/18 08:00 12/27/18 11:42 Bedside Glucose 157 152 Medications Medication Current Medications Atorvastatin Calcium (Lipitor) 80 mg HS PO Last administered on 12/26/18 20:58; Admin Dose 80 MG; Start 12/13/18 at 21:00 Miscellaneous Information (* Miscellaneous Pharmacy Order) Treatment of Hypoglycemia: 1.BG 51... Per protocol XX ; Start 12/15/18 at 12:30 Dextrose (D50w Syringe) 25 ml Q15M PRN IV .DECREASED GLUCOSE; Start 12/15/18 at 12:30 Dextrose (D50w Syringe) 50 ml Q15M PRN IV .DECREASED GLUCOSE; Start 12/15/18 at 12:30 Heparin Sodium (Porcine) (Heparin (1000 Units/ml)) 3,000 unit PRN PRN CATHETER Dialysis Last administered on 12/27/18at 10:21; Admin Dose 3,000 UNIT; Start 12/17/18 at 19:00 Meropenem/Sodium Chloride 50 ml @ 100 mls/hr Q12 IVPB Last administered on 12/27/18at 11:13; Admin Dose 100 MLS/HR; Start 12/20/18 at 21:00 Alteplase, Recombinant (Cathflo (Activase)) 4 mg MAY REPEAT X1 PRN CATHETER IF CATHETER REMAINS OCCULUDED Last administered on 12/20/18at 17:54; Admin Dose 4 MG; Start 12/20/18 at 17:00 Lansoprazole (Prevacid) 30 mg BID@0600,1800 GTB Last administered on 12/27/18 05:16; Admin Dose 30 MG; Start 12/22/18 at 06:00 Albumin Human 100 ml @ 100 mls/hr DURING DIALYSIS PRN IV NOTE Last administered on 12/22/18at 14:06; Admin Dose 100 MLS/HR; Start 12/22/18 at 12:30 Miscellaneous Information 1 ea NOTE XX ; Start 12/24/18 at 10:30 Glucose (Glutose) 15 gm Q15M PRN PO DECREASED GLUCOSE; Start 12/24/18 at 10:30 Glucose (Glutose) 22.5 gm Q15M PRN PO DECREASED GLUCOSE; Start 12/24/18 at 10:30 Dextrose (D50w Syringe) 25 ml Q15M PRN IV DECREASED GLUCOSE; Start 12/24/18 at 10:30 Dextrose (D50w Syringe) 50 ml Q15M PRN IV DECREASED GLUCOSE; Start 12/24/18 at 10:30 Glucagon (Glucagen) 1 mg Q15M PRN IM DECREASED GLUCOSE; Start 12/24/18 at 10:30 Glucose (Glutose) 15 gm Q15M PRN BUCCAL DECREASED GLUCOSE; Start 12/24/18 at 10:30 Epoetin Ever-epbx (RETACRIT(esrd)) 10,000 unit MoWeFr@17 SC Last administered on 12/25/18at 18:32; Admin Dose 10,000 UNIT; Start 12/25/18 at 17:00 Aspirin (Aspirin) 325 mg DAILY PO Last administered on 12/27/18at 11:13; Admin Dose 325 MG; Start 12/26/18 at 10:00 Metoprolol Tartrate (Lopressor) 50 mg BID PO Last administered on 12/27/18at 11:14; Admin Dose 50 MG; Start 12/26/18 at 16:00 Ibuprofen (Motrin) 200 mg Q8 NGT ; Start 12/26/18 at 22:00 Insulin Aspart (Novolog Insulin Pen) NOVOLOG *MILD* ALGORITHM WITH MEALS BEDTIME SC Last administered on 12/27/18at 11:45; Admin Dose 1 UNIT; Start 12/26/18 at 21:00 Insulin Glargine (Lantus) 6 units DAILY@2000 SC ; Start 12/27/18 at 20:00 LASHELL LYNCH NP Dec 27, 2018 11:57
--- NOTE | 2018-12-27 12:16 | CONS ---
Consult Date/Type/Reason Admit Date/Time Dec 13, 2018 at 12:40 Initial Consult Date 12/16/18 Type of Consult Pulmonary Date/Time of Note DATE: 12/27/18 TIME: 12:15 Subjective Patient stable this morning continues to improve daily. Objective Vital Signs Date Temp Pulse Resp B/P (MAP) Pulse Ox O2 O2 Flow FiO2 Time Delivery Rate 12/27/18 98.1 83 16 142/65 98 11:04 (90) 12/27/18 Room Air 08:31 12/24/18 2.0 20:00 12/24/18 21 18:12 Intake and Output 12/26/18 12/26/18 12/27/18 1515:00 23:00 07:00 IntakeIntake Total 310 ml 75 ml OutputOutput Total 0 ml BalanceBalance 310 ml 75 ml Exam GENERAL: VITAL SIGNS: per chart NECK: Supple. No JVD or lymphadenopathy. CARDIAC EXAM: S1, S2. No added sounds or murmurs. CHEST: clear bilaterally, No added sounds, rales or wheezes ABDOMEN: Soft, nontender. No guarding or rebound. EXTREMITIES: No cyanosis, clubbing or edema. NEUROLOGIC: Generalized weakness. No focal deficits. Vent Setting Ventilator Support Mode: CPAP, PS Fraction of Inspired Oxygen pe: 21 Positive End Expiratory Pressu: 5.0 Results/Medications Result Diagram: 12/27/18 0547 12/27/18 0547 Results 24 hrs Laboratory Tests Test 12/26/18 12:51 12/26/18 17:28 12/26/18 20:55 12/27/18 05:47 Bedside Glucose 222 H 195 213 White Blood Count 10.2 Red Blood Count 3.15 L Hemoglobin 9.2 L Hematocrit 29.6 L Mean Corpuscular Volume 94.0 Mean Corpuscular 29.2 Hemoglobin Mean Corpuscular 31.1 L Hemoglobin Concent Red Cell Distribution 16.6 H Width Platelet Count 241 Mean Platelet Volume 11.0 H Immature Granulocytes % 1.000 H Neutrophils % 73.6 Lymphocytes % 10.9 L Monocytes % 11.2 H Eosinophils % 2.9 Basophils % 0.4 Nucleated Red Blood 0.0 Cells % Immature Granulocytes # 0.100 H Neutrophils # 7.5 Lymphocytes # 1.1 Monocytes # 1.1 H Eosinophils # 0.3 Basophils # 0.0 Nucleated Red Blood 0.0 Cells # Sodium Level 139 Potassium Level 4.0 Chloride Level 98 Carbon Dioxide Level 24 Anion Gap 17 H Blood Urea Nitrogen 84 H Creatinine 9.03 H Est Glomerular Filtrat Rate mL/min Glucose Level 193 Calcium Level 8.6 Phosphorus Level 6.8 H Magnesium Level 2.7 H Test 12/27/18 08:00 12/27/18 11:42 Bedside Glucose 157 152 Medications Current Medications Atorvastatin Calcium (Lipitor) 80 mg HS PO Last administered on 12/26/18at 20:58; Admin Dose 80 MG; Start 12/13/18 at 21:00 Miscellaneous Information (* Miscellaneous Pharmacy Order) Treatment of Hypoglycemia: 1.BG 51... Per protocol XX ; Start 12/15/18 at 12:30 Dextrose (D50w Syringe) 25 ml Q15M PRN IV .DECREASED GLUCOSE; Start 12/15/18 at 12:30 Dextrose (D50w Syringe) 50 ml Q15M PRN IV .DECREASED GLUCOSE; Start 12/15/18 at 12:30 Heparin Sodium (Porcine) (Heparin (1000 Units/ml)) 3,000 unit PRN PRN CATHETER Dialysis Last administered on 12/27/18at 10:21; Admin Dose 3,000 UNIT; Start 12/17/18 at 19:00 Alteplase, Recombinant (Cathflo (Activase)) 4 mg MAY REPEAT X1 PRN CATHETER IF CATHETER REMAINS OCCULUDED Last administered on 12/20/18at 17:54; Admin Dose 4 MG ; Start 12/20/18 at 17:00 Lansoprazole (Prevacid) 30 mg BID@0600,1800 GTB Last administered on 12/27/18at 05:16; Admin Dose 30 MG; Start 12/22/18 at 06:00 Albumin Human 100 ml @ 100 mls/hr DURING DIALYSIS PRN IV NOTE Last administered on 12/22/18at 14:06; Admin Dose 100 MLS/HR; Start 12/22/18 at 12:30 Miscellaneous Information 1 ea NOTE XX ; Start 12/24/18 at 10:30 Glucose (Glutose) 15 gm Q15M PRN PO DECREASED GLUCOSE; Start 12/24/18 at 10:30 Glucose (Glutose) 22.5 gm Q15M PRN PO DECREASED GLUCOSE; Start 12/24/18 at 10:30 Dextrose (D50w Syringe) 25 ml Q15M PRN IV DECREASED GLUCOSE; Start 12/24/18 at 10:30 Dextrose (D50w Syringe) 50 ml Q15M PRN IV DECREASED GLUCOSE; Start 12/24/18 at 10:30 Glucagon (Glucagen) 1 mg Q15M PRN IM DECREASED GLUCOSE; Start 12/24/18 at 10:30 Glucose (Glutose) 15 gm Q15M PRN BUCCAL DECREASED GLUCOSE; Start 12/24/18 at 10:30 Epoetin Ever-epbx (RETACRIT(esrd)) 10,000 unit MoWeFr@17 SC Last administered on 12/25/18at 18:32; Admin Dose 10,000 UNIT; Start 12/25/18 at 17:00 Aspirin (Aspirin) 325 mg DAILY PO Last administered on 12/27/18at 11:13; Admin Dose 325 MG; Start 12/26/18 at 10:00 Metoprolol Tartrate (Lopressor) 50 mg BID PO Last administered on 12/27/18at 11:14; Admin Dose 50 MG; Start 12/26/18 at 16:00 Ibuprofen (Motrin) 200 mg Q8 NGT ; Start 12/26/18 at 22:00 Insulin Aspart (Novolog Insulin Pen) NOVOLOG *MILD* ALGORITHM WITH MEALS BEDTIME SC Last administered on 12/27/18at 11:45; Admin Dose 1 UNIT; Start 12/26/18 at 21:00 Insulin Glargine (Lantus) 6 units DAILY@2000 SC ; Start 12/27/18 at 20:00 Assessment/Plan Hospital Course (Demo Recall) IMP: 1. Hypercapnic Respiratory Failure--s/p extubation post CABG. Possibly due to a combination of volume overload and sedation. Reintubation x2. Now safely extubated, improving from pulmonary standpoint 2. Status post coronary artery bypass graft surgery 3. Status post cardiogenic shock 4. CHF/CAD 5. ESRD on HD 6. Anemia 7. LLL Atelectasis/infiltrate 8. Encephalopathy toxic metabolic, resolving 9. Dysphagia likely secondary to prolonged extubation encephalopathy RECS: 1. Aspiration precautions, speech therapy recommendations 2. Continue hemodialysis with UF 3. PT evaluation DC planning okay from pulmonary standpoint ROSARIO MONROE MD, FCCP Dec 27, 2018 12:16
--- NOTE | 2018-12-27 14:23 | CONS ---
Assessment/Plan Assessment/Plan Hospital Course (Demo Recall) Post CABG Pericarditis: diffuse ST elevation on EKG, rub on exam, and echo with normal EF and wall motion. Mild trops 0.8 as expected. Rub resolved Status post PEA arrest - primary event appears to be respiratory distress, hypoxia, and resultant bradycardia; ROSC after brief CPR 12/18 Acute hypoxic respiratory failure - failed extubation twice including 12/18/2018, extubated again 12/23 and doing well Acute on chronic diastolic heart failure: euvolemic now Possible pneumonia - on antibiotics Coronary artery disease - status post CABG x4 (CHENG-LAD, SVG-PDA, SVG-diag-OM) on 12/15/2018 Status post NSTEMI Hypertension End-stage renal disease - on hemodialysis -metoprolol 50mg BID -ASA 325mg daily -ibuprofen 200mg TID, can stop at the end of the week -prevacid BID -continue atorvastatin 80mg -HD per nephrology -ok for dispo planning Consultation Date/Type/Reason Admit Date/Time Dec 13, 2018 at 12:40 Initial Consult Date Type of Consult Cardiology Date/Time of Note DATE: 12/27/18 TIME: 14:21 24 HR Interval Summary Free Text/Dictation No events. Doing well. Exam/Review of Systems Exam Vitals Vital Signs Date Temp Pulse Resp B/P (MAP) Pulse Ox O2 O2 Flow FiO2 Time Delivery Rate 12/27/18 82 12:00 12/27/18 98.1 16 142/65 98 11:04 (90) 12/27/18 Room Air 08:31 12/24/18 2.0 20:00 12/24/18 21 18:12 Intake and Output 12/26/18 12/26/18 12/27/18 1414:59 22:59 06:59 IntakeIntake Total 310 ml 100 ml OutputOutput Total 0 ml BalanceBalance 310 ml 100 ml Constitutional: alert, oriented Psych: no complaints, nl mood/affect Neck: No jvd Respiratory: diminished breath sounds; No clear to auscultation Cardiovascular: regular rate and rhythm, systolic murmur (2/6 EDNA); No edema Gastrointestinal: soft, non-tender; No distended Neurological: nl mental status, nl speech Results Result Diagram: 12/27/18 0547 12/27/18 0547 Results 24hrs Laboratory Tests Test 12/26/18 17:28 12/26/18 20:55 12/27/18 05:47 12/27/18 08:00 Bedside Glucose 195 213 157 White Blood Count 10.2 Red Blood Count 3.15 L Hemoglobin 9.2 L Hematocrit 29.6 L Mean Corpuscular Volume 94.0 Mean Corpuscular 29.2 Hemoglobin Mean Corpuscular 31.1 L Hemoglobin Concent Red Cell Distribution 16.6 H Width Platelet Count 241 Mean Platelet Volume 11.0 H Immature Granulocytes % 1.000 H Neutrophils % 73.6 Lymphocytes % 10.9 L Monocytes % 11.2 H Eosinophils % 2.9 Basophils % 0.4 Nucleated Red Blood 0.0 Cells % Immature Granulocytes # 0.100 H Neutrophils # 7.5 Lymphocytes # 1.1 Monocytes # 1.1 H Eosinophils # 0.3 Basophils # 0.0 Nucleated Red Blood 0.0 Cells # Sodium Level 139 Potassium Level 4.0 Chloride Level 98 Carbon Dioxide Level 24 Anion Gap 17 H Blood Urea Nitrogen 84 H Creatinine 9.03 H Est Glomerular Filtrat Rate mL/min Glucose Level 193 Calcium Level 8.6 Phosphorus Level 6.8 H Magnesium Level 2.7 H Test 12/27/18 11:42 Bedside Glucose 152 Medications Medication Current Medications Atorvastatin Calcium (Lipitor) 80 mg HS PO Last administered on 12/26/18at 20:58; Admin Dose 80 MG; Start 12/13/18 at 21:00 Miscellaneous Information (* Miscellaneous Pharmacy Order) Treatment of Hypoglycemia: 1.BG 51... Per protocol XX ; Start 12/15/18 at 12:30 Dextrose (D50w Syringe) 25 ml Q15M PRN IV .DECREASED GLUCOSE; Start 12/15/18 at 12:30 Dextrose (D50w Syringe) 50 ml Q15M PRN IV .DECREASED GLUCOSE; Start 12/15/18 at 12:30 Heparin Sodium (Porcine) (Heparin (1000 Units/ml)) 3,000 unit PRN PRN CATHETER Dialysis Last administered on 12/27/18at 10:21; Admin Dose 3,000 UNIT; Start 12/17/18 at 19:00 Alteplase, Recombinant (Cathflo (Activase)) 4 mg MAY REPEAT X1 PRN CATHETER IF CATHETER REMAINS OCCULUDED Last administered on 12/20/18at 17:54; Admin Dose 4 MG; Start 12/20/18 at 17:00 Lansoprazole (Prevacid) 30 mg BID@0600,1800 GTB Last administered on 12/27/18at 05:16; Admin Dose 30 MG; Start 12/22/18 at 06:00 Albumin Human 100 ml @ 100 mls/hr DURING DIALYSIS PRN IV NOTE Last administered on 12/22/18at 14:06; Admin Dose 100 MLS/HR; Start 12/22/18 at 12:30 Miscellaneous Information 1 ea NOTE XX ; Start 12/24/18 at 10:30 Glucose (Glutose) 15 gm Q15M PRN PO DECREASED GLUCOSE; Start 12/24/18 at 10:30 Glucose (Glutose) 22.5 gm Q15M PRN PO DECREASED GLUCOSE; Start 12/24/18 at 10:30 Dextrose (D50w Syringe) 25 ml Q15M PRN IV DECREASED GLUCOSE; Start 12/24/18 at 10:30 Dextrose (D50w Syringe) 50 ml Q15M PRN IV DECREASED GLUCOSE; Start 12/24/18 at 10:30 Glucagon (Glucagen) 1 mg Q15M PRN IM DECREASED GLUCOSE; Start 12/24/18 at 10:30 Glucose (Glutose) 15 gm Q15M PRN BUCCAL DECREASED GLUCOSE; Start 12/24/18 at 10:30 Epoetin Ever-epbx (RETACRIT(esrd)) 10,000 unit MoWeFr@17 SC Last administered on 12/25/18at 18:32; Admin Dose 10,000 UNIT; Start 12/25/18 at 17:00 Aspirin (Aspirin) 325 mg DAILY PO Last administered on 12/27/18 11:13; Admin Dose 325 MG; Start 12/26/18 at 10:00 Metoprolol Tartrate (Lopressor) 50 mg BID PO Last administered on 12/27/18 11:14; Admin Dose 50 MG; Start 12/26/18 at 16:00 Ibuprofen (Motrin) 200 mg Q8 NGT Last administered on 12/27/18 13:44; Admin Dose 200 MG; Start 12/26/18 at 22:00 Insulin Aspart (Novolog Insulin Pen) NOVOLOG *MILD* ALGORITHM WITH MEALS BEDTIME SC Last administered on 12/27/18 11:45; Admin Dose 1 UNIT; Start 12/26/18 at 21:00 Insulin Glargine (Lantus) 6 units DAILY@2000 SC ; Start 12/27/18 at 20:00 SAGRARIO POLLOCK Dec 27, 2018 14:23
[2018-12-27] MEDS: EPOETIN ALFA-EPBX (ESRD) 10,000 UNIT/ML VIAL SC SCH (17:37)
[2018-12-27] MEDS: ATORVASTATIN 80 MG TAB PO SCH (20:31)
[2018-12-27] MEDS: INSULIN GLARGINE [LANTus] (100 UNITS/ML) SYG SC SCH (20:43)
[2018-12-28] VITALS (12 sets, daily range): BP systolic 130–143; BP diastolic 57–69; PULSE 67–79; RESP 17–18
[2018-12-28] MEDS: IBUPROFEN 200 MG TAB NGT SCH ×3 (05:17→22:00)
[2018-12-28] MEDS: LANSOPRAZOLE 30 MG CAP GTB SCH ×2 (05:17→17:10)
[2018-12-28] MEDS ORDERED: EPINEPHrine 0.1 MG/ML SYG ONE (07:00)
[2018-12-28] MEDS: INSULIN ASPART [NOVOLOG] 3 ML PEN SC SCH ×4 (08:03→21:00)
[2018-12-28] MEDS: ASPIRIN 325 MG TAB PO SCH (08:19)
[2018-12-28] MEDS: METOPROLOL 50 MG TAB PO SCH ×2 (08:19→22:37)
--- NOTE | 2018-12-28 10:35 | PN ---
DATE: 12/28/2018 SUBJECTIVE: The patient is stable, still remains confused. No other events noted overnight. No fev er, chills, nausea, or vomiting. OBJECTIVE: VITAL SIGNS: Blood pressure is 130/62, respirations 18, pulse 74, temperature 98.0. HEENT: Head is normocephalic. NECK: Supple. HEART: Regular rate. LUNGS: Show diminished breath sounds at the base. ABDOMEN: Soft, nontender to palpation without rebound or guarding. EXTREMITIES: Negative for clubbing, cyanosis, no edema. DERMATOLOGIC: No rashes. MUSCULOSKELETAL: No joint effusion. NEUROLOGIC: No change in exam. MEDICATIONS: Reviewed. LABORATORY DATA: Reviewed. ASSESSMENT AND PLAN: 1. Coronary artery disease, status post 4-vessel CABG. The patient is currently stable. Continue t o monitor. 2. Post-CABG, pericarditis, continue NSAIDs being tapered down per cardiology. 3. Sepsis secondary to healthcare-associated pneumonia, improving. The patient is completing antibi otic course. 4. Respiratory failure, status post extubation, currently stable on room air. 5. End-stage renal disease. Plan is for hemodialysis tomorrow. 6. Anemia. Monitor hemoglobin and hematocrit levels. Continue Epogen. 7. Mineral bone disorder, monitor calcium and phosphorus levels. Continue phosphate binders. 8. Diabetes. Continue current insulin regimen. 9. Dyslipidemia. Continue statin therapy. 10. Acute encephalopathy. Etiology is toxic metabolic, possible anoxic injury. Continue to monitor . The patient remains confused. 11. Dysphagia. Continue modified diet. 12. History of intracranial aneurysm. 13. Status post shock. 14. Status post cardiac arrest. DISPOSITION: Attempting to have the patient [facility] in a [facility] facility. We will follow up with family. Dictated By: JAKY HOU DO NR/NTS Conf#: [id number] DID#: [id number] CC: SAGRARIO POLLOCK MD; ROSARIO MONROE MD;*End*
--- NOTE | 2018-12-28 10:58 | CONS ---
Consult Date/Type/Reason Admit Date/Time Dec 13, 2018 at 12:40 Initial Consult Date 12/16/18 Type of Consult Pulmonary Date/Time of Note DATE: 12/28/18 TIME: 10:57 Subjective Comfortable this morning. Objective Vital Signs Date Temp Pulse Resp B/P (MAP) Pulse Ox O2 O2 Flow FiO2 Time Delivery Rate 12/28/18 76 08:15 12/28/18 98.0 18 130/62 95 07:45 (84) 12/27/18 Room Air 08:31 12/24/18 2.0 20:00 12/24/18 21 18:12 Intake and Output 12/27/18 12/27/18 12/28/18 1515:00 23:00 07:00 IntakeIntake Total 250 ml 120 ml OutputOutput Total 2600 ml BalanceBalance -2600 ml 250 ml 120 ml Exam GENERAL: VITAL SIGNS: per chart NECK: Supple. No JVD or lymphadenopathy. CARDIAC EXAM: S1, S2. No added sounds or murmurs. CHEST: clear bilaterally, No added sounds, rales or wheezes ABDOMEN: Soft, nontender. No guarding or rebound. EXTREMITIES: No cyanosis, clubbing or edema. NEUROLOGIC: Generalized weakness. No focal deficits. Vent Setting Ventilator Support Mode: CPAP, PS Fraction of Inspired Oxygen pe: 21 Positive End Expiratory Pressu: 5.0 Results/Medications Result Diagram: 12/28/18 0515 12/28/18 0515 Results 24 hrs Laboratory Tests Test 12/27/18 11:42 12/27/18 17:13 12/27/18 20:29 12/28/18 05:15 Bedside Glucose 152 161 212 White Blood Count 10.1 Red Blood Count 3.20 L Hemoglobin 9.3 L Hematocrit 30.0 L Mean Corpuscular Volume 93.8 Mean Corpuscular 29.1 Hemoglobin Mean Corpuscular 31.0 L Hemoglobin Concent Red Cell Distribution 16.7 H Width Platelet Count 245 Mean Platelet Volume 10.8 H Immature Granulocytes % 0.900 H Neutrophils % 73.5 Lymphocytes % 11.0 L Monocytes % 10.9 Eosinophils % 3.2 Basophils % 0.5 Nucleated Red Blood 0.0 Cells % Immature Granulocytes # 0.090 H Neutrophils # 7.4 Lymphocytes # 1.1 Monocytes # 1.1 H Eosinophils # 0.3 Basophils # 0.1 Nucleated Red Blood 0.0 Cells # Sodium Level 139 Potassium Level 4.1 Chloride Level 99 Carbon Dioxide Level 24 Anion Gap 16 H Blood Urea Nitrogen 67 H Creatinine 7.76 H Est Glomerular Filtrat Rate mL/min Glucose Level 157 Calcium Level 8.4 Phosphorus Level 6.2 H Magnesium Level 2.6 H Test 12/28/18 08:00 Bedside Glucose 178 Medications Current Medications Atorvastatin Calcium (Lipitor) 80 mg HS PO Last administered on 12/27/18at 20:31; Admin Dose 80 MG; Start 12/13/18 at 21:00 Miscellaneous Information (* Miscellaneous Pharmacy Order) Treatment of Hypoglycemia: 1.BG 51... Per protocol XX ; Start 12/15/18 at 12:30 Dextrose (D50w Syringe) 25 ml Q15M PRN IV .DECREASED GLUCOSE; Start 12/15/18 at 12:30 Dextrose (D50w Syringe) 50 ml Q15M PRN IV .DECREASED GLUCOSE; Start 12/15/18 at 12:30 Heparin Sodium (Porcine) (Heparin (1000 Units/ml)) 3,000 unit PRN PRN CATHETER Dialysis Last administered on 12/27/18at 10:21; Admin Dose 3,000 UNIT; Start 12/17/18 at 19:00 Alteplase, Recombinant (Cathflo (Activase)) 4 mg MAY REPEAT X1 PRN CATHETER IF CATHETER REMAINS OCCULUDED Last administered on 12/20/18at 17:54; Admin Dose 4 MG; Start 12/20/18 at 17:00 Lansoprazole (Prevacid) 30 mg BID@0600,1800 GTB Last administered on 12/28/18at 05:17; Admin Dose 30 MG; Start 12/22/18 at 06:00 Albumin Human 100 ml @ 100 mls/hr DURING DIALYSIS PRN IV NOTE Last administered on 12/22/18at 14:06; Admin Dose 100 MLS/HR; Start 12/22/18 at 12:30 Miscellaneous Information 1 ea NOTE XX ; Start 12/24/18 at 10:30 Glucose (Glutose) 15 gm Q15M PRN PO DECREASED GLUCOSE; Start 12/24/18 at 10:30 Glucose (Glutose) 22.5 gm Q15M PRN PO DECREASED GLUCOSE; Start 12/24/18 at 10:30 Dextrose (D50w Syringe) 25 ml Q15M PRN IV DECREASED GLUCOSE; Start 12/24/18 at 10:30 Dextrose (D50w Syringe) 50 ml Q15M PRN IV DECREASED GLUCOSE; Start 12/24/18 at 10:30 Glucagon (Glucagen) 1 mg Q15M PRN IM DECREASED GLUCOSE; Start 12/24/18 at 10:30 Glucose (Glutose) 15 gm Q15M PRN BUCCAL DECREASED GLUCOSE; Start 12/24/18 at 10:30 Epoetin Ever-epbx (RETACRIT(esrd)) 10,000 unit MoWeFr@17 SC Last administered on 12/27/18at 17:37; Admin Dose 10,000 UNIT; Start 12/25/18 at 17:00 Aspirin (Aspirin) 325 mg DAILY PO Last administered on 12/28/18 08:19; Admin Dose 325 MG; Start 12/26/18 at 10:00 Metoprolol Tartrate (Lopressor) 50 mg BID PO Last administered on 12/28/18 08:19; Admin Dose 50 MG; Start 12/26/18 at 16:00 Ibuprofen (Motrin) 200 mg Q8 NGT Last administered on 12/28/18at 05:17; Admin Dose 200 MG; Start 12/26/18 at 22:00 Insulin Aspart (Novolog Insulin Pen) NOVOLOG *MILD* ALGORITHM WITH MEALS BEDTIME SC Last administered on 12/28/18at 08:03; Admin Dose 1 UNIT; Start at 21:00 Insulin Glargine (Lantus) 6 units DAILY@2000 SC Last administered on 12/27/18at 20:43; Admin Dose 6 UNITS; Start 12/27/18 at 20:00 Sevelamer Carbonate (Renvela) 800 mg WITH MEALS PO ; Start 12/28/18 at 12:00 Assessment/Plan Hospital Course (Demo Recall) IMP: 1. Hypercapnic Respiratory Failure--s/p extubation post CABG. Possibly due to a combination of volume overload and sedation. Reintubation x2. Now safely extubated, improving from pulmonary standpoint 2. Status post coronary artery bypass graft surgery 3. Status post cardiogenic shock 4. CHF/CAD 5. ESRD on HD 6. Anemia 7. LLL Atelectasis/infiltrate 8. Encephalopathy toxic metabolic, resolving 9. Dysphagia likely secondary to prolonged extubation encephalopathy RECS: 1. Aspiration precautions, speech therapy recommendations 2. Continue hemodialysis with UF 3. PT evaluation DC planning okay from pulmonary standpoint ROSARIO MONROE MD, FCCP Dec 28, 2018 10:58
[2018-12-28] MEDS: SEVELAMER CARBONATE 800 MG TABLET PO SCH ×2 (12:02→17:10)
--- NOTE | 2018-12-28 13:04 | CONS ---
Assessment/Plan Assessment/Plan Hospital Course (Demo Recall) No events, looks comfortable, no fevers Antimicrobials: none Indwelling: Right upper extremity PICC line, left femoral Anam Physical examination: Well-developed chronically ill-appearing elderly man who is intubated in no distress. Head atraumatic normocephalic sclera nonicteric vehicle mucosa dry neck is supple chest rise symmetrical breath sounds with crackles. Heart S1-S2 abdomen soft bowel sounds hypoactive extremities cyanotic Assessment: 1. S/p sepsis with shock 2. S/p Healthcare associated pneumonia, possibly aspirated 3. Acute respiratory failure, status post extubation 4. Non-ST elevation [place] status post CABG 12/15/18 5. 5. End-stage renal disease, hemodialysis dependent 6. Anemia Plan: Remains stable, off abx, continue present care, reculture prn Consultation Date/Type/Reason Admit Date/Time Dec 13, 2018 at 12:40 Initial Consult Date 12/16/18 Type of Consult id Date/Time of Note DATE: 12/28/18 TIME: 13:03 Exam/Review of Systems Exam Vitals Vital Signs Date Temp Pulse Resp B/P (MAP) Pulse Ox O2 O2 Flow FiO2 Time Delivery Rate 12/28/18 67 12:33 12/28/18 98.2 18 136/69 97 10:58 (91) 12/27/18 Room Air 08:31 12/24/18 2.0 20:00 12/24/18 21 18:12 Intake and Output 12/27/18 12/27/18 12/28/18 1414:59 22:59 06:59 IntakeIntake Total 250 ml 120 ml OutputOutput Total 2600 ml BalanceBalance -2600 ml 250 ml 120 ml Results Result Diagram: 12/28/18 0515 12/28/18 0515 Results 24hrs Laboratory Tests Test 12/27/18 17:13 12/27/18 20:29 12/28/18 05:15 12/28/18 08:00 Bedside Glucose 161 212 178 White Blood Count 10.1 Red Blood Count 3.20 L Hemoglobin 9.3 L Hematocrit 30.0 L Mean Corpuscular Volume 93.8 Mean Corpuscular 29.1 Hemoglobin Mean Corpuscular 31.0 L Hemoglobin Concent Red Cell Distribution 16.7 H Width Platelet Count 245 Mean Platelet Volume 10.8 H Immature Granulocytes % 0.900 H Neutrophils % 73.5 Lymphocytes % 11.0 L Monocytes % 10.9 Eosinophils % 3.2 Basophils % 0.5 Nucleated Red Blood 0.0 Cells % Immature Granulocytes # 0.090 H Neutrophils # 7.4 Lymphocytes # 1.1 Monocytes # 1.1 H Eosinophils # 0.3 Basophils # 0.1 Nucleated Red Blood 0.0 Cells # Sodium Level 139 Potassium Level 4.1 Chloride Level 99 Carbon Dioxide Level 24 Anion Gap 16 H Blood Urea Nitrogen 67 H Creatinine 7.76 H Est Glomerular Filtrat Rate mL/min Glucose Level 157 Calcium Level 8.4 Phosphorus Level 6.2 H Magnesium Level 2.6 H Test 12/28/18 11:54 Bedside Glucose 166 Medications Medication Current Medications Atorvastatin Calcium (Lipitor) 80 mg HS PO Last administered on 12/27/18 20:31; Admin Dose 80 MG; Start 12/13/18 at 21:00 Miscellaneous Information (* Miscellaneous Pharmacy Order) Treatment of Hypoglycemia: 1.BG 51... Per protocol XX ; Start 12/15/18 at 12:30 Dextrose (D50w Syringe) 25 ml Q15M PRN IV .DECREASED GLUCOSE; Start 12/15/18 at 12:30 Dextrose (D50w Syringe) 50 ml Q15M PRN IV .DECREASED GLUCOSE; Start 12/15/18 at 12:30 Heparin Sodium (Porcine) (Heparin (1000 Units/ml)) 3,000 unit PRN PRN CATHETER Dialysis Last administered on 12/27/18at 10:21; Admin Dose 3,000 UNIT; Start 12/17/18 at 19:00 Alteplase, Recombinant (Cathflo (Activase)) 4 mg MAY REPEAT X1 PRN CATHETER IF CATHETER REMAINS OCCULUDED Last administered on 12/20/18at 17:54; Admin Dose 4 MG; Start 12/20/18 at 17:00 Lansoprazole (Prevacid) 30 mg BID@0600,1800 GTB Last administered on 12/28/18at 05:17; Admin Dose 30 MG; Start 12/22/18 at 06:00 Albumin Human 100 ml @ 100 mls/hr DURING DIALYSIS PRN IV NOTE Last administered on 12/22/18at 14:06; Admin Dose 100 MLS/HR; Start 12/22/18 at 12:30 Miscellaneous Information 1 ea NOTE XX ; Start 12/24/18 at 10:30 Glucose (Glutose) 15 gm Q15M PRN PO DECREASED GLUCOSE; Start 12/24/18 at 10:30 Glucose (Glutose) 22.5 gm Q15M PRN PO DECREASED GLUCOSE; Start 12/24/18 at 10:30 Dextrose (D50w Syringe) 25 ml Q15M PRN IV DECREASED GLUCOSE; Start 12/24/18 at 10:30 Dextrose (D50w Syringe) 50 ml Q15M PRN IV DECREASED GLUCOSE; Start 12/24/18 at 10:30 Glucagon (Glucagen) 1 mg Q15M PRN IM DECREASED GLUCOSE; Start 12/24/18 at 10:30 Glucose (Glutose) 15 gm Q15M PRN BUCCAL DECREASED GLUCOSE; Start 12/24/18 at 10:30 Epoetin Ever-epbx (RETACRIT(esrd)) 10,000 unit MoWeFr@17 SC Last administered on 12/27/18at 17:37; Admin Dose 10,000 UNIT; Start 12/25/18 at 17:00 Aspirin (Aspirin) 325 mg DAILY PO Last administered on 12/28/18 08:19; Admin Dose 325 MG; Start 12/26/18 at 10:00 Metoprolol Tartrate (Lopressor) 50 mg BID PO Last administered on 12/28/18 08:19; Admin Dose 50 MG; Start 12/26/18 at 16:00 Ibuprofen (Motrin) 200 mg Q8 NGT Last administered on 12/28/18at 05:17; Admin Dose 200 MG; Start 12/26/18 at 22:00 Insulin Aspart (Novolog Insulin Pen) NOVOLOG *MILD* ALGORITHM WITH MEALS BEDTIME SC Last administered on 12/28/18at 11:58; Admin Dose 1 UNIT; Start 12/26/18 at 21:00 Insulin Glargine (Lantus) 6 units DAILY@2000 SC Last administered on 12/27/18at 20:43; Admin Dose 6 UNITS; Start 12/27/18 at 20:00 Sevelamer Carbonate (Renvela) 800 mg WITH MEALS PO Last administered on 12/28/18at 12:02; Admin Dose 800 MG; Start 12/28/18 at 12:00 LASHELL LYNCH NP Dec 28, 2018 13:04
[2018-12-28] MEDS: BALSAM PERU/CASTOR OIL 60 GM TUBE TOP SCH ×2 (14:54→21:00)
--- NOTE | 2018-12-28 15:57 | CONS ---
Assessment/Plan Assessment/Plan Hospital Course (Demo Recall) Post CABG Pericarditis: diffuse ST elevation on EKG, rub on exam, and echo with normal EF and wall motion. Mild trops 0.8 as expected. Rub resolved Status post PEA arrest - primary event appears to be respiratory distress, hypoxia, and resultant bradycardia; ROSC after brief CPR 12/18 Acute hypoxic respiratory failure - failed extubation twice including 12/18/2018, extubated again 12/23 and doing well Acute on chronic diastolic heart failure: euvolemic now Possible pneumonia - on antibiotics Coronary artery disease - status post CABG x4 (CHENG-LAD, SVG-PDA, SVG-diag-OM) on 12/15/2018 Status post NSTEMI Hypertension End-stage renal disease - on hemodialysis Likely anoxic brain injury -metoprolol 50mg BID -ASA 325mg daily -ibuprofen 200mg TID, can stop at the end of the week -prevacid BID -continue atorvastatin 80mg -HD per nephrology Consultation Date/Type/Reason Admit Date/Time Dec 13, 2018 at 12:40 Initial Consult Date Type of Consult Cardiology Date/Time of Note DATE: 12/28/18 TIME: 15:56 24 HR Interval Summary Free Text/Dictation No events. Remains confused. Family concerned. No sedatives given. Exam/Review of Systems Exam Vitals Vital Signs Date Temp Pulse Resp B/P (MAP) Pulse Ox O2 O2 Flow FiO2 Time Delivery Rate 12/28/18 97.7 73 18 135/68 98 15:28 (90) 12/27/18 Room Air 08:31 12/24/18 2.0 20:00 12/24/18 21 18:12 Intake and Output 12/27/18 12/27/18 12/28/18 1515:00 23:00 07:00 IntakeIntake Total 250 ml 120 ml OutputOutput Total 2600 ml BalanceBalance -2600 ml 250 ml 120 ml Constitutional: alert; No oriented Head: normocephalic, atraumatic Neck: supple; No jvd Respiratory: diminished breath sounds; No clear to auscultation Cardiovascular: regular rate and rhythm, systolic murmur (2/6 EDNA); No edema Gastrointestinal: soft, non-tender; No distended Results Result Diagram: 12/28/18 0515 12/28/18 0515 Results 24hrs Laboratory Tests Test 12/27/18 17:13 12/27/18 20:29 12/28/18 05:15 12/28/18 08:00 Bedside Glucose 161 212 178 White Blood Count 10.1 Red Blood Count 3.20 L Hemoglobin 9.3 L Hematocrit 30.0 L Mean Corpuscular Volume 93.8 Mean Corpuscular 29.1 Hemoglobin Mean Corpuscular 31.0 L Hemoglobin Concent Red Cell Distribution 16.7 H Width Platelet Count 245 Mean Platelet Volume 10.8 H Immature Granulocytes % 0.900 H Neutrophils % 73.5 Lymphocytes % 11.0 L Monocytes % 10.9 Eosinophils % 3.2 Basophils % 0.5 Nucleated Red Blood 0.0 Cells % Immature Granulocytes # 0.090 H Neutrophils # 7.4 Lymphocytes # 1.1 Monocytes # 1.1 H Eosinophils # 0.3 Basophils # 0.1 Nucleated Red Blood 0.0 Cells # Sodium Level 139 Potassium Level 4.1 Chloride Level 99 Carbon Dioxide Level 24 Anion Gap 16 H Blood Urea Nitrogen 67 H Creatinine 7.76 H Est Glomerular Filtrat Rate mL/min Glucose Level 157 Calcium Level 8.4 Phosphorus Level 6.2 H Magnesium Level 2.6 H Test 12/28/18 11:54 Bedside Glucose 166 Medications Medication Current Medications Atorvastatin Calcium (Lipitor) 80 mg HS PO Last administered on 12/27/18at 20:31; Admin Dose 80 MG; Start 12/13/18 at 21:00 Miscellaneous Information (* Miscellaneous Pharmacy Order) Treatment of Hypoglycemia: 1.BG 51... Per protocol XX ; Start 12/15/18 at 12:30 Dextrose (D50w Syringe) 25 ml Q15M PRN IV .DECREASED GLUCOSE; Start 12/15/18 at 12:30 Dextrose (D50w Syringe) 50 ml Q15M PRN IV .DECREASED GLUCOSE; Start 12/15/18 at 12:30 Heparin Sodium (Porcine) (Heparin (1000 Units/ml)) 3,000 unit PRN PRN CATHETER Dialysis Last administered on 12/27/18at 10:21; Admin Dose 3,000 UNIT; Start 12/17/18 at 19:00 Alteplase, Recombinant (Cathflo (Activase)) 4 mg MAY REPEAT X1 PRN CATHETER IF CATHETER REMAINS OCCULUDED Last administered on 12/20/18at 17:54; Admin Dose 4 MG; Start 12/20/18 at 17:00 Lansoprazole (Prevacid) 30 mg BID@0600,1800 GTB Last administered on 12/28/18at 05:17; Admin Dose 30 MG; Start 12/22/18 at 06:00 Albumin Human 100 ml @ 100 mls/hr DURING DIALYSIS PRN IV NOTE Last administered on 12/22/18at 14:06; Admin Dose 100 MLS/HR; Start 12/22/18 at 12:30 Miscellaneous Information 1 ea NOTE XX ; Start 12/24/18 at 10:30 Glucose (Glutose) 15 gm Q15M PRN PO DECREASED GLUCOSE; Start 12/24/18 at 10:30 Glucose (Glutose) 22.5 gm Q15M PRN PO DECREASED GLUCOSE; Start 12/24/18 at 10:30 Dextrose (D50w Syringe) 25 ml Q15M PRN IV DECREASED GLUCOSE; Start 12/24/18 at 10:30 Dextrose (D50w Syringe) 50 ml Q15M PRN IV DECREASED GLUCOSE; Start 12/24/18 at 10:30 Glucagon (Glucagen) 1 mg Q15M PRN IM DECREASED GLUCOSE; Start 12/24/18 at 10:30 Glucose (Glutose) 15 gm Q15M PRN BUCCAL DECREASED GLUCOSE; Start 12/24/18 at 10:30 Epoetin Ever-epbx (RETACRIT(esrd)) 10,000 unit MoWeFr@17 SC Last administered on 12/27/18at 17:37; Admin Dose 10,000 UNIT; Start 12/25/18 at 17:00 Aspirin (Aspirin) 325 mg DAILY PO Last administered on 12/28/18at 08:19; Admin Dose 325 MG; Start 12/26/18 at 10:00 Metoprolol Tartrate (Lopressor) 50 mg BID PO Last administered on 12/28/18 08:19; Admin Dose 50 MG; Start 12/26/18 at 16:00 Ibuprofen (Motrin) 200 mg Q8 NGT Last administered on 12/28/18 05:17; Admin Dose 200 MG; Start 12/26/18 at 22:00 Insulin Aspart (Novolog Insulin Pen) NOVOLOG *MILD* ALGORITHM WITH MEALS BEDT BERTA SC Last administered on 12/28/18at 11:58; Admin Dose 1 UNIT; Start 4/2/19 at 21:00 Insulin Glargine (Lantus) 6 units DAILY@2000 SC Last administered on 12/27/18at 20:43; Admin Dose 6 UNITS; Start 12/27/18 at 20:00 Sevelamer Carbonate (Renvela) 800 mg WITH MEALS PO Last administered on 12/28/18at 12:02; Admin Dose 800 MG; Start 12/28/18 at 12:00 SAGRARIO POLLOCK Dec 28, 2018 15:57
[2018-12-28] MEDS: INSULIN GLARGINE [LANTus] (100 UNITS/ML) SYG SC SCH (20:42)
[2018-12-28] MEDS ORDERED: DEXTROSE 5%-0.45% NACL 1,000 ML IV SCH (22:30)
[2018-12-28] MEDS: ATORVASTATIN 80 MG TAB PO SCH (22:37)
[2018-12-29] VITALS (25 sets, daily range): BP systolic 143–180; BP diastolic 56–92; PULSE 72–91; RESP 18–24
[2018-12-29] MEDS: IBUPROFEN 200 MG TAB NGT SCH ×2 (05:29→14:00)
[2018-12-29] MEDS: LANSOPRAZOLE 30 MG CAP GTB SCH ×2 (05:29→17:30)
[2018-12-29] MEDS ORDERED: ACETAMINOPHEN 650 MG SUPP PR PRN (07:30)
[2018-12-29] MEDS: INSULIN ASPART [NOVOLOG] 3 ML PEN SC SCH ×4 (07:56→20:50)
[2018-12-29] MEDS: DEXTROSE 5%-0.45% NACL 1,000 ML IV SCH (07:56)
[2018-12-29] MEDS: SEVELAMER CARBONATE 800 MG TABLET PO SCH ×3 (08:00→17:31)
[2018-12-29] MEDS ORDERED: METOPROLOL 5 MG INJ IV PRN (08:00)
[2018-12-29] MEDS: METOPROLOL 50 MG TAB PO SCH ×2 (08:13→20:46)
[2018-12-29] MEDS: ASPIRIN 325 MG TAB PO SCH (08:14)
--- NOTE | 2018-12-29 09:20 | PN ---
DATE: 12/29/2018 SUBJECTIVE: The patient last night was noted to have possibility of aspiration. The patient was mad e n.p.o., a swallow evaluation was placed. Patient still remains confused. No other events noted. OBJECTIVE: VITAL SIGNS: Blood pressure is 172/75, respirations 24, pulse 82, temperature 98.1. HEENT: Head is normocephalic. NECK: Supple. HEART: Regular rate. LUNGS: Show diminished breath sounds at the base. ABDOMEN: Soft, nontender to palpation without rebound or guarding. EXTREMITIES: Negative for clubbing, cyanosis, no edema. DERMATOLOGIC: No rashes. MUSCULOSKELETAL: No joint effusions. NEUROLOGIC: Limited exam. MEDICATIONS: Reviewed. LABORATORY DATA: From 12/28/2018 was reviewed. ASSESSMENT AND PLAN: 1. Coronary artery disease, status post 4-vessel CABG. Patient is currently stable. Continue to mo nitor. 2. Dysphagia. The patient with possible aspiration. Currently, patient is n.p.o. A swallow evalua tion has been placed. The patient on gentle IV fluids for nutrition. Will monitor closely. 4. Post-CABG pericarditis. The patient is clinically improving. Continue NSAIDs per cardiology. 5. Sepsis secondary to healthcare-associated pneumonia. The patient has completed an antibiotic cou rse. 6. Respiratory failure, status post extubation, currently stable on room air. 7. End-stage renal disease. Patient scheduled for dialysis today. 8. Anemia. Monitor H and H levels. Continue Epogen. 9. Mineral bone disorder, monitor calcium and phosphorus levels. 10. Diabetes. Continue current insulin regimen. 11. Dyslipidemia. Continue statin therapy. 12. Acute encephalopathy. Etiology may be secondary to anoxic injury following cardiac arrest, seps is, toxic metabolic. Continue to monitor. A neurology consult will be placed for further evaluation. 13. Dysphagia. 14. History of intracranial aneurysm. 15. Status post shock. 16. Status post cardiac arrest. DISPOSITION: The patient is pending for possible transfer to [facility] once clinical ly stable. Dictated By: JAKY HOU DO NR/NTS Conf#: [id number] DID#: [id number] CC: SAGRARIO POLLOCK MD; ROSARIO MONROE MD;*End*
[2018-12-29] MEDS: HEPARIN 1000 UNITS/ML 10 ML INJ CATHETER PRN (10:49)
[2018-12-29] MEDS: ASPIRIN 300 MG SUPP PR SCH (11:59)
--- NOTE | 2018-12-29 12:59 | CONS ---
Consult Date/Type/Reason Admit Date/Time Dec 13, 2018 at 12:40 Initial Consult Date 12/16/18 Type of Consult Pulmonary Date/Time of Note DATE: 12/29/18 TIME: 12:59 Subjective Patient is lethargic following hemodialysis today. Objective Vital Signs Date Temp Pulse Resp B/P (MAP) Pulse Ox O2 O2 Flow FiO2 Time Delivery Rate 12/29/18 87 12:00 12/29/18 Nasal 2.0 10:59 Cannula 12/29/18 98.0 20 149/72 99 10:57 (97) Intake and Output 12/28/18 12/28/18 12/29/18 1515:00 23:00 07:00 IntakeIntake Total 200 ml 0 ml OutputOutput Total 0 ml BalanceBalance 200 ml 0 ml Exam GENERAL: VITAL SIGNS: per chart NECK: Supple. No JVD or lymphadenopathy. CARDIAC EXAM: S1, S2. No added sounds or murmurs. CHEST: clear bilaterally, No added sounds, rales or wheezes ABDOMEN: Soft, nontender. No guarding or rebound. EXTREMITIES: No cyanosis, clubbing or edema. NEUROLOGIC: Generalized weakness. No focal deficits. Vent Setting Ventilator Support Mode: CPAP, PS Fraction of Inspired Oxygen pe: 21 Positive End Expiratory Pressu: 5.0 Results/Medications Result Diagram: 12/28/18 0515 12/28/1815 Results 24 hrs Laboratory Tests Test 12/28/18 16:54 12/28/18 20:35 12/29/18 02:20 12/29/18 07:51 Bedside Glucose 156 164 147 152 Test 12/29/18 11:39 Bedside Glucose 112 Medications Current Medications Atorvastatin Calcium (Lipitor) 80 mg HS PO Last administered on 12/27/18at 20:31; Admin Dose 80 MG; Start 12/13/18 at 21:00 Miscellaneous Information (* Miscellaneous Pharmacy Order) Treatment of Hypoglycemia: 1.BG 51... Per protocol XX ; Start 12/15/18 at 12:30 Dextrose (D50w Syringe) 25 ml Q15M PRN IV .DECREASED GLUCOSE; Start 12/15/18 at 12:30 Dextrose (D50w Syringe) 50 ml Q15M PRN IV .DECREASED GLUCOSE; Start 12/15/18 at 12:30 Heparin Sodium (Porcine) (Heparin (1000 Units/ml)) 3,000 unit PRN PRN CATHETER Dialysis Last administered on 12/29/18at 10:49; Admin Dose 3,000 UNIT; Start 12/17/18 at 19:00 Alteplase, Recombinant (Cathflo (Activase)) 4 mg MAY REPEAT X1 PRN CATHETER IF CATHETER REMAINS OCCULUDED Last administered on 12/20/18at 17:54; Admin Dose 4 MG; Start 12/20/18 at 17:00 Lansoprazole (Prevacid) 30 mg BID@0600,1800 GTB Last administered on 12/28/18at 17:10; Admin Dose 30 MG; Start 12/22/18 at 06:00 Albumin Human 100 ml @ 100 mls/hr DURING DIALYSIS PRN IV NOTE Last administered on 12/22/18at 14:06; Admin Dose 100 MLS/HR; Start 12/22/18 at 12:30 Miscellaneous Information 1 ea NOTE XX ; Start 12/24/18 at 10:30 Glucose (Glutose) 15 gm Q15M PRN PO DECREASED GLUCOSE; Start 12/24/18 at 10:30 Glucose (Glutose) 22.5 gm Q15M PRN PO DECREASED GLUCOSE; Start 12/24/18 at 10:30 Dextrose (D50w Syringe) 25 ml Q15M PRN IV DECREASED GLUCOSE; Start 12/24/18 at 10:30 Dextrose (D50w Syringe) 50 ml Q15M PRN IV DECREASED GLUCOSE; Start 12/24/18 at 10:30 Glucagon (Glucagen) 1 mg Q15M PRN IM DECREASED GLUCOSE; Start 12/24/18 at 10:30 Glucose (Glutose) 15 gm Q15M PRN BUCCAL DECREASED GLUCOSE; Start 12/24/18 at 10:30 Epoetin Ever-epbx (RETACRIT(esrd)) 10,000 unit MoWeFr@17 [place] Last administered on 12/27/18at 17:37; Admin Dose 10,000 UNIT; Start 12/25/18 at 17:00 Aspirin (Aspirin) 325 mg DAILY PO Last administered on 12/28/18at 08:19; Admin Dose 325 MG; Start 12/26/18 at 10:00; Status Hold Metoprolol Tartrate (Lopressor) 50 mg BID PO Last administered on 12/28/18at 0 8:19; Admin Dose 50 MG; Start 12/26/18 at 16:00 Ibuprofen (Motrin) 200 mg Q8 NGT Last administered on 12/28/18 05:17; Admin Dose 200 MG; Start 12/26/18 at 22:00 Insulin Aspart (Novolog Insulin Pen) NOVOLOG *MILD* ALGORITHM WITH MEALS BEDTIME SC Last administered on 12/29/18 07:56; Admin Dose 1 UNIT; Start 12/26/18 at 21:00 Insulin Glargine (Lantus) 6 units DAILY@2000 [place] Last administered on 12/28/18 20:42; Admin Dose 6 UNITS; Start 12/27/18 at 20:00 Sevelamer Carbonate (Renvela) 800 mg WITH MEALS PO Last administered on 12/28/18 17:10; Admin Dose 800 MG; Start 12/28/18 at 12:00 Acetaminophen (Tylenol Supp) 650 mg Q6H PRN [place] PAIN; Start 12/29/18 at 07:30 Dextrose/Sodium Chloride 1,000 ml @ 30 mls/hr Q24H IV Last administered on 12/29/18 07:56; Admin Dose 30 MLS/HR; Start 12/29/18 at 07:30 Metoprolol Tartrate (Lopressor) 5 mg Q6H PRN IV ELEVATED BLOOD PRESSURE; Start 12/29/18 at 08:00 Aspirin (Aspirin) 300 mg DAILY [place] Last administered on 12/29/18 11:59; Admin Dose 300 MG; Start 12/29/18 at 11:00 Assessment/Plan Hospital Course (Demo Recall) IMP: 1. Hypercapnic Respiratory Failure--s/p extubation post CABG. Possibly due to a combination of volume overload and sedation. Reintubation x2. Now safely extubated, improving from pulmonary standpoint 2. Status post coronary artery bypass graft surgery 3. Status post cardiogenic shock 4. CHF/CAD 5. ESRD on HD 6. Anemia 7. LLL Atelectasis/infiltrate 8. Encephalopathy toxic metabolic, resolving 9. Dysphagia likely secondary to prolonged extubation encephalopathy RECS: 1. Aspiration precautions, speech therapy recommendations 2. Continue hemodialysis with UF 3. PT evaluation ROSARIO MONROE MD, [facility] Dec 29, 2018 12:59
[2018-12-29] MEDS: BALSAM PERU/CASTOR OIL 60 GM TUBE TOP SCH ×2 (13:35→20:50)
--- NOTE | 2018-12-29 15:10 | CONS ---
Assessment/Plan Assessment/Plan Hospital Course (Demo Recall) Post CABG Pericarditis: diffuse ST elevation on EKG, rub on exam, and echo with normal EF and wall motion. Mild trops 0.8 as expected. Rub resolved Status post PEA arrest - primary event appears to be respiratory distress, hypoxia, and resultant bradycardia; ROSC after brief CPR 12/18 Acute hypoxic respiratory failure - failed extubation twice including 12/18/2018, extubated again 12/23 and doing well Acute on chronic diastolic heart failure: euvolemic now Possible pneumonia - on antibiotics Coronary artery disease - status post CABG x4 (CHENG-LAD, SVG-PDA, SVG-diag-OM) on 12/15/2018 Status post NSTEMI Hypertension End-stage renal disease - on hemodialysis Likely anoxic brain injury Dysphagia -ASA IN for now, then 325mg PO when access available -when able to take PO restart metoprolol 50mg BID -continue atorvastatin 80mg -d/c ibuprofen 200mg -HD per nephrology Consultation Date/Type/Reason Admit Date/Time Dec 13, 2018 at 12:40 Initial Consult Date Type of Consult Cardiology Date/Time of Note DATE: 12/29/18 TIME: 15:08 24 HR Interval Summary Free Text/Dictation Failed swallow eval again and at risk for aspiration so NPO again. ASA switched to rectal Exam/Review of Systems Vital Signs Vitals Vital Signs Date Temp Pulse Resp B/P (MAP) Pulse Ox O2 O2 Flow FiO2 Time Delivery Rate 12/29/18 87 12:00 12/29/18 Nasal 2.0 10:59 Cannula 12/29/18 98.0 20 149/72 99 10:57 (97) Intake and Output 12/28/18 12/28/18 12/29/18 1515:00 23:00 07:00 IntakeIntake Total 200 ml 0 ml OutputOutput Total 0 ml BalanceBalance 200 ml 0 ml Exam Constitutional: alert; No oriented Head: normocephalic, atraumatic Neck: No jvd Respiratory: diminished breath sounds; No clear to auscultation, No crackles/rales Cardiovascular: regular rate and rhythm; No edema Gastrointestinal: soft, non-tender Neurological: nl mental status; No nl speech Labs Result Diagram: 12/28/18 0515 12/28/18 0515 Results 24hrs Laboratory Tests Test 12/28/18 16:54 12/28/18 20:35 12/29/18 02:20 12/29/18 07:51 Bedside Glucose 156 164 147 152 Test 12/29/18 11:39 Bedside Glucose 112 Medications Medications Current Medications Atorvastatin Calcium (Lipitor) 80 mg HS PO Last administered on 12/27/18at 20:31; Admin Dose 80 MG; Start 12/13/18 at 21:00 Miscellaneous Information (* Miscellaneous Pharmacy Order) Treatment of Hyp oglycemia: 1.BG 51... Per protocol XX ; Start 12/15/18 at 12:30 Dextrose (D50w Syringe) 25 ml Q15M PRN IV .DECREASED GLUCOSE; Start 12/15/18 at 12:30 Dextrose (D50w Syringe) 50 ml Q15M PRN IV .DECREASED GLUCOSE; Start 12/15/18 at 12:30 Heparin Sodium (Porcine) (Heparin (1000 Units/ml)) 3,000 unit PRN PRN CATHETER Dialysis Last administered on 12/29/18at 10:49; Admin Dose 3,000 UNIT; Start 12/17/18 at 19:00 Alteplase, Recombinant (Cathflo (Activase)) 4 mg MAY REPEAT X1 PRN CATHETER IF CATHETER REMAINS OCCULUDED Last administered on 12/20/18at 17:54; Admin Dose 4 MG; Start 12/20/18 at 17:00 Lansoprazole (Prevacid) 30 mg BID@0600,1800 GTB Last administered on 12/28/18at 17:10; Admin Dose 30 MG; Start 12/22/18 at 06:00 Albumin Human 100 ml @ 100 mls/hr DURING DIALYSIS PRN IV NOTE Last administered on 12/22/18at 14:06; Admin Dose 100 MLS/HR; Start 12/22/18 at 12:30 Miscellaneous Information 1 ea NOTE XX ; Start 12/24/18 at 10:30 Glucose (Glutose) 15 gm Q15M PRN PO DECREASED GLUCOSE; Start 12/24/18 at 10:30 Glucose (Glutose) 22.5 gm Q15M PRN PO DECREASED GLUCOSE; Start 12/24/18 at 10:30 Dextrose (D50w Syringe) 25 ml Q15M PRN IV DECREASED GLUCOSE; Start 12/24/18 at 10:30 Dextrose (D50w Syringe) 50 ml Q15M PRN IV DECREASED GLUCOSE; Start 12/24/18 at 10:30 Glucagon (Glucagen) 1 mg Q15M PRN IM DECREASED GLUCOSE; Start 12/24/18 at 10:30 Glucose (Glutose) 15 gm Q15M PRN BUCCAL DECREASED GLUCOSE; Start 12/24/18 at 10:30 Epoetin Ever-epbx (RETACRIT(esrd)) 10,000 unit MoWeFr@17 [place] Last administered on 12/27/18 17:37; Admin Dose 10,000 UNIT; Start 12/25/18 at 17:00 Aspirin (Aspirin) 325 mg DAILY PO Last administered on 12/28/18 08:19; Admin Dose 325 MG; Start 12/26/18 at 10:00; Status Hold Metoprolol Tartrate (Lopressor) 50 mg BID PO Last administered on 12/28/18 08:19; Admin Dose 50 MG; Start 12/26/18 at 16:00 Ibuprofen (Motrin) 200 mg Q8 NGT Last administered on 12/28/18 05:17; Admin Dose 200 MG; Start 12/26/18 at 22:00 Insulin Aspart (Novolog Insulin Pen) NOVOLOG *MILD* ALGORITHM WITH MEALS BEDTIME SC Last administered on 12/29/18 07:56; Admin Dose 1 UNIT; Start 9 at 21:00 Insulin Glargine (Lantus) 6 units DAILY@2000 [place] Last administered on 12/28/18 20:42; Admin Dose 6 UNITS; Start 12/27/18 at 20:00 Sevelamer Carbonate (Renvela) 800 mg WITH MEALS PO Last administered on 12/28/18 17:10; Admin Dose 800 MG; Start 12/28/18 at 12:00 Acetaminophen (Tylenol Supp) 650 mg Q6H PRN [place] PAIN; Start 12/29/18 at 07:30 Dextrose/Sodium Chloride 1,000 ml @ 30 mls/hr Q24H IV Last administered on 12/29/18 07:56; Admin Dose 30 MLS/HR; Start 12/29/18 at 07:30 Metoprolol Tartrate (Lopressor) 5 mg Q6H PRN IV ELEVATED BLOOD PRESSURE; Start 12/29/18 at 08:00 Aspirin (Aspirin) 300 mg DAILY IN Last administered on 4/5/19at 11:59; Admin Dose 300 MG; Start 12/29/18 at 11:00 SAGRARIO POLLOCK Dec 29, 2018 15:10
--- NOTE | 2018-12-29 15:16 | CONS ---
Assessment/Plan Assessment/Plan Hospital Course (Demo Recall) No events, looks comfortable Antimicrobials: none Indwelling: Right upper extremity PICC line, left femoral Anam Physical examination: Well-developed chronically ill-appearing elderly man who is intubated in no distress. Head atraumatic normocephalic sclera nonicteric vehicle mucosa dry neck is supple chest rise symmetrical breath sounds with crackles. Heart S1-S2 abdomen soft bowel sounds hypoactive extremities cyanotic Assessment: 1. S/p sepsis with shock 2. S/p Healthcare associated pneumonia, possibly aspirated 3. Acute respiratory failure, status post extubation 4. Non-ST elevation [place] status post CABG 12/15/18 5. 5. End-stage renal disease, hemodialysis dependent 6. Anemia Plan: Remains stable, off abx, continue present care Consultation Date/Type/Reason Admit Date/Time Dec 13, 2018 at 12:40 Initial Consult Date 12/16/18 Type of Consult id Date/Time of Note DATE: 12/29/18 TIME: 15:16 Exam/Review of Systems Exam Vitals Vital Signs Date Temp Pulse Resp B/P (MAP) Pulse Ox O2 O2 Flow FiO2 Time Delivery Rate 12/29/18 98.6 72 20 143/65 95 15:07 (91) 12/29/18 Nasal 2.0 10:59 Cannula Intake and Output 12/28/18 12/28/18 12/29/18 1515:00 23:00 07:00 IntakeIntake Total 200 ml 0 ml OutputOutput Total 0 ml BalanceBalance 200 ml 0 ml Results Result Diagram: 12/28/18 0515 12/28/18 0515 Results 24hrs Laboratory Tests Test 12/28/18 16:54 12/28/18 20:35 12/29/18 02:20 12/29/18 07:51 Bedside Glucose 156 164 147 152 Test 12/29/18 11:39 Bedside Glucose 112 Medications Medication Current Medications Atorvastatin Calcium (Lipitor) 80 mg HS PO Last administered on 12/27/18at 20:31; Admin Dose 80 MG; Start 12/13/18 at 21:00 Miscellaneous Information (* Miscellaneous Pharmacy Order) Treatment of Hypoglycemia: 1.BG 51... Per protocol XX ; Start 12/15/18 at 12:30 Dextrose (D50w Syringe) 25 ml Q15M PRN IV .DECREASED GLUCOSE; Start 12/15/18 at 12:30 Dextrose (D50w Syringe) 50 ml Q15M PRN IV .DECREASED GLUCOSE; Start 12/15/18 at 12:30 Heparin Sodium (Porcine) (Heparin (1000 Units/ml)) 3,000 unit PRN PRN CATHETER Dialysis Last administered on 12/29/18at 10:49; Admin Dose 3,000 UNIT; Start 12/17/18 at 19:00 Alteplase, Recombinant (Cathflo (Activase)) 4 mg MAY REPEAT X1 PRN CATHETER IF CATHETER REMAINS OCCULUDED Last administered on 12/20/18at 17:54; Admin Dose 4 MG; Start 12/20/18 at 17:00 Lansoprazole (Prevacid) 30 mg BID@0600,1800 GTB Last administered on 12/28/18at 17:10; Admin Dose 30 MG; Start 12/22/18 at 06:00 Albumin Human 100 ml @ 100 mls/hr DURING DIALYSIS PRN IV NOTE Last administered on 12/22/18at 14:06; Admin Dose 100 MLS/HR; Start 12/22/18 at 12:30 Miscellaneous Information 1 ea NOTE XX ; Start 12/24/18 at 10:30 Glucose (Glutose) 15 gm Q15M PRN PO DECREASED GLUCOSE; Start 12/24/18 at 10:30 Glucose (Glutose) 22.5 gm Q15M PRN PO DECREASED GLUCOSE; Start 12/24/18 at 10:30 Dextrose (D50w Syringe) 25 ml Q15M PRN IV DECREASED GLUCOSE; Start 12/24/18 at 10:30 Dextrose (D50w Syringe) 50 ml Q15M PRN IV DECREASED GLUCOSE; Start 12/24/18 at 10:30 Glucagon (Glucagen) 1 mg Q15M PRN IM DECREASED GLUCOSE; Start 12/24/18 at 10:30 Glucose (Glutose) 15 gm Q15M PRN BUCCAL DECREASED GLUCOSE; Start 12/24/18 at 10:30 Epoetin Ever-epbx (RETACRIT(esrd)) 10,000 unit MoWeFr@17 [place] Last administered on 12/27/18at 17:37; Admin Dose 10,000 UNIT; Start 12/25/18 at 17:00 Aspirin (Aspirin) 325 mg DAILY PO Last administered on 12/28/18at 08:19; Admin Dose 325 MG; Start 12/26/18 at 10:00; Status Hold Metoprolol Tartrate (Lopressor) 50 mg BID PO Last administered on 12/28/18 08:19; Admin Dose 50 MG; Start 12/26/18 at 16:00 Insulin Aspart (Novolog Insulin Pen) NOVOLOG *MILD* ALGORITHM WITH MEALS BEDTIME SC Last administered on 12/29/18 07:56; Admin Dose 1 UNIT; Start 12/26/18 at 21:00 Insulin Glargine (Lantus) 6 units DAILY@2000 [place] Last administered on 12/28/18 20:42; Admin Dose 6 UNITS; Start 12/27/18 at 20:00 Sevelamer Carbonate (Renvela) 800 mg WITH MEALS PO Last administered on 12/28/18 17:10; Admin Dose 800 MG; Start 12/28/18 at 12:00 Acetaminophen (Tylenol Supp) 650 mg Q6H PRN [place] PAIN; Start 12/29/18 at 07:30 Dextrose/Sodium Chloride 1,000 ml @ 30 mls/hr Q24H IV Last administered on 12/29/18 07:56; Admin Dose 30 MLS/HR; Start 12/29/18 at 07:30 Metoprolol Tartrate (Lopressor) 5 mg Q6H PRN IV ELEVATED BLOOD PRESSURE; Start 12/29/18 at 08:00 Aspirin (Aspirin) 300 mg DAILY [place] Last administered on 12/29/18 11:59; Admin Dose 300 MG; Start 12/29/18 at 11:00 LASHELL LYNCH NP Dec 29, 2018 15:16
[2018-12-29] MEDS: EPOETIN ALFA-EPBX (ESRD) 10,000 UNIT/ML VIAL SC SCH (17:07)
[2018-12-29] MEDS ORDERED: LORAZEPAM 2 MG INJ IV ONE (20:00)
[2018-12-29] MEDS: INSULIN GLARGINE [LANTus] (100 UNITS/ML) SYG SC SCH (20:46)
[2018-12-29] MEDS: ATORVASTATIN 80 MG TAB PO SCH (20:46)
[2018-12-30] VITALS (12 sets, daily range): BP systolic 110–174; BP diastolic 62–80; PULSE 79–91; RESP 17–20
[2018-12-30] MEDS: LANSOPRAZOLE 30 MG CAP GTB SCH ×2 (06:00→17:08)
[2018-12-30] MEDS: SEVELAMER CARBONATE 800 MG TABLET PO SCH ×3 (07:58→17:08)
[2018-12-30] MEDS: BALSAM PERU/CASTOR OIL 60 GM TUBE TOP SCH ×2 (07:59→21:48)
[2018-12-30] MEDS: METOPROLOL 50 MG TAB PO SCH ×2 (07:59→21:37)
[2018-12-30] MEDS: DEXTROSE 5%-0.45% NACL 1,000 ML IV SCH (08:00)
[2018-12-30] MEDS: ASPIRIN 300 MG SUPP PR SCH (08:14)
[2018-12-30] MEDS: INSULIN ASPART [NOVOLOG] 3 ML PEN SC SCH ×4 (08:19→21:00)
[2018-12-30] MEDS ORDERED: BARIUM SULFATE 135 ML (E-Z HD) PO ONE (10:57)
--- NOTE | 2018-12-30 12:09 | CONS ---
Assessment/Plan Assessment/Plan Assessment/Plan (Daily) 1. Coronary artery disease, status post 4-vessel CABG. Patient is currently stable. Continue to monitor. 2. Dysphagia. The patient with possible aspiration. Currently, patient is n.p.o. A swallow evaluation pending, possibly tuesday? The patient on gentle IV fluids for nutrition. Will monitor closely. 4. Post-CABG pericarditis. The patient is clinically improving. Continue NSAIDs per cardiology. 5. Sepsis secondary to healthcare-associated pneumonia. The patient has completed an antibiotic course. 6. Respiratory failure, status post extubation, currently stable on room air. 7. End-stage renal disease. last HD tuesday. next HD on Tuesday 8. Anemia. Monitor H and H levels. Continue Epogen. 9. Mineral bone disorder, monitor calcium and phosphorus levels. 10. Diabetes. Continue current insulin regimen. 11. Dyslipidemia. Continue statin therapy. 12. Acute encephalopathy. Etiology may be secondary to anoxic injury following cardiac arrest, sepsis, toxic metabolic. Continue to monitor. A neurology consult will be placed for further evaluation. 13. Dysphagia. 14. History of intracranial aneurysm. 15. Status post shock. 16. Status post cardiac arrest. Consultation Date/Type/Reason Admit Date/Time Dec 13, 2018 at 12:40 Initial Consult Date 12/16/18 Date/Time of Note DATE: 12/30/18 TIME: 12:07 24 HR Interval Summary Free Text/Dictation denies shortness of breath requesting to drink water swallow eval not done denies n/v d/w rn gen nad cv rrr pulm rales abd soft, nd, nt +bs ext: no edema Exam/Review of Systems Exam Vitals Vital Signs Date Temp Pulse Resp B/P (MAP) Pulse Ox O2 O2 Flow FiO2 Time Delivery Rate 12/30/18 98.2 91 20 110/62 99 11:40 (78) 12/30/18 Nasal 2.0 07:36 Cannula Intake and Output 12/29/18 12/29/18 12/30/18 1515:00 23:00 07:00 IntakeIntake Total 0 ml 430 ml 330 ml OutputOutput Total 2600 ml 0 ml BalanceBalance -2600 ml 430 ml 330 ml Results Result Diagram: 12/30/18 0543 12/30/18 0543 Results 24hrs Laboratory Tests Test 12/29/18 17:12 12/29/18 20:43 12/30/18 05:43 12/30/18 08:13 Bedside Glucose 137 158 169 White Blood Count 8.8 Red Blood Count 3.49 L Hemoglobin 10.1 L Hematocrit 33.5 L Mean Corpuscular Volume 96.0 Mean Corpuscular 28.9 L Hemoglobin Mean Corpuscular 30.1 L Hemoglobin Concent Red Cell Distribution 17.1 H Width Platelet Count 274 Mean Platelet Volume 10.7 H Immature Granulocytes % 0.600 H Neutrophils % 75.7 Lymphocytes % 10.8 L Monocytes % 10.0 Eosinophils % 2.3 Basophils % 0.6 Nucleated Red Blood 0.0 Cells % Immature Granulocytes # 0.050 H Neutrophils # 6.7 Lymphocytes # 1.0 Monocytes # 0.9 Eosinophils # 0.2 Basophils # 0.1 Nucleated Red Blood 0.0 Cells # Sodium Level 143 Potassium Level 4.2 Chloride Level 102 Carbon Dioxide Level 26 Anion Gap 15 H Blood Urea Nitrogen 53 H Creatinine 6.35 H Est Glomerular Filtrat Rate mL/min Glucose Level 159 Calcium Level 8.5 Phosphorus Level 5.7 H Magnesium Level 2.4 Test 12/30/18 11:59 Bedside Glucose 156 Medications Medication Current Medications Atorvastatin Calcium (Lipitor) 80 mg HS PO Last administered on 12/27/18 20:31; Admin Dose 80 MG; Start 12/13/18 at 21:00 Heparin Sodium (Porcine) (Heparin (1000 Units/ml)) 3,000 unit PRN PRN CATHETER Dialysis Last administered on 12/29/18 10:49; Admin Dose 3,000 UNIT; Start 12/17/18 at 19:00 Alteplase, Recombinant (Cathflo (Activase)) 4 mg MAY REPEAT X1 PRN CATHETER IF CATHETER REMAINS OCCULUDED Last administered on 12/20/18 17:54; Admin Dose 4 MG; Start 12/20/18 at 17:00 Lansoprazole (Prevacid) 30 mg BID@0600,1800 GTB Last administered on 12/28/18 17:10; Admin Dose 30 MG; Start 12/22/18 at 06:00 Albumin Human 100 ml @ 100 mls/hr DURING DIALYSIS PRN IV NOTE Last administered on 12/22/18 14:06; Admin Dose 100 MLS/HR; Start 12/22/18 at 12:30 Miscellaneous Information 1 ea NOTE XX ; Start 12/24/18 at 10:30 Glucose (Glutose) 15 gm Q15M PRN PO DECREASED GLUCOSE; Start 12/24/18 at 10:30 Glucose (Glutose) 22.5 gm Q15M PRN PO DECREASED GLUCOSE; Start 12/24/18 at 10:30 Dextrose (D50w Syringe) 25 ml Q15M PRN IV DECREASED GLUCOSE; Start 12/24/18 at 10:30 Dextrose (D50w Syringe) 50 ml Q15M PRN IV DECREASED GLUCOSE; Start 12/24/18 at 10:30 Glucagon (Glucagen) 1 mg Q15M PRN IM DECREASED GLUCOSE; Start 12/24/18 at 10:30 Glucose (Glutose) 15 gm Q15M PRN BUCCAL DECREASED GLUCOSE; Start 12/24/18 at 10:30 Epoetin Ever-epbx (RETACRIT(esrd)) 10,000 unit MoWeFr@17 SC Last administered on 12/29/18at 17:07; Admin Dose 10,000 UNIT; Start 12/25/18 at 17:00 Aspirin (Aspirin) 325 mg DAILY PO Last administered on 12/28/18 08:19; Admin Dose 325 MG; Start 12/26/18 at 10:00; Status Hold Metoprolol Tartrate (Lopressor) 50 mg BID PO Last administered on 12/28/18 08:19; Admin Dose 50 MG; Start 12/26/18 at 16:00 Insulin Aspart (Novolog Insulin Pen) NOVOLOG *MILD* ALGORITHM WITH MEALS BEDTIME SC Last administered on 12/30/18 08:19; Admin Dose 1 UNIT; Start 12/26/18 at 21:00 Insulin Glargine (Lantus) 6 units DAILY@2000 [place] Last administered on 12/29/18at 20:46; Admin Dose 6 UNITS; Start 12/27/18 at 20:00 Sevelamer Carbonate (Renvela) 800 mg WITH MEALS PO Last administered on 12/28/18 17:10; Admin Dose 800 MG; Start 12/28/18 at 12:00 Acetaminophen (Tylenol Supp) 650 mg Q6H PRN [place] PAIN; Start 12/29/18 at 07:30 Dextrose/Sodium Chloride 1,000 ml @ 30 mls/hr Q24H IV Last administered on 12/30/18at 08:00; Admin Dose 30 MLS/HR; Start 12/29/18 at 07:30 Metoprolol Tartrate (Lopressor) 5 mg Q6H PRN IV ELEVATED BLOOD PRESSURE; Start 12/29/18 at 08:00 Aspirin (Aspirin) 300 mg DAILY [place] Last administered on 12/30/18at 08:14; Admin Dose 300 MG; Start 12/29/18 at 11:00 TEX WILSON MD Dec 30, 2018 12:09
--- NOTE | 2018-12-30 14:16 | CONS ---
Assessment/Plan Assessment/Plan Hospital Course (Demo Recall) Dysphagia Post CABG Pericarditis: diffuse ST elevation on EKG, rub on exam, and echo with normal EF and wall motion. Mild trops 0.8 as expected. Resolved Status post PEA arrest - primary event appears to be respiratory distress, hypoxia, and resultant bradycardia; ROSC after brief CPR 12/18 Acute hypoxic respiratory failure - failed extubation twice including 12/18/2018, extubated again 12/23 and doing well Acute on chronic diastolic heart failure: euvolemic now Possible pneumonia - on antibiotics Coronary artery disease - status post CABG x4 (CHENG-LAD, SVG-PDA, SVG-diag-OM) on 12/15/2018 Status post NSTEMI Hypertension End-stage renal disease - on hemodialysis Likely anoxic brain injury -ASA [place] for now, then 325mg PO when access available -when able to take PO restart metoprolol 50mg BID -continue atorvastatin 80mg -HD per nephrology Consultation Date/Type/Reason Admit Date/Time Dec 13, 2018 at 12:40 Initial Consult Date Type of Consult Cardiology Date/Time of Note DATE: 12/30/18 TIME: 14:15 24 HR Interval Summary Free Text/Dictation Passed video swallow eval but still thought to be at risk so only to be fed with speech therapist per notes Exam/Review of Systems Vital Signs Vitals Vital Signs Date Temp Pulse Resp B/P (MAP) Pulse Ox O2 O2 Flow FiO2 Time Delivery Rate 12/30/18 Nasal 2.0 14:04 Cannula 12/30/18 87 12:01 12/30/18 98.2 20 110/62 99 11:40 (78) Intake and Output 12/29/18 12/29/18 12/30/18 1515:00 23:00 07:00 IntakeIntake Total 0 ml 430 ml 330 ml OutputOutput Total 2600 ml 0 ml BalanceBalance -2600 ml 430 ml 330 ml Exam Constitutional: alert Psych: no complaints, nl mood/affect Head: normocephalic, atraumatic Neck: No jvd Respiratory: diminished breath sounds; No clear to auscultation Cardiovascular: regular rate and rhythm; No edema Gastrointestinal: soft, non-tender; No distended Neurological: nl mental status; No nl speech Labs Result Diagram: 12/30/18 0543 12/30/18 0543 Results 24hrs Laboratory Tests Test 12/29/18 17:12 12/29/18 20:43 12/30/18 05:43 12/30/18 08:13 Bedside Glucose 137 158 169 White Blood Count 8.8 Red Blood Count 3.49 L Hemoglobin 10.1 L Hematocrit 33.5 L Mean Corpuscular Volume 96.0 Mean Corpuscular 28.9 L Hemoglobin Mean Corpuscular 30.1 L Hemoglobin Concent Red Cell Distribution 17.1 H Width Platelet Count 274 Mean Platelet Volume 10.7 H Immature Granulocytes % 0.600 H Neutrophils % 75.7 Lymphocytes % 10.8 L Monocytes % 10.0 Eosinophils % 2.3 Basophils % 0.6 Nucleated Red Blood 0.0 Cells % Immature Granulocytes # 0.050 H Neutrophils # 6.7 Lymphocytes # 1.0 Monocytes # 0.9 Eosinophils # 0.2 Basophils # 0.1 Nucleated Red Blood 0.0 Cells # Sodium Level 143 Potassium Level 4.2 Chloride Level 102 Carbon Dioxide Level 26 Anion Gap 15 H Blood Urea Nitrogen 53 H Creatinine 6.35 H Est Glomerular Filtrat Rate mL/min Glucose Level 159 Calcium Level 8.5 Phosphorus Level 5.7 H Magnesium Level 2.4 Test 12/30/18 11:59 Bedside Glucose 156 Medications Medications Current Medications Atorvastatin Calcium (Lipitor) 80 mg HS PO Last administered on 12/27/18 20:31; Admin Dose 80 MG; Start 12/13/18 at 21:00 Heparin Sodium (Porcine) (Heparin (1000 Units/ml)) 3,000 unit PRN PRN CATHETER Dialysis Last administered on 12/29/18 10:49; Admin Dose 3,000 UNIT; Start 12/17/18 at 19:00 Alteplase, Recombinant (Cathflo (Activase)) 4 mg MAY REPEAT X1 PRN CATHETER IF CATHETER REMAINS OCCULUDED Last administered on 12/20/18 17:54; Admin Dose 4 MG; Start 12/20/18 at 17:00 Lansoprazole (Prevacid) 30 mg BID@0600,1800 GTB Last administered on 12/28/18 17:10; Admin Dose 30 MG; Start 12/22/18 at 06:00 Albumin Human 100 ml @ 100 mls/hr DURING DIALYSIS PRN IV NOTE Last administered on 12/22/18 14:06; Admin Dose 100 MLS/HR; Start 12/22/18 at 12:30 Miscellaneous Information 1 ea NOTE XX ; Start 12/24/18 at 10:30 Glucose (Glutose) 15 gm Q15M PRN PO DECREASED GLUCOSE; Start 12/24/18 at 10:30 Glucose (Glutose) 22.5 gm Q15M PRN PO DECREASED GLUCOSE; Start 12/24/18 at 10:30 Dextrose (D50w Syringe) 25 ml Q15M PRN IV DECREASED GLUCOSE; Start 12/24/18 at 10:30 Dextrose (D50w Syringe) 50 ml Q15M PRN IV DECREASED GLUCOSE; Start 12/24/18 at 10:30 Glucagon (Glucagen) 1 mg Q15M PRN IM DECREASED GLUCOSE; Start 12/24/18 at 10:30 Glucose (Glutose) 15 gm Q15M PRN BUCCAL DECREASED GLUCOSE; Start 12/24/18 at 10:30 Epoetin Ever-epbx (RETACRIT(esrd)) 10,000 unit MoWeFr@17 SC Last administered on 12/29/18at 17:07; Admin Dose 10,000 UNIT; Start 12/25/18 at 17:00 Aspirin (Aspirin) 325 mg DAILY PO Last administered on 12/28/18at 08:19; Admin Dose 325 MG; Start 12/26/18 at 10:00; Status Hold Metoprolol Tartrate (Lopressor) 50 mg BID PO Last administered on 12/28/18 08:19; Admin Dose 50 MG; Start 12/26/18 at 16:00 Insulin Aspart (Novolog Insulin Pen) NOVOLOG *MILD* ALGORITHM WITH MEALS BEDTIME SC Last administered on 12/30/18at 12:31; Admin Dose 1 UNIT; Start 12/26/18 at 21:00 Insulin Glargine (Lantus) 6 units DAILY@2000 SC Last administered on 12/29/18at 20:46; Admin Dose 6 UNITS; Start 12/27/18 at 20:00 Sevelamer Carbonate (Renvela) 800 mg WITH MEALS PO Last administered on 12/28/18at 17:10; Admin Dose 800 MG; Start 12/28/18 at 12:00 Acetaminophen (Tylenol Supp) 650 mg Q6H PRN [place] PAIN; Start 12/29/18 at 07:30 Dextrose/Sodium Chloride 1,000 ml @ 30 mls/hr Q24H IV Last administered on 12/30/18at 08:00; Admin Dose 30 MLS/HR; Start 12/29/18 at 07:30 Metoprolol Tartrate (Lopressor) 5 mg Q6H PRN IV ELEVATED BLOOD PRESSURE; Start 12/29/18 at 08:00 Aspirin (Aspirin) 300 mg DAILY [place] Last administered on 12/30/18at 08:14; Admin Dose 300 MG; Start 12/29/18 at 11:00 SAGRARIO POLLOCK Dec 30, 2018 14:16
--- NOTE | 2018-12-30 14:29 | CONS ---
Consult Date/Type/Reason Admit Date/Time Dec 13, 2018 at 12:40 Initial Consult Date 12/16/18 Type of Consultation: Pulm/CCM Date/Time of Note DATE: 12/30/18 TIME: 14:28 Subjective No events. VSE results noted. Objective Vitals Vital Signs Date Temp Pulse Resp B/P (MAP) Pulse Ox O2 O2 Flow FiO2 Time Delivery Rate 12/30/18 Nasal 2.0 14:04 Cannula 12/30/18 87 12:01 12/30/18 98.2 20 110/62 99 11:40 (78) Intake and Output 12/29/18 12/29/18 12/30/18 1515:00 23:00 07:00 IntakeIntake Total 0 ml 430 ml 330 ml OutputOutput Total 2600 ml 0 ml BalanceBalance -2600 ml 430 ml 330 ml Exam HEENT: Neck supple; no JVD; no LAD CVS: RRR, S1 and S2 CHEST: Coarse BS b/l ABD: Soft, NT, + BS EXT: edema; no c/c Results/Medications Result Diagram: 12/30/18 0543 12/30/18 0543 Results 24 hrs Laboratory Tests Test 12/29/18 17:12 12/29/18 20:43 12/30/18 05:43 12/30/18 08:13 Bedside Glucose 137 158 169 White Blood Count 8.8 Red Blood Count 3.49 L Hemoglobin 10.1 L Hematocrit 33.5 L Mean Corpuscular Volume 96.0 Mean Corpuscular 28.9 L Hemoglobin Mean Corpuscular 30.1 L Hemoglobin Concent Red Cell Distribution 17.1 H Width Platelet Count 274 Mean Platelet Volume 10.7 H Immature Granulocytes % 0.600 H Neutrophils % 75.7 Lymphocytes % 10.8 L Monocytes % 10.0 Eosinophils % 2.3 Basophils % 0.6 Nucleated Red Blood 0.0 Cells % Immature Granulocytes # 0.050 H Neutrophils # 6.7 Lymphocytes # 1.0 Monocytes # 0.9 Eosinophils # 0.2 Basophils # 0.1 Nucleated Red Blood 0.0 Cells # Sodium Level 143 Potassium Level 4.2 Chloride Level 102 Carbon Dioxide Level 26 Anion Gap 15 H Blood Urea Nitrogen 53 H Creatinine 6.35 H Est Glomerular Filtrat Rate mL/min Glucose Level 159 Calcium Level 8.5 Phosphorus Level 5.7 H Magnesium Level 2.4 Test 12/30/18 11:59 Bedside Glucose 156 Home Meds Reported Medications Cholecalciferol* (Vitamin D3*) 1,000 Unit Tablet, 1000 UNIT PO DAILY, TAB 12/18/18 Aspirin (Low Dose Aspirin) 81 Mg Tablet.dr, 81 MG PO DAILY, #30 TAB 12/18/18 Amlodipine Besylate* (Norvasc*) 5 Mg Tablet, 5 MG PO BID, TAB 12/18/18 Hydralazine Hcl* (Hydralazine Hcl*) 25 Mg Tab, 25 MG PO TID, #120 TAB 12/18/18 Medications Current Medications Atorvastatin Calcium (Lipitor) 80 mg HS PO Last administered on 12/27/18at 20:31; Admin Dose 80 MG; Start 12/13/18 at 21:00 Heparin Sodium (Porcine) (Heparin (1000 Units/ml)) 3,000 unit PRN PRN CATHETER Dialysis Last administered on 12/29/18at 10:49; Admin Dose 3,000 UNIT; Start 12/17/18 at 19:00 Alteplase, Recombinant (Cathflo (Activase)) 4 mg MAY REPEAT X1 PRN CATHETER IF CATHETER REMAINS OCCULUDED Last administered on 12/20/18at 17:54; Admin Dose 4 MG; Start 12/20/18 at 17:00 Lansoprazole (Prevacid) 30 mg BID@0600,1800 GTB Last administered on 12/28/18at 17:10; Admin Dose 30 MG; Start 12/22/18 at 06:00 Albumin Human 100 ml @ 100 mls/hr DURING DIALYSIS PRN IV NOTE Last administered on 12/22/18at 14:06; Admin Dose 100 MLS/HR; Start 12/22/18 at 12:30 Miscellaneous Information 1 ea NOTE XX ; Start 12/24/18 at 10:30 Glucose (Glutose) 15 gm Q15M PRN PO DECREASED GLUCOSE; Start 12/24/18 at 10:30 Glucose (Glutose) 22.5 gm Q15M PRN PO DECREASED GLUCOSE; Start 12/24/18 at 10:30 Dextrose (D50w Syringe) 25 ml Q15M PRN IV DECREASED GLUCOSE; Start 12/24/18 at 10:30 Dextrose (D50w Syringe) 50 ml Q15M PRN IV DECREASED GLUCOSE; Start 12/24/18 at 10:30 Glucagon (Glucagen) 1 mg Q15M PRN IM DECREASED GLUCOSE; Start 12/24/18 at 10:30 Glucose (Glutose) 15 gm Q15M PRN BUCCAL DECREASED GLUCOSE; Start 12/24/18 at 10:30 Epoetin Ever-epbx (RETACRIT(esrd)) 10,000 unit MoWeFr@17 SC Last administered on 12/29/18at 17:07; Admin Dose 10,000 UNIT; Start 12/25/18 at 17:00 Aspirin (Aspirin) 325 mg DAILY PO Last administered on 12/28/18 08:19; Admin Dose 325 MG; Start 12/26/18 at 10:00; Status Hold Metoprolol Tartrate (Lopressor) 50 mg BID PO Last administered on 12/28/18 08:19; Admin Dose 50 MG; Start 12/26/18 at 16:00 Insulin Aspart (Novolog Insulin Pen) NOVOLOG *MILD* ALGORITHM WITH MEALS BEDTIME SC Last administered on 12/30/18 12:31; Admin Dose 1 UNIT; Start 12/26/18 at 21:00 Insulin Glargine (Lantus) 6 units DAILY@2000 SC Last administered on 12/29/18at 20:46; Admin Dose 6 UNITS; Start 12/27/18 at 20:00 Sevelamer Carbonate (Renvela) 800 mg WITH MEALS PO Last administered on at 17:10; Admin Dose 800 MG; Start 12/28/18 at 12:00 Acetaminophen (Tylenol Supp) 650 mg Q6H PRN [place] PAIN; Start 12/29/18 at 07:30 Dextrose/Sodium Chloride 1,000 ml @ 30 mls/hr Q24H IV Last administered on 12/30/18at 08:00; Admin Dose 30 MLS/HR; Start 12/29/18 at 07:30 Metoprolol Tartrate (Lopressor) 5 mg Q6H PRN IV ELEVATED BLOOD PRESSURE; Start 12/29/18 at 08:00 Aspirin (Aspirin) 300 mg DAILY [place] Last administered on 12/30/18at 08:14; Admin Dose 300 MG; Start 12/29/18 at 11:00 Assessment/Plan Assessment/Plan (Daily) IMP: 1. Hypercapnic Respiratory Failure--s/p extubation post CABG. Possibly due to a combination of volume overload and sedation. Reintubation x2. Now safely extubated, improving from pulmonary standpoint 2. Status post coronary artery bypass graft surgery 3. Status post cardiogenic shock 4. CHF/CAD 5. ESRD on HD 6. Anemia 7. LLL Atelectasis/infiltrate 8. Encephalopathy toxic metabolic, resolving 9. Dysphagia likely secondary to prolonged extubation encephalopathy RECS: 1. BDs/CPT 2. Continue hemodialysis with UF 3. PT evaluation 4. Aspiration precautions DARIUS GREENBERG MD Dec 30, 2018 14:29
--- NOTE | 2018-12-30 15:15 | CONS ---
Assessment/Plan Assessment/Plan Hospital Course (Demo Recall) All noted. No events, looks comfortable Antimicrobials: none Indwelling: Right upper extremity PICC line, left femoral Anam Physical examination: Well-developed chronically ill-appearing elderly man who is intubated in no distress. Head atraumatic normocephalic sclera nonicteric vehicle mucosa dry neck is supple chest rise symmetrical breath sounds with crackles. Heart S1-S2 abdomen soft bowel sounds hypoactive extremities cyanotic Assessment: 1. S/p sepsis with shock 2. S/p Healthcare associated pneumonia, possibly aspirated 3. Acute respiratory failure, status post extubation 4. Non-ST elevation OK status post CABG 12/15/18 5. 5. End-stage renal disease, hemodialysis dependent 6. Anemia Plan: Remains stable off abx, video swallow eval noted, continue present care, aspiration precautions, HD per renal Consultation Date/Type/Reason Admit Date/Time Dec 13, 2018 at 12:40 Initial Consult Date 12/16/18 Type of Consult id Date/Time of Note DATE: 12/30/18 TIME: 15:14 Exam/Review of Systems Exam Vitals Vital Signs Date Temp Pulse Resp B/P (MAP) Pulse Ox O2 O2 Flow FiO2 Time Delivery Rate 12/30/18 98.5 87 20 174/78 95 15:11 (110) 12/30/18 Nasal 2.0 14:04 Cannula Intake and Output 12/29/18 12/29/18 12/30/18 1515:00 23:00 07:00 IntakeIntake Total 0 ml 430 ml 330 ml OutputOutput Total 2600 ml 0 ml BalanceBalance -2600 ml 430 ml 330 ml Results Result Diagram: 12/30/18 0543 12/30/18 0543 Results 24hrs Laboratory Tests Test 12/29/18 17:12 12/29/18 20:43 12/30/18 05:43 12/30/18 08:13 Bedside Glucose 137 158 169 White Blood Count 8.8 Red Blood Count 3.49 L Hemoglobin 10.1 L Hematocrit 33.5 L Mean Corpuscular Volume 96.0 Mean Corpuscular 28.9 L Hemoglobin Mean Corpuscular 30.1 L Hemoglobin Concent Red Cell Distribution 17.1 H Width Platelet Count 274 Mean Platelet Volume 10.7 H Immature Granulocytes % 0.600 H Neutrophils % 75.7 Lymphocytes % 10.8 L Monocytes % 10.0 Eosinophils % 2.3 Basophils % 0.6 Nucleated Red Blood 0.0 Cells % Immature Granulocytes # 0.050 H Neutrophils # 6.7 Lymphocytes # 1.0 Monocytes # 0.9 Eosinophils # 0.2 Basophils # 0.1 Nucleated Red Blood 0.0 Cells # Sodium Level 143 Potassium Level 4.2 Chloride Level 102 Carbon Dioxide Level 26 Anion Gap 15 H Blood Urea Nitrogen 53 H Creatinine 6.35 H Est Glomerular Filtrat Rate mL/min Glucose Level 159 Calcium Level 8.5 Phosphorus Level 5.7 H Magnesium Level 2.4 Test 12/30/18 11:59 Bedside Glucose 156 Medications Medication Current Medications Atorvastatin Calcium (Lipitor) 80 mg HS PO Last administered on 12/27/18 20:31; Admin Dose 80 MG; Start 12/13/18 at 21:00 Heparin Sodium (Porcine) (Heparin (1000 Units/ml)) 3,000 unit PRN PRN CATHETER Dialysis Last administered on 12/29/18 10:49; Admin Dose 3,000 UNIT; Start 12/17/18 at 19:00 Alteplase, Recombinant (Cathflo (Activase)) 4 mg MAY REPEAT X1 PRN CATHETER IF CATHETER REMAINS OCCULUDED Last administered on 12/20/18at 17:54; Admin Dose 4 MG; Start 12/20/18 at 17:00 Lansoprazole (Prevacid) 30 mg BID@0600,1800 GTB Last administered on 12/28/18 17:10; Admin Dose 30 MG; Start 12/22/18 at 06:00 Albumin Human 100 ml @ 100 mls/hr DURING DIALYSIS PRN IV NOTE Last administered on 12/22/18at 14:06; Admin Dose 100 MLS/HR; Start 12/22/18 at 12:30 Miscellaneous Information 1 ea NOTE XX ; Start 12/24/18 at 10:30 Glucose (Glutose) 15 gm Q15M PRN PO DECREASED GLUCOSE; Start 12/24/18 at 10:30 Glucose (Glutose) 22.5 gm Q15M PRN PO DECREASED GLUCOSE; Start 12/24/18 at 10:30 Dextrose (D50w Syringe) 25 ml Q15M PRN IV DECREASED GLUCOSE; Start 12/24/18 at 10:30 Dextrose (D50w Syringe) 50 ml Q15M PRN IV DECREASED GLUCOSE; Start 12/24/18 at 10:30 Glucagon (Glucagen) 1 mg Q15M PRN IM DECREASED GLUCOSE; Start 12/24/18 at 10:30 Glucose (Glutose) 15 gm Q15M PRN BUCCAL DECREASED GLUCOSE; Start 12/24/18 at 10:30 Epoetin Ever-epbx (RETACRIT(esrd)) 10,000 unit MoWeFr@17 SC Last administered on 12/29/18 17:07; Admin Dose 10,000 UNIT; Start 12/25/18 at 17:00 Aspirin (Aspirin) 325 mg DAILY PO Last administered on 12/28/18 08:19; Admin Dose 325 MG; Start 12/26/18 at 10:00; Status Hold Metoprolol Tartrate (Lopressor) 50 mg BID PO Last administered on 12/28/18 08:19; Admin Dose 50 MG; Start 12/26/18 at 16:00 Insulin Aspart (Novolog Insulin Pen) NOVOLOG *MILD* ALGORITHM WITH MEALS BEDTIME SC Last administered on 12/30/18 12:31; Admin Dose 1 UNIT; Start 12/26/18 at 21:00 Insulin Glargine (Lantus) 6 units DAILY@2000 SC Last administered on 12/29/18 20:46; Admin Dose 6 UNITS; Start 12/27/18 at 20:00 Sevelamer Carbonate (Renvela) 800 mg WITH MEALS PO Last administered on 12/28/18 17:10; Admin Dose 800 MG; Start 12/28/18 at 12:00 Acetaminophen (Tylenol Supp) 650 mg Q6H PRN [place] PAIN; Start 12/29/18 at 07:30 Dextrose/Sodium Chloride 1,000 ml @ 30 mls/hr Q24H IV Last administered on 12/30/18 08:00; Admin Dose 30 MLS/HR; Start 12/29/18 at 07:30 Metoprolol Tartrate (Lopressor) 5 mg Q6H PRN IV ELEVATED BLOOD PRESSURE; Start 12/29/18 at 08:00 Aspirin (Aspirin) 300 mg DAILY [place] Last administered on 12/30/18 08:14; Admin Dose 300 MG; Start 12/29/18 at 11:00 LASHELL LYNCH NP Dec 30, 2018 15:15
[2018-12-30] MEDS: ATORVASTATIN 80 MG TAB PO SCH (21:37)
[2018-12-30] MEDS: INSULIN GLARGINE [LANTus] (100 UNITS/ML) SYG SC SCH (21:48)
[2018-12-31] VITALS (26 sets, daily range): BP systolic 94–182; BP diastolic 48–84; PULSE 75–96; RESP 18–22
[2018-12-31] MEDS: LANSOPRAZOLE 30 MG CAP GTB SCH ×2 (05:36→17:53)
[2018-12-31] MEDS: DEXTROSE 5%-0.45% NACL 1,000 ML IV SCH (07:30)
[2018-12-31] MEDS: SEVELAMER CARBONATE 800 MG TABLET PO SCH ×3 (08:00→17:53)
[2018-12-31] MEDS: ASPIRIN 300 MG SUPP PR SCH ×2 (08:27→12:03)
[2018-12-31] MEDS: BALSAM PERU/CASTOR OIL 60 GM TUBE TOP SCH ×2 (08:27→21:39)
[2018-12-31] MEDS: METOPROLOL 50 MG TAB PO SCH ×2 (08:27→21:24)
[2018-12-31] MEDS: INSULIN ASPART [NOVOLOG] 3 ML PEN SC SCH ×4 (08:34→21:00)
--- NOTE | 2018-12-31 10:19 | CONS ---
Assessment/Plan Assessment/Plan Hospital Course (Demo Recall) Dysphagia Post CABG Pericarditis: diffuse ST elevation on EKG, rub on exam, and echo with normal EF and wall motion. Mild trops 0.8 as expected. Resolved Status post PEA arrest - primary event appears to be respiratory distress, hypoxia, and resultant bradycardia; ROSC after brief CPR 12/18 Acute hypoxic respiratory failure - failed extubation twice including 12/18/2018, extubated again 12/23 and doing well Acute on chronic diastolic heart failure: euvolemic now Possible pneumonia - on antibiotics Coronary artery disease - status post CABG x4 (CHENG-LAD, SVG-PDA, SVG-diag-OM) on 12/15/2018 Status post NSTEMI Hypertension End-stage renal disease - on hemodialysis Likely anoxic brain injury -ASA [place] for now, then 325mg PO when access available -when able to take PO restart metoprolol 50mg BID -continue atorvastatin 80mg -HD per nephrology Consultation Date/Type/Reason Admit Date/Time Dec 13, 2018 at 12:40 Initial Consult Date Type of Consult Cardiology Date/Time of Note DATE: 12/31/18 TIME: 10:18 24 HR Interval Summary Free Text/Dictation No events. Remains NPO Exam/Review of Systems Vital Signs Vitals Vital Signs Date Temp Pulse Resp B/P (MAP) Pulse Ox O2 O2 Flow FiO2 Time Delivery Rate 12/31/18 82 08:01 12/31/18 98.2 20 168/73 94 07:37 (104) 12/30/18 Nasal 2.0 16:28 Cannula Intake and Output 12/30/18 12/30/18 12/31/18 1515:00 23:00 07:00 IntakeIntake Total 390 ml 450 ml BalanceBalance 390 ml 450 ml Exam Constitutional: alert Psych: no complaints, nl mood/affect Neck: supple; No jvd Respiratory: diminished breath sounds; No clear to auscultation Cardiovascular: regular rate and rhythm; No edema Gastrointestinal: soft, non-tender; No distended Neurological: nl mental status; No nl speech Labs Result Diagram: 12/31/18 0535 12/31/18 0535 Results 24hrs Laboratory Tests Test 12/30/18 11:59 12/30/18 17:07 12/30/18 21:40 12/31/18 05:35 Bedside Glucose 156 166 139 White Blood Count 8.1 Red Blood Count 3.41 L Hemoglobin 10.1 L Hematocrit 32.9 L Mean Corpuscular Volume 96.5 Mean Corpuscular 29.6 Hemoglobin Mean Corpuscular 30.7 L Hemoglobin Concent Red Cell Distribution 16.5 H Width Platelet Count 259 Mean Platelet Volume 10.7 H Immature Granulocytes % 0.600 H Neutrophils % 73.5 Lymphocytes % 12.1 L Monocytes % 9.9 Eosinophils % 3.0 Basophils % 0.9 Nucleated Red Blood 0.0 Cells % Immature Granulocytes # 0.050 H Neutrophils # 6.0 Lymphocytes # 1.0 Monocytes # 0.8 Eosinophils # 0.2 Basophils # 0.1 Nucleated Red Blood 0.0 Cells # Sodium Level 143 Potassium Level 4.0 Chloride Level 102 Carbon Dioxide Level 25 Anion Gap 16 H Blood Urea Nitrogen 64 H Creatinine 7.55 H Est Glomerular Filtrat Rate mL/min Glucose Level 172 Calcium Level 8.6 Phosphorus Level 6.0 H Magnesium Level 2.4 Test 12/31/18 08:29 Bedside Glucose 166 Medications Medications Current Medications Atorvastatin Calcium (Lipitor) 80 mg HS PO Last administered on 12/30/18at 21:37; Admin Dose 80 MG; Start 12/13/18 at 21:00 Heparin Sodium (Porcine) (Heparin (1000 Units/ml)) 3,000 unit PRN PRN CATHETER Dialysis Last administered on 12/29/18at 10:49; Admin Dose 3,000 UNIT; Start 12/17/18 at 19:00 Alteplase, Recombinant (Cathflo (Activase)) 4 mg MAY REPEAT X1 PRN CATHETER IF CATHETER REMAINS OCCULUDED Last administered on 12/20/18at 17:54; Admin Dose 4 MG; Start 12/20/18 at 17:00 Lansoprazole (Prevacid) 30 mg BID@0600,1800 GTB Last administered on 12/31/18at 05:36; Admin Dose 30 MG; Start 12/22/18 at 06:00 Albumin Human 100 ml @ 100 mls/hr DURING DIALYSIS PRN IV NOTE Last administered on 12/22/18at 14:06; Admin Dose 100 MLS/HR; Start 12/22/18 at 12:30 Miscellaneous Information 1 ea NOTE XX ; Start 12/24/18 at 10:30 Glucose (Glutose) 15 gm Q15M PRN PO DECREASED GLUCOSE; Start 12/24/18 at 10:30 Glucose (Glutose) 22.5 gm Q15M PRN PO DECREASED GLUCOSE; Start 12/24/18 at 10:30 Dextrose (D50w Syringe) 25 ml Q15M PRN IV DECREASED GLUCOSE; Start 12/24/18 at 10:30 Dextrose (D50w Syringe) 50 ml Q15M PRN IV DECREASED GLUCOSE; Start 12/24/18 at 10:30 Glucagon (Glucagen) 1 mg Q15M PRN IM DECREASED GLUCOSE; Start 12/24/18 at 10:30 Glucose (Glutose) 15 gm Q15M PRN BUCCAL DECREASED GLUCOSE; Start 12/24/18 at 10:30 Epoetin Ever-epbx (RETACRIT(esrd)) 10,000 unit MoWeFr@17 SC Last administered on 12/29/18at 17:07; Admin Dose 10,000 UNIT; Start 12/25/18 at 17:00 Aspirin (Aspirin) 325 mg DAILY PO Last administered on 12/28/18at 08:19; Admin Do se 325 MG; Start 12/26/18 at 10:00; Status Hold Metoprolol Tartrate (Lopressor) 50 mg BID PO Last administered on 12/30/18at 21:37; Admin Dose 50 MG; Start 12/26/18 at 16:00 Insulin Aspart (Novolog Insulin Pen) NOVOLOG *MILD* ALGORITHM WITH MEALS BEDTIME SC Last administered on 12/31/18at 08:34; Admin Dose 1 UNIT; Start 12/26/18 at 21:00 Insulin Glargine (Lantus) 6 units DAILY@2000 SC Last administered on 12/30/18at 21:48; Admin Dose 6 UNITS; Start 12/27/18 at 20:00 Sevelamer Carbonate (Renvela) 800 mg WITH MEALS PO Last administered on 12/28/18at 17:10; Admin Dose 800 MG; Start 12/28/18 at 12:00 Acetaminophen (Tylenol Supp) 650 mg Q6H PRN [place] PAIN; Start 12/29/18 at 07:30 Dextrose/Sodium Chloride 1,000 ml @ 30 mls/hr Q24H IV Last administered on 12/30/18at 08:00; Admin Dose 30 MLS/HR; Start 12/29/18 at 07:30 Metoprolol Tartrate (Lopressor) 5 mg Q6H PRN IV ELEVATED BLOOD PRESSURE; Start 12/29/18 at 08:00 Aspirin (Aspirin) 300 mg DAILY [place] Last administered on 12/30/18at 08:14; Admin Dose 300 MG; Start 12/29/18 at 11:00 SAGRARIO POLLOCK Dec 31, 2018 10:19
[2018-12-31] MEDS ORDERED: SOD CHLORIDE 0.9% 1,000 ML IV PRN (12:44)
--- NOTE | 2018-12-31 12:48 | CONS ---
Assessment/Plan Assessment/Plan Assessment/Plan (Daily) 1. Coronary artery disease, status post 4-vessel CABG. Patient is currently stable. Continue to monitor. 2. Dysphagia. The patient with possible aspiration. Currently, patient is n.p.o. A swallow evaluation pending. The patient on gentle IV fluids for nutrition. Will monitor closely. 4. Post-CABG pericarditis. The patient is clinically improving. Continue NSAIDs per cardiology. 5. Sepsis secondary to healthcare-associated pneumonia. The patient has completed an antibiotic course. 6. Respiratory failure, status post extubation, currently stable on room air. 7. End-stage renal disease. HD today 8. Anemia. Monitor H and H levels. Continue Epogen. 9. Mineral bone disorder, monitor calcium and phosphorus levels. 10. Diabetes. Continue current insulin regimen. 11. Dyslipidemia. Continue statin therapy. 12. Acute encephalopathy. Etiology may be secondary to anoxic injury following cardiac arrest, sepsis, toxic metabolic. Continue to monitor. A neurology consult will be placed for further evaluation. 13. Dysphagia. 14. History of intracranial aneurysm. 15. Status post shock. 16. Status post cardiac arrest. Consultation Date/Type/Reason Admit Date/Time Dec 13, 2018 at 12:40 Initial Consult Date 12/16/18 Date/Time of Note DATE: 12/31/18 TIME: 12:47 24 HR Interval Summary Free Text/Dictation has some shortness of breath no n/v d/w rn gen nad cv rrr pulm rales abd soft, nd, nt +bs ext: no edema Exam/Review of Systems Exam Vitals Vital Signs Date Temp Pulse Resp B/P (MAP) Pulse Ox O2 O2 Flow FiO2 Time Delivery Rate 12/31/18 98.6 81 19 146/74 95 11:32 (98) 12/31/18 Nasal 2.0 08:30 Cannula Intake and Output 12/30/18 12/30/18 12/31/18 1515:00 23:00 07:00 IntakeIntake Total 390 ml 450 ml BalanceBalance 390 ml 450 ml Results Result Diagram: 12/31/18 0535 12/31/18 0535 Results 24hrs Laboratory Tests Test 12/30/18 17:07 12/30/18 21:40 12/31/18 05:35 12/31/18 08:29 Bedside Glucose 166 139 166 White Blood Count 8.1 Red Blood Count 3.41 L Hemoglobin 10.1 L Hematocrit 32.9 L Mean Corpuscular Volume 96.5 Mean Corpuscular 29.6 Hemoglobin Mean Corpuscular 30.7 L Hemoglobin Concent Red Cell Distribution 16.5 H Width Platelet Count 259 Mean Platelet Volume 10.7 H Immature Granulocytes % 0.600 H Neutrophils % 73.5 Lymphocytes % 12.1 L Monocytes % 9.9 Eosinophils % 3.0 Basophils % 0.9 Nucleated Red Blood 0.0 Cells % Immature Granulocytes # 0.050 H Neutrophils # 6.0 Lymphocytes # 1.0 Monocytes # 0.8 Eosinophils # 0.2 Basophils # 0.1 Nucleated Red Blood 0.0 Cells # Sodium Level 143 Potassium Level 4.0 Chloride Level 102 Carbon Dioxide Level 25 Anion Gap 16 H Blood Urea Nitrogen 64 H Creatinine 7.55 H Est Glomerular Filtrat Rate mL/min Glucose Level 172 Calcium Level 8.6 Phosphorus Level 6.0 H Magnesium Level 2.4 Test 12/31/18 12:05 Bedside Glucose 155 Medications Medication Current Medications Atorvastatin Calcium (Lipitor) 80 mg HS PO Last administered on 12/30/18at 21:37; Admin Dose 80 MG; Start 12/13/18 at 21:00 Heparin Sodium (Porcine) (Heparin (1000 Units/ml)) 3,000 unit PRN PRN CATHETER Dialysis Last administered on 12/29/18 10:49; Admin Dose 3,000 UNIT; Start 12/17/18 at 19:00 Alteplase, Recombinant (Cathflo (Activase)) 4 mg MAY REPEAT X1 PRN CATHETER IF CATHETER REMAINS OCCULUDED Last administered on 12/20/18at 17:54; Admin Dose 4 MG; Start 12/20/18 at 17:00 Lansoprazole (Prevacid) 30 mg BID@0600,1800 GTB Last administered on 12/31/18at 05:36; Admin Dose 30 MG; Start 12/22/18 at 06:00 Albumin Human 100 ml @ 100 mls/hr DURING DIALYSIS PRN IV NOTE Last administered on 12/22/18at 14:06; Admin Dose 100 MLS/HR; Start 12/22/18 at 12:30 Miscellaneous Information 1 ea NOTE XX ; Start 12/24/18 at 10:30 Glucose (Glutose) 15 gm Q15M PRN PO DECREASED GLUCOSE; Start 12/24/18 at 10:30 Glucose (Glutose) 22.5 gm Q15M PRN PO DECREASED GLUCOSE; Start 12/24/18 at 10:30 Dextrose (D50w Syringe) 25 ml Q15M PRN IV DECREASED GLUCOSE; Start 12/24/18 at 10:30 Dextrose (D50w Syringe) 50 ml Q15M PRN IV DECREASED GLUCOSE; Start 12/24/18 at 10:30 Glucagon (Glucagen) 1 mg Q15M PRN IM DECREASED GLUCOSE; Start 12/24/18 at 10:30 Glucose (Glutose) 15 gm Q15M PRN BUCCAL DECREASED GLUCOSE; Start 12/24/18 at 10:30 Epoetin Ever-epbx (RETACRIT(esrd)) 10,000 unit MoWeFr@17 SC Last administered on 12/29/18at 17:07; Admin Dose 10,000 UNIT; Start 12/25/18 at 17:00 Aspirin (Aspirin) 325 mg DAILY PO Last administered on 12/28/18 08:19; Admin Dose 325 MG; Start 12/26/18 at 10:00; Status Hold Metoprolol Tartrate (Lopressor) 50 mg BID PO Last administered on 12/30/18at 21:37; Admin Dose 50 MG; Start 12/26/18 at 16:00 Insulin Aspart (Novolog Insulin Pen) NOVOLOG *MILD* ALGORITHM WITH MEALS BEDTIME SC Last administered on 12/31/18at 12:11; Admin Dose 1 UNIT; Start 12/26/18 at 21:00 Insulin Glargine (Lantus) 6 units DAILY@2000 SC Last administered on 12/30/18 21:48; Admin Dose 6 UNITS; Start 12/27/18 at 20:00 Sevelamer Carbonate (Renvela) 800 mg WITH MEALS PO Last administered on 12/28/18 17:10; Admin Dose 800 MG; Start 12/28/18 at 12:00 Acetaminophen (Tylenol Supp) 650 mg Q6H PRN [place] PAIN; Start 12/29/18 at 07:30 Dextrose/Sodium Chloride 1,000 ml @ 30 mls/hr Q24H IV Last administered on 12/30/18at 08:00; Admin Dose 30 MLS/HR; Start 12/29/18 at 07:30 Metoprolol Tartrate (Lopressor) 5 mg Q6H PRN IV ELEVATED BLOOD PRESSURE; Start 12/29/18 at 08:00 Aspirin (Aspirin) 300 mg DAILY [place] Last administered on 12/31/18at 12:03; Admin Dose 300 MG; Start 12/29/18 at 11:00 TEX WILSON MD Dec 31, 2018 12:48
[2018-12-31] MEDS ORDERED: HEPARIN 1000 UNITS/ML 10 ML INJ CATHETER SCH (13:00)
[2018-12-31] MEDS ORDERED: SODIUM CHLORIDE 0.9% 1L BAG IV PRN (13:00)
[2018-12-31] MEDS ORDERED: ALBUMIN HUMAN 25% 100 ML IV PRN (13:00)
--- NOTE | 2018-12-31 13:30 | CONS ---
Assessment/Plan Assessment/Plan Hospital Course (Demo Recall) All noted. No acute events, confused, looks comfortable no fevers Antimicrobials: none Indwelling: Right upper extremity PICC line, left femoral Anam Physical examination: Well-developed chronically ill-appearing elderly man who is intubated in no distress. Head atraumatic normocephalic sclera nonicteric vehicle mucosa dry neck is supple chest rise symmetrical breath sounds with crac kles. Heart S1-S2 abdomen soft bowel sounds hypoactive extremities cyanotic Assessment: 1. S/p sepsis with shock 2. S/p Healthcare associated pneumonia, possibly aspirated 3. Acute respiratory failure, status post extubation 4. Non-ST elevation [place] status post CABG 12/15/18 5. 5. End-stage renal disease, hemodialysis dependent 6. Anemia Plan:Stable off abx, continue present care, aspiration and fall precautions, HD per renal Consultation Date/Type/Reason Admit Date/Time Dec 13, 2018 at 12:40 Initial Consult Date 12/16/18 Type of Consult id Date/Time of Note DATE: 12/31/18 TIME: 13:29 Exam/Review of Systems Exam Vitals Vital Signs Date Temp Pulse Resp B/P (MAP) Pulse Ox O2 O2 Flow FiO2 Time Delivery Rate 12/31/18 98.6 81 19 146/74 95 11:32 (98) 12/31/18 Nasal 2.0 08:30 Cannula Intake and Output 12/30/18 12/30/18 12/31/18 1515:00 23:00 07:00 IntakeIntake Total 390 ml 450 ml BalanceBalance 390 ml 450 ml Results Result Diagram: 12/31/18 0535 12/31/18 0535 Results 24hrs Laboratory Tests Test 12/30/18 17:07 12/30/18 21:40 12/31/18 05:35 12/31/18 08:29 Bedside Glucose 166 139 166 White Blood Count 8.1 Red Blood Count 3.41 L Hemoglobin 10.1 L Hematocrit 32.9 L Mean Corpuscular Volume 96.5 Mean Corpuscular 29.6 Hemoglobin Mean Corpuscular 30.7 L Hemoglobin Concent Red Cell Distribution 16.5 H Width Platelet Count 259 Mean Platelet Volume 10.7 H Immature Granulocytes % 0.600 H Neutrophils % 73.5 Lymphocytes % 12.1 L Monocytes % 9.9 Eosinophils % 3.0 Basophils % 0.9 Nucleated Red Blood 0.0 Cells % Immature Granulocytes # 0.050 H Neutrophils # 6.0 Lymphocytes # 1.0 Monocytes # 0.8 Eosinophils # 0.2 Basophils # 0.1 Nucleated Red Blood 0.0 Cells # Sodium Level 143 Potassium Level 4.0 Chloride Level 102 Carbon Dioxide Level 25 Anion Gap 16 H Blood Urea Nitrogen 64 H Creatinine 7.55 H Est Glomerular Filtrat Rate mL/min Glucose Level 172 Calcium Level 8.6 Phosphorus Level 6.0 H Magnesium Level 2.4 Test 12/31/18 12:05 Bedside Glucose 155 Medications Medication Current Medications Atorvastatin Calcium (Lipitor) 80 mg HS PO Last administered on 12/30/18at 21:37; Admin Dose 80 MG; Start 12/13/18 at 21:00 Heparin Sodium (Porcine) (Heparin (1000 Units/ml)) 3,000 unit PRN PRN CATHETER Dialysis Last administered on 12/29/18at 10:49; Admin Dose 3,000 UNIT; Start 12/17/18 at 19:00 Alteplase, Recombinant (Cathflo (Activase)) 4 mg MAY REPEAT X1 PRN CATHETER IF CATHETER REMAINS OCCULUDED Last administered on 12/20/18at 17:54; Admin Dose 4 MG; Start 12/20/18 at 17:00 Lansoprazole (Prevacid) 30 mg BID@0600,1800 GTB Last administered on 12/31/18at 05:36; Admin Dose 30 MG; Start 12/22/18 at 06:00 Albumin Human 100 ml @ 100 mls/hr DURING DIALYSIS PRN IV NOTE Last administered on 12/22/18at 14:06; Admin Dose 100 MLS/HR; Start 12/22/18 at 12:30 Miscellaneous Information 1 ea NOTE XX ; Start 12/24/18 at 10:30 Glucose (Glutose) 15 gm Q15M PRN PO DECREASED GLUCOSE; Start 12/24/18 at 10:30 Glucose (Glutose) 22.5 gm Q15M PRN PO DECREASED GLUCOSE; Start 12/24/18 at 10:30 Dextrose (D50w Syringe) 25 ml Q15M PRN IV DECREASED GLUCOSE; Start 12/24/18 at 10:30 Dextrose (D50w Syringe) 50 ml Q15M PRN IV DECREASED GLUCOSE; Start 12/24/18 at 10:30 Glucagon (Glucagen) 1 mg Q15M PRN IM DECREASED GLUCOSE; Start 12/24/18 at 10:30 Glucose (Glutose) 15 gm Q15M PRN BUCCAL DECREASED GLUCOSE; Start 12/24/18 at 10:30 Epoetin Ever-epbx (RETACRIT(esrd)) 10,000 unit MoWeFr@17 SC Last administered on 12/29/18at 17:07; Admin Dose 10,000 UNIT; Start 12/25/18 at 17:00 Aspirin (Aspirin) 325 mg DAILY PO Last administered on 12/28/18 08:19; Admin Dose 325 MG; Start 12/26/18 at 10:00; Status Hold Metoprolol Tartrate (Lopressor) 50 mg BID PO Last administered on 12/30/18 21:37; Admin Dose 50 MG; Start 12/26/18 at 16:00 Insulin Aspart (Novolog Insulin Pen) NOVOLOG *MILD* ALGORITHM WITH MEALS BEDTIME SC Last administered on 12/31/18at 12:11; Admin Dose 1 UNIT; Start 12/26/18 at 21:00 Insulin Glargine (Lantus) 6 units DAILY@2000 SC Last administered on 12/30/18 21:48; Admin Dose 6 UNITS; Start 12/27/18 at 20:00 Sevelamer Carbonate (Renvela) 800 mg WITH MEALS PO Last administered on 12/28/18at 17:10; Admin Dose 800 MG; Start 12/28/18 at 12:00 Acetaminophen (Tylenol Supp) 650 mg Q6H PRN [place] PAIN; Start 12/29/18 at 07:30 Dextrose/Sodium Chloride 1,000 ml @ 30 mls/hr Q24H IV Last administered on 12/30/18at 08:00; Admin Dose 30 MLS/HR; Start 12/29/18 at 07:30 Metoprolol Tartrate (Lopressor) 5 mg Q6H PRN IV ELEVATED BLOOD PRESSURE; Start 12/29/18 at 08:00 Aspirin (Aspirin) 300 mg DAILY [place] Last administered on 12/31/18at 12:03; Admin Dose 300 MG; Start 12/29/18 at 11:00 Heparin Sodium (Porcine) (Heparin (1000 Units/ml)) 4,000 unit AFTER DIALYSIS CATHETER ; Start 12/31/18 at 13:00 Sodium Chloride 1,000 ml @ 0 mls/hr Q0M PRN IV TO KEEP SBP ABOVE 90; Start 12/31/18 at 12:44 Albumin Human 100 ml @ 100 mls/hr WITH DIALYSIS PRN IV SBP <90 DURING DIALYSIS; Start 12/31/18 at 13:00 Sodium Chloride (NS) -To prime the dialy... DIRECTED FOR HD PRN IV HD; Start 12/31/18 at 13:00 LASHELL LYNCH NP Dec 31, 2018 13:30
--- NOTE | 2018-12-31 13:39 | CONS ---
Consult Date/Type/Reason Admit Date/Time Dec 13, 2018 at 12:40 Initial Consult Date 12/16/18 Type of Consultation: Pulm/CCM Date/Time of Note DATE: 12/31/18 TIME: 13:38 Subjective Mildly confused. No events noted overnight. Objective Vitals Vital Signs Date Temp Pulse Resp B/P (MAP) Pulse Ox O2 O2 Flow FiO2 Time Delivery Rate 12/31/18 98.6 81 19 146/74 95 11:32 (98) 12/31/18 Nasal 2.0 08:30 Cannula Intake and Output 12/30/18 12/30/18 12/31/18 1515:00 23:00 07:00 IntakeIntake Total 390 ml 450 ml BalanceBalance 390 ml 450 ml Exam HEENT: Neck supple; no JVD; no LAD CVS: RRR, S1 and S2 CHEST: Coarse BS b/l ABD: Soft, NT, + BS EXT: edema; no c/c Results/Medications Result Diagram: 12/31/18 0535 12/31/18 0535 Results 24 hrs Laboratory Tests Test 12/30/18 17:07 12/30/18 21:40 12/31/18 05:35 12/31/18 08:29 Bedside Glucose 166 139 166 White Blood Count 8.1 Red Blood Count 3.41 L Hemoglobin 10.1 L Hematocrit 32.9 L Mean Corpuscular Volume 96.5 Mean Corpuscular 29.6 Hemoglobin Mean Corpuscular 30.7 L Hemoglobin Concent Red Cell Distribution 16.5 H Width Platelet Count 259 Mean Platelet Volume 10.7 H Immature Granulocytes % 0.600 H Neutrophils % 73.5 Lymphocytes % 12.1 L Monocytes % 9.9 Eosinophils % 3.0 Basophils % 0.9 Nucleated Red Blood 0.0 Cells % Immature Granulocytes # 0.050 H Neutrophils # 6.0 Lymphocytes # 1.0 Monocytes # 0.8 Eosinophils # 0.2 Basophils # 0.1 Nucleated Red Blood 0.0 Cells # Sodium Level 143 Potassium Level 4.0 Chloride Level 102 Carbon Dioxide Level 25 Anion Gap 16 H Blood Urea Nitrogen 64 H Creatinine 7.55 H Est Glomerular Filtrat Rate mL/min Glucose Level 172 Calcium Level 8.6 Phosphorus Level 6.0 H Magnesium Level 2.4 Test 12/31/18 12:05 Bedside Glucose 155 Home Meds Reported Medications Cholecalciferol* (Vitamin D3*) 1,000 Unit Tablet, 1000 UNIT PO DAILY, TAB 12/18/18 Aspirin (Low Dose Aspirin) 81 Mg Tablet.dr, 81 MG PO DAILY, #30 TAB 12/18/18 Amlodipine Besylate* (Norvasc*) 5 Mg Tablet, 5 MG PO BID, TAB 12/18/18 Hydralazine Hcl* (Hydralazine Hcl*) 25 Mg Tab, 25 MG PO TID, #120 TAB 12/18/18 Medications Current Medications Atorvastatin Calcium (Lipitor) 80 mg HS PO Last administered on 12/30/18at 21:37; Admin Dose 80 MG; Start 12/13/18 at 21:00 Heparin Sodium (Porcine) (Heparin (1000 Units/ml)) 3,000 unit PRN PRN CATHETER Dialysis Last administered on 12/29/18at 10:49; Admin Dose 3,000 UNIT; Start 12/17/18 at 19:00 Alteplase, Recombinant (Cathflo (Activase)) 4 mg MAY REPEAT X1 PRN CATHETER IF CATHETER REMAINS OCCULUDED Last administered on 12/20/18at 17:54; Admin Dose 4 MG; Start 12/20/18 at 17:00 Lansoprazole (Prevacid) 30 mg BID@0600,1800 GTB Last administered on 12/31/18at 05:36; Admin Dose 30 MG; Start 12/22/18 at 06:00 Albumin Human 100 ml @ 100 mls/hr DURING DIALYSIS PRN IV NOTE Last administered on 12/22/18at 14:06; Admin Dose 100 MLS/HR; Start 12/22/18 at 12:30 Miscellaneous Information 1 ea NOTE XX ; Start 12/24/18 at 10:30 Glucose (Glutose) 15 gm Q15M PRN PO DECREASED GLUCOSE; Start 12/24/18 at 10:30 Glucose (Glutose) 22.5 gm Q15M PRN PO DECREASED GLUCOSE; Start 12/24/18 at 10:30 Dextrose (D50w Syringe) 25 ml Q15M PRN IV DECREASED GLUCOSE; Start 12/24/18 at 10:30 Dextrose (D50w Syringe) 50 ml Q15M PRN IV DECREASED GLUCOSE; Start 12/24/18 at 10:30 Glucagon (Glucagen) 1 mg Q15M PRN IM DECREASED GLUCOSE; Start 12/24/18 at 10:30 Glucose (Glutose) 15 gm Q15M PRN BUCCAL DECREASED GLUCOSE; Start 12/24/18 at 10:30 Epoetin Ever-epbx (RETACRIT(esrd)) 10,000 unit MoWeFr@17 SC Last administered on 12/29/18at 17:07; Admin Dose 10,000 UNIT; Start 12/25/18 at 17:00 Aspirin (Aspirin) 325 mg DAILY PO Last administered on 12/28/18 08:19; Admin Dose 325 MG; Start 12/26/18 at 10:00; Status Hold Metoprolol Tartrate (Lopressor) 50 mg BID PO Last administered on 12/30/18 21:37; Admin Dose 50 MG; Start 12/26/18 at 16:00 Insulin Aspart (Novolog Insulin Pen) NOVOLOG *MILD* ALGORITHM WITH MEALS BEDTIME SC Last administered on 12/31/18at 12:11; Admin Dose 1 UNIT; Start 12/26/18 at 21:00 Insulin Glargine (Lantus) 6 units DAILY@2000 SC Last administered on 12/30/18 21:48; Admin Dose 6 UNITS; Start 12/27/18 at 20:00 Sevelamer Carbonate (Renvela) 800 mg WITH MEALS PO Last administered on 12/28/18 17:10; Admin Dose 800 MG; Start 12/28/18 at 12:00 Acetaminophen (Tylenol Supp) 650 mg Q6H PRN [place] PAIN; Start 12/29/18 at 07:30 Dextrose/Sodium Chloride 1,000 ml @ 30 mls/hr Q24H IV Last administered on 12/30/18at 08:00; Admin Dose 30 MLS/HR; Start 12/29/18 at 07:30 Metoprolol Tartrate (Lopressor) 5 mg Q6H PRN IV ELEVATED BLOOD PRESSURE; Start 12/29/18 at 08:00 Aspirin (Aspirin) 300 mg DAILY [place] Last administered on 12/31/18 12:03; Admin Dose 300 MG; Start 12/29/18 at 11:00 Heparin Sodium (Porcine) (Heparin (1000 Units/ml)) 4,000 unit AFTER DIALYSIS CATHETER ; Start 12/31/18 at 13:00 Sodium Chloride 1,000 ml @ 0 mls/hr Q0M PRN IV TO KEEP SBP ABOVE 90; Start 12/31/18 at 12:44 Albumin Human 100 ml @ 100 mls/hr WITH DIALYSIS PRN IV SBP <90 DURING DIALYSIS; Start 12/31/18 at 13:00 Sodium Chloride (NS) -To prime the dialy... DIRECTED FOR HD PRN IV HD; Start 12/31/18 at 13:00 Assessment/Plan Assessment/Plan (Daily) IMP: 1. Hypercapnic Respiratory Failure--s/p extubation post CABG. Possibly due to a combination of volume overload and sedation. Reintubation x2. Now safely extubated, improving from pulmonary standpoint 2. Status post coronary artery bypass graft surgery 3. Status post cardiogenic shock 4. CHF/CAD 5. ESRD on HD 6. Anemia 7. LLL Atelectasis/infiltrate 8. Encephalopathy toxic metabolic, resolving 9. Dysphagia likely secondary to prolonged extubation encephalopathy RECS: 1. BDs/CPT 2. Continue HD/UF 3. PT/OT 4. Aspiration precautions DARIUS GREENBERG MD Dec 31, 2018 13:39
[2018-12-31] MEDS ORDERED: ALTEPLASE (CATHFLO) 2 MG INJ CATHETER STA (14:54)
[2018-12-31] MEDS: ALTEPLASE (CATHFLO) 2 MG INJ CATHETER PRN (18:54)
[2018-12-31] MEDS: ATORVASTATIN 80 MG TAB PO SCH (21:24)
[2018-12-31] MEDS: INSULIN GLARGINE [LANTus] (100 UNITS/ML) SYG SC SCH (21:37)
[2019-01-01] VITALS (11 sets, daily range): BP systolic 149–184; BP diastolic 66–80; PULSE 73–81; RESP 16–21
[2019-01-01] MEDS: DEXTROSE 5%-0.45% NACL 1,000 ML IV SCH ×2 (01:51→07:30)
[2019-01-01] MEDS: LANSOPRAZOLE 30 MG CAP GTB SCH ×2 (05:04→17:20)
[2019-01-01] MEDS: SEVELAMER CARBONATE 800 MG TABLET PO SCH ×2 (08:00→12:00)
[2019-01-01] MEDS: ASPIRIN 300 MG SUPP PR SCH (08:21)
[2019-01-01] MEDS: METOPROLOL 50 MG TAB PO SCH ×2 (08:21→20:11)
[2019-01-01] MEDS: BALSAM PERU/CASTOR OIL 60 GM TUBE TOP SCH ×2 (08:21→21:26)
[2019-01-01] MEDS: INSULIN ASPART [NOVOLOG] 3 ML PEN SC SCH ×4 (08:37→21:24)
--- NOTE | 2019-01-01 09:06 | PN ---
DATE: 01/01/2019 SUBJECTIVE: The patient still remains confused. The patient is undergoing swallow evaluation. No o ther events noted overnight. OBJECTIVE: VITAL SIGNS: Blood pressure is 184/80, respirations 16, pulse 79, temperature 98.1. HEENT: Head is normocephalic. NECK: Supple. HEART: Regular rate. LUNGS: Show diminished breath sounds at the base. ABDOMEN: Soft, nontender to palpation without rebound or guarding. EXTREMITIES: Negative for clubbing, cyanosis, no edema. DERMATOLOGIC: No rashes. MUSCULOSKELETAL: No joint effusion. NEUROLOGIC: No change in exam. MEDICATIONS: The patient's medications have been reviewed. LABORATORY DATA: From 01/01/2019 was reviewed. ASSESSMENT AND PLAN: 1. Coronary artery disease, status post 4-vessel CABG. The patient is currently stable. Continue t o monitor. 2. Dysphagia. The patient is currently n.p.o. due to aspiration precautions. The patient is workin g with speech therapy. We will follow up today to see if patient can be placed on a modified diet. Will continue to monitor, continue gentle IV hydration. 3. Post-CABG pericarditis. The patient is clinically improving. The patient is on Ancef per cardio logy. 4. Sepsis secondary to healthcare-associated pneumonia. The patient is completing antibiotic course . 5. Respiratory failure, status post extubation, currently stable on room air. 6. End-stage renal disease. Plan for hemodialysis tomorrow. 7. Anemia. Monitor hemoglobin and hematocrit levels. Continue Epogen. 8. Mineral bone disorder. Monitor calcium and phosphorus levels. 9. Diabetes. Continue current insulin regimen. 10. Dyslipidemia. Continue current therapy. 11. Acute encephalopathy, etiology is toxic metabolic, possible anoxic brain injury from cardiac arr est, sepsis. Continue to monitor. Will consider neurology evaluation. 12. History of intracranial aneurysm. Continue to monitor. 13. Status post shock. 14. Status post cardiac arrest. Dictated By: JAKY HOU DO NR/NTS Conf#: [id number] DID#: [id number] CC: SAGRARIO POLLOCK MD; ROSARIO MONROE MD;*EndCC*
--- NOTE | 2019-01-01 10:52 | CONS ---
Assessment/Plan Assessment/Plan Hospital Course (Demo Recall) Dysphagia Post CABG Pericarditis: diffuse ST elevation on EKG, rub on exam, and echo with normal EF and wall motion. Mild trops 0.8 as expected. Resolved Status post PEA arrest - primary event appears to be respiratory distress, hypoxia, and resultant bradycardia; ROSC after brief CPR 12/18 Acute hypoxic respiratory failure - failed extubation twice including 12/18/2018, extubated again 12/23 and doing well Acute on chronic diastolic heart failure: euvolemic now Possible pneumonia - on antibiotics Coronary artery disease - status post CABG x4 (CHENG-LAD, SVG-PDA, SVG-diag-OM) on 12/15/2018 Status post NSTEMI Hypertension End-stage renal disease - on hemodialysis Likely anoxic brain injury -ASA 325mg PO or AL depending on ability to swallow -metoprolol 50mg BID -continue atorvastatin 80mg -HD per nephrology Consultation Date/Type/Reason Admit Date/Time Dec 13, 2018 at 12:40 Initial Consult Date Type of Consult Cardiology Date/Time of Note DATE: 01/01/19 TIME: 10:49 24 HR Interval Summary Free Text/Dictation No events. Able to take meds with puree. Still undergoing daily swallow eval Exam/Review of Systems Vital Signs Vitals Vital Signs Date Temp Pulse Resp B/P (MAP) Pulse Ox O2 O2 Flow FiO2 Time Delivery Rate 01/01/19 Nasal 2.0 08:30 Cannula 01/01/19 79 08:01 01/01/19 98.1 16 184/80 96 07:47 (114) Intake and Output 12/31/18 12/31/18 01/01/19 1515:00 23:00 07:00 IntakeIntake Total 0 ml 780 ml OutputOutput Total 2600 ml BalanceBalance -2600 ml 780 ml Exam Constitutional: alert; No oriented Neck: No jvd Respiratory: No clear to auscultation, No diminished breath sounds Cardiovascular: regular rate and rhythm; No edema Gastrointestinal: soft, non-tender; No distended Neurological: nl mental status; No nl speech Labs Result Diagram: 01/01/19 0455 01/01/19 0455 Results 24hrs Laboratory Tests Test 12/31/18 12:05 12/31/18 16:45 12/31/18 21:28 01/01/19 04:55 Bedside Glucose 155 124 156 White Blood Count 8.2 Red Blood Count 3.65 L Hemoglobin 10.6 L Hematocrit 34.5 L Mean Corpuscular Volume 94.5 Mean Corpuscular 29.0 Hemoglobin Mean Corpuscular 30.7 L Hemoglobin Concent Red Cell Distribution 16.3 H Width Platelet Count 262 Mean Platelet Volume 10.9 H Immature Granulocytes % 0.700 H Neutrophils % 72.5 Lymphocytes % 14.3 L Monocytes % 9.0 Eosinophils % 2.8 Basophils % 0.7 Nucleated Red Blood 0.0 Cells % Immature Granulocytes # 0.060 H Neutrophils # 5.9 Lymphocytes # 1.2 Monocytes # 0.7 Eosinophils # 0.2 Basophils # 0.1 Nucleated Red Blood 0.0 Cells # Sodium Level 138 Potassium Level 4.1 Chloride Level 101 Carbon Dioxide Level 22 Anion Gap 15 H Blood Urea Nitrogen 56 H Creatinine 6.65 H Est Glomerular Filtrat Rate mL/min Glucose Level 292 #H Calcium Level 8.3 L Phosphorus Level 5.5 H Magnesium Level 2.2 Test 01/01/19 08:24 Bedside Glucose 156 Medications Medications Current Medications Atorvastatin Calcium (Lipitor) 80 mg HS PO Last administered on 12/31/18 21:24; Admin Dose 80 MG; Start 12/13/18 at 21:00 Heparin Sodium (Porcine) (Heparin (1000 Units/ml)) 3,000 unit PRN PRN CATHETER Dialysis Last administered on 12/29/18at 10:49; Admin Dose 3,000 UNIT; Start 12/17/18 at 19:00 Alteplase, Recombinant (Cathflo (Activase)) 4 mg MAY REPEAT X1 PRN CATHETER IF CATHETER REMAINS OCCULUDED Last administered on 12/31/18at 18:54; Admin Dose 4 MG; Start 12/20/18 at 17:00 Lansoprazole (Prevacid) 30 mg BID@0600,1800 GTB Last administered on 12/31/18 05:36; Admin Dose 30 MG; Start 12/22/18 at 06:00 Albumin Human 100 ml @ 100 mls/hr DURING DIALYSIS PRN IV NOTE Last administered on 12/22/18at 14:06; Admin Dose 100 MLS/HR; Start 12/22/18 at 12:30 Miscellaneous Information 1 ea NOTE XX ; Start 12/24/18 at 10:30 Glucose (Glutose) 15 gm Q15M PRN PO DECREASED GLUCOSE; Start 12/24/18 at 10:30 Glucose (Glutose) 22.5 gm Q15M PRN PO DECREASED GLUCOSE; Start 12/24/18 at 10:30 Dextrose (D50w Syringe) 25 ml Q15M PRN IV DECREASED GLUCOSE; Start 12/24/18 at 10:30 Dextrose (D50w Syringe) 50 ml Q15M PRN IV DECREASED GLUCOSE; Start 12/24/18 at 10:30 Glucagon (Glucagen) 1 mg Q15M PRN IM DECREASED GLUCOSE; Start 12/24/18 at 10:30 Glucose (Glutose) 15 gm Q15M PRN BUCCAL DECREASED GLUCOSE; Start 12/24/18 at 10:30 Epoetin Ever-epbx (RETACRIT(esrd)) 10,000 unit MoWeFr@17 SC Last administered on 12/29/18 17:07; Admin Dose 10,000 UNIT; Start 12/25/18 at 17:00 Aspirin (Aspirin) 325 mg DAILY PO Last administered on 12/28/18 08:19; Admin Dose 325 MG; Start 12/26/18 at 10:00; Status Hold Metoprolol Tartrate (Lopressor) 50 mg BID PO Last administered on 01/01/19 08:21; Admin Dose 50 MG; Start 12/26/18 at 16:00 Insulin Aspart (Novolog Insulin Pen) NOVOLOG *MILD* ALGORITHM WITH MEALS BEDTIME SC Last administered on 01/01/19 08:37; Admin Dose 1 UNIT; Start 12/26/18 at 21:00 Insulin Glargine (Lantus) 6 units DAILY@2000 SC Last administered on 12/31/18 21:37; Admin Dose 6 UNITS; Start 12/27/18 at 20:00 Sevelamer Carbonate (Renvela) 800 mg WITH MEALS PO Last administered on 12/28/18 17:10; Admin Dose 800 MG; Start 12/28/18 at 12:00 Acetaminophen (Tylenol Supp) 650 mg Q6H PRN AL PAIN; Start 12/29/18 at 07:30 Dextrose/Sodium Chloride 1,000 ml @ 30 mls/hr Q24H IV Last administered on 01/01/19at 01:51; Admin Dose 30 MLS/HR; Start 12/29/18 at 07:30 Metoprolol Tartrate (Lopressor) 5 mg Q6H PRN IV ELEVATED BLOOD PRESSURE; Start 12/29/18 at 08:00 Aspirin (Aspirin) 300 mg DAILY AL Last administered on 01/01/19at 08:21; Admin Dose 300 MG; Start 12/29/18 at 11:00 Heparin Sodium (Porcine) (Heparin (1000 Units/ml)) 4,000 unit AFTER DIALYSIS CATHETER ; Start 12/31/18 at 13:00 Sodium Chloride 1,000 ml @ 0 mls/hr Q0M PRN IV TO KEEP SBP ABOVE 90; Start 12/31/18 at 12:44 Albumin Human 100 ml @ 100 mls/hr WITH DIALYSIS PRN IV SBP <90 DURING D IALYSIS; Start 12/31/18 at 13:00 Sodium Chloride (NS) -To prime the dialy... DIRECTED FOR HD PRN IV HD; Start 12/31/18 at 13:00 SAGRARIO POLLOCK Jan 01, 2019 10:52
--- NOTE | 2019-01-01 10:55 | CONS ---
Consult Date/Type/Reason Admit Date/Time Dec 13, 2018 at 12:40 Initial Consult Date 12/16/18 Type of Consult Pulmonary Date/Time of Note DATE: 01/01/19 TIME: 10:54 Subjective Patient is comfortable this morning. Still somewhat congested. Objective Vital Signs Date Temp Pulse Resp B/P (MAP) Pulse Ox O2 O2 Flow FiO2 Time Delivery Rate 01/01/19 Nasal 2.0 08:30 Cannula 01/01/19 79 08:01 01/01/19 98.1 16 184/80 96 07:47 (114) Intake and Output 12/31/18 12/31/18 01/01/19 1414:59 22:59 06:59 IntakeIntake Total 0 ml 780 ml OutputOutput Total 2600 ml BalanceBalance -2600 ml 780 ml Exam GENERAL: VITAL SIGNS: Elderly gentleman NECK: Supple. No JVD or lymphadenopathy. CARDIAC EXAM: S1, S2. No added sounds or murmurs. CHEST: Diminished air entry bilaterally ABDOMEN: Soft, nontender. No guarding or rebound. EXTREMITIES: No cyanosis, clubbing or edema. NEUROLOGIC: Generalized weakness. Vent Setting Ventilator Support Mode: CPAP, PS Fraction of Inspired Oxygen pe: 21 Positive End Expiratory Pressu: 5.0 Results/Medications Result Diagram: 01/01/19 0455 01/01/19 0455 Results 24 hrs Laboratory Tests Test 12/31/18 12:05 12/31/18 16:45 12/31/18 21:28 01/01/19 04:55 Bedside Glucose 155 124 156 White Blood Count 8.2 Red Blood Count 3.65 L Hemoglobin 10.6 L Hematocrit 34.5 L Mean Corpuscular Volume 94.5 Mean Corpuscular 29.0 Hemoglobin Mean Corpuscular 30.7 L Hemoglobin Concent Red Cell Distribution 16.3 H Width Platelet Count 262 Mean Platelet Volume 10.9 H Immature Granulocytes % 0.700 H Neutrophils % 72.5 Lymphocytes % 14.3 L Monocytes % 9.0 Eosinophils % 2.8 Basophils % 0.7 Nucleated Red Blood 0.0 Cells % Immature Granulocytes # 0.060 H Neutrophils # 5.9 Lymphocytes # 1.2 Monocytes # 0.7 Eosinophils # 0.2 Basophils # 0.1 Nucleated Red Blood 0.0 Cells # Sodium Level 138 Potassium Level 4.1 Chloride Level 101 Carbon Dioxide Level 22 Anion Gap 15 H Blood Urea Nitrogen 56 H Creatinine 6.65 H Est Glomerular Filtrat Rate mL/min Glucose Level 292 #H Calcium Level 8.3 L Phosphorus Level 5.5 H Magnesium Level 2.2 Test 01/01/19 08:24 Bedside Glucose 156 Medications Current Medications Atorvastatin Calcium (Lipitor) 80 mg HS PO Last administered on 12/31/18at 21:24; Admin Dose 80 MG; Start 12/13/18 at 21:00 Heparin Sodium (Porcine) (Heparin (1000 Units/ml)) 3,000 unit PRN PRN CATHETER Dialysis Last administered on 12/29/18at 10:49; Admin Dose 3,000 UNIT; Start 12/17/18 at 19:00 Alteplase, Recombinant (Cathflo (Activase)) 4 mg MAY REPEAT X1 PRN CATHETER IF CATHETER REMAINS OCCULUDED Last administered on 12/31/18at 18:54; Admin Dose 4 MG; Start 12/20/18 at 17:00 Lansoprazole (Prevacid) 30 mg BID@0600,1800 GTB Last administered on 12/31/18at 05:36; Admin Dose 30 MG; Start 12/22/18 at 06:00 Albumin Human 100 ml @ 100 mls/hr DURING DIALYSIS PRN IV NOTE Last administered on 12/22/18at 14:06; Admin Dose 100 MLS/HR; Start 12/22/18 at 12:30 Miscellaneous Information 1 ea NOTE XX ; Start 12/24/18 at 10:30 Glucose (Glutose) 15 gm Q15M PRN PO DECREASED GLUCOSE; Start 12/24/18 at 10:30 Glucose (Glutose) 22.5 gm Q15M PRN PO DECREASED GLUCOSE; Start 12/24/18 at 10:30 Dextrose (D50w Syringe) 25 ml Q15M PRN IV DECREASED GLUCOSE; Start 12/24/18 at 10:30 Dextrose (D50w Syringe) 50 ml Q15M PRN IV DECREASED GLUCOSE; Start 12/24/18 at 10:30 Glucagon (Glucagen) 1 mg Q15M PRN IM DECREASED GLUCOSE; Start 12/24/18 at 10:30 Glucose (Glutose) 15 gm Q15M PRN BUCCAL DECREASED GLUCOSE; Start 12/24/18 at 10:30 Epoetin Ever-epbx (RETACRIT(esrd)) 10,000 unit MoWeFr@17 SC Last administered on 12/29/18at 17:07; Admin Dose 10,000 UNIT; Start 12/25/18 at 17:00 Aspirin (Aspirin) 325 mg DAILY PO Last administered on 12/28/18 08:19; Admin Dose 325 MG; Start 12/26/18 at 10:00; Status Hold Metoprolol Tartrate (Lopressor) 50 mg BID PO Last administered on 01/01/19 08:21; Admin Dose 50 MG; Start 12/26/18 at 16:00 Insulin Aspart (Novolog Insulin Pen) NOVOLOG *MILD* ALGORITHM WITH MEALS BEDTIME SC Last administered on 01/01/19 08:37; Admin Dose 1 UNIT; Start 12/26/18 at 21:00 Insulin Glargine (Lantus) 6 units DAILY@2000 SC Last administered on 12/31/18 21:37; Admin Dose 6 UNITS; Start 12/27/18 at 20:00 Sevelamer Carbonate (Renvela) 800 mg WITH MEALS PO Last administered on 12/28/18 17:10; Admin Dose 800 MG; Start 12/28/18 at 12:00 Acetaminophen (Tylenol Supp) 650 mg Q6H PRN [place] PAIN; Start 12/29/18 at 07:30 Dextrose/Sodium Chloride 1,000 ml @ 30 mls/hr Q24H IV Last administered on 01/01/19at 01:51; Admin Dose 30 MLS/HR; Start 12/29/18 at 07:30 Metoprolol Tartrate (Lopressor) 5 mg Q6H PRN IV ELEVATED BLOOD PRESSURE; Start 12/29/18 at 08:00 Aspirin (Aspirin) 300 mg DAILY MD Last administered on 01/01/19at 08:21; Admin Dose 300 MG; Start 12/29/18 at 11:00 Heparin Sodium (Porcine) (Heparin (1000 Units/ml)) 4,000 unit AFTER DIALYSIS CATHETER ; Start 12/31/18 at 13:00 Sodium Chloride 1,000 ml @ 0 mls/hr Q0M PRN IV TO KEEP SBP ABOVE 90; Start 12/31/18 at 12:44 Albumin Human 100 ml @ 100 mls/hr WITH DIALYSIS PRN IV SBP <90 DURING DIALYSIS; Start 12/31/18 at 13:00 Sodium Chloride (NS) -To prime the dialy... DIRECTED FOR HD PRN IV HD; Start 12/31/18 at 13:00 Assessment/Plan Hospital Course (Demo Recall) IMP: 1. Hypercapnic Respiratory Failure--s/p extubation post CABG. Possibly due to a combination of volume overload and sedation. Reintubation x2. Now safely e xtubated, improving from pulmonary standpoint 2. Status post coronary artery bypass graft surgery 3. Status post cardiogenic shock 4. CHF/CAD 5. ESRD on HD 6. Anemia 7. LLL Atelectasis/infiltrate 8. Encephalopathy toxic metabolic, resolving 9. Dysphagia likely secondary to prolonged extubation encephalopathy RECS: 1. BDs/CPT 2. Continue HD/UF 3. PT/OT 4. Aspiration precautions May require significant placement Consider ROSARIO Porter MD, [facility] Jan 01, 2019 10:55
[2019-01-01] MEDS ORDERED: ALTEPLASE (CATHFLO) 2 MG INJ CATHETER ONE (13:30)
--- NOTE | 2019-01-01 13:35 | CONS ---
Assessment/Plan Assessment/Plan Hospital Course (Demo Recall) No acute events, confused, looks comfortable no fevers Antimicrobials: none Indwelling: Right upper extremity PICC line, left femoral Anam Physical examination: Well-developed chronically ill-appearing elderly man who is intubated in no distress. Head atraumatic normocephalic sclera nonicteric vehicle mucosa dry neck is supple chest rise symmetrical breath sounds with crackles. Heart S1-S2 abdomen soft bowel sounds hypoactive extremities cyanotic Assessment: 1. S/p sepsis with shock 2. S/p Healthcare associated pneumonia, possibly aspirated 3. Acute respiratory failure, status post extubation 4. Non-ST elevation IA status post CABG 12/15/18 5. 5. End-stage renal disease, hemodialysis dependent 6. Anemia Plan: Remains stable off abx, continue present care, aspiration and fall precautions, HD per renal Consultation Date/Type/Reason Admit Date/Time Dec 13, 2018 at 12:40 Initial Consult Date 12/16/18 Type of Consult id Date/Time of Note DATE: 01/01/19 TIME: 13:35 Exam/Review of Systems Exam Vitals Vital Signs Date Temp Pulse Resp B/P (MAP) Pulse Ox O2 O2 Flow FiO2 Time Delivery Rate 01/01/19 74 12:01 01/01/19 97.5 16 150/67 96 11:28 (94) 01/01/19 Nasal 2.0 08:30 Cannula Intake and Output 12/31/18 12/31/18 01/01/19 1515:00 23:00 07:00 IntakeIntake Total 0 ml 780 ml OutputOutput Total 2600 ml BalanceBalance -2600 ml 780 ml Results Result Diagram: 01/01/19 0455 01/01/19 0455 Results 24hrs Laboratory Tests Test 12/31/18 16:45 12/31/18 21:28 01/01/19 04:55 01/01/19 08:24 Bedside Glucose 124 156 156 White Blood Count 8.2 Red Blood Count 3.65 L Hemoglobin 10.6 L Hematocrit 34.5 L Mean Corpuscular Volume 94.5 Mean Corpuscular 29.0 Hemoglobin Mean Corpuscular 30.7 L Hemoglobin Concent Red Cell Distribution 16.3 H Width Platelet Count 262 Mean Platelet Volume 10.9 H Immature Granulocytes % 0.700 H Neutrophils % 72.5 Lymphocytes % 14.3 L Monocytes % 9.0 Eosinophils % 2.8 Basophils % 0.7 Nucleated Red Blood 0.0 Cells % Immature Granulocytes # 0.060 H Neutrophils # 5.9 Lymphocytes # 1.2 Monocytes # 0.7 Eosinophils # 0.2 Basophils # 0.1 Nucleated Red Blood 0.0 Cells # Sodium Level 138 Potassium Level 4.1 Chloride Level 101 Carbon Dioxide Level 22 Anion Gap 15 H Blood Urea Nitrogen 56 H Creatinine 6.65 H Est Glomerular Filtrat Rate mL/min Glucose Level 292 #H Calcium Level 8.3 L Phosphorus Level 5.5 H Magnesium Level 2.2 Test 01/01/19 12:06 Bedside Glucose 162 Medications Medication Current Medications Atorvastatin Calcium (Lipitor) 80 mg HS PO Last administered on 12/31/18at 21:24; Admin Dose 80 MG; Start 12/13/18 at 21:00 Heparin Sodium (Porcine) (Heparin (1000 Units/ml)) 3,000 unit PRN PRN CATHETER Dialysis Last administered on 12/29/18at 10:49; Admin Dose 3,000 UNIT; Start 12/17/18 at 19:00 Alteplase, Recombinant (Cathflo (Activase)) 4 mg MAY REPEAT X1 PRN CATHETER IF CATHETER REMAINS OCCULUDED Last administered on 12/31/18at 18:54; Admin Dose 4 MG; Start 12/20/18 at 17:00 Lansoprazole (Prevacid) 30 mg BID@0600,1800 GTB Last administered on 12/31/18at 05:36; Admin Dose 30 MG; Start 12/22/18 at 06:00 Albumin Human 100 ml @ 100 mls/hr DURING DIALYSIS PRN IV NOTE Last administered on 12/22/18at 14:06; Admin Dose 100 MLS/HR; Start 12/22/18 at 12:30 Miscellaneous Information 1 ea NOTE XX ; Start 12/24/18 at 10:30 Glucose (Glutose) 15 gm Q15M PRN PO DECREASED GLUCOSE; Start 12/24/18 at 10:30 Glucose (Glutose) 22.5 gm Q15M PRN PO DECREASED GLUCOSE; Start 12/24/18 at 10:30 Dextrose (D50w Syringe) 25 ml Q15M PRN IV DECREASED GLUCOSE; Start 12/24/18 at 10:30 Dextrose (D50w Syringe) 50 ml Q15M PRN IV DECREASED GLUCOSE; Start 12/24/18 at 10:30 Glucagon (Glucagen) 1 mg Q15M PRN IM DECREASED GLUCOSE; Start 12/24/18 at 10:30 Glucose (Glutose) 15 gm Q15M PRN BUCCAL DECREASED GLUCOSE; Start 12/24/18 at 10:30 Epoetin Ever-epbx (RETACRIT(esrd)) 10,000 unit MoWeFr@17 SC Last administered on 12/29/18at 17:07; Admin Dose 10,000 UNIT; Start 12/25/18 at 17:00 Aspirin (Aspirin) 325 mg DAILY PO Last administered on 12/28/18 08:19; Admin Dose 325 MG; Start 12/26/18 at 10:00; Status Hold Metoprolol Tartrate (Lopressor) 50 mg BID PO Last administered on 01/01/19 08:21; Admin Dose 50 MG; Start 12/26/18 at 16:00 Insulin Aspart (Novolog Insulin Pen) NOVOLOG *MILD* ALGORITHM WITH MEALS BEDTIME SC Last administered on 01/01/19at 12:10; Admin Dose 1 UNIT; Start 12/26/18 at 21:00 Insulin Glargine (Lantus) 6 units DAILY@2000 SC Last administered on 12/31/18at 21:37; Admin Dose 6 UNITS; Start 12/27/18 at 20:00 Acetaminophen (Tylenol Supp) 650 mg Q6H PRN [place] PAIN; Start 12/29/18 at 07:30 Metoprolol Tartrate (Lopressor) 5 mg Q6H PRN IV ELEVATED BLOOD PRESSURE; Start 12/29/18 at 08:00 Aspirin (Aspirin) 300 mg DAILY NV Last administered on 01/01/19at 08:21; Admin Dose 300 MG; Start 12/29/18 at 11:00 Heparin Sodium (Porcine) (Heparin (1000 Units/ml)) 4,000 unit AFTER DIALYSIS CATHETER ; Start 12/31/18 at 13:00 Sodium Chloride 1,000 ml @ 0 mls/hr Q0M PRN IV TO KEEP SBP ABOVE 90; Start 12/31/18 at 12:44 Albumin Human 100 ml @ 100 mls/hr WITH DIALYSIS PRN IV SBP <90 DURING DIALYSIS; Start 12/31/18 at 13:00 Sodium Chloride (NS) -To prime the dialy... DIRECTED FOR HD PRN IV HD; Start 12/31/18 at 13:00 Sevelamer Carbonate (Renvela) 0.8 gm WITH MEALS GTB ; Start 01/01/19 at 18:00 LASHELL LYNCH NP Jan 01, 2019 13:35
[2019-01-01] MEDS: SEVELAMER CARBONATE 0.8 GM PKT GTB SCH (17:20)
[2019-01-01] MEDS: EPOETIN ALFA-EPBX (ESRD) 10,000 UNIT/ML VIAL SC SCH (17:21)
[2019-01-01] MEDS: ATORVASTATIN 80 MG TAB PO SCH (20:06)
[2019-01-01] MEDS: INSULIN GLARGINE [LANTus] (100 UNITS/ML) SYG SC SCH (21:23)
--- NOTE | 2019-01-01 22:17 | CONS ---
DATE OF ADMISSION: 12/13/2018 DATE OF CONSULTATION: Thank you, Dr. Garcia, for your kind referral for evaluation of encephalopathy. HISTORY OF PRESENT ILLNESS: The patient is a 73-year-old gentleman who has a history of diabetes, en d-stage renal disease on hemodialysis, chronic diastolic congestive heart failure, coronary artery di sease status post stenting, hypertension, who presented with severe exertional dyspnea, mildly elevat ed troponins on 12/13/2018, who was diagnosed with non-ST elevation myocardial infarction and 3-vesse l coronary artery disease and underwent CABG on 12/15/2018. His hospitalizations since were complica grant with respiratory failure. He had failed extubation twice and extubated last time on 12/23/2018. He had episodes of PEA arrest with regaining spontaneous circulation after a brief CPR on 12/18. On going problems include status post sepsis, pneumonia likely aspiration, and ongoing confusion. He wo rks with Speech Therapy for evaluation and treatment of dysphagia. ALLERGIES: NONE. CURRENT MEDICATIONS: 1. Renvela. 2. Aspirin. 3. Lopressor. 4. Insulin. 5. Epoetin. 6. Lipitor 80. SOCIAL HISTORY: No alcohol, tobacco, drug use. FAMILY HISTORY: Noncontributory. LABORATORY DATA: His lab shows hemoglobin 10.6, hematocrit 34.5, platelets 262, normal WBC count. B UN 56, creatinine 6.6, calcium 8.3, phosphorus 5.5. Rest of basic metabolic panel within normal limi ts. Alkaline phosphatase a week ago 133. Rest of liver function tests within normal limits. PHYSICAL EXAMINATION: VITAL SIGNS: 97.8 temperature, 77 pulse, respirations 16, blood pressure 149/69. GENERAL: Not in acute distress, lying in bed. HEENT: Normocephalic, atraumatic head. NECK: No carotid bruits, lymphadenopathy, thyromegaly. LUNGS: Clear to auscultation bilaterally. HEART: Normal cardiac rhythm and sounds. ABDOMEN: Soft. EXTREMITIES: No cyanosis, clubbing or edema. NEUROLOGIC: He is awake, follows simple commands, has fluent speech though oriented x1 only. Presen t response to visual threat bilaterally. Pupils reactive from 3 to 2 mm bilaterally sluggishly. Ext raocular movements intact without nystagmus. Symmetrical face. Preserved facial strength and sensat ion. Tongue is in midline. Palate elevates symmetrically. Motor strength examination seems to be p reserved in all extremities. Normal bulk, tone and strength. Sensory examination shows diminution o f pinprick in bilateral feet and hands. Deep tendon reflexes: 2+ upper extremities and the knees, a bsent ankle jerks bilaterally. Equivocal response to plantar stimulation bilaterally. Coordination is preserved on pcaocr-nc-yemgog testing. No dysmetria or tremor. Gait was not assessed. IMAGING STUDIES: CAT scan of the head that was obtained on admission shows white matter disease, atr ophy, also small focal dilation of the distal right anterior cerebral artery which was confirmed as a small fusiform aneurysm approximately 3 x 2.4 mm in size. His left lung base consolidation is consistent with pneumonia with small pleural effusion. IMPRESSION: Encephalopathy, likely toxic-metabolic etiology plus/minus post anoxic given history of cardiopulmonary arrest. PLAN: Continue current treatment. For evaluation of encephalopathy, I will obtain EEG. I do not th ink anything should be done about the aneurysm at least presently especially given very small size of aneurysm, but followup with a neurosurgeon should be obtained. It is probably okay to do this on an outpatient basis at least to get suggestion how frequently to follow up on imaging of the vasculatur e. Thank you very much for this interesting consultation. Dictated By: ASHVIN PEDERSEN/EDUARD Conf#: [id number] DID#: [id number] CC: JAKY GARCIA DO; SAGRARIO POLLOCK MD;*EndCC*
[2019-01-02] VITALS (21 sets, daily range): BP systolic 106–187; BP diastolic 53–77; PULSE 69–80; RESP 16–18
[2019-01-02] MEDS: LANSOPRAZOLE 30 MG CAP GTB SCH ×2 (06:05→17:09)
[2019-01-02] MEDS: METOPROLOL 50 MG TAB PO SCH (08:09)
[2019-01-02] MEDS: SEVELAMER CARBONATE 0.8 GM PKT GTB SCH ×3 (08:09→17:09)
[2019-01-02] MEDS: BALSAM PERU/CASTOR OIL 60 GM TUBE TOP SCH (08:10)
[2019-01-02] MEDS: INSULIN ASPART [NOVOLOG] 3 ML PEN SC SCH ×3 (08:15→17:13)
--- NOTE | 2019-01-02 09:23 | DS ---
DATE OF ADMISSION: 12/13/2018 DATE OF DISCHARGE: 01/02/2019 HOSPITAL COURSE: This is a 73-year-old male with a past medical history of diabetes, end-stage renal disease, history of hypertension, anemia, diastolic heart failure, who presented initially to an out side hospital with chest pain. The patient was ruled in for acute coronary syndrome, was then transf erred to [facility] where he underwent cardiac catheterization and was found to hav e multivessel disease. The patient was recommended for CABG, was seen by surgeon, Dr. Gomes. The pa rajat had successful coronary artery bypass grafting. However, postoperatively, the patient's course was complicated with a cardiac arrest which was felt to be respiratory in nature. The patient had a prolonged period of intubation and was eventually extubated. The patient also noted to be septic wi th pneumonia. The patient was treated with antibiotic therapy. The patient, however, had a decline in mental status as he has been confused during the hospital course. The patient was seen by neurolo gist, Dr. Orourke, encephalopathy was possibly multifactorial. The patient during hospital course has also been receiving dialysis intermittently and tolerating well. Patient during hospital course also without evidence of intracranial aneurysm which is an incidental finding, but has been stable. The patient also noted to have dysphagia during the hospital course, was evaluated by speech therapy and is currently on a modified diet. Currently at this time, the patient is stable. However, given his significant decline in premorbid condition, the patient will be [facility] once bed is available. At the time of transfer, the patient is stable, no acute distress. FINAL DIAGNOSES: 1. Coronary artery disease status post coronary artery bypass graft. 2. Dysphagia. 3. Post-CABG pericarditis. 4. Sepsis secondary to healthcare-associated pneumonia. Patient is completing antibiotic course. 5. Respiratory failure, status post extubation. 6. End-stage renal disease. 7. Anemia. 8. Mineral bone disorder. 9. Diabetes. 10. Dyslipidemia. 11. Acute encephalopathy. 12. History of intracranial aneurysm. 13. Status post shock. 14. Status post cardiac arrest. FINAL MEDICATIONS: Please see reconciliation list. Please note I spent over 30 minutes of time preparing patient's discharge. Dictated By: JAKY WALSH/EDUARD Conf#: [id number] DID#: [id number] CC: SAGRARIO POLLOCK MD;*EndCC*
[2019-01-02] MEDS: ASPIRIN 325 MG TAB PO SCH (10:33)
--- NOTE | 2019-01-02 11:30 | CONS ---
Consult Date/Type/Reason Admit Date/Time Dec 13, 2018 at 12:40 Initial Consult Date 12/16/18 Type of Consult Pulmonary Date/Time of Note DATE: 01/02/19 TIME: 11:30 Subjective Patient stable this morning. No respiratory distress. Objective Vital Signs Date Temp Pulse Resp B/P (MAP) Pulse Ox O2 O2 Flow FiO2 Time Delivery Rate 01/02/19 Nasal 2.0 09:35 Cannula 01/02/19 80 08:01 01/02/19 98.4 16 187/77 96 07:40 (113) Intake and Output 01/01/19 01/01/19 01/02/19 1515:00 23:00 07:00 IntakeIntake Total 250 ml 300 ml BalanceBalance 250 ml 300 ml Exam GENERAL: VITAL SIGNS: Elderly gentleman NECK: Supple. No JVD or lymphadenopathy. CARDIAC EXAM: S1, S2. No added sounds or murmurs. CHEST: Diminished air entry bilaterally ABDOMEN: Soft, nontender. No guarding or rebound. EXTREMITIES: No cyanosis, clubbing or edema. NEUROLOGIC: Generalized weakness. Vent Setting Ventilator Support Mode: CPAP, PS Fraction of Inspired Oxygen pe: 21 Positive End Expiratory Pressu: 5.0 Results/Medications Result Diagram: 01/02/19 0534 01/02/19 0534 Results 24 hrs Laboratory Tests Test 01/01/19 12:06 01/01/19 17:19 01/01/19 20:03 01/02/19 05:34 Bedside Glucose 162 194 192 White Blood Count 9.3 Red Blood Count 3.72 L Hemoglobin 10.7 L Hematocrit 34.3 L Mean Corpuscular Volume 92.2 Mean Corpuscular 28.8 L Hemoglobin Mean Corpuscular 31.2 L Hemoglobin Concent Red Cell Distribution 16.0 H Width Platelet Count 254 Mean Platelet Volume 10.7 H Immature Granulocytes % 0.300 Neutrophils % 73.4 Lymphocytes % 14.7 L Monocytes % 8.4 Eosinophils % 2.3 Basophils % 0.9 Nucleated Red Blood 0.0 Cells % Immature Granulocytes # 0.030 Neutrophils # 6.8 Lymphocytes # 1.4 Monocytes # 0.8 Eosinophils # 0.2 Basophils # 0.1 Nucleated Red Blood 0.0 Cells # Sodium Level 140 Potassium Level 4.2 Chloride Level 102 Carbon Dioxide Level 22 Anion Gap 16 H Blood Urea Nitrogen 69 H Creatinine 7.90 H Est Glomerular Filtrat Rate mL/min Glucose Level 163 # Calcium Level 8.5 Phosphorus Level 6.9 H Magnesium Level 2.2 Test 01/02/19 08:08 Bedside Glucose 163 Medications Current Medications Atorvastatin Calcium (Lipitor) 80 mg HS PO Last administered on 01/01/19at 20:06; Admin Dose 80 MG; Start 12/13/18 at 21:00 Heparin Sodium (Porcine) (Heparin (1000 Units/ml)) 3,000 unit PRN PRN CATHETER Dialysis Last administered on 12/29/18at 10:49; Admin Dose 3,000 UNIT; Start 12/17/18 at 19:00 Alteplase, Recombinant (Cathflo (Activase)) 4 mg MAY REPEAT X1 PRN CATHETER IF CATHETER REMAINS OCCULUDED Last administered on 12/31/18at 18:54; Admin Dose 4 MG; Start 12/20/18 at 17:00 Lansoprazole (Prevacid) 30 mg BID@0600,1800 GTB Last administered on 01/02/19at 06:05; Admin Dose 30 MG; Start 12/22/18 at 06:00 Albumin Human 100 ml @ 100 mls/hr DURING DIALYSIS PRN IV NOTE Last administered on 12/22/18at 14:06; Admin Dose 100 MLS/HR; Start 12/22/18 at 12:30 Miscellaneous Information 1 ea NOTE XX ; Start 12/24/18 at 10:30 Glucose (Glutose) 15 gm Q15M PRN PO DECREASED GLUCOSE; Start 12/24/18 at 10:30 Glucose (Glutose) 22.5 gm Q15M PRN PO DECREASED GLUCOSE; Start 12/24/18 at 10:30 Dextrose (D50w Syringe) 25 ml Q15M PRN IV DECREASED GLUCOSE; Start 12/24/18 at 10:30 Dextrose (D50w Syringe) 50 ml Q15M PRN IV DECREASED GLUCOSE; Start 12/24/18 at 10:30 Glucagon (Glucagen) 1 mg Q15M PRN IM DECREASED GLUCOSE; Start 12/24/18 at 10:30 Glucose (Glutose) 15 gm Q15M PRN BUCCAL DECREASED GLUCOSE; Start 12/24/18 at 10:30 Epoetin Ever-epbx (RETACRIT(esrd)) 10,000 unit MoWeFr@17 SC Last administered on 01/01/19at 17:21; Admin Dose 10,000 UNIT; Start 12/25/18 at 17:00 Aspirin (Aspirin) 325 mg DAILY PO Last administered on 01/02/19at 10:33; Admin Dose 325 MG; Start 12/26/18 at 10:00 Metoprolol Tartrate (Lopressor) 50 mg BID PO Last administered on 01/02/19 08:09; Admin Dose 50 MG; Start 12/26/18 at 16:00 Insulin Aspart (Novolog Insulin Pen) NOVOLOG *MILD* ALGORITHM WITH MEALS BEDTIME SC Last administered on 01/02/19at 08:15; Admin Dose 1 UNIT; Start 12/26/18 at 21:00 Insulin Glargine (Lantus) 6 units DAILY@2000 SC Last administered on 01/01/19 21:23; Admin Dose 6 UNITS; Start 12/27/18 at 20:00 Acetaminophen (Tylenol Supp) 650 mg Q6H PRN NV PAIN; Start 12/29/18 at 07:30 Metoprolol Tartrate (Lopressor) 5 mg Q6H PRN IV ELEVATED BLOOD PRESSURE; Start 12/29/18 at 08:00 Heparin Sodium (Porcine) (Heparin (1000 Units/ml)) 4,000 unit AFTER DIALYSIS CATHETER ; Start 12/31/18 at 13:00 Sodium Chloride 1,000 ml @ 0 mls/hr Q0M PRN IV TO KEEP SBP ABOVE 90; Start 12/31/18 at 12:44 Albumin Human 100 ml @ 100 mls/hr WITH DIALYSIS PRN IV SBP <90 DURING DIALYS IS; Start 12/31/18 at 13:00 Sodium Chloride (NS) -To prime the dialy... DIRECTED FOR HD PRN IV HD; Start 12/31/18 at 13:00 Sevelamer Carbonate (Renvela) 0.8 gm WITH MEALS GTB Last administered on 08:09; Admin Dose 0.8 GM; Start 01/01/19 at 18:00 Assessment/Plan Hospital Course (Demo Recall) IMP: 1. Hypercapnic Respiratory Failure--s/p extubation post CABG. Possibly due to a combination of volume overload and sedation. Reintubation x2. Now safely ext ubated, improving from pulmonary standpoint 2. Status post coronary artery bypass graft surgery 3. Status post cardiogenic shock 4. CHF/CAD 5. ESRD on HD 6. Anemia 7. LLL Atelectasis/infiltrate 8. Encephalopathy toxic metabolic, resolving 9. Dysphagia likely secondary to prolonged extubation encephalopathy RECS: 1. BDs/CPT 2. Continue HD/UF 3. PT/OT 4. Aspiration precautions May require significant placement Consider ROSARIO Porter MD, [facility] Jan 02, 2019 11:30
[2019-01-02] MEDS ORDERED: ACETAMINOPHEN 325 MG TAB PO PRN (12:00)
--- NOTE | 2019-01-02 16:27 | CONS ---
Assessment/Plan Assessment/Plan Hospital Course (Demo Recall) No acute events, confused, looks comfortable no fevers Antimicrobials: none Indwelling: Right upper extremity PICC line, left femoral Anam Physical examination: Well-developed chronically ill-appearing elderly man who is intubated in no distress. Head atraumatic normocephalic sclera nonicteric vehicle mucosa dry neck is supple chest rise symmetrical breath sounds with crackles. Heart S1-S2 abdomen soft bowel sounds hypoactive extremities cyanotic Assessment: 1. S/p sepsis with shock 2. S/p Healthcare associated pneumonia, possibly aspirated 3. Acute respiratory failure, status post extubation 4. Non-ST elevation MO status post CABG 12/15/18 5. 5. End-stage renal disease, hemodialysis dependent 6. Anemia Plan: Remains stable off abx, pending discharge planning, pending discontinuation of femoral Anam and right upper extremity PICC line Consultation Date/Type/Reason Admit Date/Time Dec 13, 2018 at 12:40 Initial Consult Date 12/16/18 Type of Consult id Date/Time of Note DATE: 01/02/19 TIME: 16:26 Exam/Review of Systems Exam Vitals Vital Signs Date Temp Pulse Resp B/P (MAP) Pulse Ox O2 O2 Flow FiO2 Time Delivery Rate 01/02/19 98.7 78 16 135/63 97 15:40 (87) 01/02/19 Room Air 11:17 01/02/19 2.0 09:35 Intake and Output 01/01/19 01/01/19 01/02/19 1515:00 23:00 07:00 IntakeIntake Total 250 ml 300 ml BalanceBalance 250 ml 300 ml Results Result Diagram: 01/02/19 0534 01/02/19 0534 Results 24hrs Laboratory Tests Test 01/01/19 17:19 01/01/19 20:03 01/02/19 05:34 01/02/19 08:08 Bedside Glucose 194 192 163 White Blood Count 9.3 Red Blood Count 3.72 L Hemoglobin 10.7 L Hematocrit 34.3 L Mean Corpuscular Volume 92.2 Mean Corpuscular 28.8 L Hemoglobin Mean Corpuscular 31.2 L Hemoglobin Concent Red Cell Distribution 16.0 H Width Platelet Count 254 Mean Platelet Volume 10.7 H Immature Granulocytes % 0.300 Neutrophils % 73.4 Lymphocytes % 14.7 L Monocytes % 8.4 Eosinophils % 2.3 Basophils % 0.9 Nucleated Red Blood 0.0 Cells % Immature Granulocytes # 0.030 Neutrophils # 6.8 Lymphocytes # 1.4 Monocytes # 0.8 Eosinophils # 0.2 Basophils # 0.1 Nucleated Red Blood 0.0 Cells # Sodium Level 140 Potassium Level 4.2 Chloride Level 102 Carbon Dioxide Level 22 Anion Gap 16 H Blood Urea Nitrogen 69 H Creatinine 7.90 H Est Glomerular Filtrat Rate mL/min Glucose Level 163 # Calcium Level 8.5 Phosphorus Level 6.9 H Magnesium Level 2.2 Test 01/02/19 12:24 Bedside Glucose 159 Medications Medication Current Medications Atorvastatin Calcium (Lipitor) 80 mg HS PO Last administered on 01/01/19at 20:06; Admin Dose 80 MG; Start 12/13/18 at 21:00 Heparin Sodium (Porcine) (Heparin (1000 Units/ml)) 3,000 unit PRN PRN CATHETER Dialysis Last administered on 12/29/18at 10:49; Admin Dose 3,000 UNIT; Start 12/17/18 at 19:00 Alteplase, Recombinant (Cathflo (Activase)) 4 mg MAY REPEAT X1 PRN CATHETER IF CATHETER REMAINS OCCULUDED Last administered on 12/31/18at 18:54; Admin Dose 4 MG; Start 12/20/18 at 17:00 Lansoprazole (Prevacid) 30 mg BID@0600,1800 GTB Last administered on 01/02/19at 06:05; Admin Dose 30 MG; Start 12/22/18 at 06:00 Albumin Human 100 ml @ 100 mls/hr DURING DIALYSIS PRN IV NOTE Last administered on 12/22/18at 14:06; Admin Dose 100 MLS/HR; Start 12/22/18 at 12:30 Miscellaneous Information 1 ea NOTE XX ; Start 12/24/18 at 10:30 Glucose (Glutose) 15 gm Q15M PRN PO DECREASED GLUCOSE; Start 12/24/18 at 10:30 Glucose (Glutose) 22.5 gm Q15M PRN PO DECREASED GLUCOSE; Start 12/24/18 at 10:30 Dextrose (D50w Syringe) 25 ml Q15M PRN IV DECREASED GLUCOSE; Start 12/24/18 at 10:30 Dextrose (D50w Syringe) 50 ml Q15M PRN IV DECREASED GLUCOSE; Start 12/24/18 at 10:30 Glucagon (Glucagen) 1 mg Q15M PRN IM DECREASED GLUCOSE; Start 12/24/18 at 10:30 Glucose (Glutose) 15 gm Q15M PRN BUCCAL DECREASED GLUCOSE; Start 12/24/18 at 10:30 Epoetin Ever-epbx (RETACRIT(esrd)) 10,000 unit MoWeFr@17 SC Last administered on 01/01/19at 17:21; Admin Dose 10,000 UNIT; Start 12/25/18 at 17:00 Aspirin (Aspirin) 325 mg DAILY PO Last administered on 01/02/19at 10:33; Admin Dose 325 MG; Start 12/26/18 at 10:00 Metoprolol Tartrate (Lopressor) 50 mg BID PO Last administered on 01/02/19at 0 8:09; Admin Dose 50 MG; Start 12/26/18 at 16:00 Insulin Aspart (Novolog Insulin Pen) NOVOLOG *MILD* ALGORITHM WITH MEALS BEDTIME SC Last administered on 01/02/19 12:33; Admin Dose 1 UNIT; Start at 21:00 Insulin Glargine (Lantus) 6 units DAILY@2000 SC Last administered on 01/01/19 21:23; Admin Dose 6 UNITS; Start 12/27/18 at 20:00 Metoprolol Tartrate (Lopressor) 5 mg Q6H PRN IV ELEVATED BLOOD PRESSURE; Start 12/29/18 at 08:00 Heparin Sodium (Porcine) (Heparin (1000 Units/ml)) 4,000 unit AFTER DIALYSIS CATHETER ; Start 12/31/18 at 13:00 Sodium Chloride 1,000 ml @ 0 mls/hr Q0M PRN IV TO KEEP SBP ABOVE 90; Start 12/31/18 at 12:44 Albumin Human 100 ml @ 100 mls/hr WITH DIALYSIS PRN IV SBP <90 DURING DIALYSIS; Start 12/31/18 at 13:00 Sodium Chloride (NS) -To prime the dialy... DIRECTED FOR HD PRN IV HD; Start 12/31/18 at 13:00 Sevelamer Carbonate (Renvela) 0.8 gm WITH MEALS GTB Last administered on 01/02/19at 12:25; Admin Dose 0.8 GM; Start 01/01/19 at 18:00 Acetaminophen (Tylenol Tab) 650 mg Q6H PRN PO MILD PAIN(1-3)OR ELEVATED TEMP Last administered on 01/02/19at 12:25; Admin Dose 650 MG; Start 01/02/19 at 12:00 LASHELL LYNCH NP Jan 02, 2019 16:27
--- NOTE | 2019-01-02 18:06 | CONS ---
Assessment/Plan Assessment/Plan Hospital Course (Demo Recall) Dysphagia: resolving Post CABG Pericarditis: diffuse ST elevation on EKG, rub on exam, and echo with normal EF and wall motion. Mild trops 0.8 as expected. Resolved Status post PEA arrest - primary event appears to be respiratory distress, hypoxia, and resultant bradycardia; ROSC after brief CPR 12/18 Acute hypoxic respiratory failure - failed extubation twice including 12/18/2018, extubated again 12/23 and doing well Acute on chronic diastolic heart failure: euvolemic now Possible pneumonia - on antibiotics Coronary artery disease - status post CABG x4 (CHENG-LAD, SVG-PDA, SVG-diag-OM) on 12/15/2018 Status post NSTEMI Hypertension End-stage renal disease - on hemodialysis Likely anoxic brain injury -ASA 325mg PO daily -metoprolol 50mg BID -atorvastatin 80mg -HD per nephrology Ok for d/c Consultation Date/Type/Reason Admit Date/Time Dec 13, 2018 at 12:40 Initial Consult Date Type of Consult Cardiology Date/Time of Note DATE: 01/02/19 TIME: 18:04 24 HR Interval Summary Free Text/Dictation Tolerating PO. Discharge to SNF today Exam/Review of Systems Vital Signs Vitals Vital Signs Date Temp Pulse Resp B/P (MAP) Pulse Ox O2 O2 Flow FiO2 Time Delivery Rate 01/02/19 98.7 78 16 135/63 97 15:40 (87) 01/02/19 Room Air 11:17 01/02/19 2.0 09:35 Intake and Output 01/01/19 01/01/19 01/02/19 1515:00 23:00 07:00 IntakeIntake Total 250 ml 300 ml BalanceBalance 250 ml 300 ml Exam Constitutional: alert; No oriented Neck: No jvd Respiratory: diminished breath sounds; No clear to auscultation Cardiovascular: regular rate and rhythm; No edema, No systolic murmur Gastrointestinal: soft, non-tender; No distended Neurological: nl mental status Labs Result Diagram: 01/02/19 0534 01/02/19 0534 Results 24hrs Laboratory Tests Test 01/01/19 20:03 01/02/19 05:34 01/02/19 08:08 01/02/19 12:24 Bedside Glucose 192 163 159 White Blood Count 9.3 Red Blood Count 3.72 L Hemoglobin 10.7 L Hematocrit 34.3 L Mean Corpuscular Volume 92.2 Mean Corpuscular 28.8 L Hemoglobin Mean Corpuscular 31.2 L Hemoglobin Concent Red Cell Distribution 16.0 H Width Platelet Count 254 Mean Platelet Volume 10.7 H Immature Granulocytes % 0.300 Neutrophils % 73.4 Lymphocytes % 14.7 L Monocytes % 8.4 Eosinophils % 2.3 Basophils % 0.9 Nucleated Red Blood 0.0 Cells % Immature Granulocytes # 0.030 Neutrophils # 6.8 Lymphocytes # 1.4 Monocytes # 0.8 Eosinophils # 0.2 Basophils # 0.1 Nucleated Red Blood 0.0 Cells # Sodium Level 140 Potassium Level 4.2 Chloride Level 102 Carbon Dioxide Level 22 Anion Gap 16 H Blood Urea Nitrogen 69 H Creatinine 7.90 H Est Glomerular Filtrat Rate mL/min Glucose Level 163 # Calcium Level 8.5 Phosphorus Level 6.9 H Magnesium Level 2.2 Test 01/02/19 17:08 Bedside Glucose 181 Medications Medications Current Medications Atorvastatin Calcium (Lipitor) 80 mg HS PO Last administered on 01/01/19at 20:06; Admin Dose 80 MG; Start 12/13/18 at 21:00 Heparin Sodium (Porcine) (Heparin (1000 Units/ml)) 3,000 unit PRN PRN CATHETER Dialysis Last administered on 12/29/18 10:49; Admin Dose 3,000 UNIT; Start 12/17/18 at 19:00 Alteplase, Recombinant (Cathflo (Activase)) 4 mg MAY REPEAT X1 PRN CATHETER IF CATHETER REMAINS OCCULUDED Last administered on 12/31/18at 18:54; Admin Dose 4 MG; Start 12/20/18 at 17:00 Lansoprazole (Prevacid) 30 mg BID@0600,1800 GTB Last administered on 01/02/19at 17:09; Admin Dose 30 MG; Start 12/22/18 at 06:00 Albumin Human 100 ml @ 100 mls/hr DURING DIALYSIS PRN IV NOTE Last administered on 12/22/18at 14:06; Admin Dose 100 MLS/HR; Start 12/22/18 at 12:30 Miscellaneous Information 1 ea NOTE XX ; Start 12/24/18 at 10:30 Glucose (Glutose) 15 gm Q15M PRN PO DECREASED GLUCOSE; Start 12/24/18 at 10:30 Glucose (Glutose) 22.5 gm Q15M PRN PO DECREASED GLUCOSE; Start 12/24/18 at 10:30 Dextrose (D50w Syringe) 25 ml Q15M PRN IV DECREASED GLUCOSE; Start 12/24/18 at 10:30 Dextrose (D50w Syringe) 50 ml Q15M PRN IV DECREASED GLUCOSE; Start 12/24/18 at 10:30 Glucagon (Glucagen) 1 mg Q15M PRN IM DECREASED GLUCOSE; Start 12/24/18 at 10:30 Glucose (Glutose) 15 gm Q15M PRN BUCCAL DECREASED GLUCOSE; Start 12/24/18 at 1 0:30 Epoetin Ever-epbx (RETACRIT(esrd)) 10,000 unit MoWeFr@17 SC Last administered on 01/01/19at 17:21; Admin Dose 10,000 UNIT; Start 12/25/18 at 17:00 Aspirin (Aspirin) 325 mg DAILY PO Last administered on 01/02/19at 10:33; Admin Dose 325 MG; Start 12/26/18 at 10:00 Metoprolol Tartrate (Lopressor) 50 mg BID PO Last administered on 01/02/19at 08:09; Admin Dose 50 MG; Start 12/26/18 at 16:00 Insulin Aspart (Novolog Insulin Pen) NOVOLOG *MILD* ALGORITHM WITH MEALS BEDTIME SC Last administered on 01/02/19at 17:13; Admin Dose 2 UNIT; Start 12/26/18 at 21:00 Insulin Glargine (Lantus) 6 units DAILY@2000 SC Last administered on 01/01/19at 21:23; Admin Dose 6 UNITS; Start 12/27/18 at 20:00 Metoprolol Tartrate (Lopressor) 5 mg Q6H PRN IV ELEVATED BLOOD PRESSURE; Start 12/29/18 at 08:00 Heparin Sodium (Porcine) (Heparin (1000 Units/ml)) 4,000 unit AFTER DIALYSIS CATHETER ; Start 12/31/18 at 13:00 Sodium Chloride 1,000 ml @ 0 mls/hr Q0M PRN IV TO KEEP SBP ABOVE 90; Start 12/31/18 at 12:44 Albumin Human 100 ml @ 100 mls/hr WITH DIALYSIS PRN IV SBP <90 DURING DIALYSIS; Start 12/31/18 at 13:00 Sodium Chloride (NS) -To prime the dialy... DIRECTED FOR HD PRN IV HD; Start 12/31/18 at 13:00 Sevelamer Carbonate (Renvela) 0.8 gm WITH MEALS GTB Last administered on 01/02/19at 17:09; Admin Dose 0.8 GM; Start 01/01/19 at 18:00 Acetaminophen (Tylenol Tab) 650 mg Q6H PRN PO MILD PAIN(1-3)OR ELEVATED TEMP Last administered on 01/02/19at 12:25; Admin Dose 650 MG; Start 01/02/19 at 12:00 SAGRARIO POLLOCK Jan 02, 2019 18:06
--- NOTE | 2019-01-04 01:20 | SP ---
DATE OF PROCEDURE: 01/02/2019 INDICATION: A 73-year-old gentleman with a myocardial infarction, status post CABG, cardiopulmonary arrest, status post respiratory failure, renal insufficiency, encephalopathic. DESCRIPTION OF PROCEDURE: Routine EEG was recorded digitally. [id number]-rdvyn and yqvje-rh-[id number] nitin ges were recorded and reviewed. All impedances were measured and recorded. Cap electrodes were plac ed in accordance to International 10-20 system of electrode placement. A great deal of movement and muscle artifacts present throughout the recording degrading quality of t he study secondary to patient's restlessness. FINDINGS: Background activity of low to medium amplitude ranging in frequency between 4 to 6 cycles per second was seen throughout the recording. Photic stimulation produces no definite driving. Occa sional triphasic waves not rhythmical were observed. No definite epileptiform transients were seen. No signs of ongoing electrographic seizures. No lateralized slowing seen. IMPRESSION: Abnormal study secondary to background slowing along with presence of triphasic waves, r eflect encephalopathy, toxic metabolic etiology. Correlate clinically. Dictated By: ASHVIN PEDERSEN/EDUARD Conf#: [id number] DID#: [id number]
== END 2019-01-02 19:45 | DRG 233 ==
LOC: SDS 08:37 → CCL 08:37 → REC 12:40 → TEL 17:25 → ICU 12-15 12:30 → 6WM 12-26 18:56
PROVIDERS: ADMIT Internal Medicine Interventional Cardiology; ATTEND Internal Medicine Interventional Cardiology
PROC: B211YZZ Fluoroscopy of Multiple Coronary Arteries using Other Contrast (ICD-10-PCS; 2018-12-13)
PROC: 4A033BC Measurement of Arterial Pressure, Coronary, Percutaneous Approach (ICD-10-PCS; 2018-12-13)
PROC: 30233K1 Transfusion of Nonautologous Frozen Plasma into Peripheral Vein, Percutaneous Approach (ICD-10-PCS; 2018-12-13)
PROC: 30233R1 Transfusion of Nonautologous Platelets into Peripheral Vein, Percutaneous Approach (ICD-10-PCS; 2018-12-13)
PROC: 5A1D70Z Performance of Urinary Filtration, Intermittent, Less than 6 Hours Per Day (ICD-10-PCS; 2018-12-13)
PROC: 4A023N7 Measurement of Cardiac Sampling and Pressure, Left Heart, Percutaneous Approach (ICD-10-PCS; 2018-12-13 11:00)
PROC: 02100Z9 Bypass Coronary Artery, One Artery from Left Internal Mammary, Open Approach (ICD-10-PCS; 2018-12-15)
PROC: 06BP4ZZ Excision of Right Saphenous Vein, Percutaneous Endoscopic Approach (ICD-10-PCS; 2018-12-15)
PROC: 0JPTXXZ Removal of Tunneled Vascular Access Device from Trunk Subcutaneous Tissue and Fascia, External Approach (ICD-10-PCS; 2018-12-15)
PROC: 02PYX3Z Removal of Infusion Device from Great Vessel, External Approach (ICD-10-PCS; 2018-12-15)
PROC: 5A1221Z Performance of Cardiac Output, Continuous (ICD-10-PCS; 2018-12-15)
PROC: 5A1223Z Performance of Cardiac Pacing, Continuous (ICD-10-PCS; 2018-12-15)
PROC: 30233N1 Transfusion of Nonautologous Red Blood Cells into Peripheral Vein, Percutaneous Approach (ICD-10-PCS; 2018-12-15)
PROC: 021209W Bypass Coronary Artery, Three Arteries from Aorta with Autologous Venous Tissue, Open Approach (ICD-10-PCS; principal; 2018-12-15 08:00)
PROC: 5A1955Z Respiratory Ventilation, Greater than 96 Consecutive Hours (ICD-10-PCS; 2018-12-16)
PROC: 0BH17EZ Insertion of Endotracheal Airway into Trachea, Via Natural or Artificial Opening (ICD-10-PCS; 2018-12-16)
PROC: 06HY33Z Insertion of Infusion Device into Lower Vein, Percutaneous Approach (ICD-10-PCS; 2018-12-16)
PROC: 0BH17EZ Insertion of Endotracheal Airway into Trachea, Via Natural or Artificial Opening (ICD-10-PCS; 2018-12-18)
PROC: 5A12012 Performance of Cardiac Output, Single, Manual (ICD-10-PCS; 2018-12-18)
PROC: 02HV33Z Insertion of Infusion Device into Superior Vena Cava, Percutaneous Approach (ICD-10-PCS; 2018-12-23)
DX: I21.4 Non-ST elevation (NSTEMI) myocardial infarction (principal); I50.33 Acute on chronic diastolic (congestive) heart failure; N18.6 End stage renal disease; R57.0 Cardiogenic shock; G92 Toxic encephalopathy; A41.9 Sepsis, unspecified organism; J69.0 Pneumonitis due to inhalation of food and vomit; R65.21 Severe sepsis with septic shock; I46.9 Cardiac arrest, cause unspecified; J96.01 Acute respiratory failure with hypoxia; J96.92 Respiratory failure, unspecified with hypercapnia; I13.2 Hypertensive heart and chronic kidney disease with heart failure and with stage 5 chronic kidney disease, or end stage renal disease; I31.9 Disease of pericardium, unspecified; J98.11 Atelectasis; D62 Acute posthemorrhagic anemia; G93.1 Anoxic brain damage, not elsewhere classified; D63.1 Anemia in chronic kidney disease; D69.6 Thrombocytopenia, unspecified; E78.5 Hyperlipidemia, unspecified; E11.9 Type 2 diabetes mellitus without complications; E87.5 Hyperkalemia; E83.41 Hypermagnesemia; E87.70 Fluid overload, unspecified; I67.1 Cerebral aneurysm, nonruptured; I25.110 Atherosclerotic heart disease of native coronary artery with unstable angina pectoris; I24.9 Acute ischemic heart disease, unspecified; J44.9 Chronic obstructive pulmonary disease, unspecified; J40 Bronchitis, not specified as acute or chronic; R13.10 Dysphagia, unspecified; Z98.61 Coronary angioplasty status; Z99.2 Dependence on renal dialysis
CPT/HCPCS: 31500; 36430; 36569; 36600; 70450; 70496; 71045; 71250; 74177; 74230; 76937; 80048; 80053; 80202; 82803; 82962; 83605; 83735; 84100; 84484; 85014; 85025; 85610; 85730; 86644; 86850; 86900; 86901; 86920; 86945; 87070; 87081; 87340; 89220; 90935; 92526; 92610; 92611; 92950; 93005; 93306; 93312; 93325; 93458; 93571; 93880; 94002; 94003; 94660; 94770; 95819; 97163; 97530; C1752; C1887; J0171; J0583; J0690; J0692; J1170; J1265; J1642; J1644; J1815; J2001; J2060; J2185; J2250; J2260; J2270; J2370; J2440; J2720; J2997; J3010; J3370; J3475; J3480; J7030; J7040; J7042; J7070; P9016; P9035; P9045; P9047; P9059; Q4081; Q5105; Q9967